=== PATIENT | female | born 1965 ===

== ENCOUNTER → 2020-10-14 11:26 | Outpatient (BNVA) | payer OTHER, SELFPAY | PROVIDERS: PCP Internal Medicine; Referring Provider Internal Medicine; Visit Provider Nurse Practitioner Gerontology | DX: Z76.89 Persons encountering health services in other specified circumstances (principal) ==

== ENCOUNTER 2020-10-30 12:34 | Outpatient (REF) | payer OTHER, SELFPAY | END 2020-10-30 12:35 | disposition home or self-care (01) | LOC: HO.MAMMO 12:34 | PROVIDERS: PCP Internal Medicine; Visit Provider Internal Medicine | DX: Z13.89 Encounter for screening for other disorder (principal) ==

== ENCOUNTER → 2020-11-18 10:25 | Outpatient (BNVA) | payer OTHER, SELFPAY | PROVIDERS: PCP Internal Medicine; Referring Provider Internal Medicine; Visit Provider Nurse Practitioner Gerontology | DX: Z76.89 Persons encountering health services in other specified circumstances (principal) ==

== ENCOUNTER 2021-01-20 11:24 | Outpatient (REF) | payer OTHER, SELFPAY ==
[2021-01-20 13:10] LABS: Estimated Average Glucose 148 mg/dL; Hemoglobin A1c % 6.8 %
[2021-01-20 13:43] LABS: Alanine Aminotransferase 24 U/L (0-31); Albumin Level 4.6 g/dL (3.5-5.0); Alkaline Phosphatase 62 U/L (39-117); Anion Gap 16 (12-20); Aspartate Amino Transferase 19 U/L (5-31); Bilirubin Total 0.4 mg/dL (0.0-1.0); Blood Urea Nitrogen 28 mg/dL (9-16); Calcium 10.2 mg/dL (8.4-10.2); Carbon Dioxide 33 mmol/L (22-29); Chloride 97 mmol/L (96-108); Cholesterol 143 mg/dL; Estimated Glomerular Filt Rate > 60; Glucose Fasting 132 mg/dL (60-99); HDL Cholesterol 44 mg/dL; LDL Cholesterol Calculated 65 mg/dl; Potassium 3.8 mmol/L (3.3-5.1); Sodium 142 mmol/L (135-145); Total Protein 7.5 g/dL (6.5-8.0); Triglycerides 171 mg/dL
[2021-01-24 13:17] LABS: Vitamin D 25-OH, D2 <4 ng/mL; Vitamin D 25-OH, D3 55 ng/mL; Vitamin D 25-OH, Total 55 ng/mL (30-100)
== END 2021-01-20 11:25 | disposition home or self-care (01) ==
LOC: HO.LAB 11:24
PROVIDERS: Nurse Practitioner Gerontology; PCP Internal Medicine; Visit Provider Internal Medicine
DX: R00.0 Tachycardia, unspecified (principal); E11.65 Type 2 diabetes mellitus with hyperglycemia; I10 Essential (primary) hypertension; E78.5 Hyperlipidemia, unspecified; E55.9 Vitamin D deficiency, unspecified; K21.9 Gastro-esophageal reflux disease without esophagitis; Z88.6 Allergy status to analgesic agent; Z90.49 Acquired absence of other specified parts of digestive tract; Z90.710 Acquired absence of both cervix and uterus; Z79.4 Long term (current) use of insulin; Z79.899 Other long term (current) drug therapy
CPT/HCPCS: 36415; 80053; 80061; 82306; 83036; 93005; 99202

== ENCOUNTER 2021-02-01 10:40 | Outpatient (REF) | payer OTHER, SELFPAY ==
--- NOTE | ~2021-02-01 | US_ITS ---
EXAMINATION: US RETROPERITONEAL LIMITED (RENAL ONLY) CLINICAL INFORMATION: Renal stones. COMPARISON: Renal ultrasound 08/10/2020 TECHNIQUE: Real-time imaging of the kidneys. FINDINGS: RIGHT KIDNEY: 10.2 x 4.6 x 5.0 cm (SAG x AP x TRV). The kidney is normal in size, contour, and echogenicity. Renal cortical thickness is normal. No hydronephrosis. There is an exophytic mid pole simple cyst measuring 2.6 x 2.5 x 2.9 cm. Midpole cortical cyst measures 1.5 cm. Appearance of a medullary sponge kidney with medullary calcification throughout. There is a lower pole calculus measuring 0.5 cm noted. There is an upper pole 0.7 cm calculus. LEFT KIDNEY: 10.6 x 4.9 x 7.2 cm (SAG x AP x TRV). The kidney is normal in size, contour, and echogenicity. Renal cortical thickness is normal. No hydronephrosis. Midpole simple cyst measures 4.9 x 4.4 x 4.5 cm. Appearance of medullary sponge kidney as well. Midpole 0.4 cm and 0.3 cm calculi noted. US/US renal BI IMPRESSION: No hydronephrosis. Appearance of medullary sponge kidney. Nonobstructing bilateral renal calculi, possibly decreased in prominence from prior. Bilateral renal cysts without significant change..
--- NOTE | ~2021-02-01 | XR_ITS ---
EXAMINATION: XR KNEE, RIGHT CLINICAL INFORMATION: Pain in the right knee COMPARISON: 07/12/2018 TECHNIQUE: Two views of the right knee. This includes AP upright view. FINDINGS: No fracture or subluxation. Compartmental joint spaces are maintained. Small tricompartmental marginal osteophytes, greatest at the lateral compartment. This is unchanged. No joint effusion. XR/XR knee RT 2V IMPRESSION: Mild tricompartmental degenerative change which is similar to prior.
== END 2021-02-01 10:41 | disposition home or self-care (01) ==
LOC: HO.US 10:40
PROVIDERS: Absent Provider Nurse Practitioner Family; PCP Internal Medicine; Visit Provider Urology
DX: M25.561 Pain in right knee (principal); N20.0 Calculus of kidney
CPT/HCPCS: 73560; 76775

== ENCOUNTER 2021-02-18 08:32 | Outpatient (REF) | payer OTHER, SELFPAY ==
[2021-02-18 09:46] LABS: MANUAL DIFF FLAG NO
[2021-02-18 09:54] LABS: Basophils Percent Auto 0.3 % (0-2); Eosinophils Absolute Auto 0.5 X10*3/uL (0.0-0.4); Hematocrit 42.7 % (37-47); Hemoglobin 13.5 g/dl (12.0-16.0); Imm Gran Abs Auto 0.02 X10*3/uL (0.00-0.03); Imm Gran Pct Auto 0.2 % (0.0-0.4); Lymphocytes Absolute Auto 3.9 X10*3/uL (1.2-4.9); Lymphocytes Percent Auto 36.1 % (20-40); Mean Corpuscular HGB Conc 31.6 g/dl (31.0-35.0); Mean Corpuscular Hemoglobin 26.5 pg (27.0-33.0); Mean Corpuscular Volume 83.9 fL (80-98); Mean Platelet Volume 10.5 fL (9.4-12.3); Monocytes Percent Auto 9.2 % (2-11); Neutrophils Absolute Auto 5.3 X10*3/uL (2.0-8.3); Neutrophils Percent Auto 49.2 % (45-73); Platelet Count 310 X10*3/uL (160-400); Red Blood Count 5.09 X10*6/uL (4.20-5.50); Red Cell Distribution Width 14.1 % (11.0-16.0); White Blood Count 10.9 X10*3/uL (4.8-10.8)
[2021-02-18 10:05] LABS: Estimated Average Glucose 140 mg/dL; Hemoglobin A1c % 6.5 %
[2021-02-18 10:21] LABS: Alanine Aminotransferase 26 U/L (0-31); Albumin Level 4.4 g/dL (3.5-5.0); Alkaline Phosphatase 66 U/L (39-117); Anion Gap 14 (12-20); Aspartate Amino Transferase 22 U/L (5-31); Bilirubin Total 0.4 mg/dL (0.0-1.0); Blood Urea Nitrogen 22 mg/dL (9-16); Calcium 9.8 mg/dL (8.4-10.2); Carbon Dioxide 35 mmol/L (22-29); Chloride 96 mmol/L (96-108); Cholesterol 120 mg/dL; Estimated Glomerular Filt Rate > 60; Glucose Fasting 110 mg/dL (60-99); HDL Cholesterol 39 mg/dL; LDL Cholesterol Calculated 58 mg/dl; Sodium 141 mmol/L (135-145); Triglycerides 118 mg/dL
[2021-02-18 10:42] LABS: Creatinine Urine 90.16 mg/dL; Microalbum/Creatinine Ratio Ur 236.2 ug/mg cr
[2021-02-24 11:32] LABS: Vitamin D 25-OH, D2 <4 ng/mL; Vitamin D 25-OH, D3 54 ng/mL; Vitamin D 25-OH, Total 54 ng/mL (30-100)
== END 2021-02-18 08:33 | disposition home or self-care (01) ==
LOC: HO.LAB 08:32
PROVIDERS: Nurse Practitioner Family; PCP Internal Medicine; Visit Provider Internal Medicine
DX: E11.22 Type 2 diabetes mellitus with diabetic chronic kidney disease (principal); I12.9 Hypertensive chronic kidney disease with stage 1 through stage 4 chronic kidney disease, or unspecified chronic kidney disease; N18.9 Chronic kidney disease, unspecified; D63.1 Anemia in chronic kidney disease; E11.40 Type 2 diabetes mellitus with diabetic neuropathy, unspecified; E11.65 Type 2 diabetes mellitus with hyperglycemia; E78.00 Pure hypercholesterolemia, unspecified; K21.9 Gastro-esophageal reflux disease without esophagitis; M10.9 Gout, unspecified; E55.9 Vitamin D deficiency, unspecified; E78.5 Hyperlipidemia, unspecified; Z79.84 Long term (current) use of oral hypoglycemic drugs; Z79.899 Other long term (current) drug therapy; Z79.4 Long term (current) use of insulin
CPT/HCPCS: 36415; 80053; 80061; 82043; 82306; 83036; 85025

== ENCOUNTER 2021-03-17 12:05 | Outpatient (REF) | payer OTHER, SELFPAY ==
--- NOTE | ~2021-03-17 | MM_ITS ---
EXAMINATION: MM SCREENING DIGITAL BREAST TOMOSYNTHESIS, BILATERAL CLINICAL INFORMATION: Screening. Asymptomatic. The lifetime risk of breast cancer based on the Tyrer-Cuzick Model is 7.3%. COMPARISON: Mammography: April 15, 2019 and studies dating back to April 10, 2012 TECHNIQUE: Digital breast tomosynthesis is performed in both the craniocaudal and mediolateral oblique views along with computer-aided detection (CAD). Synthesized 2D images are generated from the tomosynthesis. FINDINGS: There are scattered areas of fibroglandular density (ACR BI-RADS breast composition Category b). There are no significant masses, abnormal calcifications, or other abnormalities. MM/MM tomosynthesis screening BI IMPRESSION: There are no significant changes from prior study. ASSESSMENT: BI-RADS 1: Negative RECOMMENDATION: Routine annual mammography screening. This patient's information was entered into a reminder system with a target due date for their next mammogram.
== END 2021-03-17 12:06 | disposition home or self-care (01) ==
LOC: HO.MAMMO 12:05
PROVIDERS: PCP Internal Medicine; Visit Provider Internal Medicine
DX: Z12.31 Encounter for screening mammogram for malignant neoplasm of breast (principal)
CPT/HCPCS: 77063; 77067

== ENCOUNTER → 2021-04-09 09:14 | Outpatient (REF) | payer OTHER, SELFPAY ==
--- NOTE | 2021-04-09 09:22 | ECG_ITS ---
Hook-up date: 2021-04-09 10:14:00 Duration: 47:59:00 Test Indications: PALPITATIONS Medications: [id number] QRS complexes 641 Ventricular ectopics which represent <1 % of total QRS comp. 35 Supraventricular ectopics which represent <1 % of total QRS comp. * Paced QRS complexs which represent % of total QRS comp. VENTRICULAR ECTOPY 641 Isolated 0 Bigeminal Cycles 0 Couplets 0 Runs 0 Beats in Runs * Beats LONGEST at * BPM at :: -- * Beats FASTEST at * BPM at :: -- SUPRAVENTRICULAR ECTOPY 21 Isolated 0 Couplets 0 Runs 0 Beats in Runs * Beats LONGEST at * BPM at :: -- * Beats FASTEST at * BPM at :: -- HEART RATES 55 MIN at 05:54:55 2021-04-10 86 AVG 135 MAX at 15:02:38 2021-04-10 LONGEST RR 1.1520 secs at 05:54:51 2021-04-10 S-T LEVELS Channel 1 - 128 mm at 10:14:00 2021-04-09 - 128 mm at 10:14:00 2021-04-09 Channel 2 - 128 mm at 10:14:00 2021-04-09 - 128 mm at 10:14:00 2021-04-09 Channel 3 - 128 mm at 02:93:31 -- - 128 mm at 02:93:31 Basic rhythm Normal sinus rhythm No long pause or profound bradycardia Occasional Premature ventricular complexes Patient reported symptoms of palpitations correlated with NSR Referred By: Danielito Mcgarry Overread By: JONATHAN MASTERS MD
--- NOTE | 2021-04-09 09:22 | CA_ITS ---
Transthoracic Echocardiogram Patient (Last, First, Middle): Lisa Cooney, Gender: Female Date of : 1965 Age: 55 Procedure Date: 04/09/2021 Procedure Type: Transthoracic Echocardiogram Location: OP Height: 154.94 cm Weight: 68.95 kg BSA: 1.68 m2 Heart Rate: bpm BP: 130 / 80 mmHg Gift Manager: DENIA Referring MD: Danielito Mcgarry MD Symptoms: R00.2 - Palpitations Study Quality: Good Conclusions: - Normal biventricular function. - No significant valvular or pericardial pathology. - Normal PA pressures. Findings Left Ventricle Normal left ventricular size, thickness, systolic function, and wall motion. The visually estimated ejection fraction is between 55-60%. Diastolic function is normal for age. Right Ventricle Normal right ventricular cavity size and systolic function. Atria Both atria are normal in size. Aortic Valve Normal aortic valve structure and function. There is no aortic valve stenosis. There is no aortic valve regurgitation. Mitral Valve Normal mitral valve structure and function. There is no mitral valve regurgitation. There is no mitral valve stenosis. Pulmonic Valve The pulmonic valve is likely normal. Tricuspid Valve Normal tricuspid valve structure and function. There is trace tricuspid valve regurgitation. Normal right atrial pressure. There is no evidence of pulmonary hypertension. Great Vessels All visible segments of the aorta are normal in size. The visualized portions of the pulmonary artery and branches are normal. Venous The inferior vena cava is normal in size and collapses greater than 50% with inspiration. Pericardium/Pleural Prominent epicardial adipose tissue noted. There is no evidence of pericardial effusion. Prior Study Comparison No prior study available for comparison. Measurements 2D Linear Measurements IVSd: 0.89 0.6-0.9/0.6-1.0 cm LVIDd: 3.81 3.9-5.3/4.2-5.9 cm LVIDd Index: 2.27 2.4-3.2/2.2-3.1 cm/m2 LVIDs: 2.59 2.0-3.6 cm LVPWd: 0.84 0.7-1.1 cm Ao Root: 2.80 2.1-3.5 cm LA Diam: 3.30 2.7-3.8/3.0-4.0 cm LAIDs Index: 1.96 1.5-2.3 cm/m2 LV Mass: 119.31 67-162/88-224 g LV Mass Index: 71.02 43-95/49-115 g/m2 LVOT Diam: 2.00 3.0+(-)1.3 cm 2D Systolic Function EF 4C: 55.40 >55% EF 2C: 62.20 >55% EF BiP: 58.10 >55% Mitral Valve MV Pk E: 0.59 MV PK A: 0.85 MV Decel Time: 200.00 E/A: 0.70 E'Lateral: 10.30 E'Medial: 6.64 E/E' Med: 8.90 E/E' Lat: 5.80 PHT: 59.00 MVA PHT: 3.73 Decel Isabella: 2.97 Aortic Valve AoV Pk Giorgio: 1.28 AoV Mn Giorgio: 0.95 AoV VTI: 0.28 AoV Pk Grad: 7.00 Aov Mn Grad: 4.00 GERMAN Cont.VTI: 2.21 LVOT LVOT Pk Giorgio: 0.88 LVOT Mn Giorgio: 0.55 LVOT VTI: 0.20 LVOT Pk Grad: 3.00 LVOT Mn Grad: 1.00 LVOT Diam: 2.00 LVOT Area: 3.14 Diastolic Function MV Pk E: 0.59 MV Pk A: 0.85 E/A: 0.70 E'Medial: 6.64 E/E' Med: 8.90 E' Laterial: 10.30 E/E' Lat: 5.80 Tricuspid Valve TR Pk Giorgio: 1.82 TR Pk Grad: 13.00 RA Press: 3.00 RVSP: 16.00 Great Vessels Aorta Ao Root-2D: 2.80 2.0-3.7 cm Ao Asc: 3.10 2.1-3.4 cm Ao Arch: 2.60 Updated in Other Vendor System with Status of Final Alexandru Trivedi MD electronically signed on 04/10/2021 5:21:03 PM with status of Final
== END ==
LOC: HO.CARD 09:14
PROVIDERS: Visit Provider Internal Medicine
DX: R00.2 Palpitations (principal)
CPT/HCPCS: 93225; 93226; 93306

== ENCOUNTER → 2021-04-22 12:43 | Outpatient (BNVA) | payer OTHER, SELFPAY | PROVIDERS: PCP Internal Medicine; Referring Provider Internal Medicine; Visit Provider Internal Medicine | DX: I49.3 Ventricular premature depolarization (principal); R00.2 Palpitations; E11.8 Type 2 diabetes mellitus with unspecified complications; E78.5 Hyperlipidemia, unspecified; I10 Essential (primary) hypertension | CPT/HCPCS: 99212 ==

== ENCOUNTER → 2021-04-27 10:44 | Outpatient (BNVA) | payer OTHER, SELFPAY | PROVIDERS: PCP Internal Medicine; Visit Provider Urology ==

== ENCOUNTER → 2021-05-19 12:41 | Outpatient (BNVA) | payer OTHER, SELFPAY | PROVIDERS: PCP Internal Medicine; Visit Provider Nurse Practitioner Gerontology | DX: E11.65 Type 2 diabetes mellitus with hyperglycemia (principal); E78.5 Hyperlipidemia, unspecified; E55.9 Vitamin D deficiency, unspecified; I10 Essential (primary) hypertension; Z79.4 Long term (current) use of insulin | CPT/HCPCS: 82947; 99212 ==

== ENCOUNTER → 2021-06-09 11:19 | Outpatient (BNVA) | payer OTHER, SELFPAY | PROVIDERS: PCP Internal Medicine; Visit Provider Internal Medicine Endocrinology, Diabetes & Metabolism | DX: D35.01 Benign neoplasm of right adrenal gland (principal) | CPT/HCPCS: 99212 ==

== ENCOUNTER 2021-07-23 08:38 | Day surgery (SDC) | payer OTHER, SELFPAY ==
[2021-07-16 10:41] VITALS: BMI 27.3
--- NOTE | 2021-07-22 10:37 | P.CONAN_ITS ---
Documented by User: Deborah Marsh NP 07/22/21 10:40 HPI - Anesthesia Eval Consult details Narrative: 55yo F for Upper Endoscopy 03/2021 Cardiac w/u for palps. Found r/t PVC. [facility] Active Problems Active Problems: All Active Problems (Updated 06/09/21 @ 12:05 by Mya Crespo MD) Heart palpitations (Acute) Other and unspecified hyperlipidemia (Acute) PVC (premature ventricular contraction) (Acute) Nephrolithiasis (Acute) Adrenal cortical adenoma of right adrenal gland (Acute) Right knee pain (Acute) Type 2 diabetes mellitus with unspecified complications (Acute) Tachycardia (Acute) Type 2 diabetes mellitus with hyperglycemia, with long-term current use of insulin (Acute) Vitamin D deficiency (Acute) Essential hypertension (Acute) Hyperlipidemia LDL goal <100 (Acute) Past Medical History Medical History Adrenal cortical adenoma of right adrenal gland Adrenal nodule Carcinoid tumor of stomach Chronic kidney disease Essential hypertension GERD (gastroesophageal reflux disease) Gout Hx of renal calculi Hyperlipidemia LDL goal <100 Right knee pain Stomach ulcer Tachycardia Type 2 diabetes mellitus with hyperglycemia, with long-term current use of insulin Type 2 diabetes mellitus with unspecified complications Vitamin D deficiency Family History Family History Father CVD (cardiovascular disease) Stomach cancer Mother Diabetes Surgical History Surgical History H/O colonoscopy History of esophagogastroduodenoscopy (EGD) History of gastric polyp Hx of cholecystectomy Hx of cystoscopy Hx of hysterectomy Hx of lithotripsy Social History Social History Household Members: Family Housing: Apartment Alcohol intake: never Patient Tobacco Use Status: Never used Tobacco e-Cigarette/Vaping Use: Never Used Second Hand Smoke Exposure: No Advance Directives Information Provided: No service: No Current occupational status: unemployed Meds Allergies Allergy/AdvReac Type Severity Reaction Status Date / Time aspirin [ASPIRIN] Allergy Severe HX ULCER Verified 05/20/21 16:12 NSAIDS (Non-Steroidal Allergy Severe HX ULCER Verified 05/20/21 16:12 Anti-Inflamma [NSAIDS] Home Medications Medication Instructions Recorded Confirmed Last Taken Type blood sugar diagnostic #10 ea 09/02/20 06/09/21 Unknown History blood-glucose meter #1 ea 10/14/20 06/09/21 Unknown History insulin glargine 100 unit/mL (3 20 unit SUBCUT DAILY 07/16/21 07/16/21 Unknown History mL) subcutaneous pen (Lantus Solostar U-100 Insulin) Exam Exam Date and Time: July 22, 2021 1037 Height,Weight and Vital Signs: Height 5 ft 1 in Weight 65.771 kg Pertinent Lab Results Pertinent Lab Results: Laboratory Tests 02/18/21 02/18/21 08:45 08:45 WBC 10.9 H Hgb 13.5 Hct 42.7 Plt Count 310 Sodium 141 Potassium 4.0 Chloride 96 Carbon Dioxide 35 H BUN 22 H Creatinine 0.86 Narrative Narrative: EKG 12/2020 Sinus rhythm at 94/Min; leftward axis; cannot exclude old anterolateral infarct.? Could also be from body habitus.? Anterolateral changes are slightly more prominent in the current EKG but that could be from lead positioning. ECHO 03/2021 Conclusions: - Normal biventricular function. ? - No significant valvular or pericardial pathology.? - Normal PA pressures. ? Holter 03/2021 Basic rhythm Normal sinus rhythm No long pause or profound bradycardia Occasional Premature ventricular complexes Patient reported symptoms of palpitations correlated with NSR Assessment and Plan Assessment Anesthesia Assessment: Chart Reviewed Documented by User: Nuzhat Luciano MD 07/23/21 09:21 [facility] Past Medical History Medical History Adrenal cortical adenoma of right adrenal gland Adrenal nodule Carcinoid tumor of stomach Chronic kidney disease Essential hypertension GERD (gastroesophageal reflux disease) Gout Hx of renal calculi Hyperlipidemia LDL goal <100 Right knee pain Stomach ulcer Tachycardia Type 2 diabetes mellitus with hyperglycemia, with long-term current use of insulin Type 2 diabetes mellitus with unspecified complications Vitamin D deficiency Family History Family History Father CVD (cardiovascular disease) Stomach cancer Mother Diabetes Family history of problems with anesthesia: No Surgical History Surgical History H/O colonoscopy History of esophagogastroduodenoscopy (EGD) History of gastric polyp Hx of cholecystectomy Hx of cystoscopy Hx of hysterectomy Hx of lithotripsy History of Problems with Anesthesia: No Social History Social History Household Members: Family Housing: Apartment Alcohol intake: never Patient Tobacco Use Status: Never used Tobacco e-Cigarette/Vaping Use: Never Used Second Hand Smoke Exposure: No Advance Directives Information Provided: No service: No Current occupational status: unemployed Meds Allergies Allergy/AdvReac Type Severity Reaction Status Date / Time aspirin [ASPIRIN] Allergy Severe HX ULCER Verified 05/20/21 16:12 NSAIDS (Non-Steroidal Allergy Severe HX ULCER Verified 05/20/21 16:12 Anti-Inflamma [NSAIDS] Home Medications Medication Instructions Recorded Confirmed Last Taken Type blood sugar diagnostic #10 ea 09/02/20 06/09/21 Unknown History blood-glucose meter #1 ea 10/14/20 06/09/21 Unknown History insulin glargine 100 unit/mL (3 20 unit SUBCUT DAILY 07/16/21 07/16/21 Unknown History mL) subcutaneous pen (Lantus Solostar U-100 Insulin) Exam Height,Weight and Vital Signs: Height 5 ft 1 in Weight 65.771 kg Vital Signs Temp Pulse Resp BP Pulse Ox 07/23/21 09:01 98.0 F 83 16 121/70 98 Airway Mallampati Class: II TM Dist: >3cm Neck ROM: Full Heart: RRR Lungs: CTAB Assessment and Plan Assessment Anesthesia Assessment: Anesthesia Plan Discussed Final Anesthetic Review Family History of Problems with Anesthesia: No History of Problems with Anesthesia: No NPO: Yes ASA Class: III Final Preanesthetic Review: No Changes in Pt Med Stat, Meds/Allgs Chart Reviewed, Consent Obtained/Reviewed and Anes Risks/Benef Reviewed Patient Risk: Intermediate Procedure Risk: Low Assessment/Block/Sedation in SS: Assess/Block/Sedation-SS Anesthetic Plan Anesthetic Plan: MAC: Disposition: Standard PACU
[2021-07-23 09:01] VITALS: BP 121/70; PULSE 83; RESP 16; TEMP 36.7; O2SAT 98
[2021-07-23 09:21] LABS: Glucose, Whole Blood 117 mg/dL (60-115)
[2021-07-23] MEDS: Lactated Ringers 1,000 ML 100 ML IVCONT (09:27)
--- NOTE | 2021-07-23 09:59 | P.HPSUR_ITS ---
Pre-Procedural Eval Section A Date of Service: 07/23/21 Section B Chief Complaint: Epigastric Pain, Stomach Tumor Details of Present Illness: see H&P no changes Relevant Family History (Specify if Yes): No Relevant Social History: None Present Medications: None Medical History: No relevant PMH History of Previous Operations: No relevant previous surgery Allergies: Allergies Allergy/AdvReac Type Severity Reaction Status Date / Time aspirin [ASPIRIN] Allergy Severe HX ULCER Verified 05/20/21 16:12 NSAIDS (Non-Steroidal Allergy Severe HX ULCER Verified 05/20/21 16:12 Anti-Inflamma [NSAIDS] Review of Systems Sugical H&P ROS: Negative: Constitution, Cardiovascular, Respiratory, Neurological, Psychiatric, Hem-Onc, Allergic/Immunologic, Gastrointestinal, Genitourinary, Musculoskeletal, Integumentary, Endocrine and Eyes/ Ears/Nose/Throat Exam Surgical H&P Exam: Normal: HEENT, Normal: Heart, Normal: Lungs, Normal: Extremities, Normal: Abdomen, Normal: Skin and Normal: Neurological Plan Diagnosis/Plan: Unchanged I have reviewed the history and physical and performed a pertinent physical examination on my patient. No changes have occurred unless specified.
[2021-07-23 10:41] VITALS: BP 108/66; PULSE 86; RESP 16; TEMP 36.9; O2SAT 94
--- NOTE | 2021-07-23 10:47 | PM.OP ---
Brief Operative Note Date of Service: 07/23/21 Pre-op diagnosis: abnl ct scan, gastric carcinoids Post-op diagnosis: same (gastric polyps erosive gastritis) Procedure: egd, push enteroscopy Surgeon: Jj Mullins Anesthesia: MAC Was an Real Estate Leasing Agent used for this Procedure?: No Estimated blood loss (mL): 5 Pathology: other (see nurses notes) Condition: stable Disposition: PACU
[2021-07-23 10:54] VITALS: BP 124/62; PULSE 81; RESP 16; O2SAT 96
--- NOTE | 2021-07-23 14:02 | OP_ITS ---
SURGEON: Jj Mullins MD INDICATIONS: Abnormal CAT scan and history of gastric carcinoids. PREOPERATIVE DIAGNOSIS: POSTOPERATIVE DIAGNOSIS: PROCEDURE PERFORMED: Upper endoscopy with push enteroscopy and biopsy. ESTIMATED BLOOD LOSS: COMPLICATIONS: ANESTHESIA: ASSISTANTS: SPECIMENS: MEDICATIONS: Monitored anesthesia care. DESCRIPTION OF PROCEDURE: History and physical performed. The risks and benefits of the procedure were explained to the patient. Informed consent was obtained. The patient was placed in the left lateral decubitus position. The Olympus video gastroscope was introduced into the esophagus, stomach, and duodenum. Examination was performed and the scope was removed. The Olympus pediatric colonoscope was then advanced into the duodenum and push enteroscopy was performed. Examination was performed and the scope was removed. She tolerated both procedures well and was returned to recovery area in stable condition. FINDINGS: UPPER ENDOSCOPY: Esophagus: The esophagus was normal. Stomach: The stomach showed multiple benign-appearing gastric polyps. The largest measured approximately 15 mm. Some appeared mildly inflamed. Biopsies were obtained from the largest 3 polyps. There were linear erosions on the posterior wall in the antrum, measuring approximately 3 mm x 35 mm. These were biopsied. Antral biopsies were also obtained. Duodenum: The bulb and second portion were normal. Push enteroscopy was performed. The scope was advanced to 130 cm, which was approximately 70 cm beyond the pylorus based on measurements. The mucosa of the duodenum and jejunum appeared normal. No masses were identified. No obvious tumors were seen. Biopsies were obtained from the small intestine at 130 cm, 70 cm, and from the duodenum. IMPRESSION: 1. Erosive gastritis. 2. Gastric polyps. RECOMMENDATION: Follow up the biopsy results. MD CHAVA Luong/AYSHAL / [id number]
== END 2021-07-23 11:47 | disposition home or self-care (01) ==
PROVIDERS: PCP Internal Medicine; Visit Provider Internal Medicine Gastroenterology
PROC: 0DJ08ZZ Inspection of Upper Intestinal Tract, Via Natural or Artificial Opening Endoscopic (ICD-10-PCS; CPT 43235; principal; 2021-07-23 09:50)
DX: K29.60 Other gastritis without bleeding (principal); K31.7 Polyp of stomach and duodenum; Z86.012 Personal history of benign carcinoid tumor; E11.9 Type 2 diabetes mellitus without complications; I10 Essential (primary) hypertension; Z79.4 Long term (current) use of insulin; Z79.899 Other long term (current) drug therapy
CPT/HCPCS: 44361; 82947; 88305; 88342

== ENCOUNTER → 2021-09-22 13:39 | Outpatient (BNVA) | payer OTHER, SELFPAY | PROVIDERS: PCP Internal Medicine; Visit Provider Internal Medicine ==

== ENCOUNTER 2021-10-30 17:56 | Emergency (ER) | payer OTHER, SELFPAY ==
--- NOTE | ~2021-10-30 | XR_ITS ---
EXAMINATION: XR KNEE, LEFT CLINICAL INFORMATION: Pain and swelling. COMPARISON: Left knee radiographs from 07/12/2018. TECHNIQUE: 4 views of the left knee (AP, lateral, and bilateral oblique views). FINDINGS: No fracture or dislocation of the left knee. No lytic or sclerotic osseous lesions. No cortical erosions. Moderate marginal osteophytosis of the lateral tibiofemoral compartment and superolateral patella. Mild loss of the medial tibiofemoral compartment. Otherwise, the tibiofemoral joint space appears well-preserved. Previous imaging demonstrated severe loss of lateral patellofemoral joint space. Chronic small partially ossified structure within the posteromedial joint space. No new radiopaque intra-articular bodies. Moderate suprapatellar joint effusion. No radiopaque foreign bodies. XR/XR knee LT 4V IMPRESSION: 1. No evidence of acute fracture or traumatic subluxation of the left knee. 2. Moderate degenerative arthropathy of the left knee. Previous dedicated imaging of the patella better demonstrated severe arthrosis of the lateral patellofemoral compartment. 3. Moderate knee joint effusion.
[2021-10-30 19:01] VITALS: BP 137/77; PULSE 99; RESP 16; TEMP 36.8; O2SAT 100; BMI 27.4
--- NOTE | 2021-10-30 20:40 | ED.GENADULT ---
HPI - General Adult General Chief complaint: Extremity Injury, Lower Stated complaint: L Knee pain Time Seen by Provider: 10/30/21 20:39 Source: patient Mode of arrival: ambulatory Limitations: no limitations History of Present Illness HPI narrative: Patient with chronic arthritis of the left knee and hip getting worse for last few days with increased swelling no direct trauma no fever no skin changes patient has not seen orthopedics in the past never had any MRI pain gets worse when she wakes up in the morning gets stiff early in the morning left knee is more problem than the right knee Related Data Home Medications Medication Instructions Recorded Confirmed blood sugar diagnostic #10 ea 09/02/20 09/28/21 blood-glucose meter #1 ea 10/14/20 09/28/21 insulin glargine 100 unit/mL (3 20 unit SUBCUT DAILY 07/16/21 09/28/21 mL) subcutaneous pen (Lantus Solostar U-100 Insulin) Previous Rx's Medication Instructions Recorded allopurinol 100 mg tablet 100 mg PO DAILY 90 Days #90 tab 12/24/20 cholecalciferol (vitamin D3) 25 25 mcg PO DAILY #30 cap 12/24/20 mcg (1,000 unit) capsule meclizine 25 mg tablet 25 mg PO DAILY 30 Days #30 tab 12/24/20 omeprazole 40 mg capsule,delayed 40 mg PO DAILY 90 Days #90 cap 12/24/20 release pen needle, diabetic 32 gauge x #50 ea 12/24/20 [id number]-[id number]-zioajdyu 1 tab PO Q6H PRN 30 Days #30 tab 02/17/21 50 mg-325 mg-40 mg tablet simvastatin 40 mg tablet 40 mg PO BEDTIME #90 tab 05/29/21 metformin 1,000 mg tablet 1,000 mg PO BID #60 tab 06/21/21 dulaglutide 1.5 mg/0.5 mL 1.5 mg (0.5 mL) SUBCUT QWEEK 30 07/28/21 subcutaneous pen injector Days #2.5 ml (Trulicity) potassium citrate 10 mEq (1,080 20 meq PO BID #120 tab 08/01/21 mg) tablet,extended release hydrochlorothiazide 25 mg tablet 25 mg PO DAILY 90 Days #90 tab 08/28/21 losartan 25 mg tablet 25 mg PO DAILY 90 Days #90 tab 08/28/21 diclofenac epolamine 1.3 % 1 patch TOPICAL BID #30 ea 10/30/21 transdermal 12 hour patch oxycodone-acetaminophen 5 mg-325 1 tab PO Q6H PRN #20 tab 10/30/21 mg tablet (Percocet) prednisone 20 mg tablet 40 mg PO DAILY #10 tab 10/30/21 Allergies Allergy/AdvReac Type Severity Reaction Status Date / Time aspirin [ASPIRIN] Allergy Severe HX ULCER Verified 09/28/21 16:10 NSAIDS (Non-Steroidal Allergy Severe HX ULCER Verified 09/28/21 16:10 Anti-Inflamma [NSAIDS] Review of Systems Review of Systems: Yes all other systems are reviewed and are negative [facility] Past Medical History Medical History Adrenal cortical adenoma of right adrenal gland Adrenal nodule Carcinoid tumor of stomach Chronic kidney disease Essential hypertension GERD (gastroesophageal reflux disease) Gout Hx of renal calculi Hypercalcemia Hypercortisolism Hyperlipidemia LDL goal <100 Polyarthralgia Right knee pain Stomach ulcer Tachycardia Type 2 diabetes mellitus with hyperglycemia, with long-term current use of insulin Type 2 diabetes mellitus with unspecified complications Vitamin D deficiency Vitamin D deficiency Surgical History H/O colonoscopy History of esophagogastroduodenoscopy (EGD) History of gastric polyp Hx of cholecystectomy Hx of cystoscopy Hx of hysterectomy Hx of lithotripsy Family History Family History Father CVD (cardiovascular disease) Stomach cancer Mother Diabetes Social History Social History Household Members: Family Housing: Apartment Alcohol intake: never Patient Tobacco Use Status: Never used Tobacco e-Cigarette/Vaping Use: Never Used Second Hand Smoke Exposure: No Advance Directives: No Advance Directives Information Provided: Yes Patient : No service: No Current occupational status: unemployed Physical Exam Vital Signs: Vital Signs: Last Vital Signs Temp 98.2 F 10/30/21 19:01 Pulse 99 10/30/21 19:01 Resp 16 10/30/21 19:01 BP 137/77 10/30/21 19:01 Pulse Ox 100 10/30/21 19:01 BMI result Body Mass Index 27.4 Const: General: comfortable Orientation/consciousness: patient oriented x3 HENMT: Head: Yes normocephalic Resp: Effort & Inspection: normal respiratory effort Auscultation: clear to auscultation bilaterally Cardio: Palpation: normal PMI Rate: regular rate Rhythm: regular rhythm Heart sounds: S1 normal heart sound present and S2 normal heart sound present Neuro: General: patient oriented x3 Extrem: Knee images: 1. Diffuse tenderness with mild effusion limited extension because of pain Discharge Plan Discharge Clinical Impression: Osteoarthritis of left knee Qualifiers: Osteoarthritis type: primary Qualified Code(s): M17.12 - Unilateral primary osteoarthritis, left knee Patient Disposition: Home, Self-Care Instructions: Osteoarthritis (ED) Additional Instructions: Rest your left knee About going upstairs and downstairs Take pain medication and prednisone for inflammation as advised Follow-up with orthopedic Prescriptions: New prednisone 20 mg tablet 40 mg PO DAILY Qty: 10 RF: 0 oxycodone-acetaminophen [Percocet] 5-325 mg tablet 1 tab PO Q6H PRN (Reason: pain) Qty: 20 RF: 0 diclofenac epolamine 1.3 % patch 12 hour 1 patch topical BID Qty: 30 RF: 0 No Action (DME) pen needle, diabetic 32 gauge x 5/32 needle See Rx Instructions ea subcut DAILY Qty: 50 RF: 11 omeprazole 40 mg capsule,delayed release(DR/EC) 40 mg PO DAILY 90 Days Qty: 90 RF: 3 meclizine 25 mg tablet 25 mg PO DAILY 30 Days Qty: 30 RF: 3 cholecalciferol (vitamin D3) 25 mcg (1,000 unit) capsule 25 mcg PO DAILY Qty: 30 RF: 11 allopurinol 100 mg tablet 100 mg PO DAILY 90 Days Qty: 90 RF: 2 simvastatin 40 mg tablet 40 mg PO BEDTIME Qty: 90 RF: 1 metformin 1,000 mg tablet 1,000 mg PO BID Qty: 60 RF: 3 Trulicity 1.5 mg/0.5 mL pen injector 1.5 mg subcut QWEEK 30 Days Qty: 2.5 RF: 3 potassium citrate 10 mEq (1,080 mg) tablet extended release 20 meq PO BID Qty: 120 RF: 2 hydrochlorothiazide 25 mg tablet 25 mg PO DAILY 90 Days Qty: 90 RF: 1 losartan 25 mg tablet 25 mg PO DAILY 90 Days Qty: 90 RF: 1 Lantus Solostar U-100 Insulin 100 unit/mL (3 mL) insulin pen 20 unit subcut DAILY RF: 0 jdozfljpvt-ocflzojiesren-dvbb 50-325-40 mg tablet 1 tab PO Q6H PRN (Reason: pain) 30 Days Qty: 30 RF: 0 (DME) blood sugar diagnostic Strip See Rx Instructions strip .ROUTE .MEDSUPPLY Qty: 10 RF: 0 (DME) blood-glucose meter Kit See Rx Instructions ea .ROUTE .MEDSUPPLY Qty: 1 RF: 0 Referrals: Howie Kim MD [Physician] - 2 weeks Interventions: ED Discharge Assessment Last Done: 10/30/21 21:22 Discharge Date/Time: 10/30/21 21:25
--- NOTE | 2021-10-30 21:21 | PC.NURSE ---
PT LEFT BEFORE MEDICATION WAS ABLE TO BE GIVEN SCRIPT TO PHARMACY.
== END 2021-10-30 21:25 | disposition home or self-care (01) ==
PROVIDERS: Emergency Provider Internal Medicine; PCP Internal Medicine
DX: M17.12 Unilateral primary osteoarthritis, left knee (principal); M25.562 Pain in left knee; M25.462 Effusion, left knee; E11.22 Type 2 diabetes mellitus with diabetic chronic kidney disease; I12.9 Hypertensive chronic kidney disease with stage 1 through stage 4 chronic kidney disease, or unspecified chronic kidney disease; N18.9 Chronic kidney disease, unspecified; Z79.4 Long term (current) use of insulin
CPT/HCPCS: 73564; 99283; 99284

== ENCOUNTER 2021-11-08 | Outpatient (REF) | payer OTHER, SELFPAY ==
[2021-11-16 21:57] LABS: Saliva Cortisol 0.04 mcg/dL
== END 2021-11-08 00:01 | disposition home or self-care (01) ==
LOC: HO.LNP
PROVIDERS: Visit Provider Internal Medicine
DX: D35.00 Benign neoplasm of unspecified adrenal gland (principal)
CPT/HCPCS: 82530

== ENCOUNTER 2021-11-09 06:31 | Outpatient (REF) | payer OTHER, SELFPAY ==
[2021-11-09 07:17] LABS: MANUAL DIFF FLAG NO
[2021-11-09 07:34] LABS: Basophils Percent Auto 0.3 % (0-2); Eosinophils Absolute Auto 0.5 X10*3/uL (0.0-0.4); Hematocrit 41.3 % (37.0-47.0); Hemoglobin 13.4 g/dl (12.0-16.0); Imm Gran Abs Auto 0.09 X10*3/uL (0.00-0.03); Imm Gran Pct Auto 0.7 % (0.0-0.4); Lymphocytes Absolute Auto 4.2 X10*3/uL (1.2-4.9); Lymphocytes Percent Auto 31.8 % (20-40); Mean Corpuscular HGB Conc 32.4 g/dl (31.0-35.0); Mean Corpuscular Hemoglobin 27.6 pg (27.0-33.0); Mean Corpuscular Volume 85.2 fL (80.0-98.0); Monocytes Absolute Auto 1.2 X10*3/uL (0.1-1.2); Monocytes Percent Auto 8.8 % (2-11); Neutrophils Absolute Auto 7.1 x10*3/uL (2.0-8.3); Neutrophils Percent Auto 54.4 % (45-73); Platelet Count 356 X10*3/uL (160-400); Red Blood Count 4.85 X10*6/uL (4.20-5.50); Red Cell Distribution Width 13.9 % (11.0-16.0); White Blood Count 13.1 X10*3/uL (4.8-10.8)
[2021-11-09 07:53] LABS: Alanine Aminotransferase 26 U/L (0-31); Albumin Level 4.1 g/dL (3.5-5.0); Alkaline Phosphatase 60 U/L (39-117); Anion Gap 11 (12-20); Aspartate Amino Transferase 15 U/L (5-31); Bilirubin Total 0.3 mg/dL (0.0-1.0); Blood Urea Nitrogen 23 mg/dL (9-16); Calcium 10.1 mg/dL (8.4-10.2); Carbon Dioxide 32 mmol/L (22-29); Chloride 100 mmol/L (96-108); Cholesterol 128 mg/dL; Estimated Glomerular Filt Rate > 60; Glucose Fasting 130 mg/dL (60-99); HDL Cholesterol 44 mg/dL; LDL Cholesterol Calculated 62 mg/dl; Phosphorus 3.6 mg/dL (2.7-4.5); Potassium 3.9 mmol/L (3.3-5.1); Sodium 139 mmol/L (135-145); Total Protein 6.9 g/dL (6.5-8.0); Triglycerides 113 mg/dL
[2021-11-09 08:10] LABS: Creatinine Urine 62.08 mg/dL; Microalbum/Creatinine Ratio Ur 143.3 ug/mg cr
[2021-11-09 08:13] LABS: Vitamin D 25-OH Total 49.8 ng/mL (>30)
[2021-11-09 08:41] LABS: Vitamin B12 463 pg/mL (200-900)
[2021-11-09 08:52] LABS: Cortisol Random 7.8 ug/dL
[2021-11-10 05:41] LABS: DHEA Sulfate 18 mcg/dL (8-188)
[2021-11-10 20:47] LABS: Adrenocorticotropic Hormone 8 pg/mL (6-50)
[2021-11-12 10:07] LABS: Corticosteroid Bind Globulin 3.8 mg/dL (1.9-4.5)
[2021-11-13 11:51] LABS: Metanephrine, Free 48 pg/mL (<=57); Normetanephrines, Free 61 pg/mL (<=148); Total Metanephrine, Free 109 pg/mL (<=205)
[2021-11-13 12:06] LABS: Vitamin D 25-OH, D2 <4 ng/mL; Vitamin D 25-OH, D3 37 ng/mL; Vitamin D 25-OH, Total 37 ng/mL (30-100)
[2021-11-13 21:02] LABS: Intrinsic Factor Antibodies Negative (Negative)
[2021-11-13 23:11] LABS: Parietal Cell Antibody <=20.0 Unit (<=20.0)
[2021-11-16 12:21] LABS: Calcium (PTHI) 10.2 mg/dL (8.6-10.4)
[2021-11-17 04:31] LABS: Renin 3.27 ng/mL/h (0.25-5.82)
[2021-11-24 15:32] LABS: Catecholamine Frac, Total 335 pg/mL
== END 2021-11-09 06:32 | disposition home or self-care (01) ==
LOC: HO.LAB 06:31
PROVIDERS: Absent Provider Internal Medicine; PCP Internal Medicine; Visit Provider Internal Medicine
DX: D35.00 Benign neoplasm of unspecified adrenal gland (principal); E83.52 Hypercalcemia; D3A.092 Benign carcinoid tumor of the stomach; E24.9 Cushing's syndrome, unspecified; E78.5 Hyperlipidemia, unspecified; E11.8 Type 2 diabetes mellitus with unspecified complications
CPT/HCPCS: 36415; 80053; 80061; 82024; 82043; 82088; 82306; 82384; 82533; 82607; 82627; 83516; 83835; 83970; 84100; 84244; 84449; 85025; 86340

== ENCOUNTER 2021-11-22 12:14 | Outpatient (REF) | payer OTHER, SELFPAY ==
--- NOTE | ~2021-11-22 | XR_ITS ---
EXAMINATION: XR BILATERAL KNEE SERIES CLINICAL INFORMATION: Knee pain COMPARISON: X-rays of the left knee 10/30/2021, x-ray the right knee January 2021 TECHNIQUE: AP upright view of both knees. Patella and lateral view of the left knee. FINDINGS: LEFT KNEE: Lateral compartment: Marginal osteophytes without joint space narrowing unchanged indicative of at least mild osteoarthritis. Medial compartment: Small marginal osteophytes unchanged without joint space narrowing indicative of at least mild osteoarthritis. Patellofemoral compartment: Nonuniform joint space narrowing mostly of the lateral aspect of the compartment along with marginal osteophytes. Ossific density adjacent to the lateral patella may reflect a ossicle embedded within the retinaculum or loose body. This is unchanged. Findings indicative of at least moderate osteoarthritis. There is no effusion. Multiple ossific fragments noted anteriorly and posteriorly in the anterior posterior recesses likely reflecting loose bodies unchanged. RIGHT KNEE LIMITED: Marginal osteophytes about the lateral compartment indicative of at least mild osteoarthritis unchanged. Medial compartment unremarkable. Probable loose body overlying the medial medial compartment unchanged compared to prior. XR/XR knee standing BI IMPRESSION: RIGHT KNEE LIMITED: Osteoarthritis with probable loose body unchanged compared to prior. LEFT KNEE: Osteoarthritis and loose bodies unchanged compared to prior.
--- NOTE | ~2021-11-22 | XR_ITS ---
EXAMINATION: XR BILATERAL KNEE SERIES CLINICAL INFORMATION: Knee pain COMPARISON: X-rays of the left knee 10/30/2021, x-ray the right knee January 2021 TECHNIQUE: AP upright view of both knees. Patella and lateral view of the left knee. FINDINGS: LEFT KNEE: Lateral compartment: Marginal osteophytes without joint space narrowing unchanged indicative of at least mild osteoarthritis. Medial compartment: Small marginal osteophytes unchanged without joint space narrowing indicative of at least mild osteoarthritis. Patellofemoral compartment: Nonuniform joint space narrowing mostly of the lateral aspect of the compartment along with marginal osteophytes. Ossific density adjacent to the lateral patella may reflect a ossicle embedded within the retinaculum or loose body. This is unchanged. Findings indicative of at least moderate osteoarthritis. There is no effusion. Multiple ossific fragments noted anteriorly and posteriorly in the anterior posterior recesses likely reflecting loose bodies unchanged. RIGHT KNEE LIMITED: Marginal osteophytes about the lateral compartment indicative of at least mild osteoarthritis unchanged. Medial compartment unremarkable. Probable loose body overlying the medial medial compartment unchanged compared to prior. XR/XR knee LT 2V IMPRESSION: RIGHT KNEE LIMITED: Osteoarthritis with probable loose body unchanged compared to prior. LEFT KNEE: Osteoarthritis and loose bodies unchanged compared to prior.
== END 2021-11-22 12:15 | disposition home or self-care (01) ==
LOC: HO.HOSX 12:14
PROVIDERS: Visit Provider Orthopaedic Surgery
DX: M17.10 Unilateral primary osteoarthritis, unspecified knee (principal)
CPT/HCPCS: 73560; 73565; 99202

== ENCOUNTER 2021-12-14 09:28 | Outpatient (REF) | payer OTHER, SELFPAY ==
--- NOTE | ~2021-12-14 | US_ITS ---
EXAMINATION: US RETROPERITONEAL LIMITED (RENAL ONLY) CLINICAL INFORMATION: Calculus of kidney. COMPARISON: Renal ultrasound 02/01/2021 and 08/10/2020. CT abdomen and pelvis 12/25/2018. X-ray abdomen KUB 03/21/2018. TECHNIQUE: Real-time imaging of the kidneys. FINDINGS: RIGHT KIDNEY: 10.6 x 4.5 x 5.9 cm (SAG x AP x TRV). The kidney is normal in size, contour, and echogenicity. Renal cortical thickness is normal. No hydronephrosis. There are multiple echogenic stones. Largest upper pole stone measures 0.6 x 0.4 x 0.6 cm, midpole stone measuring 0.6 0.0-0.5 cm, lower pole echogenic stone is 0.6 x 0.3 x 0.4 cm. There are numerous scattered echogenic areas likely medullary sponge kidney. There is anechoic cyst in midpole measuring 2.9 x 2.6 x 3.1 cm. There is no caliectasis or hydronephrosis. LEFT KIDNEY: 11.8 x 5.4 x 5.2 cm (SAG x AP x TRV). The kidney is normal in size, contour, and echogenicity. Renal cortical thickness is normal. No hydronephrosis. There is scattered echogenic stones. The largest in the upper pole measuring 0.4 x 0.5 0.5 cm. Midpole measures 0.4 x 0.6 x 0.3 cm and lower pole measures 0.4 x 0.2 x 0.2 cm. There are 2 anechoic cyst in upper/midpole in midpole measuring 4.9 x 4.9 x 4.6 cm and lower pole measuring 0.7 x 0.5 x 0.6 cm. There is no caliectasis or hydronephrosis. 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 There are bilateral renal cysts. There is no hydronephrosis.
[2021-12-14 09:53] LABS: MANUAL DIFF FLAG NO
[2021-12-14 10:34] LABS: Basophils Absolute Auto 0.1 X10*3/uL (0.0-0.2); Basophils Percent Auto 0.4 % (0-2); Eosinophils Absolute Auto 0.3 X10*3/uL (0.0-0.4); Eosinophils Percent Auto 2.6 % (0-4); Hematocrit 43.8 % (37.0-47.0); Hemoglobin 13.9 g/dl (12.0-16.0); Imm Gran Abs Auto 0.05 X10*3/uL (0.00-0.03); Imm Gran Pct Auto 0.4 % (0.0-0.4); Lymphocytes Absolute Auto 2.9 X10*3/uL (1.2-4.9); Lymphocytes Percent Auto 24.9 % (20-40); Mean Corpuscular HGB Conc 31.7 g/dl (31.0-35.0); Mean Corpuscular Hemoglobin 27.3 pg (27.0-33.0); Mean Corpuscular Volume 86.1 fL (80.0-98.0); Mean Platelet Volume 10.6 fL (9.4-12.3); Monocytes Percent Auto 8.1 % (2-11); Neutrophils Absolute Auto 7.5 x10*3/uL (2.0-8.3); Neutrophils Percent Auto 63.6 % (45-73); Platelet Count 326 X10*3/uL (160-400); Red Blood Count 5.09 X10*6/uL (4.20-5.50); White Blood Count 11.7 X10*3/uL (4.8-10.8)
[2021-12-14 10:54] LABS: Creatinine Urine 92.22 mg/dL
[2021-12-14 11:06] LABS: Alanine Aminotransferase 28 U/L (0-31); Albumin Level 4.3 g/dL (3.5-5.0); Alkaline Phosphatase 59 U/L (39-117); Anion Gap 13 (12-20); Aspartate Amino Transferase 21 U/L (5-31); Bilirubin Total 0.5 mg/dL (0.0-1.0); Blood Urea Nitrogen 18 mg/dL (9-16); Calcium 10.1 mg/dL (8.4-10.2); Carbon Dioxide 31 mmol/L (22-29); Chloride 102 mmol/L (96-108); Cholesterol 167 mg/dL; Estimated Glomerular Filt Rate > 60; Glucose Fasting 155 mg/dL (60-99); HDL Cholesterol 50 mg/dL; LDL Cholesterol Calculated 90 mg/dl; Phosphorus 3.8 mg/dL (2.7-4.5); Potassium 4.3 mmol/L (3.3-5.1); Sodium 142 mmol/L (135-145); Total Protein 7.3 g/dL (6.5-8.0); Triglycerides 136 mg/dL
[2021-12-14 11:19] LABS: Vitamin D 25-OH Total 50.7 ng/mL (>30)
[2021-12-15 14:46] LABS: Calcium (PTHI) 10.1 mg/dL (8.6-10.4); PTHI 46 pg/mL (14-64)
[2021-12-18 14:41] LABS: Vitamin D 25-OH, D2 <4 ng/mL; Vitamin D 25-OH, D3 45 ng/mL; Vitamin D 25-OH, Total 45 ng/mL (30-100)
== END 2021-12-14 09:29 | disposition home or self-care (01) ==
LOC: HO.US 09:28
PROVIDERS: Absent Provider Internal Medicine; PCP Internal Medicine; Referring Provider Internal Medicine; Visit Provider Urology
DX: E83.52 Hypercalcemia (principal); E11.8 Type 2 diabetes mellitus with unspecified complications; D64.9 Anemia, unspecified; E78.5 Hyperlipidemia, unspecified
CPT/HCPCS: 36415; 76775; 80053; 80061; 82043; 82306; 83970; 84100; 85025

== ENCOUNTER → 2021-12-23 09:22 | Outpatient (BNVA) | payer OTHER, SELFPAY | PROVIDERS: PCP Internal Medicine; Visit Provider Internal Medicine ==

== ENCOUNTER 2021-12-24 10:29 | Outpatient (REF) | payer OTHER, SELFPAY ==
--- NOTE | ~2021-12-24 | CT_ITS ---
EXAMINATION: CT ABDOMEN WITHOUT AND WITH CONTRAST CLINICAL INFORMATION: Adrenal gland neoplasm. COMPARISON: None TECHNIQUE: Contiguous axial thin section helical images of the abdomen were performed before and after the administration of oral contrast and 85 mL of Omnipaque 350 intravenous contrast. The data set was reformatted in the coronal and sagittal planes and reviewed on an independent workstation. This CT examination was performed using dose optimization techniques as appropriate, variously including the following: *Automated exposure control *Adjustment of mA and/or kV according to patient size (this includes techniques or standardized protocols for targeted exams where dose is matched to indication/reason for exam; i.e. extremities or head) *Use of iterative reconstruction technique DLP: 406 mGy-cm FINDINGS: LUNG BASES: The lung bases are clear. The heart size is normal. LIVER, GALLBLADDER, AND BILIARY TREE: The liver is normal size, contour and shape. There is normal density. On the postcontrast exam, there is a 4 mm hypodensity right hepatic lobe, too small to correctly characterize. No additional lesions seen. There is no intrahepatic ductal dilatation. The gallbladder has been surgically removed. PANCREAS: The pancreas is unremarkable. SPLEEN: The spleen is normal size and density. No focal lesion seen. ADRENAL GLANDS AND KIDNEYS: The left adrenal gland is normal size and density. There is a right adrenal hypodense lesion measuring 3.10 x 2.6 x 3.4 cm and -9.24 Hounsfield units. Postcontrast there is no abnormal enhancement seen. On immediate postcontrast exam it measures 52 Hounsfield units and on delayed 10-minute imaging it measures 19 Hounsfield units. The the absolute washout is 53.9% and the relative washout is 63.5%. Both kidneys are normal size, shape and position. There are several small clustered calcifications in the right and left kidneys. Postcontrast there are bilateral nonenhancing renal cysts. The largest midpole left renal cyst measures 5.3 x 4.6 cm. Largest exophytic cyst midpole right kidney measures 3 cm x 2.7 cm. There is no hydronephrosis. BOWEL LOOPS: There is scattered stool and gas seen in the colon without any distention. The small-bowel loops are normal caliber. The appendix is visualized and appears unremarkable. LYMPH NODES: Normal. VASCULAR: Unremarkable. BONES: No lytic or sclerotic process seen. CT/CT abdomen wo/w con IMPRESSION: Left benign adrenal lipoma measuring -9 Hounsfield units on precontrast exam. The relative washout is also conclusive for a benign adenoma lesion. Mild enhancement is seen in postcontrast studies likely from minimal myomatous tissue. There is significant washout on the postcontrast delayed images. Probable tiny right hepatic cysts. Fleischner guidelines were followed.
[2021-12-24] MEDS: iohexoL 350 MG/ML 100 ML INFUS..BTL IV (12:16)
== END 2021-12-24 10:30 | disposition home or self-care (01) ==
LOC: HO.CT 10:29
PROVIDERS: PCP Internal Medicine; Visit Provider Internal Medicine
DX: D35.00 Benign neoplasm of unspecified adrenal gland (principal)
CPT/HCPCS: 74170; Q9967

== ENCOUNTER → 2021-12-30 13:15 | Outpatient (BNVA) | payer OTHER, SELFPAY | PROVIDERS: PCP Internal Medicine ==

== ENCOUNTER 2022-01-05 07:27 | Outpatient (REF) | payer OTHER, SELFPAY ==
[2022-01-07 08:47] LABS: Cortisol 30 Minute 39.2 mcg/dL; Cortisol 60 Minute 44.6 mcg/dL; Cortisol Baseline 12.3 mcg/dL
[2022-01-07 21:21] LABS: Adrenocorticotropic Hormone 9 pg/mL (6-50)
== END 2022-01-05 07:28 | disposition home or self-care (01) ==
LOC: HO.MDS 07:27
PROVIDERS: PCP Internal Medicine; Visit Provider Internal Medicine
DX: E27.40 Unspecified adrenocortical insufficiency (principal)
CPT/HCPCS: 36415; 82024; 82533; 96374; J0834

== ENCOUNTER 2022-01-11 10:42 | Outpatient (REF) | payer OTHER, SELFPAY ==
--- NOTE | ~2022-01-11 | MM_ITS ---
EXAMINATION: BONE DENSITOMETRY CLINICAL INDICATION: Hyperparathyroidism, unspecified. COMPARISON: None (current study represents initial baseline exam). TECHNIQUE: Using a [employer] DXA System (software version: 13.1) manufactured by [employer] (Chapter 11), dual-energy x-ray absorptiometry was performed of the lumbar spine, left hip, and left forearm radius 33%. The images are of good technical quality. Summary results are attached. FINDINGS: LEFT FOREARM RADIUS 33%: BMD 0.919 g/cm2, Z-score 1.0, T-score 0.5, normal. AP SPINE L1-L4: BMD 1.070 g/cm2, Z-score -0.1, T-score -0.9, normal. LEFT FEMUR, NECK: BMD 0.922 g/cm2, Z-score 0.2, T-score -0.8, normal. LEFT FEMUR, TOTAL: BMD 0.999 g/cm2, Z-score 0.6, T-score -0.1, normal. IDENTIFIED RISK FACTORS: Hyperparathyroidism, low calcium intake. Early menopause, secondary osteoporosis, thiazide, hysterectomy. HISTORY OF FRACTURE: None listed. MEDICATIONS: Vitamin D. MM/XR DEXA appendicular skeleton IMPRESSION: 1. DIAGNOSIS: Normal bone density based on the lowest T-score value of -0.9 in the lumbar spine applying World Health Organization criteria. 2. 10-YEAR FRACTURE RISK PREDICTION, FRAX: Major osteoporotic fracture (clinical spine, forearm, hip or shoulder) 3.1%. Hip fracture 0.1%. 3. Treatment Recommendations: NOF guidelines recommend consideration for treatment in postmenopausal women and men age 50 and older presenting with the following: -A hip or vertebral (clinical or morphometric) fracture. -T-score less than or equal to -2.5 at the femoral neck or spine after appropriate evaluation to exclude secondary causes. -Low bone mass at the hip or spine and a 10-year fracture probability by FRAX of greater than or equal to 3% for hip fracture or greater than or equal to 20% for major osteoporotic fracture based on the [place] adapted WHO algorithm. 4. Other Recommendations: All treatment decisions require clinical judgment and consideration of individual patient factors, including patient preferences, comorbidities, previous drug use, risk factors not captured in the FRAX model (e.g. frailty, falls, vitamin D deficiency, increased bone turnover, interval significant decline in bone density) and possible under or overestimation of fracture risk by FRAX. FUTURE SCAN RECOMMENDATION: People with diagnosed cases of osteoporosis or at high risk for fracture should have regular bone mineral density tests. For patients eligible for Medicare, routine testing is allowed once every 2 years. The testing frequency can be increased to one year for patients who have rapidly progressing disease, those who are receiving or discontinuing medical therapy to restore bone mass, or have additional risk factors.
== END 2022-01-11 10:43 | disposition home or self-care (01) ==
LOC: HO.MAMMO 10:42
PROVIDERS: Visit Provider Internal Medicine
DX: Z13.820 Encounter for screening for osteoporosis (principal); E21.3 Hyperparathyroidism, unspecified; Z78.0 Asymptomatic menopausal state; Z79.899 Other long term (current) drug therapy
CPT/HCPCS: 77081

== ENCOUNTER 2022-01-19 10:53 | Outpatient (REF) | payer OTHER, SELFPAY ==
--- NOTE | ~2022-01-19 | US_ITS ---
EXAMINATION: US THYROID CLINICAL INFORMATION: Hyperparathyroidism, unspecified. COMPARISON: None. TECHNIQUE: Linear transducer grayscale and color Doppler examination with attention to the region of the thyroid. FINDINGS: SIZE: Measurements of the thyroid lobes and nodules are given in sagittal, anteroposterior and transverse dimensions respectively. Right Thyroid Lobe: 3.8 x 2.1 x 1.1 cm, volume 4.6 mL. Parenchyma: The gland echotexture is homogeneous. Thyroid vascularity is normal. Left Thyroid Lobe: 4.6 x 0.9 x 1.6 cm, volume 3.5 mL. Parenchyma: The gland echotexture is homogeneous. Thyroid vascularity is normal. Isthmus: 0.5 cm in maximum AP dimension. Estimated total number of nodules greater than or equal to 1 cm: 2. Maori Physiotherapist nodules are described as follows: 1. Location: Right mid/inferior. Size: 0.7 x 0.47 x 0.53 cm, volume 0.09 mL. Nodule characteristics: Composition: Cystic(0). ACR TI-RADS total points: 0 ACR TI-RADS category: 1 2. Location: Right mid inferior. Size: 0.45 x 0.36 x 0.49 cm, volume 0.04 mL. Nodule characteristics: Composition: Cystic(0). Echogenicity: Hyperechoic (1). Shape: Not taller but wider 0 Margins: Smooth (0). Echogenic Foci: Punctate echogenic foci (3). ACR TI-RADS total points: 6 ACR TI-RADS category: 4 3. Location: Left superior. Size: 0.66 x 0.54 x 0.33 cm, volume 0.06 mL. Nodule characteristics: Composition: Solid (2). Echogenicity: Hypoechoic (2). Shape: Not taller than wide (0). Margins: Smooth (0). Echogenic Foci: None (0). ACR TI-RADS total points: 4 ACR TI-RADS category: 4 4. Location: Left mid. Size: 1.56 x 0.97 x 0.89 cm, volume 0.7 mL. Nodule characteristics: Composition: Solid (2). Echogenicity: Hypoechoic (2). Shape: Not taller than wide (0). Margins: Smooth (0). Echogenic Foci: Macrocalcifications (1). ACR TI-RADS total points: 5 ACR TI-RADS category: 4 5. Location: Left inferior. Size: 1.69 x 1.11 x 1.23 cm, volume 1.27 mL. Nodule characteristics: Composition: Spongiform (0). Echogenicity: Anechoic (0). Shape: Not taller than wide (0). Margins: Smooth (0). Echogenic Foci: None (0). ACR TI-RADS total points: 0 ACR TI-RADS category: 1 NODES: No lymphadenopathy is seen in the tissue surrounding the thyroid gland. There is no parathyroid lesion or adenoma seen. US/US thyroid IMPRESSION: Bilateral thyroid nodules. The largest left midpole nodule measures 1.56 cm and borderline suspicious. Ultrasound-guided fine-needle biopsy aspiration or close 1 year follow-up can be performed. No parathyroid adenoma seen. ACR TI-RADS RECOMMENDATION REFERENCE: Ultrasound-guided fine-needle aspiration, followup ultrasound, no further follow up. * TR1 (0 point) and TR 2 (2 points): No FNA or follow up * TR3 (3 points): FNA if more than or equal to 2.5 cm in maximum dimension, followup ultrasound in 1, 3 and 5 years if 1.5 to 2.4 cm in maximum dimension. * TR4 (4-6 points): FNA if more than or equal to 1.5 cm in maximum dimension, followup ultrasound in 1, 2, 3 and 5 years if 1 to 1.4 cm in maximum dimension. * TR5 (more than or equal to 7 points): FNA if more than or equal to 1 cm in maximum dimension, followup ultrasound every year for 5 years if 0.5 to 0.9 cm in maximum dimension. * TR3, TR4 or TR5 nodules that are below the size threshold for follow up receive no follow up.
== END 2022-01-19 10:54 | disposition home or self-care (01) ==
LOC: HO.US 10:53
PROVIDERS: PCP Internal Medicine; Visit Provider Internal Medicine
DX: E21.3 Hyperparathyroidism, unspecified (principal)
CPT/HCPCS: 76536

== ENCOUNTER 2022-01-27 09:48 | Outpatient (REF) | payer OTHER, SELFPAY ==
[2022-01-27 11:12] LABS: Alanine Aminotransferase 21 U/L (0-31); Albumin Level 4.4 g/dL (3.5-5.0); Alkaline Phosphatase 63 U/L (39-117); Anion Gap 13 (12-20); Aspartate Amino Transferase 16 U/L (5-31); Bilirubin Total 0.7 mg/dL (0.0-1.0); Blood Urea Nitrogen 25 mg/dL (9-16); Calcium 10.4 mg/dL (8.4-10.2); Carbon Dioxide 33 mmol/L (22-29); Chloride 99 mmol/L (96-108); Estimated Glomerular Filt Rate > 60; Glucose Random 139 mg/dL (60-115); Phosphorus 4.2 mg/dL (2.7-4.5); Potassium 3.8 mmol/L (3.3-5.1); Sodium 141 mmol/L (135-145); Total Protein 7.4 g/dL (6.5-8.0)
[2022-01-27 11:21] LABS: Free T4 (Free Thyroxine) 0.96 ng/dL (0.71-1.85); Thyroid Stimulating Hormone 1.08 uIU/mL (0.32-4.0); Vitamin D 25-OH Total 54.6 ng/mL (>30)
[2022-01-27 15:46] LABS: Cortisol Random 8.8 ug/dL
[2022-01-28 13:51] LABS: Calcium (PTHI) 10.2 mg/dL (8.6-10.4); PTHI 30 pg/mL (14-64)
[2022-01-28 20:36] LABS: Adrenocorticotropic Hormone 9 pg/mL (6-50)
== END 2022-01-27 09:49 | disposition home or self-care (01) ==
LOC: HO.LAB 09:48
PROVIDERS: PCP Internal Medicine; Visit Provider Internal Medicine
DX: E83.52 Hypercalcemia (principal); D35.00 Benign neoplasm of unspecified adrenal gland; E04.2 Nontoxic multinodular goiter
CPT/HCPCS: 36415; 80053; 82024; 82306; 82533; 83970; 84100; 84439; 84443

== ENCOUNTER 2022-02-18 06:07 | Outpatient (REF) | payer OTHER, SELFPAY ==
[2022-02-18 07:56] LABS: Albumin Level 4.6 g/dL (3.5-5.0)
== END 2022-02-18 06:08 | disposition home or self-care (01) ==
LOC: HO.LAB 06:07
PROVIDERS: PCP Internal Medicine; Visit Provider Internal Medicine
DX: E11.65 Type 2 diabetes mellitus with hyperglycemia (principal); E11.21 Type 2 diabetes mellitus with diabetic nephropathy; E78.5 Hyperlipidemia, unspecified; E83.52 Hypercalcemia; I10 Essential (primary) hypertension; Z79.4 Long term (current) use of insulin
CPT/HCPCS: 36415; 82040; 99212

== ENCOUNTER 2022-02-21 10:03 | Outpatient (REF) | payer OTHER, SELFPAY ==
[2022-02-22 13:44] LABS: Total Volume 24 Hour Urine 2000 mL
[2022-02-22 13:54] LABS: Creatinine, mg/dL 50.78
[2022-02-23 15:51] LABS: Calcium, 24 Hr Urine 166 mg/24 h; Calcium/Creatinine Ratio 157 mg/g creat (30-275); Creatinine 24Hr Urine 1.06 g/24 h (0.50-2.15)
[2022-02-26 18:26] LABS: Cortisol Free, 24 Hr Urine 24.8 mcg/24 h (4.0-50.0); Creatinine, 24 Hr Urine 1.08 g/24 h (0.50-2.15); Total Volume, 24 Hr Urine 2000 mL
[2022-02-27 05:26] LABS: CATF, 24 Ur Volume 2000 mL; CATF-24Ur Creatinine 1.06 g/24 h (0.50-2.15); Catecholamines,Tot. (E+NE) 24U 26 mcg/24 h (26-121); Dopamine, 24 Ur 174 mcg/24 h (52-480); Norepinephrine, 24 Ur 26 mcg/24 h (15-100)
[2022-03-01 05:16] LABS: Metanephrine, Free 24U 123 mcg/24 h (90-315); Normetanephrine, Free 24U 261 mcg/24 h (122-676); Total Metanephrine, Free 24U 384 mcg/24 h (224-832); Total Volume 24U 2000 mL
[2022-03-05 03:21] LABS: Creatinine 24Hr Urine 1.09 g/24 h (0.50-2.15); Total Volume 2000 mL
== END 2022-02-21 10:04 | disposition home or self-care (01) ==
LOC: HO.LNP 10:03
PROVIDERS: Visit Provider Internal Medicine
DX: D35.00 Benign neoplasm of unspecified adrenal gland (principal); E83.52 Hypercalcemia
CPT/HCPCS: 82088; 82340; 82384; 82530; 82570; 83835

== ENCOUNTER → 2022-02-24 12:32 | Outpatient (BNVA) | payer OTHER, SELFPAY | PROVIDERS: PCP Internal Medicine; Visit Provider Internal Medicine | DX: D35.00 Benign neoplasm of unspecified adrenal gland (principal); D3A.092 Benign carcinoid tumor of the stomach; E24.9 Cushing's syndrome, unspecified; E21.3 Hyperparathyroidism, unspecified; E55.9 Vitamin D deficiency, unspecified; R16.0 Hepatomegaly, not elsewhere classified; E04.2 Nontoxic multinodular goiter | CPT/HCPCS: 99212 ==

== ENCOUNTER 2022-04-26 10:02 | Outpatient (REF) | payer OTHER, SELFPAY ==
[2022-04-26 11:27] LABS: Anion Gap 13 (12-20); Blood Urea Nitrogen 22 mg/dL (9-16); Calcium 10.2 mg/dL (8.4-10.2); Carbon Dioxide 31 mmol/L (22-29); Chloride 99 mmol/L (96-108); Estimated Glomerular Filt Rate > 60; Potassium 3.8 mmol/L (3.3-5.1); Sodium 139 mmol/L (135-145)
[2022-04-26 11:29] LABS: Appearance Urine CLEAR; Color Urine YELLOW; Glucose Urine UA NEG (NEG); Leukocyte Esterase Urine NEG (NEG); Nitrite Urine NEG (NEG); PH 7.5 (5.0-8.0); Urine Blood NEG (NEG); Urine Ketones NEG (NEG); Urine Protein NEG (NEG-TRACE)
[2022-04-26 12:03] LABS: Creatinine Urine 64.78 mg/dL; Protein/Creatinine Ratio, Ur 0.28 (<0.2); Total Protein Urine Random 18 mg/dL (<12)
== END 2022-04-26 10:03 | disposition home or self-care (01) ==
LOC: HO.LAB 10:02
PROVIDERS: PCP Internal Medicine; Visit Provider Internal Medicine Nephrology
DX: N20.0 Calculus of kidney (principal); N29 Other disorders of kidney and ureter in diseases classified elsewhere
CPT/HCPCS: 36415; 80051; 81003; 82043; 82310; 82565; 84156; 84520

== ENCOUNTER 2022-05-05 08:00 | Outpatient (REF) | payer OTHER, SELFPAY ==
[2022-05-12 22:36] LABS: Saliva Cortisol 0.12 mcg/dL
[2022-05-12 22:36] LABS: Saliva Cortisol 0.06 mcg/dL
[2022-05-12 22:36] LABS: Saliva Cortisol 0.09 mcg/dL
[2022-05-12 22:36] LABS: Saliva Cortisol 0.08 mcg/dL
[2022-05-12 22:36] LABS: Saliva Cortisol 0.09 mcg/dL
[2022-05-12 22:36] LABS: Saliva Cortisol 0.21 mcg/dL
== END 2022-05-05 08:01 | disposition home or self-care (01) ==
LOC: HO.LNP 08:00
PROVIDERS: Visit Provider Internal Medicine
DX: E24.9 Cushing's syndrome, unspecified (principal)
CPT/HCPCS: 82530

== ENCOUNTER 2022-05-24 06:27 | Outpatient (REF) | payer OTHER, SELFPAY ==
[2022-05-24 08:48] LABS: Anion Gap 16 (12-20); Blood Urea Nitrogen 23 mg/dL (9-16); Carbon Dioxide 27 mmol/L (22-29); Chloride 101 mmol/L (96-108); Estimated Glomerular Filt Rate > 60; Glucose Random 201 mg/dL (60-115); Potassium 4.3 mmol/L (3.3-5.1); Sodium 140 mmol/L (135-145)
[2022-05-24 09:54] LABS: Cortisol Random 2.5 ug/dL
[2022-05-25 17:11] LABS: Adrenocorticotropic Hormone 6 pg/mL (6-50)
[2022-05-31 12:46] LABS: Renin 3.05 ng/mL/h (0.25-5.82)
[2022-06-01 12:16] LABS: Dexamethasone 240 ng/dL
== END 2022-05-24 06:28 | disposition home or self-care (01) ==
LOC: HO.LAB 06:27
PROVIDERS: PCP Internal Medicine; Visit Provider Internal Medicine
DX: D35.01 Benign neoplasm of right adrenal gland (principal); E11.21 Type 2 diabetes mellitus with diabetic nephropathy; E55.9 Vitamin D deficiency, unspecified; E78.5 Hyperlipidemia, unspecified; I10 Essential (primary) hypertension
CPT/HCPCS: 36415; 80048; 80299; 82024; 82088; 82533; 82947; 83036; 84244; 99212

== ENCOUNTER 2022-06-01 15:46 | Outpatient (REF) | payer OTHER, SELFPAY ==
--- NOTE | ~2022-06-01 | MR_ITS ---
EXAMINATION: MR ABDOMEN WITHOUT AND WITH CONTRAST CLINICAL INFORMATION: Benign neoplasm of right adrenal gland COMPARISON: Previous CT of the abdomen and pelvis November 2021 going back to 2007 TECHNIQUE: MR abdomen was performed without and with use of 7.5 mL intravenous Gadavist gadolinium contrast. Postcontrast images are performed in multiphase dynamic sequences. Imaging was performed in 3 planes. FINDINGS: LUNG BASES: The visualized lung bases are unremarkable. LIVER, GALLBLADDER, AND BILIARY TREE: The liver is normal in size, smooth in contour, and normal in signal. There is a small cyst in the right lobe of the liver. Liver is otherwise unremarkable. The gallbladder has been removed. Intra and extrahepatic bile ducts are normal in caliber. PANCREAS: There are small cyst in the body of the pancreas adjacent to the main pancreatic duct measuring 5 mm for example axial image 17 and 18 series 7. The main pancreatic duct is normal. The pancreas is otherwise normal. SPLEEN: Normal. ADRENAL GLANDS: This is gradually increasing in size, for example measuring 2.3 cm 2006 and 2011 a 2.4 x 3 cm right adrenal lesion. This demonstrates signal loss on out of phase sequences. This demonstrates mild heterogeneous enhancement. Ultrasound appearance is suggestive of a benign lipid rich adenoma. This does not appear appreciably changed in size when back to oldest available exam 2006. The left adrenal gland is normal. KIDNEYS AND URETERS: There are bilateral renal cysts. Known bilateral renal stones not well appreciated by CT. GASTROINTESTINAL TRACT: No bowel obstruction. No ascites or fluid collection. ABDOMINAL WALL: No significant hernia is appreciated. LYMPH NODES: No lymphadenopathy. VASCULAR: Unremarkable. OSSEOUS STRUCTURES: Marrow signal normal. MR/MR abdomen wo/w con IMPRESSION: Stable 2 x 3 cm fatty right adrenal lesion consistent with a benign lipid rich adenoma. Normal-appearing left adrenal gland. Bilateral renal cysts. Small liver and pancreatic cysts.
== END 2022-06-01 15:47 | disposition home or self-care (01) ==
LOC: HO.MRI 15:46
PROVIDERS: Visit Provider Internal Medicine
DX: D35.01 Benign neoplasm of right adrenal gland (principal)
CPT/HCPCS: 74183; A9585

== ENCOUNTER 2022-06-02 10:24 | Outpatient (REF) | payer OTHER, SELFPAY ==
--- NOTE | ~2022-06-02 | US_ITS ---
EXAMINATION: US RETROPERITONEAL LIMITED (RENAL ONLY) CLINICAL INFORMATION: Personal history of urinary calculi. COMPARISON: MRI abdomen 06/01/2022. CT abdomen 12/24/2021. Renal ultrasound 12/14/2021 and 02/01/2021. X-ray KUB 03/21/2018 and 02/28/2018. TECHNIQUE: Real-time imaging of the kidneys. FINDINGS: RIGHT KIDNEY: 10.9 x 4.6 x 5.0 cm (SAG x AP x TRV). There are echogenic pyramids suggestive of medullary nephrocalcinosis. There are multiple stones or cluster of stones, largest measuring 1.2 x 0.6 x 2.2 cm in the midpole and 1.1 x 0.4 x 1 cm in the lower pole. There is a 3 cm cyst in the lower pole and 1.5 cm cyst in the upper to midpole. No hydronephrosis. LEFT KIDNEY: 11.4 x 5.8 x 6.3 cm (SAG x AP x TRV). There are echogenic pyramids suggestive of nodularity nephrocalcinosis. There are multiple stones or cluster of stones, largest measuring 1 x 0.8 x 1.1 cm in the midpole and 6 x 4 x 6 mm in the lower pole. There are 2 cysts cysts measuring 5.3 x 4.7 x 5.2 cm in the midpole and 0.6 x 0.3 x 0.6 cm in the midpole. No hydronephrosis. ADDITIONAL FINDINGS: There is a 3 x 2.8 x 2.9 cm right adrenal lesion. US/US renal BI IMPRESSION: Medullary nephrocalcinosis and bilateral renal stones. Bilateral renal cysts. No hydronephrosis.
== END 2022-06-02 10:25 | disposition home or self-care (01) ==
LOC: HO.US 10:24
DX: Z87.442 Personal history of urinary calculi (principal)
CPT/HCPCS: 76775

== ENCOUNTER 2022-07-18 06:20 | Outpatient (REF) | payer OTHER, SELFPAY ==
[2022-07-18 08:58] LABS: Cortisol Random 7.7 ug/dL
[2022-07-19 15:22] LABS: Adrenocorticotropic Hormone 10 pg/mL (6-50)
== END 2022-07-18 06:21 | disposition home or self-care (01) ==
LOC: HO.LAB 06:20
PROVIDERS: PCP Internal Medicine; Visit Provider Internal Medicine
DX: D35.00 Benign neoplasm of unspecified adrenal gland (principal)
CPT/HCPCS: 36415; 82024; 82533

== ENCOUNTER 2022-07-21 09:28 | Outpatient (REF) | payer OTHER, SELFPAY ==
--- NOTE | 2022-07-21 10:02 | PM.OP ---
Brief Operative Note Date of Service: 07/21/22 Pre-op diagnosis: Multinodular Thyroid Procedure: This is doctor Morenita Ribera. This is an ultrasound-guided fine-needle aspiration report. Date of Examination: Indication: Multinodular Thyroid Porcedure: Procedure was explained to the patient. Alternatives, the risk and benefits were discussed. Written consent was obtained. A time-out was also obtained. After sterile preparation, fine-needle aspiration of a left mid pole 1.0 cm thyroid nodule was performed using direct ultrasound guidance to confirm accurate needle placement. On her official biopsy this nodule was measured at 1.6 cm but had shrunk. Three aspirations were made using 27 gauge needles. Samples were submitted for cytology. Our attention was then turned to the left lower pole. Fine-needle aspiration of a 1.7 cm left lower pole thyroid nodule was performed using direct ultrasound guidance to confirm accurate needle placement. Four aspirations were made using 27 gauge needles. Samples were submitted for cytology. One pass was dedicated for [employer] district recruiter testing. The patient tolerated the procedure well. Aftercare instructions were provided. Impression: Uncomplicated fine needle aspiration biopsy of a left mid pole 1.0 cm thyroid nodule and a left lower pole 1.7 cm thyroid nodule under ultrasound guidance. Surgeon: Morenita Ribera, DO Was an Rn Palliative Care used for this Procedure?: No Estimated blood loss (mL): 0
[2022-07-21] MEDS: Lidocaine HCl 1 % 20 ML VIAL 4 ML SUBCUT (11:31)
[2022-07-21 12:06] LABS: Alanine Aminotransferase 28 U/L (0-31); Albumin Level 4.4 g/dL (3.5-5.0); Alkaline Phosphatase 52 U/L (39-117); Anion Gap 18 (12-20); Aspartate Amino Transferase 22 U/L (5-31); Bilirubin Total 0.6 mg/dL (0.0-1.0); Blood Urea Nitrogen 17 mg/dL (9-16); Calcium 9.9 mg/dL (8.4-10.2); Carbon Dioxide 26 mmol/L (22-29); Chloride 100 mmol/L (96-108); Cholesterol 148 mg/dL; Estimated Glomerular Filt Rate > 60; Glucose Fasting 184 mg/dL (60-99); HDL Cholesterol 56 mg/dL; LDL Cholesterol Calculated 67 mg/dl; Potassium 4.1 mmol/L (3.3-5.1); Sodium 140 mmol/L (135-145); Total Protein 7.2 g/dL (6.5-8.0); Triglycerides 129 mg/dL
[2022-07-21 12:14] LABS: Vitamin D 25-OH Total 40.6 ng/mL (>30)
== END 2022-07-21 09:29 | disposition home or self-care (01) ==
LOC: HO.US 09:28
PROVIDERS: Absent Provider Internal Medicine; PCP Internal Medicine; Visit Provider Internal Medicine
DX: E04.2 Nontoxic multinodular goiter (principal); E78.5 Hyperlipidemia, unspecified; E11.21 Type 2 diabetes mellitus with diabetic nephropathy; E55.9 Vitamin D deficiency, unspecified
CPT/HCPCS: 10005; 10006; 36415; 80053; 80061; 82306; 88172; 88173

== ENCOUNTER → 2022-08-04 12:49 | Outpatient (BNVA) | payer OTHER, SELFPAY | PROVIDERS: PCP Internal Medicine; Visit Provider Internal Medicine | DX: D35.00 Benign neoplasm of unspecified adrenal gland (principal); D3A.092 Benign carcinoid tumor of the stomach; E21.3 Hyperparathyroidism, unspecified; E55.9 Vitamin D deficiency, unspecified; E04.2 Nontoxic multinodular goiter; K86.89 Other specified diseases of pancreas; E11.21 Type 2 diabetes mellitus with diabetic nephropathy; E24.0 Pituitary-dependent Cushing's disease | CPT/HCPCS: 99212 ==

== ENCOUNTER 2022-08-16 09:26 | Outpatient (REF) | payer OTHER, SELFPAY ==
--- NOTE | ~2022-08-16 | MR_ITS ---
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 COMPARISON: None TECHNIQUE: Multiplanar, multisequence MRI of the brain and sella was obtained before and after the intravenous administration of 3.5 mL Gadavist. FINDINGS: In the posterior aspect of the adenohypophysis, just anterior to the posterior pituitary bright spot, there is a 4 mm ovoid focus of relative hypoenhancement best visualized on image 14 of series 9 and faintly visualized on image 7 of series 10. The remainder of the pituitary gland enhances homogenously. No suprasellar or juxtasellar masses are identified. The infundibulum enhances normally and appears midline. The cavernous sinuses are symmetric and enhance normally with normal signal voids in the carotid siphons. DWI sequence demonstrates no restricted diffusion to suggest acute or subacute cerebral ischemia. A few small nonenhancing T2 hyperintensities are seen within the white matter of the right cerebral hemisphere, which are nonspecific findings. Remainder of the brain is normal in signal intensity. The remainder of the brain demonstrates no pathologic intracranial enhancement or mass lesion. The ventricular system and subarachnoid spaces are within normal limits without hydrocephalus. Normal signal voids are seen in the visualized major intracranial vessels. There is upper cervical discogenic degenerative change and spondylosis at C4-C5 and C5-C6 and there is bilateral TMJ arthropathy. MR/MR head/brain wo/w con IMPRESSION: 1. There is a 4 mm focus of relative hypoenhancement in the posterior aspect of the pituitary adenohypophysis, which is a somewhat equivocal finding. Cannot exclude a microadenoma. Consider follow-up MRI of the sella in 6-12 months to reassess if clinically warranted. 2. A few nonenhancing, nonspecific white matter T2 hyperintensities in the right cerebral hemisphere are noted. 3. Bilateral TMJ arthropathy and cervical DDD.
== END 2022-08-16 09:27 | disposition home or self-care (01) ==
LOC: HO.MRI 09:26
PROVIDERS: Visit Provider Internal Medicine
DX: E24.0 Pituitary-dependent Cushing's disease (principal)
CPT/HCPCS: 70553; A9585

== ENCOUNTER → 2022-08-24 11:58 | Outpatient (BNVA) | payer OTHER, SELFPAY | PROVIDERS: PCP Internal Medicine; Visit Provider Internal Medicine | DX: D35.00 Benign neoplasm of unspecified adrenal gland (principal); D3A.092 Benign carcinoid tumor of the stomach; E21.3 Hyperparathyroidism, unspecified; E55.9 Vitamin D deficiency, unspecified; E04.2 Nontoxic multinodular goiter; E24.0 Pituitary-dependent Cushing's disease; D35.2 Benign neoplasm of pituitary gland; K86.89 Other specified diseases of pancreas | CPT/HCPCS: 82947; 99212 ==

== ENCOUNTER 2022-08-29 09:56 | Outpatient (REF) | payer OTHER, SELFPAY ==
[2022-08-29 12:14] LABS: Alanine Aminotransferase 23 U/L (0-31); Albumin Level 4.4 g/dL (3.5-5.0); Alkaline Phosphatase 52 U/L (39-117); Anion Gap 18 (12-20); Aspartate Amino Transferase 18 U/L (5-31); Bilirubin Total 0.4 mg/dL (0.0-1.0); Blood Urea Nitrogen 24 mg/dL (9-16); Calcium 9.7 mg/dL (8.4-10.2); Carbon Dioxide 27 mmol/L (22-29); Chloride 101 mmol/L (96-108); Estimated Glomerular Filt Rate > 60; Glucose Random 148 mg/dL (60-115); Phosphorus 3.9 mg/dL (2.7-4.5); Potassium 4.3 mmol/L (3.3-5.1); Sodium 142 mmol/L (135-145)
[2022-08-29 12:39] LABS: Osmolality, Serum 307 mosm/kg (281-305)
[2022-08-29 12:40] LABS: Creatinine, mg/dL 41.83; Uric Acid, mg/dL 34.6 mg/dL
[2022-08-29 12:41] LABS: Free T4 (Free Thyroxine) 1.01 ng/dL (0.71-1.85); Thyroid Stimulating Hormone 1.84 uIU/mL (0.32-4.0); Vitamin D 25-OH Total 38.7 ng/mL (>30)
[2022-08-29 12:42] LABS: Phosphorus mg/dL 34.7 mg/dL
[2022-08-29 12:53] LABS: Creatinine, 24Hr Urine 0.9 G/Day (1.0-2.0); Phosphorus, 24 Hr Urine 0.8 G/Day (0.4-1.3); Sodium 24 Hr Urine 193.5 mmol/Day (40-220); Total Volume 24 Hour Urine 2250 mL; Uric Acid, 24 Hr Urine 778.5 mg/Day (250-750)
[2022-08-30 09:02] LABS: Sex Hormone Binding Globulin 58 nmol/L (14-73); Triiodothyronine T3 Total 121 ng/dL (76-181)
[2022-08-31 05:16] LABS: Follicle Stimulating Hormone 86.3 mIU/mL; Lutenizing Hormone 34.1 mIU/mL; Prolactin Undiluted 10.5 ng/mL
[2022-08-31 12:37] LABS: Calcium (PTHI) 9.9 mg/dL (8.6-10.4); PTHI 46 pg/mL (16-77)
[2022-09-02 11:56] LABS: IGF-1 (Somatomedin C) 126 ng/mL (50-317); IGF-1 Z Score (Female) -0.2 SD (-2.0 - +2.0)
[2022-09-03 14:42] LABS: Saliva Cortisol 0.29 mcg/dL
[2022-09-04 14:32] LABS: 24hr Urine Total Volume 2250 mL; Citric Acid, 24hr Urine 439 mg/24 h (100-1300); Citric Acid/Creat Ratio 24U 458 mg/g creat (180-1070); Creatinine, 24U 0.96 g/24 h (0.50-2.15); Oxalic Acid 24 Urine 60.8 mg/24 h (3.6-38.0)
[2022-09-05 02:57] LABS: Estradiol Ultra Sensitive <4 pg/mL
[2022-09-05 16:56] LABS: Cystine 24Hr Urine - Cystine 108 umol/24 h (24-184)
[2022-09-06 10:29] LABS: Cystine 24Hr Urine - Total Vol 2250
[2022-09-07 16:52] LABS: Saliva Cortisol 0.12 mcg/dL
[2022-09-07 16:52] LABS: Saliva Cortisol 0.06 mcg/dL
[2022-09-07 16:52] LABS: Saliva Cortisol 0.14 mcg/dL
[2022-09-07 19:06] LABS: Saliva Cortisol 0.13 mcg/dL
[2022-09-08 14:37] LABS: Saliva Cortisol 0.08 mcg/dL
== END 2022-08-29 09:57 | disposition home or self-care (01) ==
LOC: HO.LAB 09:56
PROVIDERS: Internal Medicine Nephrology; PCP Internal Medicine; Visit Provider Internal Medicine
DX: E24.0 Pituitary-dependent Cushing's disease (principal); E21.3 Hyperparathyroidism, unspecified; D35.2 Benign neoplasm of pituitary gland; E55.9 Vitamin D deficiency, unspecified
CPT/HCPCS: 80053; 82131; 82306; 82507; 82530; 82533; 82670; 83001; 83002; 83930; 83945; 83970; 84100; 84105; 84146; 84270; 84300; 84305; 84439; 84443; 84480; 84560

== ENCOUNTER 2022-08-30 08:21 | Outpatient (REF) | payer OTHER, SELFPAY ==
[2022-08-30 09:50] LABS: Anion Gap 15 (12-20); Blood Urea Nitrogen 18 mg/dL (9-16); Carbon Dioxide 30 mmol/L (22-29); Chloride 101 mmol/L (96-108); Estimated Glomerular Filt Rate > 60; Glucose Random 180 mg/dL (60-115); Potassium 4.2 mmol/L (3.3-5.1); Sodium 142 mmol/L (135-145)
[2022-08-31 15:02] LABS: Adrenocorticotropic Hormone 13 pg/mL (6-50)
== END 2022-08-30 08:22 | disposition home or self-care (01) ==
LOC: HO.LAB 08:21
PROVIDERS: PCP Internal Medicine; Visit Provider Internal Medicine
DX: D35.2 Benign neoplasm of pituitary gland (principal)
CPT/HCPCS: 36415; 80048; 82024

== ENCOUNTER 2022-12-03 20:54 | Emergency (ER) | payer OTHER, SELFPAY ==
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
[2022-12-03 21:01] VITALS: BP 142/84; PULSE 82; O2SAT 99
[2022-12-03 21:09] VITALS: BP 120/78; PULSE 108; RESP 18; TEMP 36.6; O2SAT 99; BMI 27.8
[2022-12-03] MEDS: Acetaminophen 325 MG TABLET 975 MG PO (22:25)
--- NOTE | 2022-12-03 22:38 | PC.NURSE ---
Addendum entered by Marilyn Schofield 12/03/22 23:23: Ice pack applied to the head. Original Note: Pt aox3. Tearful. Reports headache, 03/06. Hematoma noted to the right upper side of the forehead. Medicated as ordered. Pending Ct results. Pt aware of plan of care.
[2022-12-03 23:10] VITALS: BP 129/69; PULSE 89; RESP 16; TEMP 36.9; O2SAT 99
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
--- NOTE | 2022-12-04 00:02 | PC.NURSE ---
d/c instructions given and explained, ambulates safely/independently, no apparent distress
== END 2022-12-03 23:58 | disposition home or self-care (01) ==
PROVIDERS: Emergency Provider Student in an Organized Health Care Education/Training Program; PCP Internal Medicine
DX: S00.03XA Contusion of scalp, initial encounter (principal); Y00.XXXA Assault by blunt object, initial encounter; Y93.89 Activity, other specified; Y92.030 Kitchen in apartment as the place of occurrence of the external cause; Y99.9 Unspecified external cause status
CPT/HCPCS: 70450; 99284

== ENCOUNTER 2023-01-02 08:46 | Outpatient (REF) | payer OTHER, SELFPAY ==
--- NOTE | ~2023-01-02 | CT_ITS ---
EXAMINATION: CT ABDOMEN AND PELVIS WITHOUT CONTRAST CLINICAL INFORMATION: Calculus of kidney COMPARISON: 12/24/2021 TECHNIQUE: Multidetector volumetric imaging was performed from the superior aspect of the liver through the pubic symphysis. Sagittal and coronal reformatted images were obtained on the technologist's workstation. This CT examination was performed using dose optimization techniques as appropriate, variously including the following: *Automated exposure control *Adjustment of mA and/or kV according to patient size (this includes techniques or standardized protocols for targeted exams where dose is matched to indication/reason for exam; i.e. extremities or head) *Use of iterative reconstruction technique DLP: 350 mGy-cm FINDINGS: LUNG BASES: The visualized lung bases are unremarkable. LIVER, GALLBLADDER, AND BILIARY TREE: The liver is normal in size, shape, and attenuation. No focal hepatic lesion or biliary ductal dilatation is present. Cholecystectomy. PANCREAS: Unremarkable. SPLEEN: Unremarkable. ADRENAL GLANDS: Diminutive left adrenal gland which is not well evaluated. There is a right adrenal gland nodule. This measures 3.3 cm. This meets criteria for a lipid rich adenoma, unchanged from prior. KIDNEYS AND URETERS: The kidneys are normal in size, shape, and attenuation. No hydronephrosis or hydroureter. No perinephric stranding. Bilateral medullary nephrocalcinosis. No obstructing calculi. Largest area of calcification on the right is at the lower pole measuring 0.6 cm, 9 cm from the posterior axillary line. The largest area of calcification on the left is seen at the upper pole measuring 0.6 cm, 9 cm from the posterior axillary line. Simple bilateral renal cysts for which no specific follow-up is recommended. BLADDER: Unremarkable. GASTROINTESTINAL TRACT: The stomach is unremarkable. Normal caliber small bowel. No obstruction. No colonic wall thickening or acute inflammation. Normal appendix. Scattered colonic diverticulosis without diverticulitis. No free air or free fluid. ABDOMINAL WALL: No significant hernia is appreciated. LYMPH NODES: Normal. VASCULAR: Normal caliber aorta with mild atherosclerotic calcification. PELVIC VISCERA: Uterus not seen. No adnexal mass. OSSEOUS STRUCTURES: No acute or suspicious osseous abnormality. Mild degenerative changes in the spine. CT/CT abdomen pelvis wo IV con IMPRESSION: 1. Bilateral medullary nephrocalcinosis. Similar appearance to prior. No obstructing calculi. No hydronephrosis. 2. Unchanged right adrenal gland nodule, consistent with a lipid rich adenoma. Fleischner guidelines were followed.
== END 2023-01-02 08:47 | disposition home or self-care (01) ==
LOC: HO.CT 08:46
PROVIDERS: PCP Internal Medicine
DX: N20.0 Calculus of kidney (principal); N28.1 Cyst of kidney, acquired
CPT/HCPCS: 74176

== ENCOUNTER → 2023-01-03 10:20 | Outpatient (BNVA) | payer OTHER, SELFPAY | PROVIDERS: PCP Internal Medicine; Visit Provider Nurse Practitioner Family | DX: N20.0 Calculus of kidney (principal); N28.1 Cyst of kidney, acquired; Z79.899 Other long term (current) drug therapy | CPT/HCPCS: 99212 ==

== ENCOUNTER 2023-01-10 10:43 | Outpatient (REF) | payer OTHER, SELFPAY ==
--- NOTE | ~2023-01-10 | MM_ITS ---
EXAMINATION: MM SCREENING DIGITAL BREAST TOMOSYNTHESIS, BILATERAL CLINICAL INFORMATION: Screening. Asymptomatic. The lifetime risk of breast cancer based on the Tyrer-Cuzick Model is 5%. COMPARISON: Mammography: 01/17/2021, 04/15/2019 TECHNIQUE: Digital breast tomosynthesis is performed in both the craniocaudal and mediolateral oblique views along with computer-aided detection (CAD). Synthesized 2D images are generated from the tomosynthesis. FINDINGS: The breasts are almost entirely fatty (ACR BI-RADS breast composition Category a). There are no significant masses, abnormal calcifications, or other abnormalities. Background stromal markings are stable. No developing density or architectural abnormality. The axilla and skin contours are unremarkable. MM/MM tomosynthesis screening BI IMPRESSION: No mammographic evidence of malignancy. ASSESSMENT: BI-RADS 1: Negative RECOMMENDATION: Routine annual mammography screening. This patient's information was entered into a reminder system with a target due date for their next mammogram.
== END 2023-01-10 10:44 | disposition home or self-care (01) ==
LOC: HO.MAMMO 10:43
PROVIDERS: Visit Provider Internal Medicine
DX: Z12.31 Encounter for screening mammogram for malignant neoplasm of breast (principal)
CPT/HCPCS: 77063; 77067

== ENCOUNTER 2023-02-06 08:52 | Outpatient (REF) | payer OTHER, SELFPAY ==
[2023-02-06 10:53] LABS: Alanine Aminotransferase 33 U/L (0-31); Albumin Level 3.9 g/dL (3.5-5.0); Alkaline Phosphatase 58 U/L (39-117); Anion Gap 13 (12-20); Aspartate Amino Transferase 23 U/L (5-31); Bilirubin Total 0.4 mg/dL (0.0-1.0); Blood Urea Nitrogen 25 mg/dL (9-16); Carbon Dioxide 30 mmol/L (22-29); Chloride 103 mmol/L (96-108); Cholesterol 123 mg/dL; Estimated Glomerular Filt Rate > 60; Glucose Random 158 mg/dL (60-115); HDL Cholesterol 46 mg/dL; LDL Cholesterol Calculated 66 mg/dl; Phosphorus 2.8 mg/dL (2.7-4.5); Potassium 3.9 mmol/L (3.3-5.1); Sodium 142 mmol/L (135-145); Total Protein 6.2 g/dL (6.5-8.0); Triglycerides 57 mg/dL
[2023-02-06 11:11] LABS: Vitamin D 25-OH Total 36.5 ng/mL (>30)
[2023-02-06 11:51] LABS: Alanine Aminotransferase 32 U/L (0-31); Albumin Level 3.9 g/dL (3.5-5.0); Alkaline Phosphatase 60 U/L (39-117); Anion Gap 13 (12-20); Aspartate Amino Transferase 22 U/L (5-31); Bilirubin Total 0.4 mg/dL (0.0-1.0); Blood Urea Nitrogen 25 mg/dL (9-16); Carbon Dioxide 29 mmol/L (22-29); Chloride 103 mmol/L (96-108); Estimated Glomerular Filt Rate > 60; Glucose Random 158 mg/dL (60-115); Potassium 3.9 mmol/L (3.3-5.1); Sodium 141 mmol/L (135-145); Total Protein 6.1 g/dL (6.5-8.0)
[2023-02-07 17:23] LABS: Calcium (PTHI) 9.6 mg/dL (8.6-10.4); PTHI 48 pg/mL (16-77)
[2023-02-07 17:58] LABS: DHEA Sulfate 21 mcg/dL (5-167)
[2023-02-10 05:13] LABS: Adrenocorticotropic Hormone 7 pg/mL (6-50)
[2023-02-10 16:43] LABS: Metanephrine, Free 57 pg/mL (<=57); Normetanephrines, Free 46 pg/mL (<=148); Total Metanephrine, Free 103 pg/mL (<=205)
[2023-02-18 16:59] LABS: Catecholamine Frac, Total 270 pg/mL
== END 2023-02-06 08:53 | disposition home or self-care (01) ==
LOC: HO.LAB 08:52
PROVIDERS: Absent Provider Internal Medicine; PCP Internal Medicine; Visit Provider Nurse Practitioner Family
DX: E24.0 Pituitary-dependent Cushing's disease (principal); D35.00 Benign neoplasm of unspecified adrenal gland; E21.3 Hyperparathyroidism, unspecified; E55.9 Vitamin D deficiency, unspecified; E11.9 Type 2 diabetes mellitus without complications; E78.5 Hyperlipidemia, unspecified
CPT/HCPCS: 36415; 80053; 80061; 82024; 82088; 82306; 82384; 82533; 82627; 83835; 83970; 84100; 84244; 84443

== ENCOUNTER 2023-02-06 09:59 | Outpatient (REF) | payer OTHER, SELFPAY ==
[2023-02-06 11:28] LABS: Creatinine, mg/dL 44.64
[2023-02-06 14:03] LABS: Total Volume 24 Hour Urine 2225 mL
[2023-02-07 19:09] LABS: Calcium, 24 Hr Urine 234 mg/24 h; Calcium/Creatinine Ratio 250 mg/g creat (30-275); Creatinine 24Hr Urine 0.93 g/24 h (0.50-2.15)
[2023-02-11 02:34] LABS: Metanephrine, Free 24U 145 mcg/24 h (90-315); Normetanephrine, Free 24U 271 mcg/24 h (122-676); Total Metanephrine, Free 24U 416 mcg/24 h (224-832); Total Volume 24U 2225 mL
[2023-02-14 18:44] LABS: CATF, 24 Ur Volume 2225 mL; CATF-24Ur Creatinine 0.93 g/24 h (0.50-2.15); Catecholamines,Tot. (E+NE) 24U 17 mcg/24 h (26-121); Dopamine, 24 Ur 94 mcg/24 h (52-480); Norepinephrine, 24 Ur 17 mcg/24 h (15-100)
== END 2023-02-06 10:00 | disposition home or self-care (01) ==
LOC: HO.LNP 09:59
PROVIDERS: Visit Provider Internal Medicine
DX: D35.00 Benign neoplasm of unspecified adrenal gland (principal); E21.3 Hyperparathyroidism, unspecified
CPT/HCPCS: 82340; 82384; 82570; 83835

== ENCOUNTER → 2023-03-06 08:05 | Outpatient (BNVA) | payer OTHER, SELFPAY | PROVIDERS: PCP Internal Medicine; Visit Provider Internal Medicine Rheumatology | DX: M70.61 Trochanteric bursitis, right hip (principal); M70.62 Trochanteric bursitis, left hip; M17.0 Bilateral primary osteoarthritis of knee; Z79.899 Other long term (current) drug therapy | CPT/HCPCS: 99212 ==

== ENCOUNTER 2023-03-06 09:29 | Outpatient (REF) | payer OTHER, SELFPAY ==
--- NOTE | ~2023-03-06 | XR_ITS ---
EXAMINATION: XR HIP, RIGHT CLINICAL INFORMATION: Pain. COMPARISON: None available. TECHNIQUE: AP and frog-leg lateral views of the right hip. FINDINGS: Bones and soft tissues are normal. No fracture. Alignment is anatomic. Hip joint space is maintained. XR/XR hip RT min 2V IMPRESSION: Normal right hip. EXAMINATION: XR HIP, LEFT CLINICAL INFORMATION: Pain. COMPARISON: None available. TECHNIQUE: AP and frog-leg lateral views of the left hip. FINDINGS: Bones and soft tissues are normal. No fracture. Alignment is anatomic. Hip joint space is maintained. A benign sclerotic, well-marginated bone island is noted within the left ischium. IMPRESSION: Unremarkable left hip.
--- NOTE | ~2023-03-06 | XR_ITS ---
EXAMINATION: XR HIP, RIGHT CLINICAL INFORMATION: Pain. COMPARISON: None available. TECHNIQUE: AP and frog-leg lateral views of the right hip. FINDINGS: Bones and soft tissues are normal. No fracture. Alignment is anatomic. Hip joint space is maintained. XR/XR hip LT min 2V IMPRESSION: Normal right hip. EXAMINATION: XR HIP, LEFT CLINICAL INFORMATION: Pain. COMPARISON: None available. TECHNIQUE: AP and frog-leg lateral views of the left hip. FINDINGS: Bones and soft tissues are normal. No fracture. Alignment is anatomic. Hip joint space is maintained. A benign sclerotic, well-marginated bone island is noted within the left ischium. IMPRESSION: Unremarkable left hip.
--- NOTE | ~2023-03-06 | XR_ITS ---
EXAMINATION: XR KNEE, RIGHT CLINICAL INFORMATION: Primary osteoarthritis. COMPARISON: Prior radiographs, most recently 11/22/2021. TECHNIQUE: AP and lateral views of the right knee. FINDINGS: Bony alignment and mineralization are normal. The lateral and medial joint space compartments are well-maintained. There is mild to moderate narrowing of the patellofemoral compartment. There is peripheral osteophyte formation of the lateral and patellofemoral compartments. No fracture or dislocation is seen. There is no foreign body. XR/XR knee LT 2V IMPRESSION: 1. No fracture, dislocation or significant right knee joint effusion is seen. 2. There is mild to moderate osteoarthritic change of the lateral and patellofemoral joint space compartments of the right knee. EXAMINATION: XR KNEE, LEFT CLINICAL INFORMATION: Primary osteoarthritis. COMPARISON: Prior radiographs, most recently 11/22/2021. TECHNIQUE: AP and lateral views of the left knee. FINDINGS: Bony alignment and mineralization are normal. The lateral and medial joint space compartments are well-maintained. There is mild narrowing of the patellofemoral compartment. There is peripheral osteophyte formation of the lateral and patellofemoral compartments. No fracture or dislocation is seen. There is no significant joint effusion. No foreign body is seen. IMPRESSION: 1. No fracture, dislocation or significant left knee joint effusion is seen. 2. There is mild osteoarthritic change of the medial and patellofemoral joint space compartments of the left knee.
--- NOTE | ~2023-03-06 | XR_ITS ---
EXAMINATION: XR KNEE, RIGHT CLINICAL INFORMATION: Primary osteoarthritis. COMPARISON: Prior radiographs, most recently 11/22/2021. TECHNIQUE: AP and lateral views of the right knee. FINDINGS: Bony alignment and mineralization are normal. The lateral and medial joint space compartments are well-maintained. There is mild to moderate narrowing of the patellofemoral compartment. There is peripheral osteophyte formation of the lateral and patellofemoral compartments. No fracture or dislocation is seen. There is no foreign body. XR/XR knee RT 2V IMPRESSION: 1. No fracture, dislocation or significant right knee joint effusion is seen. 2. There is mild to moderate osteoarthritic change of the lateral and patellofemoral joint space compartments of the right knee. EXAMINATION: XR KNEE, LEFT CLINICAL INFORMATION: Primary osteoarthritis. COMPARISON: Prior radiographs, most recently 11/22/2021. TECHNIQUE: AP and lateral views of the left knee. FINDINGS: Bony alignment and mineralization are normal. The lateral and medial joint space compartments are well-maintained. There is mild narrowing of the patellofemoral compartment. There is peripheral osteophyte formation of the lateral and patellofemoral compartments. No fracture or dislocation is seen. There is no significant joint effusion. No foreign body is seen. IMPRESSION: 1. No fracture, dislocation or significant left knee joint effusion is seen. 2. There is mild osteoarthritic change of the medial and patellofemoral joint space compartments of the left knee.
== END 2023-03-06 09:30 | disposition home or self-care (01) ==
LOC: HO.XRAY 09:29
PROVIDERS: PCP Internal Medicine; Visit Provider Internal Medicine Rheumatology
DX: M17.0 Bilateral primary osteoarthritis of knee (principal); M70.61 Trochanteric bursitis, right hip; M70.62 Trochanteric bursitis, left hip
CPT/HCPCS: 73502; 73560

== ENCOUNTER → 2023-05-15 12:54 | Outpatient (BNVA) | payer OTHER, SELFPAY | PROVIDERS: PCP Internal Medicine; Visit Provider Internal Medicine | DX: E24.0 Pituitary-dependent Cushing's disease (principal); D35.00 Benign neoplasm of unspecified adrenal gland; E21.3 Hyperparathyroidism, unspecified; D3A.092 Benign carcinoid tumor of the stomach; E55.9 Vitamin D deficiency, unspecified; E04.2 Nontoxic multinodular goiter; K86.89 Other specified diseases of pancreas; D35.2 Benign neoplasm of pituitary gland | CPT/HCPCS: 99212 ==

== ENCOUNTER 2023-05-22 06:47 | Outpatient (REF) | payer OTHER, SELFPAY ==
[2023-05-22 07:57] LABS: Osmolality, Serum 298 mosm/kg (281-305)
[2023-05-22 08:07] LABS: Alanine Aminotransferase 23 U/L (0-31); Albumin Level 4.1 g/dL (3.5-5.0); Alkaline Phosphatase 45 U/L (39-117); Anion Gap 15 (12-20); Aspartate Amino Transferase 15 U/L (5-31); Bilirubin Total 0.5 mg/dL (0.0-1.0); Blood Urea Nitrogen 25 mg/dL (9-16); Calcium 9.7 mg/dL (8.4-10.2); Carbon Dioxide 27 mmol/L (22-29); Chloride 102 mmol/L (96-108); Estimated Glomerular Filt Rate > 60; Glucose Random 159 mg/dL (60-115); Phosphorus 3.4 mg/dL (2.7-4.5); Potassium 3.6 mmol/L (3.3-5.1); Sodium 140 mmol/L (135-145); Total Protein 6.7 g/dL (6.5-8.0)
[2023-05-22 08:26] LABS: Free T4 (Free Thyroxine) 0.96 ng/dL (0.71-1.85); Thyroid Stimulating Hormone 2.23 uIU/mL (0.32-4.0); Vitamin D 25-OH Total 40.6 ng/mL (>30)
[2023-05-22 08:27] LABS: Cortisol Random 9.4 ug/dL
[2023-05-23 16:44] LABS: Calcium (PTHI) 9.4 mg/dL (8.6-10.4); PTHI 32 pg/mL (16-77)
[2023-05-23 22:52] LABS: Triiodothyronine T3 Total 104 ng/dL (76-181)
[2023-05-24 02:53] LABS: Follicle Stimulating Hormone 82.4 mIU/mL; Lutenizing Hormone 35.5 mIU/mL; Prolactin 3.7 ng/mL
[2023-05-24 13:47] LABS: Sex Hormone Binding Globulin 49 nmol/L (14-73)
[2023-05-26 06:28] LABS: Adrenocorticotropic Hormone 11 pg/mL (6-50)
[2023-05-26 22:18] LABS: Estradiol Ultra Sensitive <2 pg/mL
[2023-05-29 14:38] LABS: IGF-1 (Somatomedin C) 115 ng/mL (50-317); IGF-1 Z Score (Female) -0.4 SD (-2.0 - +2.0)
== END 2023-05-22 06:48 | disposition home or self-care (01) ==
LOC: HO.LAB 06:47
PROVIDERS: Visit Provider Internal Medicine
DX: D35.2 Benign neoplasm of pituitary gland (principal); N20.0 Calculus of kidney; E55.9 Vitamin D deficiency, unspecified
CPT/HCPCS: 36415; 80053; 82024; 82306; 82533; 82670; 83001; 83002; 83930; 83970; 84100; 84146; 84270; 84305; 84439; 84443; 84480

== ENCOUNTER 2023-06-14 09:34 | Outpatient (REF) | payer OTHER, SELFPAY ==
--- NOTE | ~2023-06-14 | US_ITS ---
EXAMINATION: US THYROID CLINICAL INFORMATION: Nontoxic multinodular goiter. COMPARISON: Ultrasound-guided thyroid biopsy 07/21/2022. Thyroid ultrasound 01/19/2022. TECHNIQUE: Linear transducer grayscale and color Doppler examination with attention to the region of the thyroid. FINDINGS: SIZE: Measurements of the thyroid lobes and nodules are given in sagittal, anteroposterior and transverse dimensions respectively. Right Thyroid Lobe: 4.5 x 2.0 x 1.3 cm, volume 6.1 mL. Previously 3.8 x 2.1 x 1.1 cm, volume 4.6 mL. Parenchyma: The gland echotexture is homogeneous. Thyroid vascularity is normal. Left Thyroid Lobe: 4.3 x 1.4 x 1.4 cm, volume 4.4 mL. Previously 4.6 x 0.9 x 1.6 cm, volume 3.5 mL. Parenchyma: The gland echotexture is homogeneous. Thyroid vascularity is normal. Isthmus: 0.5 cm in maximum AP dimension. Previously 0.5 cm. Estimated total number of nodules greater than or equal to 1 cm: 1. Industrial Hygienist nodules are described as follows: 1. Location: Right mid/lower pole. Size: 0.7 x 0.4 x 0.7 cm, volume 0.01 mL. Previously: 0.7 x 0.5 x 0.5 cm, volume 0.09 mL. Nodule characteristics: Composition: Cystic(0). ACR TI-RADS total points: 0 Previous: 0 ACR TI-RADS category: 1 Previous: 1 Significant change in size (>/= 20% in 2 dimensions and minimal increase of 2 mm or 50% or greater increase in volume): No Change in features: No Change in ACR TI-RADS risk category: No 2. Location: Right mid pole/lower pole. Size: 0.4 x 0.4 x 0.3 cm, volume 0.03 mL. Previously: 0.5 x 0.4 x 0.5 cm, volume 0.04 mL. Nodule characteristics: Composition: Cystic(0). ACR TI-RADS total points: 0 Previous: 6 ACR TI-RADS category: 1 Previous: 4 Significant change in size (>/= 20% in 2 dimensions and minimal increase of 2 mm or 50% or greater increase in volume): No Change in features: No Change in ACR TI-RADS risk category: Yes 3. Location: Left upper/mid pole. Size: 0.6 x 0.6 x 0.4 cm, volume 0.08 mL. Previously: 0.6 x 0.5 x 0.3 cm, volume 0.06 mL. Nodule characteristics: Composition: Solid (2). Echogenicity: Hypoechoic (2). Shape: Not taller than wide (0). Margins: Smooth (0). Echogenic Foci: None (0). ACR TI-RADS total points: 4 Previous: 4 ACR TI-RADS category: 4 Previous: 4 Significant change in size (>/= 20% in 2 dimensions and minimal increase of 2 mm or 50% or greater increase in volume): No Change in features: No Change in ACR TI-RADS risk category: No 4. Location: Left lower pole. Size: 1.5 x 1.6 x 1.5 cm, volume 1.9 mL. Previously: 1.7 x 1.1 x 1.2 cm, volume 1.3 mL. Nodule characteristics: Composition: Spongiform (0). ACR TI-RADS total points: 0 Previous: 0 ACR TI-RADS category: 1 Previous: 1 Significant change in size (>/= 20% in 2 dimensions and minimal increase of 2 mm or 50% or greater increase in volume): Yes Change in features: No Change in ACR TI-RADS risk category: No NODES: No lymphadenopathy is seen in the tissue surrounding the thyroid gland. US/US thyroid IMPRESSION: Bilateral thyroid nodules. The largest nodule is a 1.6 cm spongiform nodule in the lower pole of the left lobe. BI-RADS 1. No further follow-up is recommended. No follow-up of subcentimeter nodules is recommended. ACR TI-RADS RECOMMENDATION REFERENCE: Ultrasound-guided fine-needle aspiration, followup ultrasound, no further follow up. * TR1 (0 point) and TR2 (2 points): No FNA or follow up * TR3 (3 points): FNA if more than or equal to 2.5 cm in maximum dimension, followup ultrasound in 1, 3 and 5 years if 1.5 to 2.4 cm in maximum dimension. * TR4 (4-6 points): FNA if more than or equal to 1.5 cm in maximum dimension, followup ultrasound in 1, 2, 3 and 5 years if 1 to 1.4 cm in maximum dimension. * TR5 (more than or equal to 7 points): FNA if more than or equal to 1 cm in maximum dimension, followup ultrasound every year for 5 years if 0.5 to 0.9 cm in maximum dimension. * TR3, TR4 or TR5 nodules that are below the size threshold for follow up receive no follow up.
== END 2023-06-14 09:35 | disposition home or self-care (01) ==
LOC: HO.US 09:34
PROVIDERS: PCP Internal Medicine; Visit Provider Internal Medicine
DX: E04.2 Nontoxic multinodular goiter (principal)
CPT/HCPCS: 76536

== ENCOUNTER 2023-07-14 09:33 | Outpatient (REF) | payer OTHER, SELFPAY ==
--- NOTE | ~2023-07-14 | US_ITS ---
EXAMINATION: US RETROPERITONEAL LIMITED (RENAL ONLY) CLINICAL INFORMATION: Calculus of kidney. COMPARISON: CT abdomen and pelvis 01/02/2023. Renal ultrasound 06/02/2022 and 12/14/2021. MRI abdomen 06/01/2022. X-ray abdomen KUB 03/21/2018. TECHNIQUE: Real-time imaging of the kidneys. Limited visualization due to bowel gas. FINDINGS: RIGHT KIDNEY: 10.4 x 5.0 x 5.0 cm (SAG x AP x TRV). Echogenic renal pyramid again characteristic of medullary nephrocalcinosis. Multiple renal calculi, largest 0.3 cm mid pole and 0.4 cm lower pole. No hydronephrosis. Multiple renal cysts, largest mid to lower pole 2.8 cm with benign features. There is no indication for follow up imaging. Limited visualization. LEFT KIDNEY: 10.4 x 4.9 x 6.3 cm (SAG x AP x TRV). Echogenic renal pyramids again characteristic of medullary nephrocalcinosis. Multiple renal calculi, largest 0.6 cm upper pole and 0.5 cm midpole. No hydronephrosis. Multiple renal cysts, largest 5.9 cm mid to upper pole with benign features. There is no indication for follow up imaging. Limited visualization. ADDITIONAL FINDING: There is a 3.1 x 2.5 x 3.5 cm hypoechoic lesion along the inferior aspect of the right hepatic lobe and superior aspect of the right kidney, possibly representing an adrenal mass. This previously measured 3.1 x 2.8 x 2.9 cm. US/US renal BI IMPRESSION: 1. Bilateral medullary nephrocalcinosis. 2. Bilateral renal calculi. No hydronephrosis. 3. Redemonstration of 3.5 cm lesion in the region of the right adrenal gland, better characterized on CT scan of 01/02/2023.
== END 2023-07-14 09:34 | disposition home or self-care (01) ==
LOC: HO.US 09:33
PROVIDERS: PCP Internal Medicine; Visit Provider Nurse Practitioner Family
DX: N20.0 Calculus of kidney (principal)
CPT/HCPCS: 76775

== ENCOUNTER 2023-08-08 11:23 | Outpatient (AMB) | payer OTHER, SELFPAY ==
--- NOTE | 2023-08-08 11:29 | A.OFFVIS_ITS ---
Intake Intake Visit Reasons: 6m follow up/US(set) Intake Note: Patient is present for Follow up bilateral nephrolithiasis/ultrasound (imaging 07/14/23) Urology Medications: Vitamin B6, Allopurinol, Potassium Blood Thinner: none Firm Administrator Required: Yes Accompanied by: Unknown Allergies aspirin [ASPIRIN] Allergy (Severe, Verified 08/08/23 22:57) HX ULCER NSAIDS (Non-Steroidal Anti-Inflamma [NSAIDS] Allergy (Severe, Verified 08/08/23 22:57) HX ULCER Medication List - Last Reconciled 08/08/23 by ALBER Lu- allopurinol 200 mg PO BID blood sugar diagnostic Use 1 test strip once a day blood-glucose meter As directed otwyndyxcr-cdjkaydienfnc-bptn 50-325-40 mg 1 tab PO Q6H PRN 30 days cholecalciferol (vitamin D3) 1 pill, Monday, and Monday PO 3 times a week; hydrochlorothiazide 25 mg PO DAILY 90 days losartan 25 mg PO DAILY 90 days meclizine 25 mg PO DAILY 30 days metformin 1,000 mg PO BID omeprazole 40 mg PO DAILY 90 days pen needle, diabetic Use pen needle once a day potassium citrate ER 20 mEq (2 x 10 mEq (1,080 mg)) PO BID pyridoxine (vitamin B6) 100 mg PO DAILY 90 days simvastatin 40 mg PO BEDTIME HPI HPI Comments History of Present Illness Details Lisa dobbins 58-year-old female patient of Dr. River. She has a past medical history of pituitary microadenoma, William disease, bilateral nephrolithiasis, pancreatic mass, renal cysts, liver mass, type 2 diabetes with neuropathy, multinodular thyroid, hyperparathyroidism, polyarthralgia, vitamin- D deficiency, hypercalcemia, GERD, chronic kidney disease, gout, hypertension, and hyperlipidemia. She is being seen today for follow-up of her nephrolithiasis. When asked she reports to be doing well. Recent renal imaging results reviewed with the patient today. Right kidney with characteristics of medullary nephrocalcinosis. Multiple renal calculi, largest 0.3 cm mid pole and 0.4 cm lower pole. No hydronephrosis. Multiple renal cysts, largest mid to lower pole 2.8 cm with benign features. There is no indication for follow up imaging per radiology report. The left kidney with characteristic of medullary nephrocalcinosis. Multiple renal calculi, largest 0.6 cm upper pole and 0.5 cm midpole. No hydronephrosis. Multiple renal cysts, largest 5.9 cm mid to upper pole with benign features. There is no indication for follow up imaging per radiology report. There is a 3.1 x 2.5 x 3.5 cm hypoechoic lesion along the inferior aspect of the right hepatic lobe and superior aspect of the right kidney, possibly representing an adrenal mass. This previously measured 3.1 x 2.8 x 2.9 cm. When asked patient reports to be following up with Endocrinology for an adrenal mass. When asked she reports compliance with vitamin B6, potassium citrate, and allopurinol as prescribed. She denies pain. She denies any bothersome urinary issues or concerns at this time. When asked she denies hematuria, dysuria, urinary urgency, urinary incontinence, urinary frequency, fever and or chills. Patient reports she continues to drink adequate amount of fluid daily in addition to adding 1 oz of lemon juice to water daily. In office urinalysis results reviewed with the patient today. Discussed at length potential causes for nephrolithiasis. She otherwise offers no issues or concern s at this time. [facility] Medical History Pituitary microadenoma William's disease Bilateral nephrolithiasis Pancreatic mass Renal cyst Renal cysts and diabetes syndrome Liver mass Physical exam Type 2 diabetes with nephropathy Multinodular thyroid Hyperparathyroidism Polyarthralgia Vitamin D deficiency Hypercalcemia Hypercortisolism Adrenal cortical adenoma of right adrenal gland Right knee pain Type 2 diabetes mellitus with unspecified complications Tachycardia Type 2 diabetes mellitus with hyperglycemia, with long-term current use of insulin Vitamin D deficiency Adrenal nodule Carcinoid tumor of stomach Chronic kidney disease GERD (gastroesophageal reflux disease) Gout Stomach ulcer Hx of renal calculi Essential hypertension Hyperlipidemia LDL goal <100 Surgical History Hx of cystoscopy History of esophagogastroduodenoscopy (EGD) H/O colonoscopy History of gastric polyp Hx of lithotripsy Hx of hysterectomy Hx of cholecystectomy Family History Father CVD (cardiovascular disease) Stomach cancer Mother Diabetes Social History Household Members: Family Housing: Apartment Alcohol intake: never Patient Tobacco Use Status: Never used Tobacco e-Cigarette/Vaping Use: Never Used Second Hand Smoke Exposure: No service: No Current occupational status: unemployed Current occupation: rt handed Cognitive needs: No Hearing needs: No Vision needs: Yes Review of Systems Const Reports as per [facility] Eyes Reports no additional complaints ENT Reports no additional complaints Card Reports as per [facility] Resp Reports no additional complaints GI Reports as per [facility] Reports as per [facility] Musc Reports as per HPI Neuro Reports as per HPI Psych Reports as per HPI Endo Reports as per HPI Physical Exam Const General: cooperative, healthy appearing, comfortable, no acute distress, well developed, alert and awake Orientation/consciousness: patient oriented x3 Limitations: no limitations HEENT Head: Yes normal to inspection, Yes normocephalic and Yes atraumatic Ears: hearing grossly normal bilaterally Neck Neck: Yes normal visual inspection and Yes trachea midline Chest Chest palpation & inspection: normal inspection of the chest Resp Effort & Inspection: normal respiratory effort and able to speak in complete sentences Cardio Rate: regular rate GI Inspection: Yes normal to inspection General: Yes no CVA tenderness Back/Spine/Pelvis Back: no CVA tenderness Neuro General: patient oriented x3 Extrem General: Yes normal to inspection Psych Appearance: grossly normal and well kempt Mental Status: mental status grossly normal Speech and movement: Normal speech and movement present and Clear speech present Affect: normal affect Attitude: cooperative Thought process: Normal thought process present Thought content: Normal thought content present Insight: Fair insight present (Psych) Judgement: Fair judgement present (Psych) Results AMB Urinalysis, Automated UA Leukoctes 70 Fatimah/uL Last Edit by Amanda Joseph on 08/08/23 11:42 UA Nitrite Negative Last Edit by Amanda Joseph on 08/08/23 11:42 UA Urobilinogen 0.2 mg/dL Last Edit by Amanda Joseph on 08/08/23 11:42 UA Protein 15 mg/dL Last Edit by Amanda Joseph on 08/08/23 11:42 UA pH 7.0 Last Edit by Amanda Joseph on 08/08/23 11:42 UA Blood 0 Rich/uL Last Edit by Amanda Joseph on 08/08/23 11:42 UA Specific [place] 1.015 Last Edit by Amanda Keyambar on 08/08/23 11:42 UA Ketone Negative Last Edit by Amanda Keyambar on 08/08/23 11:42 UA Bilirubin 0 mg/dL Last Edit by Amanda Keyambar on 08/08/23 11:42 UA Glucose 0 mg/dL Last Edit by Amanda Keyambar on 08/08/23 11:42 Results Reviewed Results Reviewed: Laboratory Last Values Urine pH (Auto) 7.0 08/08/23 11:30 Specific [place] (Auto) 1.015 08/08/23 11:30 Urine Protein (Auto) 15 mg/dL 08/08/23 11:30 Glucose (UA)(Auto) 0 mg/dL 08/08/23 11:30 Urine Ketones (Auto) Negative 08/08/23 11:30 Urine Blood (Auto) 0 Rich/uL 08/08/23 11:30 Urine Nitrite (Auto) Negative 08/08/23 11:30 Urine Bilirubin (Auto) 0 mg/dL 08/08/23 11:30 Urine Urobilinogen (Auto) 0.2 mg/dL 08/08/23 11:30 Leukocyte Esterase (Auto) 70 Fatimah/uL 08/08/23 11:30 Date of Service: 07/14/23 EXAMINATION: US RETROPERITONEAL LIMITED (RENAL ONLY) FINDINGS: RIGHT KIDNEY: 10.4 x 5.0 x 5.0 cm (SAG x AP x TRV). Echogenic renal pyramid again characteristic of medullary nephrocalcinosis. Multiple renal calculi, largest 0.3 cm mid pole and 0.4 cm lower pole. No hydronephrosis. Multiple renal cysts, largest mid to lower pole 2.8 cm with benign features. There is no indication for follow up imaging. Limited visualization. LEFT KIDNEY: 10.4 x 4.9 x 6.3 cm (SAG x AP x TRV). Echogenic renal pyramids again characteristic of medullary nephrocalcinosis. Multiple renal calculi, largest 0.6 cm upper pole and 0.5 cm midpole. No hydronephrosis. Multiple renal cysts, largest 5.9 cm mid to upper pole with benign features. There is no indication for follow up imaging. Limited visualization. ADDITIONAL FINDING: There is a 3.1 x 2.5 x 3.5 cm hypoechoic lesion along the inferior aspect of the right hepatic lobe and superior aspect of the right kidney, possibly representing an adrenal mass. This previously measured 3.1 x 2.8 x 2.9 cm. IMPRESSION: 1. Bilateral medullary nephrocalcinosis. 2. Bilateral renal calculi. No hydronephrosis. 3. Redemonstration of 3.5 cm lesion in the region of the right adrenal gland, better characterized on CT scan of 01/02/2023. Assessment & Plan Assessment & Plan (1) Bilateral nephrolithiasis: Code(s): N20.0 - Calculus of kidney (2) Renal cysts and diabetes syndrome: Code(s): E13.9 - Other specified diabetes mellitus without complications Plan In office urinalysis results reviewed with the patient today; as noted above. Recent renal imaging results reviewed with the patient today; as noted above. Continue to follow with endocrinology as planned. Patient denies any bothersome urinary issues or concerns at this time. Will continue with surveillance monitoring. Continue educated and encouraged to continue drinking plenty of water daily, an adding 1 oz of lemon juice to water daily. Continue with vitamin-B 6, potassium citrate, and allopurinol as prescribed CT urogram in 6 months BUN and creatinine ordered for imaging. Follow-up in 6 months with imaging to be completed prior; or sooner with any issues, concerns, and or questions. Orders: Orders AMB Urinalysis Automated Today Z13.9 - Encounter for screening, unspecified CT urogram 6 Months E13.9 - Other specified diabetes mellitus without complications, N20.0 - Calculus of kidney Blood Urea Nitrogen 6 Months N20.0 - Calculus of kidney Creatinine 6 Months N20.0 - Calculus of kidney Patient Instructions: The patient had an opportunity to ask questions regarding the treatment plan. All questions were answered. Physical exam, labs, and imaging were discussed and reviewed in detail. As well as risks, benefits, and discussion of treatment choices. No major barriers to understanding were identified. The patient expressed understanding and agreement with the above treatment plan. The patient was made aware they should contact our office by phone for worsening of their current condition, the appearance of new symptoms, or with any questions or concerns. Compliance is encouraged with any medications and follow up testing that is ordered. It is a privilege to be allowed the opportunity to participate in? your urological care.? Again, if you have any questions or concerns If you have any questions or concerns please do not hesitate to contact me. The office is [phone]. This note is constructed using voice recognition software. While every effort has been made to ensure accuracy chemical cell changer errors may have been included. Yours sincerely, KARYN Lu Coding Level of Care Code Est Pt Level 3 (61940) Diagnoses Bilateral nephrolithiasis N20.0 Renal cysts and diabetes syndrome E13.9
== END 2023-08-08 12:09 | disposition home or self-care (01) ==
PROVIDERS: PCP Internal Medicine; Visit Provider Nurse Practitioner Family
DX: N20.0 Calculus of kidney (principal); E13.9 Other specified diabetes mellitus without complications
CPT/HCPCS: 99213

== ENCOUNTER → 2023-08-08 11:23 | Outpatient (BNVA) | payer OTHER, SELFPAY | PROVIDERS: PCP Internal Medicine; Visit Provider Nurse Practitioner Family | DX: N20.0 Calculus of kidney (principal); E13.9 Other specified diabetes mellitus without complications | CPT/HCPCS: 81003; 99212 ==

== ENCOUNTER 2023-08-21 10:56 | Outpatient (REF) | payer OTHER, SELFPAY ==
[2023-08-28 09:23] LABS: Cortisol Free, 24 Hr Urine 24.6 mcg/24 h (4.0-50.0); Creatinine, 24 Hr Urine 1.14 g/24 h (0.50-2.15); Total Volume, 24 Hr Urine 2375 mL
== END 2023-08-21 10:57 | disposition home or self-care (01) ==
LOC: HO.LNP 10:56
PROVIDERS: Visit Provider Student in an Organized Health Care Education/Training Program
DX: R68.89 Other general symptoms and signs (principal); E27.8 Other specified disorders of adrenal gland
CPT/HCPCS: 82530

== ENCOUNTER 2023-08-23 10:37 | Outpatient (REF) | payer OTHER, SELFPAY ==
[2023-08-23 12:23] LABS: Creatinine, mg/dL 40.42
[2023-08-23 12:26] LABS: Creatinine, mg/dL 40.34; Uric Acid, mg/dL 17.7 mg/dL
[2023-08-23 13:55] LABS: Creatinine, 24Hr Urine 0.9 G/Day (1.0-2.0); Phosphorus, 24 Hr Urine 0.7 G/Day (0.4-1.3); Sodium 24 Hr Urine 234.3 mmol/Day (40-220); Total Volume 24 Hour Urine 2275 mL
[2023-08-23 13:57] LABS: Creatinine, 24Hr Urine 0.9 G/Day (1.0-2.0); Total Volume 24 Hour Urine 2275 mL; Uric Acid, 24 Hr Urine 402.7 mg/Day (250-750)
[2023-08-29 01:04] LABS: 24hr Urine Total Volume 2275 mL/24 h
[2023-08-30 06:14] LABS: Citric Acid, 24hr Urine 225 mg/24 h (100-1300); Citric Acid/Creat Ratio 24U 235 mg/g creat (180-1070); Creatinine, 24U 0.96 g/24 h (0.50-2.15)
[2023-08-30 08:49] LABS: Cortisol Free, 24 Hr Urine 24.9 mcg/24 h (4.0-50.0); Creatinine, 24 Hr Urine 0.95 g/24 h (0.50-2.15); Total Volume, 24 Hr Urine 2275 mL
[2023-09-02 16:28] LABS: Cystine 24Hr Urine - Cystine 63 umol/24 h (24-184)
[2023-09-05 10:58] LABS: Cystine 24Hr Urine - Total Vol 2275
== END 2023-08-23 10:38 | disposition home or self-care (01) ==
LOC: HO.LNP 10:37
PROVIDERS: Internal Medicine Nephrology; Visit Provider Student in an Organized Health Care Education/Training Program
DX: E11.9 Type 2 diabetes mellitus without complications (principal); N20.0 Calculus of kidney; Q61.5 Medullary cystic kidney; R68.89 Other general symptoms and signs; E27.8 Other specified disorders of adrenal gland
CPT/HCPCS: 82131; 82507; 82530; 82570; 83945; 84105; 84300; 84560

== ENCOUNTER 2023-08-25 07:05 | Outpatient (REF) | payer OTHER, SELFPAY ==
[2023-08-25 08:08] LABS: Cortisol Random 2.4 ug/dL
[2023-08-30 23:38] LABS: Adrenocorticotropic Hormone 6 pg/mL (6-50)
[2023-09-07 08:10] LABS: Dexamethasone 440 ng/dL
== END 2023-08-25 07:06 | disposition home or self-care (01) ==
LOC: HO.LAB 07:05
PROVIDERS: PCP Internal Medicine; Visit Provider Student in an Organized Health Care Education/Training Program
DX: R68.89 Other general symptoms and signs (principal); E27.8 Other specified disorders of adrenal gland
CPT/HCPCS: 36415; 80299; 82024; 82533

== ENCOUNTER 2023-10-17 09:42 | Outpatient (REF) | payer OTHER, SELFPAY ==
--- NOTE | ~2023-10-17 | MR_ITS ---
EXAMINATION: MR BRAIN WITHOUT AND WITH CONTRAST CLINICAL INFORMATION: Pituitary lesion COMPARISON: MRI of the brain with and without contrast 08/16/2022 TECHNIQUE: Multiplanar multisequence MR imaging of the brain was obtained without and following the administration of 3.5 mL Gadavist intravenous contrast. FINDINGS: The pituitary gland is normal in overall size, contour, and signal intensity on precontrast imaging. It enhances heterogeneously on postcontrast sequences, without evidence of a discrete focal lesion. The infundibulum remains midline and the optic chiasm is in a normal location. The cavernous sinus enhances normally. There is no acute infarct on diffusion-weighted imaging. No extra-axial collection or mass effect/herniation. There are several scattered foci of nonspecific supratentorial white matter T2/FLAIR signal abnormality. No hydrocephalus. The ventricles are normal in morphology and size. No abnormal parenchymal or extra-axial enhancement. The major flow voids at the skull base are preserved. The midline structures are normal. Stable mild caudal positioning of the cerebellar tonsils which extend up to 7 mm below the foramen magnum maintain a normal rounded morphology. The craniocervical junction is normal. Degenerative changes of the upper cervical spine. Marrow signal is within normal limits. The visualized soft tissues are without significant abnormality. No signal abnormality within the paranasal sinuses or within the mastoid air cells. MR/MR head/brain wo/w con IMPRESSION: 1. No discrete intrasellar lesion is identified. 2. Stable mild caudal positioning of the cerebellar tonsils which extend up to 7 mm below the foramen magnum which maintain a normal rounded morphology
[2023-10-17 11:22] LABS: Alanine Aminotransferase 27 U/L (0-31); Albumin Level 4.4 g/dL (3.5-5.0); Alkaline Phosphatase 54 U/L (39-117); Anion Gap 13 (12-20); Aspartate Amino Transferase 21 U/L (5-31); Bilirubin Total 0.7 mg/dL (0.0-1.0); Blood Urea Nitrogen 20 mg/dL (9-16); Calcium 10.6 mg/dL (8.4-10.2); Carbon Dioxide 32 mmol/L (22-29); Chloride 99 mmol/L (96-108); Cholesterol 143 mg/dL (<200); Estimated Glomerular Filt Rate > 60; Glucose Fasting 156 mg/dL (60-99); HDL Cholesterol 53 mg/dL (>40); LDL Cholesterol Calculated 69 mg/dL (<100); Potassium 3.7 mmol/L (3.3-5.1); Sodium 140 mmol/L (135-145); Total Protein 7.4 g/dL (6.5-8.0); Triglycerides 105 mg/dL (<150)
[2023-10-17 11:25] LABS: Vitamin D 25-OH Total 45.6 ng/mL (>30)
[2023-10-17 11:34] LABS: Folate 10.8 ng/mL (> or = 4.0); Vitamin B12 435 pg/mL (200-900)
[2023-10-17 11:45] LABS: Creatinine Urine 65.31 mg/dL
[2023-10-17] MEDS: gadobutroL 7.5 ML VIAL IVPUSH (12:37)
== END 2023-10-17 09:43 | disposition home or self-care (01) ==
LOC: HO.MRI 09:42
PROVIDERS: PCP Internal Medicine; Referring Provider Internal Medicine; Visit Provider Student in an Organized Health Care Education/Training Program
DX: R68.89 Other general symptoms and signs (principal); E23.7 Disorder of pituitary gland, unspecified; E27.8 Other specified disorders of adrenal gland; E11.9 Type 2 diabetes mellitus without complications; E55.9 Vitamin D deficiency, unspecified; E78.5 Hyperlipidemia, unspecified; E53.8 Deficiency of other specified B group vitamins
CPT/HCPCS: 36415; 70553; 80053; 80061; 82043; 82306; 82570; 82607; 82746; A9585

== ENCOUNTER 2023-10-18 08:33 | Outpatient (REF) | payer OTHER, SELFPAY ==
[2023-10-24 15:17] LABS: Adrenocorticotropic Hormone 12 pg/mL (6-50)
== END 2023-10-18 08:34 | disposition home or self-care (01) ==
LOC: HO.LAB 08:33
PROVIDERS: PCP Internal Medicine; Visit Provider Student in an Organized Health Care Education/Training Program
DX: R68.89 Other general symptoms and signs (principal); E27.8 Other specified disorders of adrenal gland; E23.7 Disorder of pituitary gland, unspecified
CPT/HCPCS: 36415; 82024

== ENCOUNTER 2023-10-18 08:59 | Outpatient (AMB) | payer OTHER, SELFPAY ==
[2023-10-18 09:11] VITALS: BP 138/80; BMI 27.2
--- NOTE | 2023-10-18 09:11 | A.OFFPC_ITS ---
Vital Signs 10/18/23 09:11 Height 5 ft 1 in Weight 144 lb BMI 27.2 BP 138/80 Blood Pressure Location Rt brachial Position Sitting Intake Visit Reasons: dm Intake Note: Patient here for a follow up DM Rouge Presser Required: No Accompanied by: Son Allergies aspirin [ASPIRIN] Allergy (Severe, Verified 10/18/23 09:32) HX ULCER NSAIDS (Non-Steroidal Anti-Inflamma [NSAIDS] Allergy (Severe, Verified 10/18/23 09:32) HX ULCER empagliflozin [From Jardiance] Adverse Reaction (Verified 10/18/23 09:36) hematuria Medication List - Last Reconciled 10/18/23 by Iza Hi MD allopurinol 200 mg PO BID blood sugar diagnostic Use 1 test strip once a day blood-glucose meter As directed bxdvnarwys-wlovimmgdplxj-uaps 50-325-40 mg 1 tab PO Q6H PRN 30 days cholecalciferol (vitamin D3) 1 pill, Monday, and Monday PO 3 times a week; hydrochlorothiazide 25 mg PO DAILY 90 days losartan 25 mg PO DAILY 90 days meclizine 25 mg PO DAILY 30 days metformin 1,000 mg PO BID omeprazole 40 mg PO DAILY 90 days pen needle, diabetic Use pen needle once a day potassium citrate ER 20 mEq (2 x 10 mEq (1,080 mg)) PO BID pyridoxine (vitamin B6) 100 mg PO DAILY 90 days simvastatin 40 mg PO BEDTIME Tobacco use date assessed: 12/08/22 Dental Screening Dental Screen Date: 10/18/23 Did you have a dental visit in the last 12 months?: Yes Did you have a dental problem in the last 6 months where you did not have access to dental care?: No Was dental information given to patient?: Patient has dentist HPI HPI Comments History of Present Illness Details This is a 58-year-old female with diabetes mellitus type 2, hypertension and hyperlipidemia that comes today for follow-up on recent labs. Blood pressure stable. A1c elevated and I will add glipizide. She tried Trulicity but then developed thyroid nodules and she is scared to restart Trulicity. Try Jardiance but developed hematuria. I will start her on glipizide. LDL within goal. Calcium is elevated and corrected with albumin is 10.3. Vitamin-D is also elevated so instead of having it 3 times a week she will take vitamin-D once a week. No chest pain or shortness of breath. Accompanied by son. [facility] Medical History Pituitary microadenoma Almond's disease Bilateral nephrolithiasis Pancreatic mass Renal cyst Renal cysts and diabetes syndrome Liver mass Physical exam Type 2 diabetes with nephropathy Multinodular thyroid Hyperparathyroidism Polyarthralgia Vitamin D deficiency Hypercalcemia Hypercortisolism Adrenal cortical adenoma of right adrenal gland Right knee pain Type 2 diabetes mellitus with unspecified complications Tachycardia Type 2 diabetes mellitus with hyperglycemia, with long-term current use of insulin Vitamin D deficiency Adrenal nodule Carcinoid tumor of stomach Chronic kidney disease GERD (gastroesophageal reflux disease) Gout Stomach ulcer Hx of renal calculi Essential hypertension Hyperlipidemia LDL goal <100 Surgical History Hx of cystoscopy History of esophagogastroduodenoscopy (EGD) H/O colonoscopy History of gastric polyp Hx of lithotripsy Hx of hysterectomy Hx of cholecystectomy Family History Father CVD (cardiovascular disease) Stomach cancer Mother Diabetes Household Members: Family Housing: Apartment Alcohol intake: never Patient Tobacco Use Status: Never used Tobacco e-Cigarette/Vaping Use: Never Used Second Hand Smoke Exposure: No service: No Current occupational status: unemployed Current occupation: rt handed Cognitive needs: No Hearing needs: No Vision needs: Yes Questionnaire Thrive Questionnaire Date Thrive assessed: 12/08/22 ANTONIO-7 AMB Questionnaire ANTONIO-7 Date ANTONIO - 7 assessed: 12/08/22 Source: Developed by Drs. Seven Mast, Stephanie Llanos, Rubén Walker and colleagues, with an educational dave from [employer]. Review of Systems Const All systems reviewed & are unremarkable except as noted in HPI and below Eyes Reports no additional complaints, Denies change in vision and Denies other visual disturbances Card Denies chest pain at rest, Denies chest pain with activity, Denies edema, Denies irregular heart rhythm, Denies claudication, Denies dyspnea, Denies dyspnea on exertion, Denies orthopnea, Denies paroxysmal nocturnal dyspnea and Denies slow heart rate Resp Denies cough, Denies dyspnea and Denies dyspnea on exertion GI Denies abdominal pain, Denies change in bowel habits, Denies excessive flatus, Denies nausea and Denies vomiting Denies urinary incontinence, Denies urinary hesitancy and Denies urinary urgency Musc Denies abnormal gait, Denies atrophy, Denies deformity and Denies limited range of motion Skin/Breast Denies bleeding lesions, Denies changing lesions and Denies rash Neuro Denies abnormal gait and Denies lack of coordination Physical exam (Primary Care) Vital Signs: Last Vital Signs BP 138/80 10/18/23 09:11 BMI result Body Mass Index 27.2 Tobacco/Smoking Status: Tobacco use Status Tobacco use date assessed 12/08/22 10/18/23 09:11 Patient Tobacco Use Status Never used Tobacco 10/18/23 09:11 e-Cigarette/Vaping Use Never Used 10/18/23 09:11 Thrive Assessment: Date of Thrive Assessment Date Thrive assessed 12/08/22 10/18/23 09:11 Eyes General: appearance normal, both eyes and all related structures Eyelids: Yes eyelids normal Conjunctivae: conjunctivae normal Neck Neck: Yes normal visual inspection and Yes supple Resp Effort & Inspection: normal respiratory effort Auscultation: clear to auscultation bilaterally Cardio Jugular venous distension: no JVD Rate: regular rate Rhythm: regular rhythm Heart sounds: S1 normal heart sound present and S2 normal heart sound present Extrem General: Yes full ROM Office Procedures Flu Questionnaire Does the patient have a severe egg allergy?: No Results AMB Hemoglobin A1c AMB Hemoglobin A1c 7.5 % Last Edit by FLAQUITA Choe on 10/18/23 09:2 2 Immunizations flu vacc [id number] 6mos up(PF) 60 mcg(15 mcgx4)/0.5 mL IM syringe Performing Provider: Iza Hi MD [place] [facility] [place] [facility] [place] [facility] Documented (not given) by: FLAQUITA Choe on 10/18/23 09:19 Reason Not Given: Patient Refused Results Reviewed Results Reviewed: Laboratory Last Values Hgb A1c (Clinic) 7.5 % (4.0-6.0) H 10/18/23 09:11 Assessment and Plan Assessment & Plan (1) Diabetes mellitus: Code(s): E11.9 - Type 2 diabetes mellitus without complications Plan: Continue metformin. Start glipizide. A1c goal is equal or less than 7%. (2) Hypercalcemia: Code(s): E83.52 - Hypercalcemia Plan: Decrease vitamin-D intake. Repeat calcium in 5 months. (3) Essential hypertension: Code(s): I10 - Essential (primary) hypertension Plan: Continue losartan. Blood pressure goal is equal or less than 130/80. (4) Hyperlipidemia LDL goal <100: Code(s): E78.5 - Hyperlipidemia, unspecified Plan: Continue statins. LDL goal less than 70. Orders: Orders Lipid Panel 5 Months E11.9 - Type 2 diabetes mellitus without complications, E78.5 - Hyperlipidemia, unspecified Vitamin D 25-OH Total 5 Months E55.9 - Vitamin D deficiency, unspecified Calcium, Ionized 5 Months E21.3 - Hyperparathyroidism, unspecified AMB Hemoglobin A1c Today E11.9 - Type 2 diabetes mellitus without complications Influenza [id number] Immunization Today Z23 - Encounter for immunization Microalbumin, Random (w Creat) 5 Months E11.9 - Type 2 diabetes mellitus without complications Comprehensive [place]. Panel Fast 5 Months E11.9 - Type 2 diabetes mellitus without complications PTHI 5 Months E21.3 - Hyperparathyroidism, unspecified Phosphorus 5 Months E21.3 - Hyperparathyroidism, unspecified Medications: New glipizide 5 mg PO DAILY 90 tabs 1RF 90 days E11.9 - Type 2 diabetes mellitus without complications Coding Level of Care Code Est Pt Level 4 (87697) Diagnoses Diabetes mellitus E11.9 Hypercalcemia E83.52 Essential hypertension I10 Hyperlipidemia LDL goal <100 E78.5 Time Spent (min) 23
== END 2023-10-18 09:40 | disposition home or self-care (01) ==
PROVIDERS: PCP Internal Medicine; Visit Provider Internal Medicine
DX: E11.9 Type 2 diabetes mellitus without complications (principal); E83.52 Hypercalcemia; I10 Essential (primary) hypertension; E78.5 Hyperlipidemia, unspecified
CPT/HCPCS: 83036; 99214

== ENCOUNTER 2024-01-29 08:58 | Outpatient (REF) | payer OTHER, SELFPAY ==
--- NOTE | ~2024-01-29 | CT_ITS ---
EXAMINATION: CT ABDOMEN AND PELVIS WITHOUT AND WITH CONTRAST CLINICAL INFORMATION: Renal calculus. COMPARISON: CT scans dating between January 02, 2023 and August 04, 2007. TECHNIQUE: Noncontrast CT of the abdomen and pelvis is performed followed by split bolus contrast-enhanced images using 85 mL Omnipaque 350 contrast.? Postcontrast imaging is performed during the combined nephrogram and excretion phase. Sagittal and coronal reformatted images were obtained on the technologist's workstation for both the precontrast and postcontrast phases. This CT examination was performed using dose optimization techniques as appropriate, variously including the following: *Automated exposure control *Adjustment of mA and/or kV according to patient size (this includes techniques or standardized protocols for targeted exams where dose is matched to indication/reason for exam; i.e. extremities or head) *Use of iterative reconstruction technique DLP: 648 mGy-cm FINDINGS: LUNG BASES: The lung bases appear clear, with no evidence of inflammation or nodules. LIVER, GALLBLADDER, AND BILIARY TREE: Subcentimeter benign segment 6 cyst or hemangioma (image 25, series 3), unchanged. The liver otherwise appears unremarkable in size, shape, and attenuation. No suspicious focal hepatic lesion or biliary ductal dilatation is appreciated. Status post cholecystectomy. PANCREAS: Unremarkable SPLEEN: Unremarkable ADRENAL GLANDS: Approximately 3 cm benign right adrenal adenoma demonstrating Hounsfield unit density of -10. No further dedicated follow up imaging of this benign finding is indicated. KIDNEYS AND URETERS: Mild right renal atrophy and right renal cortical scarring. Innumerable, bilateral, approximately 0.8 cm or less renal medullary and/or collecting system calcifications. No evidence of hydronephrosis or hydroureter. Approximately 5.5 cm or less benign bilateral simple renal cysts for which no further dedicated follow up imaging is indicated. BLADDER: Unremarkable GASTROINTESTINAL TRACT: The small and large bowel appear unremarkable. Normal-appearing distal ileum and vermiform appendix. ABDOMINAL WALL: No significant hernia is appreciated. LYMPH NODES: No evidence of adenopathy by size criteria. VASCULAR: Unremarkable PELVIC VISCERA: Uterus not visualized, suggesting prior surgical removal. OSSEOUS STRUCTURES: Unremarkable CT/CT urogram IMPRESSION: No significant radiographic change compared with January 02, 2023. Innumerable, bilateral, approximately 0.8 cm or less renal medullary and/or collecting system calcifications consistent with medullary nephrocalcinosis. No evidence of hydronephrosis or hydroureter. Mild right renal atrophy and right renal cortical scarring. Additional findings, as above.
[2024-01-29] MEDS: iohexoL 350 MG/ML 100 ML INFUS..BTL 85 ML IV (10:01)
[2024-01-29 13:28] LABS: Creatinine POC 0.9 mg/dL (0.5-1.4); GFR POC > 60
== END 2024-01-29 08:59 | disposition home or self-care (01) ==
LOC: HO.CT 08:58
PROVIDERS: PCP Internal Medicine; Visit Provider Nurse Practitioner Family
DX: N20.0 Calculus of kidney (principal); E13.9 Other specified diabetes mellitus without complications
CPT/HCPCS: 74178; 82565; Q9967

== ENCOUNTER 2024-03-11 12:33 | Outpatient (AMB) | payer OTHER, SELFPAY ==
--- NOTE | 2024-03-11 12:37 | A.OFFPC_ITS ---
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 Accompanied by: Self / Same As Patient Allergies aspirin [ASPIRIN] Allergy (Severe, Verified 03/11/24 13:14) HX ULCER NSAIDS (Non-Steroidal Anti-Inflamma [NSAIDS] Allergy (Severe, Verified 03/11/24 13:14) HX ULCER empagliflozin [From Jardiance] Adverse Reaction (Verified 03/11/24 13:14) hematuria Medication List - Last Reconciled 03/11/24 by Iza Hi MD allopurinol 200 mg PO BID blood sugar diagnostic Use 1 test strip once a day blood-glucose meter As directed [id number]-[id number] 50-325-40 mg 1 tab PO Q6H PRN 30 days cholecalciferol (vitamin D3) (Vitamin D3) 25 mcg PO 3XW glipizide 5 mg PO DAILY 90 days hydrochlorothiazide 25 mg PO DAILY 90 days losartan 25 mg PO DAILY 90 days meclizine 25 mg PO DAILY 30 days metformin 1,000 mg PO BID omeprazole 40 mg PO DAILY 90 days pen needle, diabetic Use pen needle once a day potassium citrate ER 20 mEq (2 x 10 mEq (1,080 mg)) PO BID pyridoxine (vitamin B6) 100 mg PO DAILY 90 days simvastatin 40 mg PO BEDTIME Tobacco use date assessed: 03/11/24 Dental Screening Dental Screen Date: 03/11/24 Did you have a dental visit in the last 12 months?: Yes Did you have a dental problem in the last 6 months where you did not have access to dental care?: No Was dental information given to patient?: Patient has dentist HPI HPI Comments History of Present Illness Details This is a 58-year-old female with diabetes mellitus type 2 that comes for her physical exam. A1c within goal. LDL within goal. Last mammogram was 2022 and has another mammogram scheduled for next month. Last colonoscopy was 2014 and next colonoscopy should be 2024. No need for Pap smear due to hysterectomy. [facility] Medical History (Updated 03/11/24 @ 13:53 by Iza Hi MD) Physical exam Pituitary microadenoma William's disease Bilateral nephrolithiasis Pancreatic mass Renal cyst Renal cysts and diabetes syndrome Liver mass Type 2 diabetes with nephropathy Multinodular thyroid Hyperparathyroidism Polyarthralgia Vitamin D deficiency Hypercalcemia Hypercortisolism Adrenal cortical adenoma of right adrenal gland Right knee pain Type 2 diabetes mellitus with unspecified complications Tachycardia Type 2 diabetes mellitus with hyperglycemia, with long-term current use of insulin Vitamin D deficiency Adrenal nodule Carcinoid tumor of stomach Chronic kidney disease GERD (gastroesophageal reflux disease) Gout Stomach ulcer Hx of renal calculi Essential hypertension Hyperlipidemia LDL goal <100 Surgical History Hx of cystoscopy History of esophagogastroduodenoscopy (EGD) H/O colonoscopy History of gastric polyp Hx of lithotripsy Hx of hysterectomy Hx of cholecystectomy Family History Father CVD (cardiovascular disease) Stomach cancer Mother Diabetes Social History Household Members: Family Housing: Apartment Alcohol intake: never Patient Tobacco Use Status: Never used Tobacco e-Cigarette/Vaping Use: Never Used Second Hand Smoke Exposure: No service: No Current occupational status: unemployed Current occupation: rt handed Cognitive needs: No Hearing needs: No Vision needs: Yes Questionnaire PHQ-9 Over the last 2 weeks, how often have you been bothered by any of the following problems? 1. Little interest or pleasure in doing things: not at all 2. Feeling down, depressed, or hopeless: several days 3. Trouble falling or staying asleep, or sleeping too much: several days 4. Feeling tired or having little energy: several days 5. Poor appetite or overeating: not at all 6. Feeling bad about yourself - or that you are a failure or have let yourself or your family down: not at all 7. Trouble concentrating on things, such as reading the newspaper or watching television: several days 8. Moving or speaking so slowly that other people could have noticed. Or the opposite - being so fidgety or restless that you have been moving around a lot more than usual: not at all 9. Thoughts that you would be better off or of hurting yourself in some way: not at all Total score: 4 Depression Screening Interpretation: Positive Depression Screening Follow-up: Existing condition Depression Screening Done: Yes 40569 - PHQ-9 Billing: Yes Source: Developed by Drs. Seven Mast, Rubén Llanes and colleagues, with an educational dave from [employer]. Thrive Questionnaire Date Thrive assessed: 03/11/24 I am a: Patient What is your living situation today?: I have a steady place to live Within the past 12 months, did the food you bought not last and you didn't have the money to get more?: Never true Within the past 12 months, did you worry whether your food would run out before you got money to buy more?: Never true Do you have trouble paying for medicines?: No Do you have trouble getting transportation to medical appointments?: No Do you have trouble paying your heating and electricity bill?: No Do you have trouble taking care of your child, family member or friend?: No Do you have trouble with day-to-day activities such as bathing, preparing meals, shopping, managing finances, etc.?: No Are you currently unemployed and looking for a job?: No Are you interested in more education?: No Please select the resources that you would like help with: None Currently or been in a relationship where the following occur: no concerns reported THRIVE Score: 0 AUDIT C Alcohol Use Questionnaire (AUDIT-C) 1. How often do you have a drink containing alcohol?: Never Total Score: 0 ANTONIO-7 AMB Questionnaire ANTONIO-7 Date ANTONIO - 7 assessed: 03/11/24 Feeling nervous, anxious, or on edge: 1 = Several days Not being able to stop or control worryin = Not at all Worrying too much about different things: 1 = Several days Trouble relaxin = Not at all Being so restless that it is hard to sit still: 0 = Not at all Becoming easily annoyed or irritable: 1 = Several days Feeling afraid as if something awful might happen: 0 = Not at all Total ANTONIO-7 score (0-4 normal; 5-9 mild; 10-14 moderate; 15-21 severe): 3 Source: Developed by Drs. Seven Mast, Rubén Llanes and colleagues, with an educational dave from [employer]. ANTONIO-7 Assessment Billing ANTONIO-7 Assessment Tool: ANTONIO-7 Assessment 96237 Review of Systems Const All systems reviewed & are unremarkable except as noted in HPI and below Eyes Reports no additional complaints, Denies change in vision and Denies other visual disturbances Card Denies chest pain at rest, Denies chest pain with activity, Denies edema, Denies irregular heart rhythm, Denies claudication, Denies dyspnea, Denies dyspnea on exertion, Denies orthopnea, Denies paroxysmal nocturnal dyspnea and Denies slow heart rate Resp Denies cough, Denies dyspnea and Denies dyspnea on exertion GI Denies abdominal pain, Denies change in bowel habits, Denies excessive flatus, Denies nausea and Denies vomiting Denies urinary incontinence, Denies urinary hesitancy and Denies urinary urgency Physical exam (Primary Care) Vital Signs: Last Vital Signs BP 110/72 03/11/24 12:41 BMI result Body Mass Index 28.0 Tobacco/Smoking Status: Tobacco use Status Tobacco use date assessed 03/11/24 03/11/24 12:47 Patient Tobacco Use Status Never used Tobacco 03/11/24 12:39 e-Cigarette/Vaping Use Never Used 03/11/24 12:39 PHQ-9: PHQ-9 Score PHQ-9: Total score 4 03/11/24 13:18 Depression Screening Interpretation: Positive Depression Screening Follow-up: Existing condition Thrive Assessment: Date of Thrive Assessment Date Thrive assessed 03/11/24 03/11/24 12:47 Currently or been in a relationship where the following occur: no concerns reported Const Orientation/consciousness: patient oriented x3 [facility] Head: Yes normal to inspection, Yes normocephalic and Yes atraumatic Ears: external ears normal Eyes General: appearance normal, both eyes and all related structures Eyelids: Yes eyelids normal Conjunctivae: conjunctivae normal Neck Neck: Yes normal visual inspection and Yes supple Resp Effort & Inspection: normal respiratory effort Auscultation: clear to auscultation bilaterally Cardio Jugular venous distension: no JVD Rate: regular rate Rhythm: regular rhythm Heart sounds: S1 normal heart sound present and S2 normal heart sound present GI Inspection: Yes normal to inspection Palpation (GI): Soft to palpation and nontender Auscultation: normal bowel sounds Skin General skin exam: no rashes or lesions noted Neuro General: patient oriented x3 and no focal motor deficits Extrem General: Yes full ROM Psych Appearance: grossly normal Results AMB Hemoglobin A1c AMB Hemoglobin A1c 6.8 % Last Edit by FLAQUITA Choe on 03/11/24 12:5 1 Results Reviewed Results Reviewed: Laboratory Last Values Hgb A1c (Clinic) 6.8 % (4.0-6.0) H 03/11/24 12:36 Assessment and Plan Assessment & Plan (1) Physical exam: Code(s): Z00.00 - Encounter for general adult medical examination without abnormal findings Plan: Repeat in a year. (2) Diabetes mellitus: Code(s): E11.9 - Type 2 diabetes mellitus without complications Plan: Continue glipizide and metformin. A1c goal is equal or less than 7%. Orders: Orders AMB Hemoglobin A1c Today E11.9 - Type 2 diabetes mellitus without complications Complete Blood Count Auto Diff Today M17.0 - Bilateral primary osteoarthritis of knee Lipid Panel Today E78.5 - Hyperlipidemia, unspecified Microalbumin, Random (w Creat) Today E11.9 - Type 2 diabetes mellitus without complications Vitamin D 25-OH Total Today E55.9 - Vitamin D deficiency, unspecified Uric Acid Today M10.9 - Gout, unspecified Comprehensive [place]. Panel Fast Today E11.9 - Type 2 diabetes mellitus without complications Coding Level of Care Code Est Pt Prev Care 40-64y(15734) Diagnoses Physical exam Z00.00 Diabetes mellitus E11.9 Additional Codes ANTONIO-7 Assessment Billing - ANTONIO-7 Assessment Tool: ANTONIO-7 Assessment 99194 ([id number]) Time Spent (min) 31
[2024-03-11 12:41] VITALS: BP 110/72; BMI 28.0
== END 2024-03-11 13:26 | disposition home or self-care (01) ==
PROVIDERS: Visit Provider Internal Medicine
DX: Z00.00 Encounter for general adult medical examination without abnormal findings (principal); E11.9 Type 2 diabetes mellitus without complications
CPT/HCPCS: 83036; 99396

== ENCOUNTER 2024-03-27 10:12 | Outpatient (REF) | payer OTHER, SELFPAY ==
--- NOTE | ~2024-03-27 | MM_ITS ---
EXAMINATION: MM SCREENING DIGITAL BREAST TOMOSYNTHESIS, BILATERAL CLINICAL INFORMATION: Screening. Asymptomatic. COMPARISON: Mammography: 01/10/2023, 01/17/2021, 04/15/2019, dating back to 2014. TECHNIQUE: Digital breast tomosynthesis is performed in both the craniocaudal and mediolateral oblique views along with computer-aided detection (CAD). Synthesized 2D images are generated from the tomosynthesis. FINDINGS: There are scattered areas of fibroglandular density (ACR BI-RADS breast composition Category b). There are no suspicious masses, suspicious grouped calcifications, or areas of architectural distortion in either breast. The background parenchymal pattern is stable from prior exams. No skin or axillary abnormalities. MM/MM tomosynthesis screening BI IMPRESSION: No mammographic evidence of malignancy. ASSESSMENT: BI-RADS BI-RADS 1 - Negative RECOMMENDATION: Routine annual mammography screening. 1 year F/U This examination should not preclude the clinical evaluation of a suspicious palpable abnormality. This patient's information was entered into a reminder system with a target due date for their next mammogram.
== END 2024-03-27 10:13 | disposition home or self-care (01) ==
LOC: HO.MAMMO 10:12
PROVIDERS: PCP Internal Medicine; Visit Provider Internal Medicine
DX: Z12.31 Encounter for screening mammogram for malignant neoplasm of breast (principal)
CPT/HCPCS: 77063; 77067

== ENCOUNTER → 2024-03-27 10:45 | Outpatient (BNV) | payer OTHER, SELFPAY | PROVIDERS: PCP Internal Medicine; Visit Provider Radiology Diagnostic Radiology | DX: Z12.31 Encounter for screening mammogram for malignant neoplasm of breast (principal) | CPT/HCPCS: 77063; 77067 ==

== ENCOUNTER 2024-04-25 08:59 | Outpatient (REF) | payer OTHER, SELFPAY ==
[2024-04-25 09:20] LABS: MANUAL DIFF FLAG NO
[2024-04-25 09:29] LABS: Basophils Percent Auto 0.3 % (0-2); Eosinophils Absolute Auto 0.5 X10*3/uL (0.0-0.4); Eosinophils Percent Auto 5.4 % (0-4); Hematocrit 41.7 % (37.0-47.0); Hemoglobin 13.7 g/dl (12.0-16.0); Imm Gran Abs Auto 0.02 X10*3/uL (0.00-0.03); Imm Gran Pct Auto 0.2 % (0.0-0.4); Lymphocytes Percent Auto 32.6 % (20-40); Mean Corpuscular HGB Conc 32.9 g/dl (31.0-35.0); Mean Corpuscular Hemoglobin 28.1 pg (27.0-33.0); Mean Corpuscular Volume 85.5 fL (80.0-98.0); Mean Platelet Volume 10.2 fL (9.4-12.3); Monocytes Absolute Auto 0.8 X10*3/uL (0.1-1.2); Monocytes Percent Auto 8.9 % (2-11); Neutrophils Absolute Auto 4.9 x10*3/uL (2.0-8.3); Neutrophils Percent Auto 52.6 % (45-73); Platelet Count 283 X10*3/uL (160-400); Red Blood Count 4.88 X10*6/uL (4.20-5.50); Red Cell Distribution Width 14.2 % (11.0-16.0); White Blood Count 9.3 X10*3/uL (4.8-10.8)
[2024-04-25 09:59] LABS: Parathyroid Hormone Intact 64.5 pg/mL (8.7-77.1)
[2024-04-25 10:01] LABS: Alanine Aminotransferase 27 U/L (0-31); Albumin Level 4.1 g/dL (3.5-5.0); Alkaline Phosphatase 51 U/L (39-117); Anion Gap 13 (12-20); Aspartate Amino Transferase 20 U/L (5-31); Bilirubin Total 0.3 mg/dL (0.0-1.0); Blood Urea Nitrogen 19 mg/dL (9-16); Calcium 9.4 mg/dL (8.4-10.2); Carbon Dioxide 30 mmol/L (22-29); Chloride 102 mmol/L (96-108); Cholesterol 128 mg/dL (<200); Estimated Glomerular Filt Rate > 60; Glucose Fasting 172 mg/dL (60-99); HDL Cholesterol 55 mg/dL (>40); LDL Cholesterol Calculated 62 mg/dL (<100); Phosphorus 3.5 mg/dL (2.7-4.5); Potassium 4.1 mmol/L (3.3-5.1); Sodium 141 mmol/L (135-145); Total Protein 6.9 g/dL (6.5-8.0); Triglycerides 57 mg/dL (<150)
[2024-04-25 10:14] LABS: Uric Acid 4.5 mg/dL (2.4-5.7)
[2024-04-25 10:24] LABS: Vitamin D 25-OH Total 34.1 ng/mL (>30)
[2024-04-25 11:15] LABS: Creatinine Urine 40.92 mg/dL; Microalbum/Creatinine Ratio Ur 212.6 ug/mg cr (<30)
[2024-04-28 13:43] LABS: Calcium, Ionized 5.3 mg/dL (4.7-5.5)
== END 2024-04-25 09:00 | disposition home or self-care (01) ==
LOC: HO.LAB 08:59
PROVIDERS: PCP Internal Medicine; Visit Provider Internal Medicine
DX: M10.9 Gout, unspecified (principal); M17.0 Bilateral primary osteoarthritis of knee; E11.9 Type 2 diabetes mellitus without complications; E78.5 Hyperlipidemia, unspecified; E21.3 Hyperparathyroidism, unspecified; E55.9 Vitamin D deficiency, unspecified
CPT/HCPCS: 36415; 80053; 80061; 82043; 82306; 82330; 82570; 83970; 84100; 84550; 85025

== ENCOUNTER 2024-06-03 08:51 | Outpatient (REF) | payer OTHER, SELFPAY ==
[2024-06-03 11:29] LABS: Anion Gap 13 (12-20); Blood Urea Nitrogen 22 mg/dL (9-16); Calcium 10.3 mg/dL (8.4-10.2); Carbon Dioxide 32 mmol/L (22-29); Chloride 100 mmol/L (96-108); Estimated Glomerular Filt Rate > 60; Sodium 141 mmol/L (135-145)
[2024-06-03 12:16] LABS: Appearance Urine Clear; Color Urine Yellow; Glucose Urine UA Negative (Negative); Leukocyte Esterase Urine Small (1+) (Negative); Nitrite Urine Negative (Negative); PH 7.5 (5.0-9.0); Specific Gravity - Urine 1.015 (1.005-1.025); UMIC TRIGGER UA YES; Urine Blood Negative (Negative); Urine Ketones Trace mg/dL (Negative); Urine Protein 30 (1+) mg/dL (Neg-Trace)
[2024-06-03 12:26] LABS: Bacteria Urine None Seen (None Seen); Hyaline Casts Urine 0-2 /LPF (0-2); RBC Urine 0-2 /HPF (0-2); Squamous Epithelial Cell Urine 0-2 /HPF (0-2); WBC Urine 0-5 /HPF (0-5)
[2024-06-03 12:52] LABS: Creatinine Urine 73.68 mg/dL; Microalbum/Creatinine Ratio Ur 173.7 ug/mg cr (<30); Protein/Creatinine Ratio, Ur 0.33 (<0.2); Total Protein Urine Random 24 mg/dL (<12)
== END 2024-06-03 08:52 | disposition home or self-care (01) ==
LOC: HO.LAB 08:51
PROVIDERS: PCP Internal Medicine; Visit Provider Internal Medicine Nephrology
DX: E11.9 Type 2 diabetes mellitus without complications (principal); N20.0 Calculus of kidney; R80.1 Persistent proteinuria, unspecified
CPT/HCPCS: 36415; 80051; 81001; 82043; 82310; 82565; 82570; 84156; 84520

== ENCOUNTER 2024-06-13 09:43 | Outpatient (AMB) | payer OTHER, SELFPAY ==
--- NOTE | 2024-06-13 09:48 | A.OFFVIS_ITS ---
Vital Signs 06/13/24 09:49 Height 5 ft 1 in Weight 153 lb 14.122 oz BMI 29.1 BP 118/74 Blood Pressure Location Lt brachial Position Sitting Pulse 74 Pulse Source Pulse Oximeter Intake Visit Reasons: F/U Dunbar's-confirmed Intake Note: Patient present today for William's follow up visit. Patient was last seen by Dr. Eric on 05/15/23. Brine Tank Tender Required: Yes Brine Tank Tender Language: Snow Maker Services: Brine Tank Tender Present Brine Tank Tender Name: Bony Information Interpreted: non-clinical & clinical Accompanied by: Son Allergies aspirin [ASPIRIN] Allergy (Severe, Verified 06/13/24 09:54) HX ULCER NSAIDS (Non-Steroidal Anti-Inflamma [NSAIDS] Allergy (Severe, Verified 06/13/24 09:54) HX ULCER empagliflozin [From Jardiance] Adverse Reaction (Verified 06/13/24 09:54) hematuria Medication List - Last Reconciled 06/13/24 by Seven Vo MD allopurinol 200 mg PO BID blood sugar diagnostic Use 1 test strip once a day blood-glucose meter As directed [id number] 50-325-40 mg 1 tab PO Q6H PRN 30 days cholecalciferol (vitamin D3) (Vitamin D3) 25 mcg PO 3XW glipizide 5 mg PO DAILY 90 days hydrochlorothiazide 25 mg PO DAILY 90 days losartan 25 mg PO DAILY 90 days meclizine 25 mg PO DAILY 30 days metformin 1,000 mg PO BID omeprazole 40 mg PO DAILY 90 days pen needle, diabetic Use pen needle once a day potassium citrate ER 20 mEq (2 x 10 mEq (1,080 mg)) PO BID pyridoxine (vitamin B6) 100 mg PO DAILY 90 days simvastatin 40 mg PO BEDTIME HPI Comments Details: 58 YO Female with a PMHx of gastric carcinoid, medullary sponge kidney who is seen in F/U for multiple endocrine related problems, Dunbar's Disease, pituitary microadenoma, adrenal adenoma, hyperparathyroidism and a NTMNG. 1) 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 She underwent a CT adrenal protocol 12/24/2021 with identification of a R adrenal adenoma measuring 3.1 cm. Precontrast HU - 9.24, with absolute washout of 53.9% and relative washout of 63.5%. MRI 06/01/2022 which revealed a 3.0 cm well circumscribed hypodense mass of the R adrenal gland with soft tissue attenuation. Most recent imaging is a CT of the abdomen dated 02/27/2023 now measuring 3.3 cm. This was not completed via adrenal protocol so no washout characteristics or precontrast HU are available. She underwent a dexamethasone suppression test 08/18/2020 which revealed Cortisol 1.9, ACTH <5 and Dexamethasone 268. Because this was slightly above the upper limit of normal (1.8) she additionally underwent midnight salivary cortisol testing. This was WNL x 2. She underwent a salivary cortisol profile, which was abnormal, with cortisol rising at 12 noon before returning to normal. This was repeated again and was abnormal for a second time. She repeated her 1 mg overnight DSST 05/24/2022 with Cortisol 2.5, ACTH 6 and Dex 240. She underwent an MRI of the pituitary as her morning ACTH was in the indeterminate range (10), and this did reveal question of a 4 mm pituitary microadenoma. The remainder of her pituitary panel was completely WNL, with gonadotropins appropriate for a postmenopausal female. She is currently not using any medications that impair or accelerate dexamethasone metabolism. She was referred to [facility] [place] IPSS with Dr. Tavon Lala, but was unable to schedule this due to issues with transporation. She is seen today in F/U. 2) Hyperparathyroidism: Labs did reveal hypercalcemia, and appeared consistent with primary hyperparathyroidism. Labs 12/14/2021 Calcium 10.1, PTH 46, Vitamin D 45 and Albumin 4.3. Urine calcium was high normal, and was an adequate collection. CT of the abdomen revealed multiple bialteral kidney stones as well as cysts. She is following with urology for this. She has a history of a medullary sponge kidney. She did undergo a DEXA which was WNL. She had an US of the neck which revealed multiple hypoechoic nodules, but no obvious parathyroid adenoma. She also has a documented history of gastric carcinoid. She is managed by Dr. Hortensia Alvarado of [facility]. She reports feeling well today and has no complaints. She also has a longstanding history of recurrent obstructive nephrolithiasis. 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 She underwent FNA biopsy 07/21/2022 of her thyroid with results as follows: a)LMP 1.0 cm thyroid nodule - benign cytology b)LLP 1.7 cm thyroid nodule - benign cytology CT Abdomen: 02/27/2023 FINDINGS: LUNG BASES: The visualized lung bases are unremarkable.? LIVER, GALLBLADDER, AND BILIARY TREE: The liver is normal in size, shape, and attenuation. No focal hepatic lesion or biliary ductal dilatation is present. Cholecystectomy.? PANCREAS: Unremarkable.? SPLEEN: Unremarkable.? ADRENAL GLANDS: Diminutive left adrenal gland which is not well evaluated. There is a right adrenal gland nodule. This measures 3.3 cm. This meets criteria for a lipid rich adenoma, unchanged from prior.? KIDNEYS AND URETERS: The kidneys are normal in size, shape, and attenuation. No hydronephrosis or hydroureter. No perinephric stranding. Bilateral medullary nephrocalcinosis. No obstructing calculi. Largest area of calcification on the right is at the lower pole measuring 0.6 cm, 9 cm from the posterior axillary line. The largest area of calcification on the left is seen at the upper pole measuring 0.6 cm, 9 cm from the posterior axillary line. Simple bilateral renal cysts for which no specific follow-up is recommended. BLADDER: Unremarkable.? GASTROINTESTINAL TRACT: The stomach is unremarkable. Normal caliber small bowel. No obstruction. No colonic wall thickening or acute inflammation. Normal appendix. Scattered colonic diverticulosis without diverticulitis. No free air or free fluid.? ABDOMINAL WALL: No significant hernia is appreciated.? LYMPH NODES: Normal. VASCULAR: Normal caliber aorta with mild atherosclerotic calcification. PELVIC VISCERA: Uterus not seen. No adnexal mass.? OSSEOUS STRUCTURES: No acute or suspicious osseous abnormality. Mild degenerative changes in the spine. CT/CT abdomen pelvis wo IV con IMPRESSION: 1.? Bilateral medullary nephrocalcinosis. Similar appearance to prior. No obstructing calculi. No hydronephrosis. 2.? Unchanged right adrenal gland nodule, consistent with a lipid rich adenoma. MRI Pituitary: 08/16/2022 FINDINGS: In the posterior aspect of the adenohypophysis, just anterior to the posterior pituitary bright spot, there is a 4 mm ovoid focus of relative hypoenhancement best visualized on image 14 of series 9 and faintly visualized on image 7 of series 10. The remainder of the pituitary gland enhances homogenously. No suprasellar or juxtasellar masses are identified. The infundibulum enhances normally and appears midline. The cavernous sinuses are symmetric and enhance normally with normal signal voids in the carotid siphons. DWI sequence demonstrates no restricted diffusion to suggest acute or subacute cerebral ischemia. A few small nonenhancing T2 hyperintensities are seen within the white matter of the right cerebral hemisphere, which are nonspecific findings. Remainder of the brain is normal in signal intensity. The remainder of the brain demonstrates no pathologic intracranial enhancement or mass lesion. The ventricular system and subarachnoid spaces are within normal limits without hydrocephalus. Normal signal voids are seen in the visualized major intracranial vessels. There is upper cervical discogenic degenerative change and spondylosis at C4-C5 and C5-C6 and there is bilateral TMJ arthropathy. MR/MR head/brain wo/w con IMPRESSION: 1. There is a 4 mm focus of relative hypoenhancement in the posterior aspect of the pituitary adenohypophysis, which is a somewhat equivocal finding. Cannot exclude a microadenoma. Consider follow-up MRI of the sella in 6-12 months to reassess if clinically warranted. ? 2. A few nonenhancing, nonspecific white matter T2 hyperintensities in the right cerebral hemisphere are noted. ? 3. Bilateral TMJ arthropathy and cervical DDD. DEXA: 01/11/2022 FINDINGS: LEFT FOREARM RADIUS 33%: BMD 0.919 g/cm2, Z-score 1.0, T-score 0.5, normal. AP SPINE L1-L4: BMD 1.070 g/cm2, Z-score -0.1, T-score -0.9, normal. LEFT FEMUR, NECK: BMD 0.922 g/cm2, Z-score 0.2, T-score -0.8, normal. LEFT FEMUR, TOTAL: BMD 0.999 g/cm2, Z-score 0.6, T-score -0.1, normal. IDENTIFIED RISK FACTORS: Hyperparathyroidism, low calcium intake. Early menopause, secondary osteoporosis, thiazide, hysterectomy. Thyroid US: 01/19/2022 Right Thyroid Lobe: 3.8 x 2.1 x 1.1 cm, volume 4.6 mL. Parenchyma: The gland echotexture is homogeneous. Thyroid vascularity is normal. Left Thyroid Lobe: 4.6 x 0.9 x 1.6 cm, volume 3.5 mL. Parenchyma: The gland echotexture is homogeneous. Thyroid vascularity is normal. Isthmus: 0.5 cm in maximum AP dimension. Estimated total number of nodules greater than or equal to 1 cm: 2. Felling Bucking Supervisor nodules are described as follows: 1. Location: Right mid/inferior. ?? ? Size: 0.7 x 0.47 x 0.53 cm, volume 0.09 mL. ?? ? Nodule characteristics: ?? ? Composition: Cystic(0). ?? ? ACR TI-RADS total points: 0 ?? ? ACR TI-RADS category: 1 2. Location: Right mid inferior. ?? ? Size: 0.45 x 0.36 x 0.49 cm, volume 0.04 mL. ?? ? Nodule characteristics: ?? ? Composition: Cystic(0). ?? ? Echogenicity: Hyperechoic (1). ?? ? Shape: Not taller but wider 0 ?? ? Margins: Smooth (0). ?? ? Echogenic Foci: Punctate echogenic foci (3). ?? ? ACR TI-RADS total points: 6 ?? ? ACR TI-RADS category: 4 3. Location: Left superior. ?? ? Size: 0.66 x 0.54 x 0.33 cm, volume 0.06 mL. ?? ? Nodule characteristics: ?? ? Composition: Solid (2). ?? ? Echogenicity: Hypoechoic (2). ?? ? Shape: Not taller than wide (0). ?? ? Margins: Smooth (0). ?? ? Echogenic Foci: None (0). ?? ? ACR TI-RADS total points: 4 ?? ? ACR TI-RADS category: 4 4. Location: Left mid. ?? ? Size: 1.56 x 0.97 x 0.89 cm, volume 0.7 mL. ?? ? Nodule characteristics: ?? ? Composition: Solid (2). ?? ? Echogenicity: Hypoechoic (2). ?? ? Shape: Not taller than wide (0). ?? ? Margins: Smooth (0). ?? ? Echogenic Foci: Macrocalcifications (1). ?? ? ACR TI-RADS total points: 5 ?? ? ACR TI-RADS category: 4 5.? Location: Left inferior. ?? ? Size: 1.69 x 1.11 x 1.23 cm, volume 1.27 mL. ?? ? Nodule characteristics: ?? ? Composition: Spongiform (0). ?? ? Echogenicity: Anechoic (0). ?? ? Shape: Not taller than wide (0). ?? ? Margins: Smooth (0). ?? ? Echogenic Foci: None (0). ?? ? ACR TI-RADS total points: 0 ?? ? ACR TI-RADS category: 1 NODES: No lymphadenopathy is seen in the tissue surrounding the thyroid gland. There is no parathyroid lesion or adenoma seen. Labs: Laboratory Tests 02/06/23 02/06/23 02/06/23 08:00 08:00 08:00 Sodium Potassium Creatinine Estimated GFR Renin Aldosterone 25-OH Vitamin D Total TSH DHEA Sulfate PTH Intact Calcium (PTH Intact) Random Cortisol ACTH Plas Tot Catecholamine Dopamine Epinephrine Norepinephrine Plasma Free Metaneph Plasma Free Normeta Plas Total Metaneph Ur 24 Hour Volume 2225 Ur Creatinine 24 Hour 0.93 Ur Calcium 24 Hr 234 Ur Epinephrine 24 Hr see note U Norepinephrine 24 Hr 17 U Free Metanephrine 145 U Normetanephrine 24h 271 U Tot Metanephrine 24h 416 Ur Dopamine 24 Hr 94 U Tot Catecholamine 24h 17 L 02/06/23 02/06/23 02/06/23 09:15 09:15 09:15 Sodium Potassium Creatinine Estimated GFR Renin Aldosterone 6 25-OH Vitamin D Total 36.5 TSH DHEA Sulfate 21 PTH Intact 48 Calcium (PTH Intact) 9.6 Random Cortisol ACTH 7 Plas Tot Catecholamine Dopamine Epinephrine Norepinephrine Plasma Free Metaneph Plasma Free Normeta Plas Total Metaneph Ur 24 Hour Volume Ur Creatinine 24 Hour Ur Calcium 24 Hr Ur Epinephrine 24 Hr U Norepinephrine 24 Hr U Free Metanephrine U Normetanephrine 24h U Tot Metanephrine 24h Ur Dopamine 24 Hr U Tot Catecholamine 24h 02/06/23 02/06/23 02/06/23 09:15 09:15 09:15 Sodium Potassium Creatinine Estimated GFR Renin 5.10 Aldosterone 25-OH Vitamin D Total TSH DHEA Sulfate PTH Intact Calcium (PTH Intact) Random Cortisol 9.0 ACTH Plas Tot Catecholamine Dopamine Epinephrine Norepinephrine Plasma Free Metaneph 57 Plasma Free Normeta 46 Plas Total Metaneph 103 Ur 24 Hour Volume Ur Creatinine 24 Hour Ur Calcium 24 Hr Ur Epinephrine 24 Hr U Norepinephrine 24 Hr U Free Metanephrine U Normetanephrine 24h U Tot Metanephrine 24h Ur Dopamine 24 Hr U Tot Catecholamine 24h 02/06/23 02/06/23 09:15 09:15 Sodium 141 Potassium 3.9 Creatinine 0.75 Estimated GFR > 60 Renin Aldosterone 25-OH Vitamin D Total TSH 1.20 DHEA Sulfate PTH Intact Calcium (PTH Intact) Random Cortisol ACTH Plas Tot Catecholamine 270 Dopamine <20 Epinephrine 69 Norepinephrine 201 L Plasma Free Metaneph Plasma Free Normeta Plas Total Metaneph Ur 24 Hour Volume Ur Creatinine 24 Hour Ur Calcium 24 Hr Ur Epinephrine 24 Hr U Norepinephrine 24 Hr U Free Metanephrine U Normetanephrine 24h U Tot Metanephrine 24h Ur Dopamine 24 Hr U Tot Catecholamine 24h Patient was seen at [facility] neuroendocrine unit. After reading the notes from [facility] , they were not convinced that Dunbar syndrome was present but wanted to do a further workup . Since the previous visit, MRI of the pituitary showed no pituitary lesion. Patient remains on hydrochlorothiazide which could be causing calcium elevation . Has f/u with [facility] in 09/2024 . No William's symptoms or pheo sx. [facility] Medical History (Updated 03/11/24 @ 13:53 by Iza Hi MD) Physical exam Pituitary microadenoma William's disease Bilateral nephrolithiasis Pancreatic mass Renal cyst Renal cysts and diabetes syndrome Liver mass Type 2 diabetes with nephropathy Multinodular thyroid Hyperparathyroidism Polyarthralgia Vitamin D deficiency Hypercalcemia Hypercortisolism Adrenal cortical adenoma of right adrenal gland Right knee pain Type 2 diabetes mellitus with unspecified complications Tachycardia Type 2 diabetes mellitus with hyperglycemia, with long-term current use of insulin Vitamin D deficiency Adrenal nodule Carcinoid tumor of stomach Chronic kidney disease GERD (gastroesophageal reflux disease) Gout Stomach ulcer Hx of renal calculi Essential hypertension Hyperlipidemia LDL goal <100 Surgical History Hx of cystoscopy History of esophagogastroduodenoscopy (EGD) H/O colonoscopy History of gastric polyp Hx of lithotripsy Hx of hysterectomy Hx of cholecystectomy Family History Father CVD (cardiovascular disease) Stomach cancer Mother Diabetes Social History Household Members: Family Housing: Apartment Alcohol intake: never Patient Tobacco Use Status: Never used Tobacco e-Cigarette/Vaping Use: Never Used Second Hand Smoke Exposure: No service: No Current occupational status: unemployed Current occupation: rt handed Cognitive needs: No Hearing needs: No Vision needs: Yes Physical Exam Const Other: There is no cushingoid features Assessment & Plan Assessment & Plan (1) Adrenal adenoma: Code(s): D35.00 - Benign neoplasm of unspecified adrenal gland Category: Medical Plan: This is a 58-year-old female with a history of a right adrenal adenoma with imaging characteristics suggestive of benign lesion. There is a question of mild autonomous cortisol secretion. Patient was previously seen by [facility]. Workup for pheochromocytoma and primary hyperaldosteronism were negative The plan is to repeat a 1 mg dexamethasone suppression test with dexamethasone cortisol levels as well as midnight salivary cortisol. Patient should follow up with [facility] in September 2024 (2) Hypercalcemia: Code(s): E83.52 - Hypercalcemia Category: Medical Plan: Mild calcium elevation could be due to hydrochlorothiazide. PTH is within normal normal limits. Repeat ionized calcium was within normal limits. Most likely, hypercalcemia is not a result of primary hyperparathyroidism but if calcium remains persistently elevated may have to hold hydrochlorothiazide and recheck calcium and PTH in future Orders: Orders Dexamethasone 1 Week D35.00 - Benign neoplasm of unspecified adrenal gland Saliva Cortisol 1 Week D35.00 - Benign neoplasm of unspecified adrenal gland Cortisol Random 1 Week D35.00 - Benign neoplasm of unspecified adrenal gland Medications: New dexamethasone 1 mg PO ONCE 1 tab 0RF Coding Level of Care Code Est Pt Level 3 (91773) Diagnoses Adrenal adenoma D35.00 Hypercalcemia E83.52
[2024-06-13 09:49] VITALS: BP 118/74; PULSE 74; BMI 29.1
== END 2024-06-13 10:28 | disposition home or self-care (01) ==
PROVIDERS: PCP Internal Medicine; Visit Provider Internal Medicine Endocrinology, Diabetes & Metabolism
DX: D35.00 Benign neoplasm of unspecified adrenal gland (principal); E83.52 Hypercalcemia
CPT/HCPCS: 99213

== ENCOUNTER → 2024-06-13 09:43 | Outpatient (BNVA) | payer OTHER, SELFPAY | PROVIDERS: PCP Internal Medicine; Visit Provider Internal Medicine Endocrinology, Diabetes & Metabolism | DX: D35.00 Benign neoplasm of unspecified adrenal gland (principal); E83.52 Hypercalcemia | CPT/HCPCS: 99212 ==

== ENCOUNTER 2024-07-18 13:20 | Emergency (ER) | payer OTHER, SELFPAY ==
--- NOTE | ~2024-07-18 | XR_ITS ---
EXAMINATION: Right knee 4 views Left knee 4 views CLINICAL INFORMATION: Fall onto knee COMPARISON: Bilateral knees 03/06/2023. TECHNIQUE: Right knee 4 views Left knee 4 views FINDINGS: Right knee: Alignment is anatomic. Small joint effusion. Mild to moderate tricompartmental osteoarthritis. No visible fracture. Left knee: Alignment is anatomic. Large suprapatellar joint effusion. Comminuted intra-articular fracture of the inferior patella. Zhoy-gu-mvhbtrvn tricompartmental osteoarthritis. XR/XR knee RT 4V IMPRESSION: Comminuted intra-articular fracture of the left patella. Electronically signed by: Rafat Ndiaye MD 07/18/2024 03:57 PM EDT
--- NOTE | ~2024-07-18 | XR_ITS ---
EXAMINATION: Right elbow 3 views Right forearm 2 views Right hand/wrist 4 views CLINICAL INFORMATION: FOOSH COMPARISON: None. TECHNIQUE: 3 views of the right elbow 2 views of the right forearm 4 views of the right hand wrist FINDINGS: Right elbow: Impacted radial head fracture. Degenerative spurring along the medial aspect of the ulna. Moderate joint effusion. Right forearm: Impacted radial head fracture. Otherwise no visible fracture. Right hand wrist: Moderate to severe degenerative changes at the first CMC. No visible fracture. XR/XR hand wrist RT IMPRESSION: Impacted radial head fracture. Electronically signed by: Rafat Ndiaye MD 07/18/2024 03:50 PM EDT
--- NOTE | ~2024-07-18 | XR_ITS ---
EXAMINATION: Right knee 4 views Left knee 4 views CLINICAL INFORMATION: Fall onto knee COMPARISON: Bilateral knees 03/06/2023. TECHNIQUE: Right knee 4 views Left knee 4 views FINDINGS: Right knee: Alignment is anatomic. Small joint effusion. Mild to moderate tricompartmental osteoarthritis. No visible fracture. Left knee: Alignment is anatomic. Large suprapatellar joint effusion. Comminuted intra-articular fracture of the inferior patella. Kpek-ga-ugjixbvm tricompartmental osteoarthritis. XR/XR knee LT 4V IMPRESSION: Comminuted intra-articular fracture of the left patella. Electronically signed by: Rafat Ndiaye MD 07/18/2024 03:57 PM EDT
--- NOTE | ~2024-07-18 | XR_ITS ---
EXAMINATION: Right elbow 3 views Right forearm 2 views Right hand/wrist 4 views CLINICAL INFORMATION: FOOSH COMPARISON: None. TECHNIQUE: 3 views of the right elbow 2 views of the right forearm 4 views of the right hand wrist FINDINGS: Right elbow: Impacted radial head fracture. Degenerative spurring along the medial aspect of the ulna. Moderate joint effusion. Right forearm: Impacted radial head fracture. Otherwise no visible fracture. Right hand wrist: Moderate to severe degenerative changes at the first CMC. No visible fracture. XR/XR elbow RT min 3V IMPRESSION: Impacted radial head fracture. Electronically signed by: Rafat Ndiaye MD 07/18/2024 03:50 PM EDT
--- NOTE | ~2024-07-18 | XR_ITS ---
EXAMINATION: Right elbow 3 views Right forearm 2 views Right hand/wrist 4 views CLINICAL INFORMATION: FOOSH COMPARISON: None. TECHNIQUE: 3 views of the right elbow 2 views of the right forearm 4 views of the right hand wrist FINDINGS: Right elbow: Impacted radial head fracture. Degenerative spurring along the medial aspect of the ulna. Moderate joint effusion. Right forearm: Impacted radial head fracture. Otherwise no visible fracture. Right hand wrist: Moderate to severe degenerative changes at the first CMC. No visible fracture. XR/XR forearm RT 2V IMPRESSION: Impacted radial head fracture. Electronically signed by: Rafat Ndiaye MD 07/18/2024 03:50 PM EDT
--- NOTE | ~2024-07-18 | CT_ITS ---
EXAMINATION: CT KNEE WITHOUT CONTRAST, LEFT CLINICAL INFORMATION: Left patellar fracture. COMPARISON: Radiographs from 07/18/2024. TECHNIQUE: Multidetector volumetric imaging was obtained through the left knee without contrast. Multiplanar reformatted images in coronal and sagittal orientations were submitted. This CT examination was performed using dose optimization techniques as appropriate, variously including the following: *Automated exposure control *Adjustment of mA and/or kV according to patient size (this includes techniques or standardized protocols for targeted exams where dose is matched to indication/reason for exam; i.e. extremities or head) *Use of iterative reconstruction technique DLP: 160 mGy-cm FINDINGS: There is a mildly comminuted transverse fracture through the distal pole of the patella with articular cortical involvement. No significant displacement. Specifically, no significant articular cortical step off. Chronic osseous fragmentation is noted at the lateral marginal osteophytes at the patella. The distal femur, tibial plateau, and proximal fibula are intact. There is a large lipohemarthrosis. A small amount of calcific debris is present within the Vences's cyst, Andrews corresponding to loose bodies. There is partial calcification of the medial head of the gastrocnemius muscle in this region. Tricompartmental osteoarthritis characterized by joint space narrowing with marginal osteophytes. Bones are osteopenic. Quadriceps and patellar tendons are intact. No significant muscle atrophy or fatty replacement. CT/CT knee LT wo IV con IMPRESSION: 1. Mildly comminuted transverse fracture through the distal pole of the patella with articular cortical involvement. No significant displacement. 2. Large lipohemarthrosis. 3. Tricompartmental osteoarthritis. Electronically signed by: Blas Chang MD 07/19/2024 04:01 PM EDT
[2024-07-18 13:35] VITALS: BP 121/68; PULSE 78; RESP 17; TEMP 36.8; O2SAT 98; BMI 32.9
--- NOTE | 2024-07-18 13:39 | ED.FALL ---
HPI - Fall General Chief Complaint: Fall Stated Complaint: fall Time Seen by Provider: 07/18/24 14:04 Source: patient, RN notes reviewed and old records reviewed Mode of arrival: wheelchair Limitations: no limitations History of Present Illness ED Provider: Igor Abrams PA-C HPI Narrative: 58-year-old female with a history of diabetes, HTN, HLD, kidney stones who presents to the ER for evaluation of right elbow pain and left knee pain after she tripped and fell about hour and a half ago. She tripped on the sidewalk, landed on both of her hands, more weight on the right hand and then both knees. She reports pain in the right elbow and pain in the left knee. Unable to move the left knee. Unable to bear weight. She reports pain in the right elbow, worse with range of motion and palpation. She denies any numbness or tingling distally. She is not on anticoagulation did not hit her head. She did sustain a cut to her bottom lip. No active bleeding. No dental trauma. No preceding chest pain, shortness of breath, dizziness. She denies any abdominal pain, nausea, vomiting. MD complaint: fall Onset (ago): hour(s) Fall from: standing Fall witnessed: no and yes, by family Place fall occurred: street Loss of consciousness: none Prolonged down time: no Symptoms prior to fall: none Context: tripped/slipped Location of injury: face Location of injury - extremities: right: elbow and bilateral: hand and knee Severity: moderate Severity scale (1-10): 6 Quality: aching Associated symptoms (after fall): unable to walk Related Data Home Medications ?Medication ?Instructions ?Recorded ?Confirmed allopurinol 100 mg tablet 200 mg PO BID 03/06/23 03/11/24 Previous Rx's ?Medication ?Instructions ?Recorded omeprazole 40 mg capsule,delayed 40 mg PO DAILY 90 days #90 caps 12/24/20 release pen needle, diabetic 32 gauge x #50 ea 12/24/20 tyhbjejxvj-lmlrjebtpnbeg-vwfwmkrt 1 tab PO Q6H PRN pain 30 days #30 02/17/21 50 mg-325 mg-40 mg tablet tabs potassium citrate 10 mEq (1,080 20 meq (2 x 10 mEq (1,080 mg)) PO 08/01/21 mg) tablet,extended release BID #120 tabs blood-glucose meter #1 ea 03/02/23 simvastatin 40 mg tablet 40 mg PO BEDTIME #90 tabs 03/17/24 pyridoxine (vitamin B6) 100 mg 100 mg PO DAILY 90 days #90 tabs 03/18/24 tablet blood sugar diagnostic #100 ea 04/02/24 meclizine 25 mg tablet 25 mg PO DAILY 30 days #30 tabs 04/16/24 losartan 25 mg tablet 25 mg PO DAILY 90 days #90 tabs 05/31/24 dexamethasone 1 mg tablet 1 mg PO ONCE #1 tab 06/13/24 hydrochlorothiazide 25 mg tablet 25 mg PO DAILY 90 days #90 tabs 06/13/24 cholecalciferol (vitamin D3) 25 25 mcg PO 3XW #12 caps 06/20/24 mcg (1,000 unit) capsule (Vitamin D3) metformin 1,000 mg tablet 1,000 mg PO BID #60 tabs 06/20/24 glipizide 5 mg tablet 5 mg PO DAILY 90 days #90 tabs 07/15/24 Allergies Allergy/AdvReac Type Severity Reaction Status Date / Time aspirin [ASPIRIN] Allergy Severe HX ULCER Verified 07/18/24 13:39 NSAIDS (Non-Steroidal Allergy Severe HX ULCER Verified 07/18/24 13:39 Anti-Inflamma [NSAIDS] empagliflozin AdvReac hematuria Verified 07/18/24 13:39 [From Jardiance] Review of Systems Review of Systems: Yes all other systems are reviewed and are negative FORMERLY [facility], [facility]–1983 Past Medical History Medical History (Updated 07/18/24 @ 17:07 by LAURA Chavez) Physical exam Pituitary microadenoma William's disease Bilateral nephrolithiasis Pancreatic mass Renal cyst Renal cysts and diabetes syndrome Liver mass Type 2 diabetes with nephropathy Multinodular thyroid Hyperparathyroidism Polyarthralgia Vitamin D deficiency Hypercalcemia Hypercortisolism Adrenal cortical adenoma of right adrenal gland Right knee pain Type 2 diabetes mellitus with unspecified complications Tachycardia Type 2 diabetes mellitus with hyperglycemia, with long-term current use of insulin Vitamin D deficiency Adrenal nodule Carcinoid tumor of stomach Chronic kidney disease GERD (gastroesophageal reflux disease) Gout Stomach ulcer Hx of renal calculi Essential hypertension Hyperlipidemia LDL goal <100 Surgical History Hx of cystoscopy History of esophagogastroduodenoscopy (EGD) H/O colonoscopy History of gastric polyp Hx of lithotripsy Hx of hysterectomy Hx of cholecystectomy Family History Family History Father CVD (cardiovascular disease) Stomach cancer Mother Diabetes Social History Social History Household Members: Family Housing: Apartment Alcohol intake: never Patient Tobacco Use Status: Never used Tobacco e-Cigarette/Vaping Use: Never Used Second Hand Smoke Exposure: No Advance Directives: No Advance Directives Information Provided: No Do you have a plan to hurt others: No Plan service: No Current occupational status: unemployed Current occupation: rt handed Cognitive needs: No Hearing needs: No Vision needs: Yes Physical Exam Vital Signs: Vital Signs: Last Vital Signs Temp 98.2 F 07/18/24 13:35 Pulse 78 07/18/24 13:35 Resp 17 07/18/24 13:35 BP 121/68 07/18/24 13:35 Pulse Ox 98 07/18/24 13:35 O2 Del Method Room Air 07/18/24 13:35 BMI result Body Mass Index 32.9 Appearance: Alert. Oriented X3. No acute distress. Sitting on the edge of the stretcher in no distress Head: normocephalic, atraumatic. Eyes: Pupils equal, round and reactive to light. ENT: Pharynx normal. No tonsillar swelling or exudate. superficial abrasion to the inner portion of the lower lip. No dental trauma Neck: Normal inspection. Neck supple. No midline tenderness. Full range of motion. CVS: Normal heart rate and rhythm. Pulses normal. Respiratory: No respiratory distress. Breath sounds normal. Abdomen: Soft and nontender. +BS x4 Skin: Skin warm and dry. Normal skin color. Normal skin turgor. No rashes. Extremities: Right upper extremity with swelling of the right elbow, tenderness of the lateral elbow, pain with flexion and extension of the right elbow. Neurovascularly intact distally with 2+ radial pulse and equal hand grasp bilaterally. Nontender right shoulder, normal passive range of motion of the right shoulder. Left lower extremity with superficial abrasions to the left knee with cfvn-rf-oiqvobqg anterior swelling. No divot in the expected area of the patellar tendon but there is diffuse tenderness of the patella, slightly high-riding. Unable to extend the left lower leg. Lower leg is warm and well perfused with compartments soft and compressible. Neuro/psych: Oriented X 3. Gait not tested due to pain Course Course Course Narrative: This is a Rapid Medical Examination (RME) performed by Mikayla Oneill PA-C in triage. Full HPI, ROS, assessment and treatment plan per primary provider in the Main ED. 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 reports tripping on the sidewalk and falling forward onto knees and outstretched hand. Reports immediate pain to her right wrist extending to her right elbow. Reports pain to bilateral knees and notes swelling to left knee. Able to ambulate with pain. also endorses small abrasion to lower lip from the sidewalk. denies LOC. not on AC. + in wheelchair. no noted deformity or swelling to R wrist or elbow. pain w/ flexion or elbow. 2+radial/ ulnar pulse intact. knees not examined in triage. Plan: xrs Reevaluation(s) Reevaluation #1: Patient placed in physician observation. She has a fracture of the right elbow in the left knee. Per orthopedic she is able to weight bear as tolerated on left lower extremity as long as she is in full extension and knee immobilizer. The posterior long-arm splint of the right upper extremity does not lower to safely use crutches. Not comfortable with safe discharge home. Patient is agreeable to stay in the hospital for physical therapy evaluation in the morning, potential short-term rehab placement. She will need close orthopedic follow-up and potential surgical intervention next week. Time: 17:27 Reevaluation #2: Patient in knee immobilizer and attempted to bear weight and use the bathroom. she had difficulty getting into and out of the wheelchair. pain 8/10 with any weight bearing. concern for falls at home. case advocate to re-evaluate after patient thinks about potential STR placement. will continue to monitor. Time: 18:21 Medications Administered Discontinued Medications Generic Name Dose Route Start Last Admin Trade Name Freq PRN Reason Stop Dose Admin Acetaminophen 975 mg 07/18/24 15:09 07/18/24 15:21 Acetaminophen 325 Mg Tablet PO 07/18/24 15:10 975 mg ONCE ONE Administration Procedures Orthopedic Splinting/Casting Injury #1: Side: right Upper Extremity Injury Location: elbow Upper Extremity Immobilizer: sling/shoulder immobilizer and posterior splint Medical Decision Making Medical Decision Making MDM Narrative: 58-year-old female with history of HTN, HLD, osteoarthritis, diabetes, kidney stones who presents to the ER for evaluation of left knee pain, right elbow pain after she tripped and fell on the sidewalk. She fell on outstretched hands and then onto her knees. No loss of consciousness. She sustained a small bite to her lower lip. No dental trauma. The fall was mechanical. She is not on anticoagulation. She has a swollen and tender right knee and left elbow. Her left lower extremity range of motion is significantly limited, unable to extend the left lower leg at all. Images were obtained that show a impacted distal radial head fracture of the right arm and a left comminuted patellar fracture. Case was discussed with Myles, the orthopedic PA. Given the intra-articular extension of the right radial head fracture he recommended a posterior long-arm splint. Case was discussed with Dr. Kim who did not recommend any emergent surgical intervention at this time. She will be placed in knee immobilizer for full extension. She is able to weight bear as tolerated while in full extension per Orthopedics. Given that she is in a sling and splint in the right arm and will need the knee in full immobilization and extension, there is concern for safe mobility at home. She is agreeable to stay in the emergency department overnight for physical therapy evaluation, potential short-term rehab placement. Differential Diagnosis Differential Diagnoses: The differential diagnosis associated with the presentation includes Elbow fracture, wrist fracture, knee effusion, knee sprain, patellar fracture, tibial plateau fracture Admission/Observation Consideration of admission/observation: Escalation of care including admission/observation considered Consult Healthcare Provider Management of the patient was discussed with: Yarn Carrier Myles from orthopedics consulted Independent Interpretation I performed an independent interpretation of an: Plain X-Ray Interpretation: X-rays of the right elbow and left knee were reviewed, there is a impacted right radial head fracture with intra-articular extension, agrees Radiology read. The left knee has a comminuted fracture of the left patella, agree with radiology read Radiology Impression Discussion of test interpretation with radiology: I have reviewed the radiologist's reading. Radiologist Impression: EXAMINATION: Right knee 4 views Left knee 4 views CLINICAL INFORMATION: Fall onto knee COMPARISON: Bilateral knees 03/06/2023. TECHNIQUE: Right knee 4 views Left knee 4 views FINDINGS: Right knee: Alignment is anatomic. Small joint effusion. Mild to moderate tricompartmental osteoarthritis. No visible fracture. Left knee: Alignment is anatomic. Large suprapatellar joint effusion. Comminuted intra-articular fracture of the inferior patella. Pmzs-me-dwspcnug tricompartmental osteoarthritis. XR/XR knee RT 4V IMPRESSION: Comminuted intra-articular fracture of the left patella. EXAMINATION: Right elbow 3 views Right forearm 2 views Right hand/wrist 4 views CLINICAL INFORMATION: FOOSH COMPARISON: None. TECHNIQUE: 3 views of the right elbow 2 views of the right forearm 4 views of the right hand wrist FINDINGS: Right elbow: Impacted radial head fracture. Degenerative spurring along the medial aspect of the ulna. Moderate joint effusion. Right forearm: Impacted radial head fracture. Otherwise no visible fracture. Right hand wrist: Moderate to severe degenerative changes at the first CMC. No visible fracture. XR/XR hand wrist RT IMPRESSION: Impacted radial head fracture. Independent Historian Clinical information obtained from an independent historian. History obtained from or confirmed by: Other (Adult son at the bedside) External Record Review External record reviewed: Office record, Outpatient record, Prior outpatient labs and Prior outpatient radiology Prescription Management I considered prescription management with: Pain Medication Chronic Conditions Patient?s care impacted by: Diabetes and Hypertension Critical Care Time Critical Care Time Critical Care Time: Yes Total Critical Care Time: 34 Attestation: I have personally provided critical care time exclusive of time spent on separately billable procedures. Time includes review of lab data, radiology results, discussion with consultants, and monitoring for potential decompensation. Intervention performed as documented. Discharge Plan Discharge Clinical Impression: Closed fracture of radial head Qualifiers: Encounter type: initial encounter Fracture alignment: nondisplaced Laterality: right Qualified Code(s): S52.124A - Nondisplaced fracture of head of right radius, initial encounter for closed fracture Fracture of left patella Qualifiers: Encounter type: initial encounter Fracture type: closed Fracture morphology: comminuted Fracture alignment: nondisplaced Qualified Code(s): S82.045A - Nondisplaced comminuted fracture of left patella, initial encounter for closed fracture Patient Disposition: Still a Patient Additional Instructions: Your x-rays today showed a fracture in the radius bone in your elbow. Your placed in a splint which is a temporary cast. You must wear this until evaluated by orthopedics. You can not get it wet. Take Tylenol 1000 mg every 6-8 hours as needed for pain. Call orthopedics tomorrow morning for an appointment, to likely be seen next week. If you develop new or worsening symptoms call 911 or come back to the ER for further evaluation. Prescriptions: No Action (DME) pen needle, diabetic 32 gauge x 5/32 needle See Rx Instructions subcut DAILY Qty: 50 11RF Rx Instructions: Use pen needle once a day omeprazole 40 mg capsule,delayed release(DR/EC) 40 mg PO DAILY 90 Days Qty: 90 3RF potassium citrate 10 mEq (1,080 mg) tablet extended release 20 meq PO BID Qty: 120 2RF (DME) blood-glucose meter Kit See Rx Instructions .ROUTE .MEDSUPPLY Qty: 1 0RF Rx Instructions: As directed simvastatin 40 mg tablet 40 mg PO BEDTIME Qty: 90 1RF pyridoxine (vitamin B6) 100 mg tablet 100 mg PO DAILY 90 Days Qty: 90 1RF (DME) blood sugar diagnostic Strip See Rx Instructions .ROUTE .MEDSUPPLY Qty: 100 3RF Rx Instructions: Use 1 test strip once a day meclizine 25 mg tablet 25 mg PO DAILY 30 Days Qty: 30 3RF losartan 25 mg tablet 25 mg PO DAILY 90 Days Qty: 90 1RF hydrochlorothiazide 25 mg tablet 25 mg PO DAILY 90 Days Qty: 90 1RF cholecalciferol (vitamin D3) [Vitamin D3] 25 mcg (1,000 unit) capsule 25 mcg PO 3XW Qty: 12 6RF metformin 1,000 mg tablet 1,000 mg PO BID Qty: 60 3RF glipizide 5 mg tablet 5 mg PO DAILY 90 Days Qty: 90 1RF igchummsjo-axxofsneqhrze-bxwn 50-325-40 mg tablet 1 tab PO Q6H PRN (Reason: pain) 30 Days Qty: 30 0RF allopurinol 100 mg tablet 200 mg PO BID dexamethasone 1 mg tablet 1 mg PO ONCE Qty: 1 0RF Referrals: [facility] [Provider Group] () Iza Rea MD [Primary Care Provider] - Print Language: Vietnamese
[2024-07-18] MEDS: Acetaminophen 325 MG TABLET 975 MG PO (15:21)
[2024-07-18 19:04] VITALS: BP 113/68; PULSE 84; RESP 18; TEMP 36.6; O2SAT 98
--- NOTE | 2024-07-18 20:59 | MHC.CM.ED ---
Addendum entered by Rocío Galarza 07/18/24 21:03: Pt failed trial of ambulation and could hardly bear any weight. Pt was very unsteady. CM again spoke with patient and she is agreeable to PT evaluation in the morning and STR. Pt has [employer] insurance. May need penitentiary care. Ortho would like to see patient in a week as an outpatient, with possible surgery next week. Local referrals made. Pt [facility] choice [facility]. Original Note: CM met with patient at the request of Cindy SANCHEZ. Pt is A&Ox4. 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 Pt is independent. Drives. Lives with family. Uses no DME/services. No HCP on file. Pt fell today and sustained an Fx R elbow and Fx on L knee. Per ortho, pt can weight bear with knee immoblizer on as tolerated. Pt has elbow in splints and sling. Pt would like to go home. CM spoke with patient and son at length regarding safety and patients ability to walk at home.Pt agreeable to a trial of ambulation and then CM will speak with patient again.
--- NOTE | 2024-07-18 21:06 | PC.NURSE ---
Assumed care of pt. Pt transfered from ED stretcher to hospital bed via slide without complications. Pt denying any acute distress at this time.
[2024-07-19 05:53] VITALS: BP 144/69; PULSE 86; RESP 18; TEMP 37.2; O2SAT 96
[2024-07-19 08:22] VITALS: BP 144/69; PULSE 86; O2SAT 96
--- NOTE | 2024-07-19 08:22 | PM.EVENT ---
Event Note Date of Service: 07/19/24 Event Note: Patient is a 58-year-old female who is in the emergency department for evaluation of minimally displaced right radial head fracture and comminuted, nondisplaced left patella fracture. Patient is discussed with ED provider team and Dr. Kim, and orthopedic recommendations are as follows: Please place the patient in a sugar-tong splint and sling for the right radial head fracture for outpatient follow-up. For the left patella fracture, please place in knee immobilizer locked in extension, weight-bearing as tolerated while in extension, and close follow-up outpatient for discussion of further treatment options. No further acute orthopedic intervention indicated in this patient at this time. Time Spent With Patient Time: Total time managing care of this patient today ____ minutes.
[2024-07-19] MEDS: Acetaminophen 325 MG TABLET 650 MG PO ×3 (08:36→21:52)
--- NOTE | 2024-07-19 09:48 | MHC.CM.ED ---
Patient remains in ER overflow. Physical therapy isael completerich. Short term rehab is recommended. Clinical updates sent in [facility]. [facility]. Continue to monitor for d/c needs.
--- NOTE | 2024-07-19 11:18 | MHC.EDTECH ---
pt complained about pain in knee. nurse lamar aware and medicated. pt rang again stating pain was not tolerable and would like something else for pain, nurse aware and notified doc
--- NOTE | 2024-07-19 11:28 | MHC.CM.ED ---
Patient remains in ER overflow. Physical therapy eval completed. Short term rehab is recommended. Clinical updates sent to all facilities in SNF referral. [facility] is the only facility that is able to offer a bed. Met with patient and 2 sons in regards to discharge planning. Patient accepts bed at [facility]. Facility is in the process of obtaining insurance auth. Continue to monitor for d/c needs.
[2024-07-19] MEDS: oxyCODONE HCl Immed Release 5 MG TABLET PO (12:17)
[2024-07-19] MEDS: Ondansetron ODT 4 MG TAB.RAPDIS TRANSLINGU (13:07)
[2024-07-19 14:00] VITALS: BP 138/67; PULSE 88; TEMP 37.4; O2SAT 97
--- NOTE | 2024-07-19 14:23 | PC.NURSE ---
pt off unit to CT at this time
--- NOTE | 2024-07-19 15:11 | MHC.EDTECH ---
assisted pt to commode, voided and cleaned up
--- NOTE | 2024-07-19 15:46 | PHA.MEDREC ---
Addendum entered by Marcio Serrano RPh 07/19/24 15:59: Reviewed by [facility]. Original Note: Pharmacy Consult ? Medication Reconciliation Pharmacy has completed the medication reconciliation. Confirmed medications with patient. Patient is taking Vitamin D3 25mcg tabs once a week on Wednesdays. When talking to the patient about the Vitamin D3 she originally was doing it 3xw but was changed by her Dr to 1xw and recently they wanted her back to 3xw but shes states shes only been taking it Wednesdays and did take it this past Monday07/17/24 along with all her medications. She also states she takes her Glipizide 5mg tab but only half a tablet only when absolutely needed for her Blood Sugar Levels.
--- NOTE | 2024-07-19 17:08 | MHC.EDTECH ---
Patient given dinner tray
[2024-07-19 18:57] VITALS: BP 123/62; PULSE 96; RESP 18; TEMP 36.6; O2SAT 98
[2024-07-19 22:01] LABS: Glucose, Whole Blood 236 mg/dL (60-115)
[2024-07-20 00:20] VITALS: RESP 16
[2024-07-20 04:37] VITALS: BP 133/65; PULSE 94; RESP 16; TEMP 37; O2SAT 96
[2024-07-20] MEDS: Acetaminophen 325 MG TABLET 650 MG PO (08:19)
[2024-07-20 08:48] LABS: Glucose, Whole Blood 318 mg/dL (60-115)
--- NOTE | 2024-07-20 09:33 | PC.NURSE ---
Report given to ANA Leigh at [facility]
== END 2024-07-20 09:33 ==
PROVIDERS: Emergency Provider Emergency Medicine; PCP Internal Medicine
DX: S52.124A Nondisplaced fracture of head of right radius, initial encounter for closed fracture (principal); S82.045A Nondisplaced comminuted fracture of left patella, initial encounter for closed fracture; W01.0XXA Fall on same level from slipping, tripping and stumbling without subsequent striking against object, initial encounter; E11.9 Type 2 diabetes mellitus without complications; I10 Essential (primary) hypertension; E78.5 Hyperlipidemia, unspecified; Y93.01 Activity, walking, marching and hiking; Y92.480 Sidewalk as the place of occurrence of the external cause; Y99.9 Unspecified external cause status; Z79.02 Long term (current) use of antithrombotics/antiplatelets; Z79.899 Other long term (current) drug therapy; Z79.84 Long term (current) use of oral hypoglycemic drugs
CPT/HCPCS: 73080; 73090; 73110; 73130; 73564; 73700; 82947; 97162; 99284; 99285

== ENCOUNTER 2024-07-25 13:49 | Outpatient (AMB) | payer OTHER, SELFPAY ==
--- NOTE | 2024-07-25 15:02 | A.OFFVIS_ITS ---
Intake Visit Reasons: OV f/u of radial head and patella fxs Intake Note: Lisa a 58 year old female who presents today as a new patient for an ER follow up of right radial head and right patella fx, DOI 07/18/24. Patient reports having a trip and fall landing on her right side. She presented to [facility] ER same day where xrays were obtained, she was placed in a knee immobilizer and a splint was applied to her right arm. Chucking Lathe Operator Required: Yes Chucking Lathe Operator Name: Asher ID#[id number] Allergies aspirin [ASPIRIN] Allergy (Severe, Verified 07/25/24 15:04) HX ULCER NSAIDS (Non-Steroidal Anti-Inflamma [NSAIDS] Allergy (Severe, Verified 07/25/24 15:04) HX ULCER empagliflozin [From Jardiance] Adverse Reaction (Verified 07/25/24 15:04) hematuria Medication List - Last Reconciled 07/25/24 by Valentina Saldana PA-C allopurinol 200 mg PO BID blood sugar diagnostic Use 1 test strip once a day blood-glucose meter As directed cholecalciferol (vitamin D3) (Vitamin D3) 25 mcg PO WE glipizide 2.5 mg PO DAILY PRN hydrochlorothiazide 25 mg PO DAILY 90 days losartan 25 mg PO DAILY 90 days meclizine 25 mg PO DAILY PRN metformin 1,000 mg PO BIDWM omeprazole 40 mg PO DAILY@1630 pen needle, diabetic Use pen needle once a day potassium citrate ER 20 mEq (2 x 10 mEq (1,080 mg)) PO BID pyridoxine (vitamin B6) 100 mg PO DAILY 90 days simvastatin 40 mg PO BEDTIME HPI HPI OV f/u of radial head and patella fxs: Details: 58-year-old female who returns to the office today with an parts interpreter for a follow-up of right elbow and left knee fracture, 07/18/24. She continues to have pain in her elbow as well as swelling and pain in her knee. She continues to use her elbow sling and knee immobilizer as instructed. She has no other concerns today. [facility] Medical History (Updated 07/25/24 @ 15:50 by Valentina Saldana PA-C) Physical exam Pituitary microadenoma [place]'s disease Bilateral nephrolithiasis Pancreatic mass Renal cyst Renal cysts and diabetes syndrome Liver mass Type 2 diabetes with nephropathy Multinodular thyroid Hyperparathyroidism Polyarthralgia Vitamin D deficiency Hypercalcemia Hypercortisolism Adrenal cortical adenoma of right adrenal gland Right knee pain Type 2 diabetes mellitus with unspecified complications Tachycardia Type 2 diabetes mellitus with hyperglycemia, with long-term current use of insulin Vitamin D deficiency Adrenal nodule Carcinoid tumor of stomach Chronic kidney disease GERD (gastroesophageal reflux disease) Gout Stomach ulcer Hx of renal calculi Essential hypertension Hyperlipidemia LDL goal <100 Surgical History Hx of cystoscopy History of esophagogastroduodenoscopy (EGD) H/O colonoscopy History of gastric polyp Hx of lithotripsy Hx of hysterectomy Hx of cholecystectomy Family History Father CVD (cardiovascular disease) Stomach cancer Mother Diabetes Social History Household Members: Family Housing: Apartment Alcohol intake: never Patient Tobacco Use Status: Never used Tobacco e-Cigarette/Vaping Use: Never Used Second Hand Smoke Exposure: No service: No Current occupational status: unemployed Current occupation: rt handed Cognitive needs: No Hearing needs: No Vision needs: Yes Review of Systems Const All systems reviewed & are unremarkable except as noted in HPI and below Physical Exam Extrem Other: Right elbow: Skin intact, no open wounds. Mild tenderness over the radial head. No pain over the olecranon. No difficulty with flexion or extension, mild discomfort with supination and pronation. No pain along the distal radius or proximal humerus. Sensation and peripheral pulses present. Left knee: Skin intact. She does have a moderate sized joint effusion with mild tenderness on the patella. Calf supple, nontender. NVI. Office Procedures Fracture Care Fracture Billing Code: Fracture Billing Code Results Reviewed Results Reviewed: xray of the left knee obtained today show non displaced fracture of the patella xrays of the right elbow obtained today show nondisplaced fracture of the radial head. Assessment & Plan Assessment & Plan (1) Right radial head fracture: Code(s): S52.121A - Displaced fracture of head of right radius, initial encounter for closed fracture Category: Medical (2) Fracture of left patella: Code(s): S82.002A - Unspecified fracture of left patella, initial encounter for closed fracture Category: Medical Qualifiers: Encounter type: initial encounter Fracture alignment: nondisplaced Fracture morphology: comminuted Fracture type: closed Qualified Code(s): S82.045A - Nondisplaced comminuted fracture of left patella, initial encounter for closed fracture Plan For her right elbow, she will discontinue the sling and work on gentle ROM of elbow but he will avoid any type of supination, pronation, lifting and weight bearing activities on the RUE. For the left knee, images were reviewed with Dr. Kim today. She will continue with conservative management. She can weight bear as tolerated with the knee immobilizer and keep the leg extended at all times without bending. She will work on isometric quad exercises. I let her know that she can remove the immobilizer if she is sleeping with her leg straight without bending. She can use lonnie wrap for compression. She can also take ibuprofen thrice a day as needed. I would like to see her back in 5 weeks with new x-rays of right elbow and left knee, sooner if needed. Orders: Orders XR knee LT 2V Today M25.562 - Pain in left knee XR elbow RT min 3V Today M25.521 - Pain in right elbow Patient Instructions: Scribed for Valentina Saldana PA-C, by Los Abdul emergency medical tech, on 07/25/2024 at 2:15 PM EST.? I, Valentina Saldana PA-C, have personally reviewed and agree with the information entered by the scribe. Coding Level of Care Code New Pt Level 3 (27870) Complex EM visit Add On G2211 Diagnoses Right radial head fracture S52.121A Fracture of left patella S82.045A Encounter type: initial encounter Fracture alignment: nondisplaced Fracture morphology: comminuted Fracture type: closed CPT Codes Fracture Care - Fracture Billing Code: Fracture Billing Code ([id number])
== END 2024-07-25 15:29 | disposition home or self-care (01) ==
PROVIDERS: PCP Internal Medicine; Visit Provider Physician Assistant
DX: S52.121A Displaced fracture of head of right radius, initial encounter for closed fracture (principal); S82.045A Nondisplaced comminuted fracture of left patella, initial encounter for closed fracture; W01.0XXA Fall on same level from slipping, tripping and stumbling without subsequent striking against object, initial encounter
CPT/HCPCS: 99203; G2211

== ENCOUNTER 2024-07-25 14:34 | Outpatient (REF) | payer OTHER, SELFPAY ==
--- NOTE | ~2024-07-25 | XR_ITS ---
EXAMINATION: XR ELBOW, RIGHT CLINICAL INFORMATION: Right elbow pain COMPARISON: None available. TECHNIQUE: AP, lateral, and oblique views of the right elbow. FINDINGS: Right joint effusion. Redemonstration of a minimally displaced radial head fracture. Alignment maintained. XR/XR elbow RT min 3V IMPRESSION: Right joint effusion. Redemonstration of a minimally displaced radial head fracture. Alignment maintained. Electronically signed by: Abby Pierson MD 08/14/2024 12:28 PM EDT
--- NOTE | ~2024-07-25 | XR_ITS ---
EXAMINATION: X-RAY LEFT KNEE CLINICAL INFORMATION: Pain. TECHNIQUE: Two views of the left knee. COMPARISON: 07/19/2024 CT, 07/18/2024 radiographs. TECHNIQUE: AP and lateral views of the left knee. FINDINGS: Redemonstration of mildly comminuted transverse fracture through the distal pole of the patella. Alignment is anatomic. Large suprapatellar joint effusion. [id number] tricompartmental osteoarthritis. XR/XR knee LT 2V IMPRESSION: Redemonstration mildly comminuted transverse fracture through the distal pole of the patella. Alignment is anatomic. Large suprapatellar joint effusion. Electronically signed by: Abby Pierson MD 08/14/2024 01:36 PM EDT
== END 2024-07-25 14:35 | disposition home or self-care (01) ==
LOC: HO.HOSX 14:34
PROVIDERS: PCP Internal Medicine; Visit Provider Physician Assistant
DX: S52.121A Displaced fracture of head of right radius, initial encounter for closed fracture (principal); S82.045A Nondisplaced comminuted fracture of left patella, initial encounter for closed fracture; W19.XXXA Unspecified fall, initial encounter; Y93.9 Activity, unspecified; Y92.9 Unspecified place or not applicable; Y99.9 Unspecified external cause status
CPT/HCPCS: 73080; 73560; 99202

== ENCOUNTER 2024-08-29 13:38 | Outpatient (AMB) | payer OTHER, SELFPAY ==
--- NOTE | 2024-08-29 14:07 | MHC.OFFVIS ---
Intake Visit Reasons: OV-5wk f/u Rt elbow fx/lt patella fx-w xrays Intake Note: Lisa a 58 year old female who presents today in a wheel chair for a follow up of right radial head and right patella fx, DOI 07/18/24. Patient reports improvement in her knee pain however she continues to have swelling. She has a clicking in her elbow at times with twisting motions. She has pain with making a closed fist and is located at her wrist that travels to her 4th and 5th digit. Denies numbness or tingling. Manager Business Intelligence Name: Freddie ID#[id number] Allergies aspirin [ASPIRIN] Allergy (Severe, Verified 08/29/24 14:11) HX ULCER NSAIDS (Non-Steroidal Anti-Inflamma [NSAIDS] Allergy (Severe, Verified 08/29/24 14:11) HX ULCER empagliflozin [From Jardiance] Adverse Reaction (Verified 08/29/24 14:11) hematuria Medication List - Last Reconciled 08/29/24 by Valentina Saldana PA-C allopurinol 200 mg PO BID blood sugar diagnostic Use 1 test strip once a day blood-glucose meter As directed cholecalciferol (vitamin D3) (Vitamin D3) 25 mcg PO WE glipizide 2.5 mg PO DAILY PRN hydrochlorothiazide 25 mg PO DAILY 90 days losartan 25 mg PO DAILY 90 days meclizine 25 mg PO DAILY PRN 30 days metformin 1,000 mg PO BIDWM omeprazole 40 mg PO DAILY@1630 pen needle, diabetic Use pen needle once a day potassium citrate ER 20 mEq (2 x 10 mEq (1,080 mg)) PO BID pyridoxine (vitamin B6) 100 mg PO DAILY 90 days simvastatin 40 mg PO BEDTIME HPI HPI OV-5wk f/u Rt elbow fx/lt patella fx-w xrays: Details: 59-year-old female who returns to the office today with an environmental services director for a follow-up of right elbow and left knee fracture, 07/18/24. She reports she hears occasional clicking in her elbow with twisting motions. She currently states she has pain in her wrist with making a fist that radiates to her 4th and 5th digit. She denies any numbness or tingling. She also states she has improvement in her knee pain however she does reports swelling in her knee. [facility] Medical History (Updated 07/25/24 @ 15:50 by Valentina Saldana PA-C) Physical exam Pituitary microadenoma [place]'s disease Bilateral nephrolithiasis Pancreatic mass Renal cyst Renal cysts and diabetes syndrome Liver mass Type 2 diabetes with nephropathy Multinodular thyroid Hyperparathyroidism Polyarthralgia Vitamin D deficiency Hypercalcemia Hypercortisolism Adrenal cortical adenoma of right adrenal gland Right knee pain Type 2 diabetes mellitus with unspecified complications Tachycardia Type 2 diabetes mellitus with hyperglycemia, with long-term current use of insulin Vitamin D deficiency Adrenal nodule Carcinoid tumor of stomach Chronic kidney disease GERD (gastroesophageal reflux disease) Gout Stomach ulcer Hx of renal calculi Essential hypertension Hyperlipidemia LDL goal <100 Surgical History Hx of cystoscopy History of esophagogastroduodenoscopy (EGD) H/O colonoscopy History of gastric polyp Hx of lithotripsy Hx of hysterectomy Hx of cholecystectomy Family History Father CVD (cardiovascular disease) Stomach cancer Mother Diabetes Social History Household Members: Family Housing: Apartment Alcohol intake: never Patient Tobacco Use Status: Never used Tobacco e-Cigarette/Vaping Use: Never Used Second Hand Smoke Exposure: No service: No Current occupational status: unemployed Current occupation: rt handed Cognitive needs: No Hearing needs: No Vision needs: Yes Review of Systems Const All systems reviewed & are unremarkable except as noted in HPI and below Physical Exam Extrem Other: Right elbow: Skin intact, no open wounds. No tenderness over the radial head. No pain over the olecranon. No difficulty with flexion or extension, mild discomfort with supination and pronation. No pain along the distal radius or proximal humerus. Sensation and peripheral pulses present. Left knee: Skin intact. No joint effusion with mild tenderness on the patella. Calf supple, nontender. NVI. Results Reviewed Results Reviewed: xray of the left knee obtained today show non displaced fracture of the patella with interval healing xrays of the right elbow obtained today show nondisplaced fracture of the radial head with interval healing Assessment & Plan Assessment & Plan (1) Right radial head fracture: Code(s): S52.121A - Displaced fracture of head of right radius, initial encounter for closed fracture Category: Medical Plan For her right elbow, she can continue working on ROM and increase activities as tolerated. She will perform no lifting more than 5 pounds with her right arm. For her left knee, she will discontinue the immobilizer and she was placed in a hinged knee brace. I would like her to begin physical therapy to work on ROM, increasing 15 degrees every week and work on quad strengthening. She will weight bear as tolerated and see me back in 6 weeks with x-rays of her right elbow and left knee, sooner if needed. Orders: Orders XR knee LT 2V Today M25.562 - Pain in left knee XR elbow RT min 3V Today M25.521 - Pain in right elbow PT Evaluation and Treatment Today S82.045A - Nondisplaced comminuted fracture of left patella, initial encounter for closed fracture Patient Instructions: Scribed for Valentina Saldana PA-C, by Los Abdul medical technical writer, on 08/29/2024 at 2:00 PM EST.? I, Valentina Saldana PA-C, have personally reviewed and agree with the information entered by the scribe. Coding Level of Care Code Global (96742) Diagnoses Right radial head fracture S52.121A
== END 2024-08-29 14:41 | disposition home or self-care (01) ==
PROVIDERS: PCP Internal Medicine; Visit Provider Physician Assistant
DX: S52.121A Displaced fracture of head of right radius, initial encounter for closed fracture (principal)
CPT/HCPCS: 99213

== ENCOUNTER → 2024-08-29 13:45 | Outpatient (BNV) | payer OTHER, SELFPAY | PROVIDERS: Visit Provider Radiology Diagnostic Radiology | DX: S52.121A Displaced fracture of head of right radius, initial encounter for closed fracture (principal); S82.002D Unspecified fracture of left patella, subsequent encounter for closed fracture with routine healing; M25.462 Effusion, left knee; M17.12 Unilateral primary osteoarthritis, left knee | CPT/HCPCS: 73080; 73560 ==

== ENCOUNTER 2024-08-29 16:37 | Outpatient (REF) | payer OTHER, SELFPAY ==
--- NOTE | ~2024-08-29 | XR_ITS ---
EXAMINATION: XR ELBOW, RIGHT CLINICAL INFORMATION: M25.521 - Pain in right elbow COMPARISON: July 25, 2024. TECHNIQUE: AP, lateral, and oblique views of the right elbow. FINDINGS: Submitted for interpretation on October 29, 2024. Vertical disruption/irregularity in a vertical/perpendicular fashion through the radial head extending into the articular surface. Distal humerus and proximal ulna are intact. XR/XR elbow RT min 3V IMPRESSION: Nonhealed intra-articular fracture, radial head. Electronically signed by: Jonathan Ramirez MD 10/29/2024 02:15 PM EST
--- NOTE | ~2024-08-29 | XR_ITS ---
EXAMINATION: XR KNEE, LEFT CLINICAL INFORMATION: M25.562 - Pain in left knee COMPARISON: July 25, 2024. TECHNIQUE: Four views of the left knee. FINDINGS: Submitted for interpretation on October 29, 2024. Fused/healed inferior patella on the lateral projection. Suprapatellar bursa joint effusion. Joint space narrowing, patellofemoral. Degenerative changes in the mediolateral compartment with osteophyte formation the lateral femoral condyle. Chondrocalcinosis, medial lateral compartment. Osteopenia versus a process. No acute cortical disruption or malalignment. XR/XR knee LT 2V IMPRESSION: Healed fracture, patella. Suprapatellar bursa joint effusion. Tricompartmental osteoarthrosis. Consider CPPD. Electronically signed by: Jonathan Ramirez MD 10/29/2024 02:13 PM DAMARIS SANDRA
== END 2024-08-29 16:38 | disposition home or self-care (01) ==
LOC: HO.HOSX 16:37
PROVIDERS: Visit Provider Physician Assistant
DX: M25.521 Pain in right elbow (principal); M25.562 Pain in left knee; S52.121D Displaced fracture of head of right radius, subsequent encounter for closed fracture with routine healing
CPT/HCPCS: 73080; 73560; 99212

== ENCOUNTER 2024-10-10 12:41 | Outpatient (REF) | payer OTHER, SELFPAY ==
--- NOTE | ~2024-10-10 | XR_ITS ---
EXAMINATION: XR ELBOW, RIGHT CLINICAL INFORMATION: M25.521 - Pain in right elbow COMPARISON: X-ray dated August 29, 2024 TECHNIQUE: AP, lateral, and oblique views of the right elbow. FINDINGS: Submitted for interpretation on October 29, 2024. Cortical irregularity in a perpendicular fashion through the radial head extending intra-articular. Old traumatic deformity in the medial epicondyles of the humerus. Normal alignment. Small joint effusion. XR/XR elbow RT min 3V IMPRESSION: Nonhealed intra-articular fracture, radial head. Electronically signed by: Jonathan Ramirez MD 10/29/2024 02:17 PM [facility]
--- NOTE | ~2024-10-10 | XR_ITS ---
EXAMINATION: XR KNEE, LEFT CLINICAL INFORMATION: M25.562 - Pain in left knee COMPARISON: August 29, 2024 TECHNIQUE: Four views of the left knee. FINDINGS: Submitted for interpretation on October 29, 2024. Marginal osteophyte formation lateral femoral condyle. Chondrocalcinosis in both lateral and medial compartment. No acute cortical disruption or malalignment. Joint space narrowing, patellofemoral. Small suprapatellar bursa joint effusion. Osteopenia versus lytic process. XR/XR knee LT 2V IMPRESSION: Old healed fracture, patella. Patellofemoral osteoarthrosis. Suprapatellar bursa joint effusion. Consider CPPD. Electronically signed by: Jonathan Ramirez MD 10/29/2024 02:10 PM [facility]
== END 2024-10-10 12:42 | disposition home or self-care (01) ==
LOC: HO.HOSX 12:41
PROVIDERS: Visit Provider Physician Assistant
DX: S52.121A Displaced fracture of head of right radius, initial encounter for closed fracture (principal); M25.521 Pain in right elbow; M25.562 Pain in left knee
CPT/HCPCS: 73080; 73560; 99212

== ENCOUNTER 2024-10-10 13:01 | Outpatient (AMB) | payer OTHER, SELFPAY ==
--- NOTE | 2024-10-10 13:35 | MHC.OFFVIS ---
Intake Visit Reasons: OV- f/u Rt elbow fx/lt patella fx-w xrays Intake Note: Lisa a 58 year old female who presents today for a follow up of right radial head and right patella fx, DOI 07/18/24. Patient reports she is dong well, states having intermittent pain in her elbow and patella. Finds that PT has been helping. Director Corporate Sales Services: Director Corporate Sales Present (Abrahan ([phone])) Allergies aspirin [ASPIRIN] Allergy (Severe, Verified 10/10/24 13:37) HX ULCER NSAIDS (Non-Steroidal Anti-Inflamma [NSAIDS] Allergy (Severe, Verified 10/10/24 13:37) HX ULCER empagliflozin [From Jardiance] Adverse Reaction (Verified 10/10/24 13:37) hematuria Medication List - Last Reconciled 10/10/24 by Valentina Saldana PA-C allopurinol 200 mg PO BID blood sugar diagnostic Use 1 test strip once a day blood-glucose meter As directed cholecalciferol (vitamin D3) (Vitamin D3) 25 mcg PO WE glipizide 2.5 mg PO DAILY PRN hydrochlorothiazide 25 mg PO DAILY 90 days losartan 25 mg PO DAILY 90 days meclizine 25 mg PO DAILY PRN 30 days metformin 1,000 mg PO BIDWM omeprazole 40 mg PO DAILY@1630 pen needle, diabetic Use pen needle once a day potassium citrate ER 20 mEq (2 x 10 mEq (1,080 mg)) PO BID pyridoxine (vitamin B6) 100 mg PO DAILY 90 days simvastatin 40 mg PO BEDTIME HPI HPI OV- f/u Rt elbow fx/lt patella fx-w xrays: Details: 59-year-old female who returns to the office today for a follow-up of right elbow fracture and right patella fracture, 07/18/24. She reports she is doing well however she continues to have intermittent pain in her elbow and knee. She has been working on physical therapy with benefits. FOR[facility]LY [facility] Medical History (Updated 07/25/24 @ 15:50 by Valentina Saldana PA-C) Physical exam Pituitary microadenoma William's disease Bilateral nephrolithiasis Pancreatic mass Renal cyst Renal cysts and diabetes syndrome Liver mass Type 2 diabetes with nephropathy Multinodular thyroid Hyperparathyroidism Polyarthralgia Vitamin D deficiency Hypercalcemia Hypercortisolism Adrenal cortical adenoma of right adrenal gland Right knee pain Type 2 diabetes mellitus with unspecified complications Tachycardia Type 2 diabetes mellitus with hyperglycemia, with long-term current use of insulin Vitamin D deficiency Adrenal nodule Carcinoid tumor of stomach Chronic kidney disease GERD (gastroesophageal reflux disease) Gout Stomach ulcer Hx of renal calculi Essential hypertension Hyperlipidemia LDL goal <100 Surgical History Hx of cystoscopy History of esophagogastroduodenoscopy (EGD) H/O colonoscopy History of gastric polyp Hx of lithotripsy Hx of hysterectomy Hx of cholecystectomy Family History Father CVD (cardiovascular disease) Stomach cancer Mother Diabetes Social History Household Members: Family Housing: Apartment Alcohol intake: never Patient Tobacco Use Status: Never used Tobacco e-Cigarette/Vaping Use: Never Used Second Hand Smoke Exposure: No service: No Current occupational status: unemployed Current occupation: rt handed Cognitive needs: No Hearing needs: No Vision needs: Yes Review of Systems Const All systems reviewed & are unremarkable except as noted in HPI and below Physical Exam Extrem Other: Right elbow: Skin intact, no open wounds. No tenderness over the radial head. No pain over the olecranon. No difficulty with flexion or extension, mild discomfort with supination and pronation. No pain along the distal radius or proximal humerus. Sensation and peripheral pulses present. Left knee: Skin intact. No joint effusion with mild tenderness on the patella. Calf supple, nontender. NVI. Results Reviewed Results Reviewed: xray of the left knee obtained today show non displaced fracture of the patella with interval healing xrays of the right elbow obtained today show nondisplaced fracture of the radial head with interval healing Assessment & Plan Assessment & Plan (1) Right radial head fracture: Code(s): S52.121A - Displaced fracture of head of right radius, initial encounter for closed fracture Category: Medical Plan She will continue working with physical therapy to regain her strength. She will continue to increase activities as tolerated. If symptoms persist or worsens, patient will contact the office, otherwise follow-up as needed. Orders: Orders XR elbow RT min 3V Today M25.521 - Pain in right elbow XR knee LT 2V Today M25.562 - Pain in left knee Patient Instructions: Scribed for Valentina Saldana PA-C, by [place] medical imaging director, on 10/10/2024 at 1:45 PM EST.? I, Valentina Saldana PA-C, have personally reviewed and agree with the information entered by the scribe. Coding Level of Care Code Global (79922) Diagnoses Right radial head fracture S52.121A
== END 2024-10-10 14:44 | disposition home or self-care (01) ==
PROVIDERS: PCP Internal Medicine; Visit Provider Physician Assistant
DX: S52.121A Displaced fracture of head of right radius, initial encounter for closed fracture (principal)
CPT/HCPCS: 99213

== ENCOUNTER → 2024-10-10 13:07 | Outpatient (BNV) | payer OTHER, SELFPAY | PROVIDERS: Visit Provider Radiology Diagnostic Radiology | DX: S52.121G Displaced fracture of head of right radius, subsequent encounter for closed fracture with delayed healing (principal); S82.002D Unspecified fracture of left patella, subsequent encounter for closed fracture with routine healing; M25.462 Effusion, left knee; M17.12 Unilateral primary osteoarthritis, left knee | CPT/HCPCS: 73080; 73560 ==

== ENCOUNTER 2024-10-21 08:16 | Outpatient (RCR) | payer OTHER, SELFPAY ==
--- NOTE | 2024-09-25 10:24 | MHC.OT.EP ---
[address] [phone] Occupational Therapy Plan of Care Patient Name: Lisa Milton Date of Evaluation: 09/25/24 Diagnosis: Right radial head fx Pain Location: Occasional pain with moving her wrist and gripping her hand Pain Score: 5 Pain Scale Used: Numeric (0 - 10) Aggravating Factors: Gripping, movement of arm Alleviating Factors: Using heat for relief at times Assessment: 59 yo female presents s/p right radial head fracture, 07/18/24 after tripping on sidewalk and falling to the ground, landing on both hands. She was seen in the ED 07/20/24 and placed in elbow splint for right, also w/ right patella fx and wearing extension brace. She followed up with [facility] 07/25/24 and discontinued elbow splint/sling and told to work on AROM elbow while avoiding rotation and lifting. On assessment today she is about 10 weeks s/p injury and doing well. She has weaned from sling and is suing right arm for light daily activities. She has slightly decreased elbow range at 15/140, but full wrist and forearm range. Director Home Health strength 25lb (versus left 45lb) and no loss of coordination or sensation. I anticipate she will do well w/ brief course of nOT to establish HEP and progress functional strengthening for daily actvities. Frequency and Duration: The patient will be seen 1-2x/wk for 4 weeks Short Term Goals: Right gross grasp >30lb Ind w/ HEP Progress to strengthening Pt to report ease w/ light bimanual home tasks (laundry, dishes) Scrap Iron Loader Goals: QuickDASH score <35 pts Right gross grasp >40lb Elbow ROM 5/145 Ind w/ progression of strengthening Treatment Plan: Therapeutic Exercise Therapeutic Activity Home Exercise Program Patient Education Edema Control ADL Training MHP Cold Packs Joint Mobilization Soft Tissue Mobilization Kinesiotaping Electronically Signed By: WILI Salazar/Emre CHT Please Sign and return to therapist. Thank you once again for your referral.
--- NOTE | 2024-10-21 09:48 | MHC.OT.DC ---
[address] [phone] F: [phone] Occupational Therapy Discharge Note Patient Name: Lisa Milton Provider: Valentina Saldana PA-C Diagnosis: Right radial head fx Date of Evaluation: 09/25/24 Date of Discharge: 10/21/24 Treatments to Date: 5 Discharge Status: Achieved Goals Improved Function Independent with HEP Discharge Summary: Lisa is about three months s/p injury and doing well. She has great elbow range (0/150) and strong gross grasp (45lb). We have been focusing on strength and endurance, she reports no difficulty w/ daily activities. She has met all goals met and is ind w/ home program. She continues to see PT for management of knee injury. Electronically Signed By: Silvia Huertas OTR/L CHT Please Sign and return to therapist, thank you for your referral.
== END 2024-10-21 09:56 | disposition home or self-care (01) ==
LOC: HO.OT 08:16
PROVIDERS: PCP Internal Medicine; Visit Provider Physician Assistant
DX: S52.121A Displaced fracture of head of right radius, initial encounter for closed fracture (principal)
CPT/HCPCS: 97110; 97140; 97165

== ENCOUNTER 2024-10-29 12:29 | Outpatient (AMB) | payer OTHER, SELFPAY ==
--- NOTE | 2024-10-29 12:48 | A.OFFPC_ITS ---
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 Required: No Accompanied by: Self / Same As Patient Allergies aspirin [ASPIRIN] Allergy (Severe, Verified 10/29/24 13:15) HX ULCER NSAIDS (Non-Steroidal Anti-Inflamma [NSAIDS] Allergy (Severe, Verified 10/29/24 13:15) HX ULCER empagliflozin [From Jardiance] Adverse Reaction (Verified 10/29/24 13:15) hematuria Medication List - Last Reconciled 10/29/24 by Iza Hi MD allopurinol 200 mg PO BID blood sugar diagnostic Use 1 test strip once a day blood-glucose meter As directed cholecalciferol (vitamin D3) (Vitamin D3) 25 mcg PO WE glipizide 2.5 mg PO DAILY PRN hydrochlorothiazide 25 mg PO DAILY 90 days losartan 25 mg PO DAILY 90 days meclizine 25 mg PO DAILY PRN 30 days metformin 1,000 mg PO BIDWM omeprazole 40 mg PO DAILY@1630 pen needle, diabetic Use pen needle once a day potassium citrate ER 20 mEq (2 x 10 mEq (1,080 mg)) PO BID pyridoxine (vitamin B6) 100 mg PO DAILY 90 days simvastatin 40 mg PO BEDTIME Tobacco use date assessed: 03/11/24 Dental Screening Dental Screen Date: 03/11/24 HPI HPI Comments History of Present Illness Details The patient is a 59-year-old female presenting for a follow-up appointment regarding diabetes management and associated conditions. The patient has a chronic history of Diabetes Mellitus and hypertension, which are being actively managed. She is currently taking Metformin, Glipizide, and other medications to control her blood sugar levels. Her last glycemic measurement, HbA1c, showed a value of 7.2, which is near her target level. She has been prescribed a combination of medications for her comorbid hypertension, including Losartan and Hydrochlorothiazide. The patient also has a history of hyperlipidemia and is taking Simvastatin 40 mg daily for cholesterol management. She reports not having had recent episodes of chest pain or shortness of breath. Her history includes gastric ulceration, for which she is allergic to Aspirin and NSAIDs, and she uses Omeprazole 40 mg for acid reflux. Furthermore, she has a significant history of urolithiasis, with an episode occurring about three weeks ago when she passed a few small kidney stones. She reports taking Vitamin B6 as a preventive measure against kidney stone formation. An adrenal mass is a noted concern, and a future appointment with endocrinology is pending to evaluate this condition. She is compliant with most medication therapies but has refused the current influenza vaccination and is due for a tetanus booster, as her last administration was in 2012. FORMERLY [facility] Medical History Physical exam Pituitary microadenoma William's disease Bilateral nephrolithiasis Pancreatic mass Renal cyst Renal cysts and diabetes syndrome Liver mass Type 2 diabetes with nephropathy Multinodular thyroid Hyperparathyroidism Polyarthralgia Vitamin D deficiency Hypercalcemia Hypercortisolism Adrenal cortical adenoma of right adrenal gland Right knee pain Type 2 diabetes mellitus with unspecified complications Tachycardia Type 2 diabetes mellitus with hyperglycemia, with long-term current use of insulin Vitamin D deficiency Adrenal nodule Carcinoid tumor of stomach Chronic kidney disease GERD (gastroesophageal reflux disease) Gout Stomach ulcer Hx of renal calculi Essential hypertension Hyperlipidemia LDL goal <100 Surgical History Hx of cystoscopy History of esophagogastroduodenoscopy (EGD) H/O colonoscopy History of gastric polyp Hx of lithotripsy Hx of hysterectomy Hx of cholecystectomy Family History Father CVD (cardiovascular disease) Stomach cancer Mother Diabetes Social History Household Members: Family Housing: Apartment Alcohol intake: never Patient Tobacco Use Status: Never used Tobacco e-Cigarette/Vaping Use: Never Used Second Hand Smoke Exposure: No service: No Current occupational status: unemployed Current occupation: rt handed Cognitive needs: No Hearing needs: No Vision needs: Yes Questionnaire Thrive Questionnaire Date Thrive assessed: 03/11/24 ANTONIO-7 AMB Questionnaire ANTONIO-7 Date ANTONIO - 7 assessed: 03/11/24 Source: Developed by Drs. Seven Mast, Stephanie Llanos, Rubén Walker and colleagues, with an educational dave from [employer]. Review of Systems Const All systems reviewed & are unremarkable except as noted in HPI and below Card Denies chest pain at rest, Denies chest pain with activity, Denies edema, Denies irregular heart rhythm, Denies claudication, Denies dyspnea, Denies dyspnea on exertion, Denies orthopnea, Denies paroxysmal nocturnal dyspnea and Denies slow heart rate Resp Denies cough, Denies dyspnea and Denies dyspnea on exertion GI Denies abdominal pain, Denies change in bowel habits, Denies excessive flatus, Denies nausea and Denies vomiting Denies urinary incontinence, Denies urinary hesitancy and Denies urinary urgency Musc Denies atrophy, Denies deformity and Denies limited range of motion Skin/Breast Denies bleeding lesions, Denies changing lesions and Denies rash Physical exam (Primary Care) Vital Signs: Last Vital Signs BP 120/80 10/29/24 12:53 BMI result Body Mass Index 28.0 Tobacco/Smoking Status: Tobacco use Status Tobacco use date assessed 03/11/24 10/29/24 12:48 Patient Tobacco Use Status Never used Tobacco 10/29/24 12:48 e-Cigarette/Vaping Use Never Used 10/29/24 12:48 Thrive Assessment: Date of Thrive Assessment Date Thrive assessed 03/11/24 10/29/24 12:48 Resp Effort & Inspection: normal respiratory effort Auscultation: clear to auscultation bilaterally Cardio Jugular venous distension: no JVD Rate: regular rate Rhythm: regular rhythm Heart sounds: S1 normal heart sound present and S2 normal heart sound present Extrem General: Yes full ROM Office Procedures Flu Questionnaire Does the patient have a severe egg allergy?: No Results AMB Hemoglobin A1c AMB Hemoglobin A1c 7.2 % Last Edit by FLAQUITA Choe on 10/29/24 12:5 9 Immunizations Fluarix Triv [id number] (PF) 45 mcg (15 mcg x 3)/0.5 mL IM syringe Performing Provider: Iza Hi MD Performing Location: [facility] [place] [facility] Documented (not given) by: FLAQUITA Choe on 10/29/24 12:56 Reason Not Given: Patient Refused Boostrix Tdap 2.5 Lf unit-8 mcg-5 Lf/0.5 mL intramuscular syringe Performing Provider: Iza Hi MD Performing Location: [facility] [place] [facility] Administered by: Rick Gayle FLAQUITA on 10/29/24 13:26 Dose Route Admin Location Dispensed Lot Number Expiration Date NDC [employer] 0.5 mL IM Left Deltoid 0.5 mL [id number] 08/24/25 91231-061-42 [employer] VIS Given Date VIS Provided VIS Publication Date 10/29/24 Single Vaccine 21 Eligibility Eligibility Date Funding Source Not [facility] Eligible 10/29/24 Private Results Reviewed Results Reviewed: Laboratory Last Values Hgb A1c (Clinic) 7.2 % (4.0-6.0) H 10/29/24 12:49 Coding Level of Care Code Est Pt Level 4 (15666) Complex EM visit Add On G2211 Diagnoses Diabetes mellitus E11.9 Bilateral nephrolithiasis N20.0 Essential hypertension I10 Hyperlipidemia LDL goal <70 E78.5 Adrenal adenoma D35.00 Time Spent (min) 22 Assessment & Plan Assessment & Plan (1) Diabetes mellitus: Code(s): E11.9 - Type 2 diabetes mellitus without complications Category: Medical (2) Bilateral nephrolithiasis: Code(s): N20.0 - Calculus of kidney Category: Medical (3) Essential hypertension: Code(s): I10 - Essential (primary) hypertension Category: Medical (4) Hyperlipidemia LDL goal <70: Code(s): E78.5 - Hyperlipidemia, unspecified Category: Medical (5) Adrenal adenoma: Code(s): D35.00 - Benign neoplasm of unspecified adrenal gland Category: Medical Plan - Diabetes Mellitus: Continue current regimen, including Metformin and Glipizide. HbA1c is close to the target; continue monitoring. - Hypertension: Reassess blood pressure control, maintain current medications as blood pressure is well-controlled. - Hyperlipidemia: Continue Simvastatin. Further lipid profile assessment through laboratory tests is planned. - History of Urolithiasis: Continue Vitamin B6 prophylaxis for kidney stones. - Gastric Ulcer: Continue Omeprazole therapy; avoid NSAIDs and Aspirin. - Adrenal Mass: Follow-up with endocrinology is planned for further evaluation. Patient was informed and verbally consented to the use of an ambient scribe for clinic note documentation during this visit. In today's visit, we discussed the current management of the patient's diabetes, noting that her HbA1c is close to the target. We reviewed her hypertensive regimen, indicating that blood pressure is well-controlled. Emphasis was placed on maintaining lipid control with Simvastatin and ensuring an updated lipid profile. Preventative aspects regarding her history of urolithiasis were revie wed, and the prophylactic use of Vitamin B6 was reiterated. We discussed the necessary laboratory workups due to be repeated since the last evaluations were conducted in May. The patient was advised about the importance of the influenza vaccine, which she declined, and informed regarding the need for a tetanus booster. Orders: Orders AMB Hemoglobin A1c Today E11.9 - Type 2 diabetes mellitus without complications Lipid Panel Today E78.5 - Hyperlipidemia, unspecified Microalbumin, Random (w Creat) Today R80.9 - Proteinuria, unspecified Comprehensive [place]. Panel Fast Today E11.9 - Type 2 diabetes mellitus without complications Influenza [id number] Immunization Today Z23 - Encounter for immunization TDaP Immunization Today Z23 - Encounter for immunization Vitamin D 25-OH Total Today E55.9 - Vitamin D deficiency, unspecified Patient Instructions: - Continue prescribed medications including Metformin, Glipizide, Losartan, and Simvastatin. - Arrange for laboratory work with 8 hours of fasting this week. - Maintain consistent follow-up with endocrinology for the adrenal mass. - Update the tetanus vaccine as it is overdue. - Seek care if experiencing any new symptoms such as chest pain or shortness of breath.
[2024-10-29 12:53] VITALS: BP 120/80; BMI 28.0
== END 2024-10-29 13:25 | disposition home or self-care (01) ==
PROVIDERS: PCP Internal Medicine; Visit Provider Internal Medicine
DX: E11.9 Type 2 diabetes mellitus without complications (principal); N20.0 Calculus of kidney; I10 Essential (primary) hypertension; E78.5 Hyperlipidemia, unspecified; D35.00 Benign neoplasm of unspecified adrenal gland; Z23 Encounter for immunization

== ENCOUNTER → 2024-10-29 12:29 | Outpatient (BNVA) | payer OTHER, SELFPAY | PROVIDERS: PCP Internal Medicine; Visit Provider Internal Medicine | DX: Z23 Encounter for immunization (principal); E11.9 Type 2 diabetes mellitus without complications; N20.0 Calculus of kidney; I10 Essential (primary) hypertension; E78.5 Hyperlipidemia, unspecified; D35.00 Benign neoplasm of unspecified adrenal gland | CPT/HCPCS: 83036; 90471; 90715; 99212 ==

== ENCOUNTER 2024-11-07 07:25 | Outpatient (RCR) | payer OTHER, SELFPAY ==
--- NOTE | 2024-09-06 08:57 | MHC.PT.EP ---
[facility] [place] [facility] [place] [facility] [place] [facility] [address] Richard Carter [address] [phone] F: [phone] F: [phone] F: [phone] F: [phone] Physical Therapy Plan of Care Date of Evaluation: 09/06/24 Date of Surgery: N/A Diagnosis: fracture of left patella (RL) Assessment: pt is a 59 y/o female presenting to physical therapy w/ referring diagnosis of fracture of left patella. Impairments include pain, decreased range of motion, decreased strength, impaired functional mobility, impaired postural awareness, and altered ambulation mechanics. pt is a good candidate for skilled PT due to age, potential remediation of impairments, typical disease/condition progression and prognosis, comorbidities, and motivation. pt would benefit from skilled PT intervention to provide a tailored strengthening and stretching exercise program, functional training, gait training, postural re-training, neuromuscular re-education, modalities as needed for pain, equipment safety demonstration. Frequency and Duration: The patient will be seen 2x/wk for 8 wks Short Term Goals: pt will be I w/ HEP to promote self-management of condition. pt will improve L knee flexion by at least 15 degrees to promote ease in squatting. Dental Cream Maker Goals: pt will report a statistically significant improvement in self-reported outcome measure, LEFI, to promote return to PLOF. pt will ascend/descend 12 stairs reciprocal pattern to promote ease in accessing bedroom/bathroom. pt will improve L knee extension strength by 2 MMT grades to promote ease in long distance ambulation. Treatment Plan: Modalities to reduce pain, spasms and effusion. Manual therapy to restore motion and function. Therapeutic exercise to improve strength and flexibility. Neuromuscular re-education for posture and balance. Therapeutic activities to return to functional activities of daily living. Electronically signed by: Blanca Shin PT, DPT Please sign and return to therapist. Thank you for your referral.
--- NOTE | 2024-11-07 08:51 | MHC.PT.DC ---
[facility] [place] [facility] [place] [facility] [place] [facility] [address] Richard Carter [address] [phone] F: [phone] F: [phone] F: [phone] F: [phone] Physical Therapy Discharge Report Diagnosis: fracture of left patella (RL) Date of Surgery: N/A Date of Evaluation: 09/06/24 Date of Discharge: 11/07/24 Treatments to Date: 17 Cancellations to Date: 0 No Shows to Date: 0 Discharge Status: Improved Function Independent with HEP Discharge Summary: The patient overall has made significant improvement in her knee range of motion and overall functional mobility. She is only wearing the knee brace for long distance ambulation. She does still present with quad weakness; however, I feel this is due to her being self-limiting and not pushing herself at home. She often requires encouragement to work through her available range of motion. She is independent with her home exercise program. An updated handout was provided to her and she has the appropriate therabands to continue. She is discharged from this physical therapy plan of care to her home program at this time. Electronically signed by: Blanca Shin PT, DPT Please sign and return to therapist. Thank you for your referral.
== END 2024-11-07 08:51 | disposition home or self-care (01) ==
LOC: HO.PT 07:25
PROVIDERS: PCP Internal Medicine; Visit Provider Physician Assistant
DX: S82.045A Nondisplaced comminuted fracture of left patella, initial encounter for closed fracture (principal)
CPT/HCPCS: 97110; 97162; 97530

== ENCOUNTER 2024-11-28 06:44 | Outpatient (REF) | payer OTHER, SELFPAY ==
[2024-11-28 09:11] LABS: Creatinine Urine 54.69 mg/dL; Microalbum/Creatinine Ratio Ur 237.7 ug/mg cr (<30)
[2024-11-28 09:18] LABS: Albumin Level 4.3 g/dL (3.5-5.0); Alkaline Phosphatase 54 U/L (39-117); Anion Gap 14 (12-20); Aspartate Amino Transferase 20 U/L (5-31); Bilirubin Total 0.3 mg/dL (0.0-1.0); Blood Urea Nitrogen 21 mg/dL (9-16); Calcium 9.6 mg/dL (8.4-10.2); Carbon Dioxide 29 mmol/L (22-29); Chloride 102 mmol/L (96-108); Cholesterol 151 mg/dL (<200); Estimated Glomerular Filt Rate > 60; Glucose Fasting 218 mg/dL (60-99); HDL Cholesterol 58 mg/dL (>40); LDL Cholesterol Calculated 73 mg/dL (<100); Potassium 4.6 mmol/L (3.3-5.1); Sodium 140 mmol/L (135-145); Total Protein 7.3 g/dL (6.5-8.0); Triglycerides 103 mg/dL (<150)
[2024-11-28 09:21] LABS: Cortisol Random 2.9 ug/dL
[2024-11-28 09:22] LABS: Alanine Aminotransferase 29 U/L (0-31)
[2024-12-11 09:18] LABS: Dexamethasone 442 ng/dL
== END 2024-11-28 06:45 | disposition home or self-care (01) ==
LOC: HO.LAB 06:44
PROVIDERS: Absent Provider Internal Medicine; PCP Internal Medicine; Visit Provider Internal Medicine Endocrinology, Diabetes & Metabolism
DX: E11.9 Type 2 diabetes mellitus without complications (principal); E78.5 Hyperlipidemia, unspecified; R80.9 Proteinuria, unspecified; E55.9 Vitamin D deficiency, unspecified; D35.00 Benign neoplasm of unspecified adrenal gland
CPT/HCPCS: 36415; 80053; 80061; 80299; 82043; 82306; 82533; 82570

== ENCOUNTER 2024-12-02 13:58 | Outpatient (AMB) | payer OTHER, SELFPAY ==
[2024-12-02 14:17] VITALS: BP 132/72; PULSE 76; BMI 28.7
--- NOTE | 2024-12-02 14:17 | MHC.OFFVIS ---
Vital Signs 12/02/24 14:17 Height 5 ft 1 in Weight 152 lb BMI 28.7 BP 132/72 Blood Pressure Location Rt brachial Position Sitting Pulse 76 Pulse Source Pulse Oximeter Intake Visit Reasons: f/u adrenal mass Intake Note: Patient present today for Adrenal Mass. Dust Mop Maker Required: No Accompanied by: Son Allergies aspirin [ASPIRIN] Allergy (Severe, Verified 12/02/24 14:20) HX ULCER NSAIDS (Non-Steroidal Anti-Inflamma [NSAIDS] Allergy (Severe, Verified 12/02/24 14:20) HX ULCER empagliflozin [From Jardiance] Adverse Reaction (Verified 12/02/24 14:20) hematuria Medication List - Last Reconciled 12/02/24 by Seven Vo MD allopurinol 200 mg PO BID blood sugar diagnostic Use 1 test strip once a day blood-glucose meter As directed cholecalciferol (vitamin D3) (Vitamin D3) 25 mcg PO 3XW dexamethasone 1 mg PO ONCE glipizide 2.5 mg PO DAILY PRN hydrochlorothiazide 25 mg PO DAILY 90 days losartan 25 mg PO DAILY 90 days meclizine 25 mg PO DAILY PRN 30 days metformin 1,000 mg PO BIDWM omeprazole 40 mg PO DAILY@1630 pen needle, diabetic Use pen needle once a day potassium citrate ER 20 mEq (2 x 10 mEq (1,080 mg)) PO BID pyridoxine (vitamin B6) 100 mg PO DAILY 90 days simvastatin 40 mg PO BEDTIME HPI Comments Details: 59 YO Female with a PMHx of gastric carcinoid, medullary sponge kidney who is seen in F/U for multiple endocrine related problems, Sharon's Disease, pituitary microadenoma, adrenal adenoma, hyperparathyroidism and a NTMNG. 1) Sharon's Disease with a Pituitary microadenoma and adrenal adenoma: She has a 3.3 cm R adrenal mass. She underwent a CT adrenal protocol 12/24/2021 with identification of a R adrenal adenoma measuring 3.1 cm. Precontrast HU -9.24, with absolute washout of 53.9% and relative washout of 63.5%. MRI 06/01/2022 which revealed a 3.0 cm well circumscribed hypodense mass of the R adrenal gland with soft tissue attenuation. Most recent imaging is a CT of the abdomen dated 02/27/2023 now measuring 3.3 cm. This was not completed via adrenal protocol so no washout characteristics or precontrast HU are available. She underwent a dexamethasone suppression test 08/18/2020 which revealed Cortisol 1.9, ACTH <5 and Dexamethasone 268. Because this was slightly above the upper limit of normal (1.8) she additionally underwent midnight salivary cortisol testing. This was WNL x 2. She underwent a salivary cortisol profile, which was abnormal, with cortisol rising at 12 noon before returning to normal. This was repeated again and was abnormal for a second time. She repeated her 1 mg overnight DSST 05/24/2022 with Cortisol 2.5, ACTH 6 and Dex 240. She underwent an MRI of the pituitary as her morning ACTH was in the indeterminate range (10), and this did reveal question of a 4 mm pituitary microadenoma. The remainder of her pituitary panel was completely WNL, with gonadotropins appropriate for a postmenopausal female. She is currently not using any medications that impair or accelerate dexamethasone metabolism. She was referred [place] [facility] with Dr. Tavon Lala, but was unable to schedule this due to issues with transporation. She is seen today in F/U. 2) Hyperparathyroidism: Labs did reveal hypercalcemia, and appeared consistent with primary hyperparathyroidism. Labs 12/14/2021 Calcium 10.1, PTH 46, Vitamin D 45 and Albumin 4.3. Urine calcium was high normal, and was an adequate collection. CT of the abdomen revealed multiple bialteral kidney stones as well as cysts. She is following with urology for this. She has a history of a medullary sponge kidney. She did undergo a DEXA which was WNL. She had an US of the neck which revealed multiple hypoechoic nodules, but no obvious parathyroid adenoma. She also has a documented history of gastric carcinoid. She is managed by Dr. Hortensia Alvarado of [facility]. She reports feeling well today and has no complaints. She also has a longstanding history of recurrent obstructive nephrolithiasis. 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 She underwent FNA biopsy 07/21/2022 of her thyroid with results as follows: a)LMP 1.0 cm thyroid nodule - benign cytology b)LLP 1.7 cm thyroid nodule - benign cytology CT Abdomen: 02/27/2023 FINDINGS: LUNG BASES: The visualized lung bases are unremarkable.? LIVER, GALLBLADDER, AND BILIARY TREE: The liver is normal in size, shape, and attenuation. No focal hepatic lesion or biliary ductal dilatation is present. Cholecystectomy.? PANCREAS: Unremarkable.? SPLEEN: Unremarkable.? ADRENAL GLANDS: Diminutive left adrenal gland which is not well evaluated. There is a right adrenal gland nodule. This measures 3.3 cm. This meets criteria for a lipid rich adenoma, unchanged from prior.? KIDNEYS AND URETERS: The kidneys are normal in size, shape, and attenuation. No hydronephrosis or hydroureter. No perinephric stranding. Bilateral medullary nephrocalcinosis. No obstructing calculi. Largest area of calcification on the right is at the lower pole measuring 0.6 cm, 9 cm from the posterior axillary line. The largest area of calcification on the left is seen at the upper pole measuring 0.6 cm, 9 cm from the posterior axillary line. Simple bilateral renal cysts for which no specific follow-up is recommended. BLADDER: Unremarkable.? GASTROINTESTINAL TRACT: The stomach is unremarkable. Normal caliber small bowel. No obstruction. No colonic wall thickening or acute inflammation. Normal appendix. Scattered colonic diverticulosis without diverticulitis. No free air or free fluid.? ABDOMINAL WALL: No significant hernia is appreciated.? LYMPH NODES: Normal. VASCULAR: Normal caliber aorta with mild atherosclerotic calcification. PELVIC VISCERA: Uterus not seen. No adnexal mass.? OSSEOUS STRUCTURES: No acute or suspicious osseous abnormality. Mild degenerative changes in the spine. CT/CT abdomen pelvis wo IV con IMPRESSION: 1.? Bilateral medullary nephrocalcinosis. Similar appearance to prior. No obstructing calculi. No hydronephrosis. 2.? Unchanged right adrenal gland nodule, consistent with a lipid rich adenoma. MRI Pituitary: 08/16/2022 FINDINGS: In the posterior aspect of the adenohypophysis, just anterior to the posterior pituitary bright spot, there is a 4 mm ovoid focus of relative hypoenhancement best visualized on image 14 of series 9 and faintly visualized on image 7 of series 10. The remainder of the pituitary gland enhances homogenously. No suprasellar or juxtasellar masses are identified. The infundibulum enhances normally and appears midline. The cavernous sinuses are symmetric and enhance normally with normal signal voids in the carotid siphons. DWI sequence demonstrates no restricted diffusion to suggest acute or subacute cerebral ischemia. A few small nonenhancing T2 hyperintensities are seen within the white matter of the right cerebral hemisphere, which are nonspecific findings. Remainder of the brain is normal in signal intensity. The remainder of the brain demonstrates no pathologic intracranial enhancement or mass lesion. The ventricular system and subarachnoid spaces are within normal limits without hydrocephalus. Normal signal voids are seen in the visualized major intracranial vessels. There is upper cervical discogenic degenerative change and spondylosis at C4-C5 and C5-C6 and there is bilateral TMJ arthropathy. MR/MR head/brain wo/w con IMPRESSION: 1. There is a 4 mm focus of relative hypoenhancement in the posterior aspect of the pituitary adenohypophysis, which is a somewhat equivocal finding. Cannot exclude a microadenoma. Consider follow-up MRI of the sella in 6-12 months to reassess if clinically warranted. ? 2. A few nonenhancing, nonspecific white matter T2 hyperintensities in the right cerebral hemisphere are noted. ? 3. Bilateral TMJ arthropathy and cervical DDD. DEXA: 01/11/2022 FINDINGS: LEFT FOREARM RADIUS 33%: BMD 0.919 g/cm2, Z-score 1.0, T-score 0.5, normal. AP SPINE L1-L4: BMD 1.070 g/cm2, Z-score -0.1, T-score -0.9, normal. LEFT FEMUR, NECK: BMD 0.922 g/cm2, Z-score 0.2, T-score -0.8, normal. LEFT FEMUR, TOTAL: BMD 0.999 g/cm2, Z-score 0.6, T-score -0.1, normal. IDENTIFIED RISK FACTORS: Hyperparathyroidism, low calcium intake. Early menopause, secondary osteoporosis, thiazide, hysterectomy. Thyroid US: 01/19/2022 Right Thyroid Lobe: 3.8 x 2.1 x 1.1 cm, volume 4.6 mL. Parenchyma: The gland echotexture is homogeneous. Thyroid vascularity is normal. Left Thyroid Lobe: 4.6 x 0.9 x 1.6 cm, volume 3.5 mL. Parenchyma: The gland echotexture is homogeneous. Thyroid vascularity is normal. Isthmus: 0.5 cm in maximum AP dimension. Estimated total number of nodules greater than or equal to 1 cm: 2. [employer] nodules are described as follows: 1. Location: Right mid/inferior. ?? ? Size: 0.7 x 0.47 x 0.53 cm, volume 0.09 mL. ?? ? Nodule characteristics: ?? ? Composition: Cystic(0). ?? ? ACR TI-RADS total points: 0 ?? ? ACR TI-RADS category: 1 2. Location: Right mid inferior. ?? ? Size: 0.45 x 0.36 x 0.49 cm, volume 0.04 mL. ?? ? Nodule characteristics: ?? ? Composition: Cystic(0). ?? ? Echogenicity: Hyperechoic (1). ?? ? Shape: Not taller but wider 0 ?? ? Margins: Smooth (0). ?? ? Echogenic Foci: Punctate echogenic foci (3). ?? ? ACR TI-RADS total points: 6 ?? ? ACR TI-RADS category: 4 3. Location: Left superior. ?? ? Size: 0.66 x 0.54 x 0.33 cm, volume 0.06 mL. ?? ? Nodule characteristics: ?? ? Composition: Solid (2). ?? ? Echogenicity: Hypoechoic (2). ?? ? Shape: Not taller than wide (0). ?? ? Margins: Smooth (0). ?? ? Echogenic Foci: None (0). ?? ? ACR TI-RADS total points: 4 ?? ? ACR TI-RADS category: 4 4. Location: Left mid. ?? ? Size: 1.56 x 0.97 x 0.89 cm, volume 0.7 mL. ?? ? Nodule characteristics: ?? ? Composition: Solid (2). ?? ? Echogenicity: Hypoechoic (2). ?? ? Shape: Not taller than wide (0). ?? ? Margins: Smooth (0). ?? ? Echogenic Foci: Macrocalcifications (1). ?? ? ACR TI-RADS total points: 5 ?? ? ACR TI-RADS category: 4 5.? Location: Left inferior. ?? ? Size: 1.69 x 1.11 x 1.23 cm, volume 1.27 mL. ?? ? Nodule characteristics: ?? ? Composition: Spongiform (0). ?? ? Echogenicity: Anechoic (0). ?? ? Shape: Not taller than wide (0). ?? ? Margins: Smooth (0). ?? ? Echogenic Foci: None (0). ?? ? ACR TI-RADS total points: 0 ?? ? ACR TI-RADS category: 1 NODES: No lymphadenopathy is seen in the tissue surrounding the thyroid gland. There is no parathyroid lesion or adenoma seen. Labs: Laboratory Tests 02/06/23 02/06/23 02/06/23 08:00 08:00 08:00 Sodium Potassium Creatinine Estimated GFR Renin Aldosterone 25-OH Vitamin D Total TSH DHEA Sulfate PTH Intact Calcium (PTH Intact) Random Cortisol ACTH Plas Tot Catecholamine Dopamine Epinephrine Norepinephrine Plasma Free Metaneph Plasma Free Normeta Plas Total Metaneph Ur 24 Hour Volume 2225 Ur Creatinine 24 Hour 0.93 Ur Calcium 24 Hr 234 Ur Epinephrine 24 Hr see note U Norepinephrine 24 Hr 17 U Free Metanephrine 145 U Normetanephrine 24h 271 U Tot Metanephrine 24h 416 Ur Dopamine 24 Hr 94 U Tot Catecholamine 24h 17 L 02/06/23 02/06/23 02/06/23 09:15 09:15 09:15 Sodium Potassium Creatinine Estimated GFR Renin Aldosterone 6 25-OH Vitamin D Total 36.5 TSH DHEA Sulfate 21 PTH Intact 48 Calcium (PTH Intact) 9.6 Random Cortisol ACTH 7 Plas Tot Catecholamine Dopamine Epinephrine Norepinephrine Plasma Free Metaneph Plasma Free Normeta Plas Total Metaneph Ur 24 Hour Volume Ur Creatinine 24 Hour Ur Calcium 24 Hr Ur Epinephrine 24 Hr U Norepinephrine 24 Hr U Free Metanephrine U Normetanephrine 24h U Tot Metanephrine 24h Ur Dopamine 24 Hr U Tot Catecholamine 24h 02/06/23 02/06/23 02/06/23 09:15 09:15 09:15 Sodium Potassium Creatinine Estimated GFR Renin 5.10 Aldosterone 25-OH Vitamin D Total TSH DHEA Sulfate PTH Intact Calcium (PTH Intact) Random Cortisol 9.0 ACTH Plas Tot Catecholamine Dopamine Epinephrine Norepinephrine Plasma Free Metaneph 57 Plasma Free Normeta 46 Plas Total Metaneph 103 Ur 24 Hour Volume Ur Creatinine 24 Hour Ur Calcium 24 Hr Ur Epinephrine 24 Hr U Norepinephrine 24 Hr U Free Metanephrine U Normetanephrine 24h U Tot Metanephrine 24h Ur Dopamine 24 Hr U Tot Catecholamine 24h 02/06/23 02/06/23 09:15 09:15 Sodium 141 Potassium 3.9 Creatinine 0.75 Estimated GFR > 60 Renin Aldosterone 25-OH Vitamin D Total TSH 1.20 DHEA Sulfate PTH Intact Calcium (PTH Intact) Random Cortisol ACTH Plas Tot Catecholamine 270 Dopamine <20 Epinephrine 69 Norepinephrine 201 L Plasma Free Metaneph Plasma Free Normeta Plas Total Metaneph Ur 24 Hour Volume Ur Creatinine 24 Hour Ur Calcium 24 Hr Ur Epinephrine 24 Hr U Norepinephrine 24 Hr U Free Metanephrine U Normetanephrine 24h U Tot Metanephrine 24h Ur Dopamine 24 Hr U Tot Catecholamine 24h Patient was seen at [facility] neuroendocrine unit. After reading the notes from [facility] , they were not convinced that Sharon syndrome was present but wanted to do a further workup . Since the previous visit, MRI of the pituitary showed no pituitary lesion. .The follow up at [facility] suggested obtaining a DHEA-S . DHEA and ACTH level . Repeat dex suppression was abnormal and salivary cortisol is pending . [facility] Medical History Physical exam Pituitary microadenoma Sharon's disease Bilateral nephrolithiasis Pancreatic mass Renal cyst Renal cysts and diabetes syndrome Liver mass Type 2 diabetes with nephropathy Multinodular thyroid Hyperparathyroidism Polyarthralgia Vitamin D deficiency Hypercalcemia Hypercortisolism Adrenal cortical adenoma of right adrenal gland Right knee pain Type 2 diabetes mellitus with unspecified complications Tachycardia Type 2 diabetes mellitus with hyperglycemia, with long-term current use of insulin Vitamin D deficiency Adrenal nodule Carcinoid tumor of stomach Chronic kidney disease GERD (gastroesophageal reflux disease) Gout Stomach ulcer Hx of renal calculi Essential hypertension Hyperlipidemia LDL goal <100 Surgical History Hx of cystoscopy History of esophagogastroduodenoscopy (EGD) H/O colonoscopy History of gastric polyp Hx of lithotripsy Hx of hysterectomy Hx of cholecystectomy Family History Father CVD (cardiovascular disease) Stomach cancer Mother Diabetes Social History Household Members: Family Housing: Apartment Alcohol intake: never Patient Tobacco Use Status: Never used Tobacco e-Cigarette/Vaping Use: Never Used Second Hand Smoke Exposure: No service: No Current occupational status: unemployed Current occupation: rt handed Cognitive needs: No Hearing needs: No Vision needs: Yes Physical Exam Vital Signs: Last Vital Signs Pulse 76 12/02/24 14:17 BP 132/72 01/06/25 14:17 BMI result Body Mass Index 28.7 Assessment & Plan Assessment & Plan (1) Adrenal adenoma: Code(s): D35.00 - Benign neoplasm of unspecified adrenal gland Category: Medical Plan: This is a 58-year-old female with a history of a right adrenal adenoma with imaging characteristics suggestive of benign lesion. There is a question of mild autonomous cortisol secretion. Patient was previously seen by [facility]. Workup for pheochromocytoma and primary hyperaldosteronism were negative. She also has a macroadenoma of the pituitary. The plan is to check repeat midnight salivary cortisol as well as other labs requested by [facility] including DHEA-S, DHEA and ACTH Patient should follow up with [facility] in 02/2025 . We will also obtain a DEXA bone density to see possible effects of hyperortisolemia as requested by [facility]. Coding Level of Care Code Est Pt Level 3 (81303) Diagnoses Adrenal adenoma D35.00
== END 2024-12-02 14:37 | disposition home or self-care (01) ==
PROVIDERS: PCP Internal Medicine; Visit Provider Internal Medicine Endocrinology, Diabetes & Metabolism
DX: D35.00 Benign neoplasm of unspecified adrenal gland (principal)
CPT/HCPCS: 99213

== ENCOUNTER 2025-01-29 09:12 | Emergency (ER) | payer OTHER, SELFPAY ==
[2025-01-29 09:16] VITALS: BP 120/71; PULSE 84; RESP 16; TEMP 36.2; O2SAT 99; BMI 28.0
--- NOTE | 2025-01-29 10:37 | ED.EAR ---
HPI - Ear Problem General Chief complaint: Ear Problems Stated complaint: R Side Pain Near Ear Time Seen by Provider: 01/29/25 10:44 Source: patient and old records reviewed Mode of arrival: ambulatory Limitations: no limitations History of Present Illness ED Provider: TERESA BYERS Narrative: 59 yo female wtih PMH of HLD, hyperparathyroidism, DM, renal colic, HTN who had a root canal 2 weeks ago everything went fine but a few days later she developed pain in her R ear. It hurts to touch in front of her ear. She has no fevers, redness to the face, she is able to open her jaw without issue. She went to the dentist to ask about the pain but they stated it could have been the anesthetic injection. She denies sharp shooting pain it is always just there. She has no hearing loss or ear drainage. She has no other symptoms. MD Complaint: ear pain Location: right ear Duration: constant Severity: mild Relieving factors: nothing Exacerbating factors: palpation Context: other Discharge from ear: no Treatment prior to arrival: none Related Data Home Medications ?Medication ?Instructions ?Recorded ?Confirmed allopurinol 100 mg tablet 200 mg PO BID 03/06/23 10/29/24 glipizide 5 mg tablet 2.5 mg PO DAILY PRN Sugar Levels 07/19/24 10/29/24 omeprazole 40 mg capsule,delayed 40 mg PO DAILY@1630 07/19/24 10/29/24 release Previous Rx's ?Medication ?Instructions ?Recorded pen needle, diabetic 32 gauge x #50 ea 12/24/20 potassium citrate 10 mEq (1,080 20 meq (2 x 10 mEq (1,080 mg)) PO 08/01/21 mg) tablet,extended release BID #120 tabs blood-glucose meter #1 ea 03/02/23 blood sugar diagnostic #100 ea 04/02/24 losartan 25 mg tablet 25 mg PO DAILY 90 days #90 tabs 05/31/24 meclizine 25 mg tablet 25 mg PO DAILY PRN Dizziness Or 08/14/24 Vertigo 30 days #30 tabs simvastatin 40 mg tablet 40 mg PO BEDTIME #90 tabs 09/07/24 pyridoxine (vitamin B6) 100 mg 100 mg PO DAILY 90 days #90 tabs 09/10/24 tablet metformin 1,000 mg tablet 1,000 mg PO BIDWM #60 tabs 11/11/24 dexamethasone 1 mg tablet 1 mg PO ONCE #1 tab 11/04/24 cholecalciferol (vitamin D3) 25 25 mcg PO 3XW #12 caps 12/01/24 mcg (1,000 unit) capsule (Vitamin D3) hydrochlorothiazide 25 mg tablet 25 mg PO DAILY 90 days #90 tabs 12/03/24 amoxicillin 875 mg-potassium 1 tab PO BID #14 tabs 01/29/25 clavulanate 125 mg tablet amoxicillin 875 mg-potassium 1 tab PO BID #14 tabs 01/29/25 clavulanate 125 mg tablet Allergies Allergy/AdvReac Type Severity Reaction Status Date / Time aspirin [ASPIRIN] Allergy Severe HX ULCER Verified 01/29/25 09:17 NSAIDS (Non-Steroidal Allergy Severe HX ULCER Verified 01/29/25 09:17 Anti-Inflamma [NSAIDS] empagliflozin AdvReac hematuria Verified 01/29/25 09:17 [From Jardiance] Review of Systems Review of Systems: Constitutional : No Fever, No Chills, No Fatigue ENT/Mouth : No sore throat, No Rhinorrhea, pos ear pain Eyes: No Eye Pain, No Swelling, No Redness Cardiovascular : No Chest Pain, No SOB, No Dyspnea on Exertion Respiratory : No Cough, No Sputum Gastrointestinal : No Nausea, No Vomiting, No Diarrhea, No abdominal Pain Musculoskeletal : No joint pain, No Myalgias, No Joint Swelling Skin : No Skin Lesions, No rash Neuro : No Weakness, No Numbness, No Dizziness, positive Headache All other systems reviewed and are negative PMFSH Past Medical History Attestation statement: The following information was validated with the patient. 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 Right knee pain Type 2 diabetes mellitus with unspecified complications Tachycardia Type 2 diabetes mellitus with hyperglycemia, with long-term current use of insulin Vitamin D deficiency Adrenal nodule Carcinoid tumor of stomach Chronic kidney disease GERD (gastroesophageal reflux disease) Gout Stomach ulcer Hx of renal calculi Essential hypertension Hyperlipidemia LDL goal <100 Surgical History Hx of cystoscopy History of esophagogastroduodenoscopy (EGD) H/O colonoscopy History of gastric polyp Hx of lithotripsy Hx of hysterectomy Hx of cholecystectomy Family History Family History Father CVD (cardiovascular disease) Stomach cancer Mother Diabetes Social History Social History Household Members: Family Housing: Apartment Alcohol intake: never Patient Tobacco Use Status: Never used Tobacco e-Cigarette/Vaping Use: Never Used Second Hand Smoke Exposure: No Advance Directives: No Advance Directives Information Provided: Yes Do you have a plan to hurt others: No Plan service: No Current occupational status: unemployed Current occupation: rt handed Cognitive needs: No Hearing needs: No Vision needs: Yes Physical Exam Vital Signs: Vital Signs: Last Vital Signs Temp 98.1 F 01/29/25 10:48 Pulse 65 01/29/25 10:48 Resp 18 01/29/25 10:48 BP 112/73 01/29/25 10:48 Pulse Ox 98 01/29/25 10:48 O2 Del Method Room Air 01/29/25 10:48 BMI result Body Mass Index 28.0 Appearance: Alert. Oriented X3. No acute distress. Eyes: Pupils equal, round and reactive to light. ENT: Pharynx normal. no submandibular or sublingual swelling, no mass felt, no redness, no gingiva swelling or signs of infection, R mastoid not ttp, R external ear no redness or swelling noted, TM normal, canal normal. She has a soft boggy lymph node in R preauricular area with mild ttp no overlying warmth or redness. No trismus on exam. No L sided lymphadenopathy Neck: Normal inspection. Neck supple. CVS: Normal heart rate and rhythm. Pulses normal. Respiratory: No respiratory distress. Breath sounds normal. Abdomen: Soft and nontender. Skin: Skin warm and dry. Normal skin color. Normal skin turgor. Extremities: No lower extremity edema. No calf ttp Neuro: Oriented X 3. No motor deficit. No sensory deficit. CN2-12 intact Medical Decision Making Medical Decision Making MDM Narrative: 59 yo female wtih PMH of HLD, hyperparathyroidism, DM, renal colic, HTN here with c/o R preauricular pain and lymph node swelling on exam no intraoral disease or swelling, R TM and canal normal, external ear normal no signs of malignant external otitis, symptoms atyipical for trigeminal neuralgia. She has no mastoid ttp at this time time refer for recheck in 2 weeks with PCP and start on augmentin for unilateral lymphadenitis. Differential Diagnosis Differential Diagnoses: The differential diagnosis associated with the presentation includes AOM, lymphadenitis given chronic dull ache - trigeminal neuralgia unlikely Admission/Observation Consideration of admission/observation: Escalation of care including admission/observation considered can trial oral outpatient abx External Record Review External record reviewed: Outpatient record Prescription Management I considered prescription management with: Antibiotic Discharge Plan Discharge Clinical Impression: Acute lymphadenitis Patient Disposition: Home, Self-Care Instructions: Lymphadenopathy (ED), Adenitis (ED) Additional Instructions: your lymph node is swollen and painful on the right side during todays exam. we are going to treat you for infection please make sure you follow up with your doctor in 2 weeks to make sure the swelling has gone down. return for fevers, worsening swelling, unable to open mouth, redness to the face. On amoxicillin-clavulanate, softer bowel movements are to be expected. Call your provider if you move your bowels more than 4 times a day, your bowel movements are almost all liquid, or you get a rash.? Prescriptions: New amoxicillin-pot clavulanate 875-125 mg tablet 1 tab PO BID Qty: 14 0RF amoxicillin-pot clavulanate 875-125 mg tablet 1 tab PO BID Qty: 14 0RF No Action (DME) pen needle, diabetic 32 gauge x 5/32 needle See Rx Instructions subcut DAILY Qty: 50 11RF Rx Instructions: Use pen needle once a day potassium citrate 10 mEq (1,080 mg) tablet extended release 20 meq PO BID Qty: 120 2RF (DME) blood-glucose meter Kit See Rx Instructions .ROUTE .MEDSUPPLY Qty: 1 0RF Rx Instructions: As directed (DME) blood sugar diagnostic Strip See Rx Instructions .ROUTE .MEDSUPPLY Qty: 100 3RF Rx Instructions: Use 1 test strip once a day losartan 25 mg tablet 25 mg PO DAILY 90 Days Qty: 90 1RF meclizine 25 mg tablet 25 mg PO DAILY PRN (Reason: Dizziness Or Vertigo) 30 Days Qty: 30 3RF simvastatin 40 mg tablet 40 mg PO BEDTIME Qty: 90 1RF pyridoxine (vitamin B6) 100 mg tablet 100 mg PO DAILY 90 Days Qty: 90 1RF metformin 1,000 mg tablet 1,000 mg PO BIDWM Qty: 60 3RF dexamethasone 1 mg tablet 1 mg PO ONCE Qty: 1 0RF cholecalciferol (vitamin D3) [Vitamin D3] 25 mcg (1,000 unit) capsule 25 mcg PO 3XW Qty: 12 6RF hydrochlorothiazide 25 mg tablet 25 mg PO DAILY 90 Days Qty: 90 1RF omeprazole 40 mg capsule,delayed release(DR/EC) 40 mg PO DAILY@1630 glipizide 5 mg tablet 2.5 mg PO DAILY PRN (Reason: Sugar Levels) allopurinol 100 mg tablet 200 mg PO BID Interventions: ED Discharge Assessment Last Done: 01/29/25 10:48 Discharge Date/Time: 01/29/25 10:49 Print Language: Portuguese
[2025-01-29 10:40] VITALS: BP 112/73; PULSE 65; RESP 18; TEMP 36.7; O2SAT 98
[2025-01-29 10:48] VITALS: BP 112/73; PULSE 65; RESP 18; TEMP 36.7; O2SAT 98
--- OUTSIDE RECORDS SUMMARY | 2025-01-29 12:51 | XMS_ITS ---
Author Organization [facility] Address [address] [place] [id number] Care Team Providers Care Ball Point Splitter Name Role Phone Iza Rea Primary Care Provider UnavailJj Kelley Jr [phone] REASON FOR VISIT FELL AND BROKE HER KNEE AND ANKLE Encounters Encounter Location Date Provider Diagnosis [facility] [address] [place] [id number] 09/11/2024 Jj Mullins Jr Plan Of Treatment Next Appt Details Provider Name:Jj borrego Jr, 02/07/2025 11:30:00 AM, [address] [place] [address] , [place], [place], [phone], Progress Notes * CARMINE DAWSON IDOB: (59 yo F)Acc No.[id number]:09/11/2024 Patient:?LESLY DAWSON I :1965???Age:59 Y???Sex:Female Address:[address], [place], [address] * true * Date:? Generated for Raul escamilla/Karolina/eTransmitting on:?01/29/2025 12:50 PM EST
--- OUTSIDE RECORDS SUMMARY | 2025-01-29 12:51 | XMS_ITS | Clinical Summary ---
Author Organization [facility] Address [address] [place] [id number] Care Team Providers Care Reject Opener Name Role Phone Iza Rea MD Primary Care Provider [phone] Allergies Active Allergy Reactions Criticality Noted Date Comments Aspirin 10/04/2021 Acetaminophen 10/04/2021 Medications oxyCODONE-aceta minophen (PERCOCET) 10-325 MG per tablet Take 1 tablet by mouth 2 (two) times a day Active omeprazole (PriLOSEC) [address] capsule Take 1 capsule by mouth 1 (one) time each day Active metFORMIN (GLUCOPHAGE) 850 MG tablet Take 1 tablet by mouth 2 (two) times a day Active losartan (COZAAR) 25 MG tablet Take 1 tablet by mouth 1 (one) time each day Active hydroCHLOROthia zide 25 MG tablet Take 1 tablet by mouth 1 (one) time each day 12/02/2020 Active Dulaglutide (Trulicity) 1.5 MG/0.5ML solution pen-injector Active allopurinol (ZYLOPRIM) 100 MG tablet Take 2 tablets (200 mg total) by mouth 1 (one) time each day 180 tablet 3 02/21/2024 Active potassium citrate 10 MEQ (1080 MG) CR tabletIndicatio ns:Chronic kidney disease stage 2 Take 2 tablets (20 mEq total) by mouth in the morning and 2 tablets (20 mEq total) in the evening. Take with meals. 120 tablet 5 11/06/2024 Active Active Problems Problem Noted Date Diagnosed Date Medullary sponge kidney with nephrocalcinosis Chronic kidney disease stage 2 10/01/2021 Hypertensive chronic kidney disease, unspecified, with chronic kidney disease stage I through stage IV, or unspecified 10/01/2021 Renal stone 10/01/2021 Medullary cystic disease of the kidney Proteinuria 10/01/2021 Gastric polyp 08/23/2021 Computed tomography result abnormal 08/23/2021 Nausea 12/07/2018 Benign paroxysmal positional vertigo 05/09/2017 Neoplasm of gastrointestinal tract 05/09/2017 Overview (08/27/2024): Replacing diagnoses that were inactivated after the 08/27/24 Regulatory Import Essential hypertension 05/09/2017 Mixed hyperlipidemia 05/09/2017 Type 2 diabetes mellitus without complication Encounters Date Type Department Care Team Description 11/28/2024 Orders Only [facility] [address] [place] [id number] Raúl Babb MD Persistent proteinuria; Renal stone; Type 2 diabetes mellitus without complication (HCC) 11/06/2024 Refill [facility] [address] [place] [address] [address] [place] [address] Yamilet Rod MA Chronic kidney disease stage 2 from Last 3 Months Immunizations Name Administration Dates Next Due Pneumococcal Polysaccharide 03/11/2010 Family History Medical History Relation Comments Cancer Father stomache & bones Diabetes Mother Hypertension Mother Kidney disease Mother Relation Status Comments Father Mother Alive Social History Tobacco Use Types Packs/Day Years Used Date Smoking Tobacco: Never Alcohol Use Standard Drinks/Week Comments No 0 (1 standard drink = 0.6 oz pur e alcohol) Comments Unknown Sex and Gender Information Value Date Recorded Sex Assigned at Not on file Legal Sex Female 5:02 PM EST Gender Identity Not on file Sexual Orientation Not on file Last Filed Vital Signs Vital Sign Reading Time Taken Comments Blood Pressure 118/70 10/28/2024 1:50 PM EST Pulse 82 10/28/2024 1:50 PM EST Temperature - - Respiratory Rate - - Oxygen Saturation 95% 10/28/2024 1:50 PM EST Inhaled Oxygen Concentration - - Weight 68.2 kg (150 lb 6.4 oz) 10/28/2024 1:50 P M EST Height 152.4 cm (5') 10/05/2020 12:00 PM EST Body Mass Index 29.37 10/05/2020 12:00 PM EST Plan of Treatment Upcoming Encounters Date Type Department Care Team (Late Contact Info) Description 07/31/2025 1:00 PM EDT Office Visit [facility] [address] [place], [place] [phone] Raúl Babb MD [address] [facility] [address] [place] [address] Health Maintenance Due Date Last Done Comments Breast Cancer Screening 1965 Hepatitis B Vaccine (1 of 3 - 19+ 3-dose series) 07/29 Pneumococcal Vaccine: Pediat rics (0 to 5 Years) and At-Risk Patients (6 to 64 Years) (2 of 2 - PCV) 03/11/2011 03/11/2010 Colorectal Cancer Screening: Annual FOBT 2015 Colorectal Cancer Screening: Colonoscopy 2015 Colorectal Cancer Screening: Sigmoidoscopy 2015 Diabetes: Hemoglobin A1C 12/25/2020 07/08/2020 Diabetes: Ophthalmology Exam 12/25/2020 Diabetes: Pedal Pulse Checked 12/25/2020 Diabetes: Sensory Foot Exam 12/25/2020 Diabetes: Visual Foot Exam 12/25/2020 Influenza Vaccine (#1) 2024 Procedures Procedure Name Priority Date/Time Associated Diagnosis Comments HEMOGLOBIN A1C Routine 07/08/2020 12:05 PM EDT from Last 3 Months or Most Recently Relevant to Health Maintenance Results * Hemoglobin A1c (07/08/2020 12:05 PM EDT) Hemoglobin A1C 8.5 % [place] Comment: ?Hemoglobin A1C Reference Range ? Adults: ??4.8 - 6.0 % ? Non diabetic: ??< 6.0 % ? Goal: ??< 7.0 % Additional Action Suggested: ??> 8.0 % Note: ??Hemoglobin A1c results are invalid for patients ? with abnormal amounts of HbF. ??Blood transfusions ? may impact the HbA1c concentration in the patient ? sample. Estimated Average Glucose 197 MG/DL [place] Comment: eAG = Estimated average glucose which is %A1C expressed as average glucose, using the formula of the A4H-Svyerjy Average Glucose study (ADAG), Diabetes Care, Vol.31,#8, 2007 07/08/2020 12:0 5 PM EDT Iza Hi MD LAB BLOOD ORDERABLES Final Re sult [facility] from Last 3 Months or Most Recently Relevant to Health Maintenance Insurance Care Teams Reject Opener Relationship Specialty Start Date End Date Iza Rea MD [address] [place], [place] PCP - General 12/07/20
--- OUTSIDE RECORDS SUMMARY | 2025-01-29 12:51 | XMS_ITS | Clinical Summary ---
Author Organization [facility] Address [address] [place] [address] Care Team Providers Care Transition Mgr Rn Name Role Phone Iza Rea MD Primary Care Provid er Allergies No known active allergies Medications Medication Sig Dispensed Refills Start Date End Date Status losartan (COZAAR) tablet 25 mg Take 1 tablet (25 mg total) by mouth daily. 0 Active simvastatin (ZOCOR) tablet 20 mg Take 1 tablet (20 mg total) by mouth every night at bedtime. 0 Active omeprazole (PRILOSEC) 20 MG capsule Take 2 capsules (40 mg total) by mouth daily. 0 Active meclizine (ANTIVERT) 25 MG tablet Take 1 tablet (25 mg total) by mouth daily as needed. 0 Active allopurinol (ZYLOPRIM) 100 MG tablet Take 1 tablet (100 mg total) by mouth 2 (two) times a day. 0 Active citric acid-potassium citrate (POLYCITRA) 1100-334 MG/5ML solution Take by mouth 3 (three) times a day with meals. 0 Active metFORMIN (GLUCOPHAGE) tablet 500 mg Take 2 tablets (1,000 mg total) by mouth 2 (two) times a day with meals. 0 Active cholecalciferol (VITAMIN D3) 1000 UNITS tablet Take 1 tablet (1,000 Units total) by mouth daily. 0 Active hydrochlorothiazide (HYDRODIURIL) tablet 25 mg Take 1 tablet (25 mg total) by mouth daily. 0 Active glipiZIDE (GLUCOTROL) tablet 5 mg Take 1 tablet (5 mg total) by mouth 2 (two) times a day before breakfast and dinner. 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 05/09/2017 Family History Medical History Relation Name Comments Stomach cancer Father Relation Name Status Comments Father Social History Tobacco Use Types Packs/Day Years Used Date Smoking Tobacco: Never Smokeless Tobacco: Never Alcohol Use Standard Drinks/Week Comments No 0 (1 standard drink = 0.6 oz pur e alcohol) Sex and Gender Information Value Date Recorded Sex Assigned at Not on file Gender Identity Not on file Sexual Orientation Not on file Job Start Date Occupation Industry Not on file Not on file Not on file Last Filed Vital Signs Vital Sign Reading Time Taken Comments Blood Pressure 125/84 01/24/2024 10:45 AM EST Pulse 70 01/24/2024 10:45 AM EST Temperature 36.5 ??C (97.7 ??F) 01/24/2024 10:[address] Respiratory Rate - - Oxygen Saturation 99% 01/24/2024 10:45 AM EST Inhaled Oxygen Concentration - - Weight 68.1 kg (150 lb 3.2 oz) 01/24/2024 10:45 AM EST Height 165.1 cm (5' 5 ) 01/24/2024 10:45 AM EST Body Mass Index 24.99 01/24/2024 10:45 AM EST Plan of Treatment Health Maintenance Due Date Last Done Comments Hepatitis B Vaccines (1 of 3 - 3-dose series) 1965 Hepatitis C Screening 1965 COVID-19 Vaccine (#1) 1971 Depression Screening 1978 BMI Counseling 1984 Preventative Health Evaluation 1984 DTap / Tdap / Td (1 - Tdap) 1985 Shingrix-Zoster Vaccine (1 of 2) 1985 Cervical Cancer Screening (P ap Smear) 1987 Pneumococcal Vaccine (2 of 2 - PCV) 03/11/2011 03/11/2010 Colon Cancer Screening (Colonoscopy) 2011 Breast Cancer Screening (Mammogram) 2016 Influenza Vaccine (#1) 2024 RSV Ped < 20 months Aged Out No longe r eligible based on patient's age to complete this topic Care Teams Transition Mgr Rn Relationship Specialty Start Date End Date Iza Rea MD [address] [place] [address] , [address] [facility] [place], [place] [id number] PCP - General Internal Medicine 05/04/17
--- OUTSIDE RECORDS SUMMARY | 2025-01-29 12:51 | XMS_ITS ---
Author Organization [facility] Address [address] [place] [address] Care Team Providers Care Fur Dyer Name Role Phone Iza Rea Primary Care Provider Unavailab Jj Bullard Jr Unavailable Allergies Allergen (clinical drug ingredient) Drug/Non Drug Allergy documented on EMR Reaction Allergy Type Onset Date Status mold and dust (uncoded) Unknown Allergy Active REASON FOR VISIT Patient presents today for gerd Medications Medication SIG (Take, Route, Frequency, Duration) Notes Start Date End Date Status Omeprazole 40 MG TAKE ONE CAPSULE BY MOUTH EVERY DAY 30 MINUTES BEFORE THE MORNING MEAL for 30 Active metFORMIN HCl 500 MG 1 tablet with meals Orally Twice a day Active hydroCHLOROthiazide 12.5 MG 1 tablet in the morning Orally Once a day Active glipiZIDE XL 10 MG 1 tablet Orally Once a day Active Potassium Citrate - Active Meclizine HCl 25 MG 1 tablet as needed Orally Once a day Active Cdlgtxlnfu-PJJJ-Dqomfhju 50-325-40 MG 1 tablet as needed Orally prn Active Allopurinol 100 MG 1 tablet Orally Once a day Active Simvastatin 20 MG 1 tablet in the evening Orally Once a day Active Losartan Potassium 25 MG 1 tablet Orally Once a day Active Immunizations Vaccine Route Administration Date Status Comme nts Influenza Unknown 12/25/2024 Refused Social History Tobacco Use: Social History Observation Description Date Details (start date - stop date) Never Smoker NA - NA Tobacco Use/Smoking Question Answer Notes Patient is a nonsmoker Alcohol Screen Question Answer Notes Did you have a drink containing alcohol in the p ast year? No Points 0 Interpretation Negative Problems Problem Type SNOMED Code ICD Code Onset Dates Problem Status W/U Status Risk Notes Problem [id number] Colon cancer screening (Z12.11) Active confirmed Vital Signs Temperature 97.7 degrees Fahrenheit 12/25/19 25 Blood pressure systolic 001 mm Hg 12/25/19 25 Blood pressure diastolic 001 mm Hg 025 Height 62 in 12/25/2024 Weight 151.8 lbs 12/25/2024 BMI 27.76 kg/m2 12/25/2024 Encounters Encounter Location Date Provider Diagnosis [facility] [address] [place] [address] 12/25/2024 Jj Harpreet Munson Epigastric pain R10.13 ; 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 We discussed diet, lifestyle modifications, and weight management regarding the treatment of reflux. She will continue omeprazole. She will undergo upper endoscopy for further evaluation of her epigastric pain and history of gastric carcinoids. She is due for colorectal cancer screening. This will be arranged. She understands risks and benefits of the procedures and agrees to proceed. She is advised to stop metformin, glipizide, and hydrochlorothiazide the day before the procedure. 12/25/2024 Benign carcinoid tumor of stomach (ICD-10 - D3A.092) We discussed gastroesophageal reflux disease today. We discussed diet, lifestyle modifications, and weight management regarding the treatment of reflux. She will continue omeprazole. She will undergo upper endoscopy for further evaluation of her epigastric pain and history of gastric carcinoids. She is due for colorectal cancer screening. This will be arranged. She understands risks and benefits of the procedures and agrees to proceed. She is advised to stop metformin, glipizide, and hydrochlorothiazide the day before the procedure. 12/25/2024 Colon cancer screening (ICD-10 - Z12.11) We discussed gastroesophageal reflux disease today. We discussed diet, lifestyle modifications, and weight management regarding the treatment of reflux. She will continue omeprazole. She will undergo upper endoscopy for further evaluation of her epigastric pain and history of gastric carcinoids. She is due for colorectal cancer screening. This will be arranged. She understands risks and benefits of the procedures and agrees to proceed. She is advised to stop metformin, glipizide, and hydrochlorothiazide the day before the procedure. 12/25/2024 Gastroesophageal reflux disease, unspecified whether esophagitis present (ICD-10 - K21.9) We discussed gastroesophageal reflux disease today. We discussed diet, lifestyle modifications, and weight management regarding the treatment of reflux. She will continue omeprazole. She will undergo upper endoscopy for further evaluation of her epigastric pain and history of gastric carcinoids. She is due for colorectal cancer screening. This will be arranged. She understands risks and benefits of the procedures and agrees to proceed. She is advised to stop metformin, glipizide, and hydrochlorothiazide the day before the procedure. Plan Of Treatment Treatment Notes Assessment Notes Epigastric pain Endoscopy material w as printed Future Test Test Name Order Date UPPER GI ENDOSCOPY 12/25/2024 COLONOSCOPY 12/25/2024 Next Appt Details Follow Up: 1 Year, prn, Reas on: Provider Name:Jj brorego , 02/07/2025 11:30:00 AM, [address] [place] [address], [phone], Progress Notes * CARMINE DAWSON IDOB: (59 yo F)Acc No.[id number]:12/25/2024 Progress Notes Patient:?LESLY DAWSON I Provider:?Jj Mullins MD :1965???Age:59 Y???Sex:Female D ate:12/25/2024 Address:[facility] [address], [facility] Pcp:Iza Hi Subjective: * Chief Complaints: * ???1. Patient presents today for gerd. * HPI: ???New symptom(s):? The patient is a pleasant 59-year-old woman seen today in followup of gastroesophageal reflux disease, gastric carcinoid, and colon cancer screening. Since we saw her last, she's been doing well. She has no complaints of dysphagia, hematemesis, or melena. She does get occasional epigastric discomfort despite omeprazole 40 mg daily. ?She last underwent colonoscopy 10 years ago and is due for followup. She has no complaints of rectal bleeding or change in her bowel habits. Weight and appetite have been stable. * Medical History:?Diabetes me llitus, Hypertension, Nephrolithiasis, Kidney disease, Gastroesophageal reflux disease, Migraine headaches, Elevated cholesterol, Adrenal mass, Gastric carcinoids (2), incidentally diagnosed at the time of endoscopy in 2015,, EGD 07/23/21 with push enteroscopy, normal small bowel, erosive gastritis, hyperplastic polyps.. * Surgical History:?cholecyste ctomy , hysterectomy , kidneys , colonoscopy 10/08/15, ten-year recall 2024 . * Family History:?Father: dece ased, stomach cancer, diagnosed with HTN (hypertension).?Mother: , diagnosed with HTN (hypertension).? father with stomach cancer no hx of colon cancer polyps or liver ds. * Social History:?Tobacco Use:?Tobacco Use/Smoking?Patient is a?nonsmoker.?Drugs/Alcohol:?Alcohol Screen?Did you have a drink containing alcohol in the past year??No,?Points?0,?Interpretation?Negative.?Miscellaneous:?Marital status: . Occupation: [employer]. * Medications:?Taking Losartan Potassium 25 MG Tablet 1 tablet Orally Once a day, Taking Simvastatin 20 MG Tablet 1 tablet in the evening Orally Once a day, Taking glipiZIDE XL 10 MG Tablet Extended Release 24 Hour 1 tablet Orally Once a day, Taking Meclizine HCl 25 MG Tablet Chewable 1 tablet as needed Orally Once a day, Taking Wmcrtgjyrr-PNCZ-Cnjcymor 50-325-40 MG Tablet 1 tablet as needed Orally prn, Taking Potassium Citrate - Powder , Taking Allopurinol 100 MG Tablet 1 tablet Orally Once a day, Taking hydroCHLOROthiazide 12.5 MG Tablet 1 tablet in the morning Orally Once a day, Taking metFORMIN HCl 500 MG Tablet 1 tablet with meals Orally Twice a day, Taking Omeprazole 40 MG Capsule Delayed Release TAKE ONE CAPSULE BY MOUTH EVERY DAY 30 MINUTES BEFORE THE MORNING MEAL , Discontinued Lantus SoloStar , Discontinued Trulicity , Medication List reviewed and reconciled with the patient * Allergies:?Mold And Dust. Objective: * Vitals:?Wt: 151.8 lbs, Ht: 6 2 in, BMI:27.76 Index, BP: 001/001 mm Hg, Temp: 97.7, Wt-k.86. * Examination: ???General Examination: ???On examination today, she appears well. Skin is anicteric. Lungs are clear. Heart shows a regular rate and rhythm. Abdomen is soft without focal masses or tenderness. Extremities are without edema. 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 We discussed gastroesophagea l reflux disease today. We discussed diet, lifestyle modifications, and weight management regarding the treatment of reflux. She will continue omeprazole. She will undergo upper endoscopy for further evaluation of her epigastric pain and history of gastric carcinoids. She is due for colorectal cancer screening. This will be arranged. She understands risks and benefits of the procedures and agrees to proceed. She is advised to stop metformin, glipizide, and hydrochlorothiazide the day before the procedure. Plan: * Treatment: Notes: Endoscopy material was printed??2.?Benign carcinoid tumor of stomach?Procedure: UPPER GI ENDOSCOPY (Ordered for 12/25/2024)* sched for 02/07/25 at 11:30 a [facility] 3.?Colon cancer screening?Procedure: COLONOSCOPY (Ordered for 12/25/2024)* [facility] * Immunizations:? Influenza (Not administered - Refused: Patient decision) * Procedure Codes:?3017F COLOR ECTAL CA SCREEN DOC REV, G9903 Pt scrn tbco id as non user, G9744 PATIENT NOT ELIG D/T ACTIVE DX HTN * Preventive Medicine:? ??Counseling:?Care goal follow-up plan:?Above Normal BMI Follow-up?Dietary management education, guidance, and counseling,?BMI management provided?Yes.? * Follow Up:?1 Year, prn * * Sign off status: Completed true * Provider:?Jj Mullins MD Date:?0 12/25/2024 Generated for Sauli francine/Karolina/Kanitting on:?01/29/2025 12:51 PM EST History and Physical Notes * HPI (History of Present Illness) Category Sub-Category Detail Notes Category Not es New symptom(s) The patient is a pleasant 59-year-old woman seen today in followup of gastroesophageal reflux disease, gastric carcinoid, and colon cancer screening. Since we saw her last, she's been doing well. She has no complaints of dysphagia, hematemesis, or melena. She does get occasional epigastric discomfort despite omeprazole 40 mg daily. She last underwent colonoscopy 10 years ago and is due for followup. She has no complaints of rectal bleeding or change in her bowel habits. Weight and appetite have been stable. Examination Category Sub-Category Detail Notes Category Not es General Examination On exami nation today, she appears well. Skin is anicteric. Lungs are clear. Heart shows a regular rate and rhythm. Abdomen is soft without focal masses or tenderness. Extremities are without edema.
--- OUTSIDE RECORDS SUMMARY | 2025-01-29 12:51 | XMS_ITS | Patient Health Record ---
Author Organization [facility] Address [address] [place] [address] Care Team Providers Care Concrete Pourer Name Role Phone Iza Rea Primary Care Provider Jj Terry Jr Unavailable Allergies Allergen (clinical drug ingredient) Drug/Non Drug Allergy documented on EMR Reaction Allergy Type Onset Date Status mold and dust (uncoded) Unknown Allergy Active Reason For Referral No Information Medications Medication SIG (Take, Route, Frequency, Duration) Notes Start Date End Date Status Simvastatin 20 MG 1 tablet in the evening Orally Once a day Active glipiZIDE XL 10 MG 1 tablet Orally Once a day Active Losartan Potassium 25 MG 1 tablet Orally Once a day Active Omeprazole 40 MG TAKE ONE CAPSULE BY MOUTH EVERY DAY 30 MINUTES BEFORE THE MORNING MEAL for 30 Active Potassium Citrate - Active Meclizine HCl 25 MG 1 tablet as needed Orally Once a day Active Raezvcvnop-HYGG-Rfjxqhek 50-325-40 MG 1 tablet as needed Orally prn Active metFORMIN HCl 500 MG 1 tablet with meals Orally Twice a day Active Allopurinol 100 MG 1 tablet Orally Once a day Active hydroCHLOROthiazide 12.5 MG 1 tablet in the morning Orally Once a day Active Immunizations Vaccine Route Administration Date Status Comme nts Influenza Unknown 02/21/2019 Administered Influenza Unknown 11/08/2021 Refused Influenza Unknown 05/10/2023 Refused Influenza Unknown 12/25/2024 Refused Social History Tobacco [...] Problem Status W/U Status Risk Notes Problem 571410376 Colon cancer screening (Z12.11) Active confirmed Problem 76901541 Epigastric pain (R10.13) Active confirmed Problem 703930128 Gastro-esophagea l reflux disease without esophagitis (K21.9) Active confirmed Problem 854464667386067 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 Problem 360445133 Abnormal CT scan, stomach (R93.3) Active confirmed Problem 08408486697447101 Abnormal computerized tomography of biliary tract (R93.2) Active confirmed Vital Signs Temperature 97.7 degrees Fahrenheit 12/25/2024 Blood pressure diastolic 001 mm Hg 12/25/2024 Height 62 in 12/25/2024 Blood pressure systolic 001 mm Hg 12/25/2024 Weight 151.8 lbs 12/25/2024 BMI 27.76 kg/m2 12/25/2024 Encounters Encounter Location Date Provider Diagnosis [facility] [address] [place] [phone] 12/25/2024 Jj Mullins Jr Epigastric pain R10.13 ; 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 Plan Of Treatment Future Test Test Name Order Date UPPER GI ENDOSCOPY 02/21/2019 UPPER GI ENDOSCOPY 07/01/2021 UPPER GI ENDOSCOPY 12/25/2024 COLONOSCOPY 12/25/2024 Next Appt Details Provider Name:Jj borrego Jr, 02/07/2025 11:30:00 AM, [address] [facility] , [place], [place], [phone], Insurance Providers Payer Name Payer Address Payer Phone Subscriber Number Group Number Insured Name Patient Relationship to Insured Coverage Start Date Coverage End Date [facility] [address] [address] [place], [place] [id number] CARMINE DAWSON Self - patient is the insured Medical (General) History Medical History History ICD Code diabetes mellitus hypertension nephrolithiasis kidney disease gastroesophageal reflux disease migraine headaches elevated cholesterol adrenal mass Gastric carcinoids (2), inci dentally diagnosed at the time of endoscopy in 2015, EGD 07/23/21 with push entero scopy, normal small bowel, erosive gastritis, hyperplastic polyps. Surgical History Surgery Date(Month/Year) cholecystectomy hysterectomy kidneys colonoscopy 10/08/15, ten-year recall Hospitalization History Reason Date(Month/Year)
--- OUTSIDE RECORDS SUMMARY | 2025-01-29 12:51 | XMS_ITS ---
Author Organization [facility] Address [address] [place] [phone] Care Team Providers Care Major Assembly Inspector Name Role Phone Iza Rea Primary Care Provider Unavailab Jj Bullard Jr REASON FOR VISIT Patient presents today for gerd Encounters Encounter Location Date Provider Diagnosis [facility] [address] [facility] [address] [place] [phone] 09/11/2024 Jj Mullins Jr Plan Of Treatment Next Appt Details Provider Name:Jj borrego Jr, 02/07/2025 11:30:00 AM, [address] [place] [address] , [place], [place], [phone], Progress Notes * CARMINE DAWSON IDOB: (59 yo F)Acc No.[id number]:09/11/2024 Progress Notes Patient:?LESLY DAWSON I Provider:?Jj Mullins MD :1965???Age:59 Y???Sex:Female D ate:09/11/2024 Address:[address] [facility] [id number] Pcp:Iza Hi Subjective: * Chief Complaints: * ???1. Patient presents today for gerd. * Medical History:? Objective: * Vitals:? Assessment: Plan: * Treatment: * * The named appointment provid er may or may not be the originator of this progress note, and it is not deemed complete until electronically signed by the appointment provider. Sign off status: Pending * Provider:?Jj Mullins MD Date:?1 Generated for Raul escamilla/Karolina/Fiorella on:?01/29/2025 12:50 PM EST
--- OUTSIDE RECORDS SUMMARY | 2025-01-29 12:51 | XMS_ITS | Clinical Summary ---
Author Organization [facility] Address [address] [place] [address] Phone Care Team Providers Care Tangled Yarn Worker Name Role Phone Iza Hi MD Primary Care Provider [phone] Allergies No known active allergies Medications allopurinoL (ZYLOPRIM) 100 mg tablet Take 1 tablet (100 mg total) by mouth 2 (two) times a day. Active cholecalciferol (VITAMIN D-3) 25 mcg (1,000 unit) tablet Take 1 tablet (1,000 Units total) by mouth daily. Active potassium citrate-citric acid (POLYCITRA K) 1,100-334 mg/5 mL solution Take by mouth 3 (three) times a day with meals. Active glipiZIDE (GLUCOTROL) 5 mg tablet Take 1 tablet (5 mg total) by mouth 2 (two) times a day before breakfast and dinner. Active hydroCHLOROthia zide (HYDRODIURIL) 25 mg tablet Take 1 tablet (25 mg total) by mouth daily. Active losartan (COZAAR) 25 mg tablet Take 1 tablet (25 mg total) by mouth daily. Active meclizine (ANTIVERT) 25 mg tablet Take 1 tablet (25 mg total) by mouth daily as needed. Active metFORMIN (GLUCOPHAGE) 500 mg tablet Take 2 tablets (1,000 mg total) by mouth 2 (two) times a day with meals. Active omeprazole (PriLOSEC) [address] capsule Take 2 capsules (40 mg total) by mouth daily. Active simvastatin (ZOCOR) 20 mg tablet Take 1 tablet (20 mg total) by mouth every night at bedtime. Active Active Problems Problem Noted Date Diagnosed Date Nephrolithiasis 01/13/2023 Pituitary tumor 01/13/[address] scan, small bowel 08/23/2021 Gastric polyps 08/23/2021 Nausea 12/07/2018 Benign paroxysmal positional vertigo due to bilateral vestibular disorder 05/09/2017 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 05/09/2017 Essential hypertension 05/09/2017 Mixed hyperlipidemia 05/09/2017 Type 2 diabetes mellitus without complication Surgical History Surgery Date Site/Laterality Comments ESOPHAGOGASTRODUODENOSCOPY 2015 N/A PROCEDURE: ME ESOPHAGOGASTRODUODENOSCOPY TRANSORAL DIAGNOSTIC; COMMENT: fall, gastric polyps. 2nd scope 10/2016 polyps removed showing micro-carcinoids. CHOLECYSTECTOMY N/A PROCEDURE: HISTORICAL CHOLECYSTECTOMY TUBAL LIGATION PROCEDURE: HISTORICAL TUBAL LIGATION HYSTERECTOMY N/A PROCEDURE: HISTORICAL HYSTERECTOMY Medical History Medical History Date Comments Essential hypertension DX:Essent ial hypertension Mixed hyperlipidemia DX:Mixed hy perlipidemia Type 2 diabetes mellitus wit hout complication (CMS/HCC) DX:Type 2 diabetes mellitus without complication (HCC) Benign paroxysmal positional vertigo due to bilateral vestibular disorder DX: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 DX:Carcinoid tumor determine d by biopsy of stomach GERD (gastroesophageal reflux disease) 04/07/2021 DX:GERD (gastroesophageal reflux disease) Family History Medical History Relation Name Comments Stomach cancer Father Relation Name Status Comments Father Social History Tobacco Use Types Packs/Day Years Used Date Smoking Tobacco: Never Smokeless Tobacco: Never Alcohol Use Standard Drinks/Week Comments Never 0 (1 standard drink = 0.6 oz pur e alcohol) Comments Unknown Sex and Gender Information Value Date Recorded Sex Assigned at Not on file Legal Sex Female 9:52 AM EST Gender Identity Not on file Sexual Orientation Not on file Obstetrics History Last Filed Vital Signs Vital Sign Reading Time Taken Comments Blood Pressure 125/82 07/02/2024 9:53 AM EDT Pulse 82 07/02/2024 9:53 AM EDT Temperature - - Respiratory Rate - - Oxygen Saturation - - Inhaled Oxygen Concentration - - Weight 67.3 kg (148 lb 6.4 oz) 07/02/2024 9:53 A M EDT Height 154.9 cm (5' 1 ) 07/02/2024 9:53 AM EDT Body Mass Index 28.04 07/02/2024 9:53 AM EDT Plan of Treatment Upcoming Encounters Date Type Department Care Team (Late st Contact Info) Description 02/21/2025 10:30 AM EDT Office Visit [facility] Hematology Oncology [address] [place] [address] Karissa Jefferson MD [address] [place] [phone] Health Maintenance Due Date Last Done Comments Breast Cancer Screening 1965 Diabetes: Annual GFR (Glomer ular Filtration Rate) 1966 COVID-19 Vaccine (#1) 1971 Diabetes: Annual Foot Exam 1976 Diabetes: Annual Retina Eye Exam 1976 DTaP,Tdap,and Td Vaccines (1 - Tdap) 1985 Hepatitis B Vaccines (1 of 3 - 19+ 3-dose series) 1985 Pneumococcal Vaccine: 50+ Ye ars (1 of 2 - PCV) 1985 Pneumococcal Vaccine: Pediat rics (0 to 5 Years) and At-Risk Patients (6 to 64 Years) (1 of 2 - PCV) 1985 Zoster Vaccines (1 of 2) 1985 Cervical Cancer Screening: P ap Smear 1987 Cholesterol Screening (Lipid Panel) 11/03/2022 Colorectal Cancer Screening: Colonoscopy 11/03/2022 Depression Screening 11/03/2022 HIV Screening 11/03/2022 Hepatitis C Screening 11/03/2022 Social Influencers of Health Screening 11/03/2022 Diabetes: Annual Urine Albumin-Creatinine Ratio (uACR) 11/12/2022 Diabetes: Blood Sugar Contro l Test (HGBA1C) 11/12/2022 Hypertension/CHF/CAD Annual BMP Blood Test 11/12/2022 Influenza Vaccine (#1) 2024 HIB Vaccines Aged Out No longer eligi ble based on patient's age to complete this topic HPV Vaccines Aged Out No longer eligi ble based on patient's age to complete this topic Hepatitis A Vaccines Aged Out No long er eligible based on patient's age to complete this topic IPV Vaccines Aged Out No longer eligi ble based on patient's age to complete this topic MMR Vaccines Aged Out No longer eligi ble based on patient's age to complete this topic Meningococcal ACWY Vaccine Aged Out N o longer eligible based on patient's age to complete this topic Meningococcal B Vacine Aged Out No lo nger eligible based on patient's age to complete this topic RSV Immunization Patients Un faith 20 months Aged Out No longer eligible b ased on patient's age to complete this topic Varicella Vaccines Aged Out No longer eligible based on patient's age to complete this topic Procedures Procedure Name Priority Date/Time Associated Diagnosis Comments ..MISCELLANEOUS REFERENCE LAB TEST 01/24/2025 ..MISCELLANEOUS REFERENCE LAB TEST 01/24/2025 from Last 3 Months Results * Miscellaneous reference lab test (01/24/2025) Only the most recent of2 resultswithin the time period is included. us Provider Onbase LAB BLOOD ORDERABLES Final Re sult from Last 3 [place] [id number] [facility] [employer] [place] [address] Care Teams Tangled Yarn Worker Relationship Specialty Start Date End Date Iza Hi MD [address] [place] [address] , [address] [facility] D[facility]A: [place] [facility] [place], [place] PCP - General Internal Medicine 04/02/21
== END 2025-01-29 10:49 | disposition home or self-care (01) ==
PROVIDERS: Emergency Provider Emergency Medicine; PCP Internal Medicine
DX: L04.0 Acute lymphadenitis of face, head and neck (principal); E11.9 Type 2 diabetes mellitus without complications; I10 Essential (primary) hypertension
CPT/HCPCS: 99282; 99283

== ENCOUNTER 2025-02-04 08:46 | Outpatient (REF) | payer OTHER, SELFPAY ==
--- NOTE | ~2025-02-04 | MM_ITS ---
EXAMINATION: DXA BONE DENSITY EXTREMITY HISTORY: Estrogen deficiency TECHNIQUE: [employer] [place] Dual energy absorptiometry (DEXA) of the lumbar spine, total left hip, femoral neck, and distal radius was performed. COMPARISON: Comparison is made with the prior examination dated 01/11/2022. FINDINGS: The bone mineral density of the lumbar spine is 0.999 with a T-score of -1.5, and a Z-score of -0.5. This represents a BMD change of -6.6% compared to the prior exam. This is statistically significant. The bone mineral density of the left total hip is 0.869 with a T-score of -1.1, and a Z-score of -0.3. This represents a BMD change of -13.0% compared to the prior exam. This is statistically significant. The bone mineral density of the left femoral neck is 0.783 with a T-score of -1.8, and a Z-score of -0.7. This represents a BMD change of -15.1% compared to the prior exam. The bone mineral density of the distal radius is 0.923 with a T-score of 0.5, and a Z-score of 1.3. This represents a BMD change of 0.4% compared to the prior exam. This is not statistically significant. FRACTURE RISK: The FRAX index suggests a ten year probability of major osteoporotic fracture of 8.3%, and of hip fracture 0.9%. MM/XR DEXA appendicular skeleton IMPRESSION: Based on bone mineral density, and according to World Health Organization (WHO) criteria, the diagnosis is consistent with osteopenia. All bone density values are in grams per centimeter squared (g/cm2). Statistically, 68% of repeat scans fall within 1 SD (+/- 0.010 g/cm2 for AP spine L1-L4) and 1 SD (+/- 0.012 g/cm2 for femur total) FRAX is a trademark of the [employer]'s [employer] Metabolic Bone Disease, a World Health Organization (WHO) Collaborating Center. Electronically signed by: Seven Salmeron MD 02/04/2025 10:05 AM EDT RP
--- OUTSIDE RECORDS SUMMARY | 2025-02-04 09:35 | XMS_ITS ---
Author Organization [facility] Address [address] [place] [address] Care Team Providers Care Inspector Repairer Name Role Phone Iza Rea Primary Care Provider UnavailJj Kelley Jr [phone] REASON FOR VISIT FELL AND BROKE HER KNEE AND ANKLE Encounters Encounter Location Date Provider Diagnosis [facility] [address] [place] [phone] 09/11/2024 Jj Mullins Jr Plan Of Treatment Next Appt Details Provider Name:Jj borrego Jr, 02/07/2025 11:30:00 AM, [address] [place] [address] , [place], [place], [phone], Progress Notes * CARMINE DAWSON IDOB: (59 yo F)Acc No.[id number]:09/11/2024 Patient:?LESLY DAWSON I :1965???Age:59 Y???Sex:Female Address:[address], [place], [address] * true * Date:? Generated for Raul escamilla/Karolina/eTransmitting on:?02/04/2025 09:35 AM EDT
--- OUTSIDE RECORDS SUMMARY | 2025-02-04 09:35 | XMS_ITS ---
Author Organization [facility] Address [address] [place] [address] Care Team Providers Care Hand Tool Lapper Name Role Phone Iza Rae Primary Care Provider Unavailab Jj Bullard Jr [phone] REASON FOR VISIT Patient presents today for gerd Encounters Encounter Location Date Provider Diagnosis [facility] [address] [place] [phone] 09/11/2024 Jj Mullins Jr Plan Of Treatment Next Appt Details Provider Name:Jj borrego Jr, 02/07/2025 11:30:00 AM, [address] [place] [address] , [place], [place], [phone], Progress Notes * CARMINE DAWSON IDOB: (59 yo F)Acc No.[id number]:09/11/2024 Progress Notes Patient:?LESLY DAWSON I Provider:?Jj Mullins MD :1965???Age:59 Y???Sex:Female D ate:09/11/2024 Address:[address] [facility] [id number] Pcp:Iza Hi Subjective: * Chief Complaints: * [...] Mullins MD Date:?1 Generated for Raul escamilla/Karolina/Fiorella on:?02/04/2025 09:35 AM EDT
--- OUTSIDE RECORDS SUMMARY | 2025-02-04 09:36 | XMS_ITS | Patient Health Record ---
Author Organization [facility] Address [address] [place] [address] Care Team Providers Care Table Keeper Name Role Phone Iza Rea Primary Care Provider Jj Terry Jr Unavailable [phone] Allergies Allergen (clinical drug ingredient) Drug/Non Drug [...] as needed Orally Once a day Active Sygkedposp-TWIY-Ipvdxomh 50-325-40 MG 1 tablet as needed Orally [...] Problem Status W/U Status Risk Notes Problem 678962527 Colon cancer screening (Z12.11) Active confirmed Problem 87231277 Epigastric pain (R10.13) Active confirmed Problem 835506285 Gastro-esophagea l reflux disease without esophagitis (K21.9) Active confirmed Problem 656613929811600 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 Problem 835261791 Abnormal CT scan, stomach (R93.3) Active confirmed Problem 28352587554888145 Abnormal computerized tomography of biliary tract (R93.2) Active confirmed Vital Signs Temperature 97.7 degrees Fahrenheit 12/25/2024 Blood pressure diastolic 001 mm Hg 12/25/2024 Height 62 in 12/25/2024 Blood pressure systolic 001 mm Hg 12/25/2024 Weight 151.8 lbs 12/25/2024 BMI 27.76 kg/m2 12/25/2024 Encounters Encounter Location Date Provider Diagnosis [facility] [address] [place] [phone] 12/25/2024 Jj Mullins Jr Epigastric pain R10.13 ; Benign carcinoid tumor of stomach D3A.092 ; Colon cancer screening Z12.11 and Gastroesophageal reflux disease, unspecified whether esophagitis present K21.9 [facility] [address] [place] [phone] 05/10/2024 Jj Mullins Jr [facility] [address] [place] [phone] 09/11/2024 Jj Mullins Jr Assessments Encounter Date [...] Name:Jj borrego Jr, 02/07/2025 11:30:00 AM, [address] [facility] , [place], [place], [phone], Insurance Providers Payer Name Payer Address Payer Phone Subscriber Number Group Number Insured Name Patient Relationship to Insured Coverage Start Date Coverage End Date [facility] [address] [address] [place], [place] [id number] CARMINE DAWSON Self - patient is the [...]
--- OUTSIDE RECORDS SUMMARY | 2025-02-04 09:36 | XMS_ITS ---
Author Organization [facility] Address [address] [place] [address] Care Team Providers Care Sheet Metal Operator Name Role Phone Iza Rea Primary Care [...] as needed Orally Once a day Active Jvfmpfaxab-PCTT-Bnxtfanj 50-325-40 MG 1 tablet as needed Orally [...] Problem Status W/U Status Risk Notes Problem 471600557 Colon cancer screening (Z12.11) Active confirmed Vital Signs Temperature 97.7 degrees Fahrenheit 12/25/19 25 Blood pressure systolic 001 mm Hg 12/25/19 25 Blood pressure diastolic 001 mm Hg 025 Height 62 in 12/25/2024 Weight 151.8 lbs 12/25/2024 BMI 27.76 kg/m2 12/25/2024 Encounters Encounter Location Date Provider Diagnosis [facility] [address] [place] [address] 12/25/2024 Jj Harpreet Munson Epigastric pain R10.13 [...] 1 Year, prn, Reas on: Provider Name:Jj borrego , 02/07/2025 11:30:00 AM, [address] [place] [address], [phone], Progress Notes * CARMINE DAWSON IDOB: (59 yo F)Acc No.[id number]:12/25/2024 Progress Notes Patient:?LESLY DAWSON I Provider:?Jj Mullins MD :1965???Age:59 Y???Sex:Female D ate:12/25/2024 Address:[facility] [address], [place] Pcp:Iza Hi Subjective: * Chief Complaints: * [...] in the past year??No,?Points?0,?Interpretation?Negative.?Miscellaneous:?Marital status: . 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 * Medications:?Taking Losartan Potassium 25 MG Tablet 1 tablet Orally Once a day, Taking Simvastatin 20 MG Tablet 1 tablet in the evening Orally Once a day, Taking glipiZIDE XL 10 MG Tablet Extended Release 24 Hour 1 tablet Orally Once a day, Taking Meclizine HCl 25 MG Tablet Chewable 1 tablet as needed Orally Once a day, Taking Teljcozcdd-XMHX-Utezcchl 50-325-40 MG Tablet 1 tablet as needed [...] 12/25/2024)* sched for 02/07/25 at 11:30 a [facility] 3.?Colon cancer screening?Procedure: COLONOSCOPY (Ordered for 12/25/2024)* [facility] * Immunizations:? Influenza (Not administered - Refused: [...] Provider:?Jj Mullins MD Date:?0 12/25/2024 Generated for Printi francine/Karolina/Kanitting on:?02/04/2025 09:35 AM EDT History and Physical Notes * HPI (History [...]
--- OUTSIDE RECORDS SUMMARY | 2025-02-04 09:36 | XMS_ITS | Clinical Summary ---
Author Organization [facility] Address [address] [place] [address] Care Team Providers Care Linen Room Custodian Name Role Phone Iza Rea MD Primary [...] age to complete this topic Care Teams Linen Room Custodian Relationship Specialty Start Date End Date Iza Rea MD [address] [place] [address] , [address] [facility] [place] [facility] [place], [place] [phone] PCP - General Internal Medicine 05/04/17
--- OUTSIDE RECORDS SUMMARY | 2025-02-04 09:36 | XMS_ITS | Clinical Summary ---
Author Organization [facility] Address [address] [place] [address] Phone Care Team Providers Care Electronic Engraver Name Role Phone Iza Hi MD Primary Care Provider [phone] Allergies No known active allergies Medications allopurinoL [...] Date Site/Laterality Comments ESOPHAGOGASTRODUODENOSCOPY 2015 N/A PROCEDURE: [place] ESOPHAGOGASTRODUODENOSCOPY TRANSORAL DIAGNOSTIC; COMMENT: fall, gastric polyps. [...] Description 02/21/2025 10:30 AM EDT Office Visit [facility] Hematology Oncology [address] [place] [address] Karissa Jefferson MD [address] [place] [phone] Health Maintenance Due Date Last Done Comments [...] Re sult from Last 3 [place] [id number] [facility] [address] [employer] Care Teams Electronic Engraver Relationship Specialty Start Date End Date Iza Hi MD [address] [place] [address] , [address] [facility]: [place] [facility] [place], [place] PCP - General Internal Medicine 04/02/21
--- OUTSIDE RECORDS SUMMARY | 2025-02-04 09:36 | XMS_ITS | Encounter Summary ---
Author Organization [facility] Address [address] [facility] [address] [place] [address] Phone Care Team Providers Care Courier Delivery Driver Name Role Phone Iza Rea MD Primary Care Provider [phone] Reason for Visit * Reason Onset Date Comments Med Refill 02/03/2025 Encounter Details Date Type Department Care Team ([facility] Contact Info) Description 02/03/2025 Refill [facility] [address] [facility] [address] [place] [address] [address]Tiana [address] [facility] [address] [place] [address] Social History Tobacco Use Types Packs/Day Years Used Date Smoking Tobacco: Never Alcohol Use Standard Drinks/Week Comments No 0 (1 standard drink = 0.6 oz pur e alcohol) Comments Unknown Sex and Gender Information Value Date Recorded Sex Assigned at Not on file Legal Sex Female 5:02 PM EST Gender Identity Not on file Sexual Orientation Not on file documented as of this encounter Plan of Treatment Upcoming Encounters Date Type Department Care Team (Late Contact Info) Description 07/31/2025 1:00 PM EDT Office Visit [facility] [address] [place] [address] Raúl Babb MD [address] [facility] [address] [place] [address] documented as of this encounter Visit Diagnoses Not on filedocumented in this encounter Care Teams Courier Delivery Driver Relationship Specialty Start Date End Date Iza Rea MD [address] [place], [place] PCP - General 12/07/20 documented as of this encounter
--- OUTSIDE RECORDS SUMMARY | 2025-02-04 09:36 | XMS_ITS | Clinical Summary ---
Author Organization [facility] Address [address] [place] [address] Care Team Providers Care Rail Setter Name Role Phone Iza Rea MD Primary Care Provider [phone] Allergies Active Allergy Reactions Criticality Noted Date [...] Encounters Date Type Department Care Team Description 02/03/2025 Refill [facility] [address] [phone] Tiana Sy 11/28/2024 Orders Only [facility] [address] [place] [address] Raúl Babb MD Persistent proteinuria; Renal stone; Type 2 diabetes mellitus without complication ([facility]) 11/06/2024 Refill [facility] [address] [address] Yamilet Rod [place] Chronic kidney disease stage [...] Care Team (Late st Contact Info) Description 07/31/2025 1:00 PM EDT Office Visit [facility] [address] [place] [address] Raúl Babb MD [address] [facility] [address] [place] [phone] Health Maintenance Due Date Last Done Comments [...] ? sample. Estimated Average Glucose 197 MG/DL [place] Comment: eAG = Estimated average glucose which is %A1C expressed as average glucose, using the formula of the H0V-Zcaopqc Average Glucose study (ADAG), Diabetes Care, Vol.31,#8, Jun. 2008 07/08/2020 12:0 5 PM EDT Iza Hi MD LAB BLOOD ORDERABLES Final Re sult [place] from Last 3 Months or Most Recently Relevant to Health [place] [address] [place] [address] Care Teams Rail Setter Relationship Specialty Start Date End Date Iza Rea MD [address] [place], [place] PCP - General 12/07/20
[2025-02-04 11:09] LABS: Estimated Average Glucose 160 mg/dL; Hemoglobin A1c % 7.2 % (<6.0)
[2025-02-05 06:19] LABS: DHEA Sulfate 22 mcg/dL (5-167)
[2025-02-07 19:08] LABS: Adrenocorticotropic Hormone 8 pg/mL (6-50)
== END 2025-02-04 08:47 | disposition home or self-care (01) ==
LOC: HO.MAMMO 08:46
PROVIDERS: Absent Provider Student in an Organized Health Care Education/Training Program; PCP Internal Medicine; Visit Provider Internal Medicine Endocrinology, Diabetes & Metabolism
DX: E24.9 Cushing's syndrome, unspecified (principal); E11.9 Type 2 diabetes mellitus without complications; E27.8 Other specified disorders of adrenal gland
CPT/HCPCS: 36415; 77081; 82024; 82627; 83036

== ENCOUNTER → 2025-02-04 09:15 | Outpatient (BNV) | payer OTHER, SELFPAY | PROVIDERS: Absent Provider Student in an Organized Health Care Education/Training Program; PCP Internal Medicine; Visit Provider Radiology Diagnostic Radiology | DX: E28.39 Other primary ovarian failure (principal) | CPT/HCPCS: 77081 ==

== ENCOUNTER 2025-02-07 09:05 | Day surgery (SDC) | payer OTHER, SELFPAY ==
--- NOTE | 2025-02-05 14:01 | HO.ANESPROP2 ---
Documented by User: Deborah Marsh NP 02/05/25 14:02 HPI - Anesthesia Eval Consult details Narrative: 59yo F for Upper Endoscopy and Colonoscopy PMFSH Active Problems Active Problems: All Active Problems Hyperlipidemia LDL goal <70 (Acute) Right radial head fracture (Acute) Physical exam (Acute) Trochanteric bursitis of both hips (Acute) Osteoarthritis of knees, bilateral (Acute) Hip pain, bilateral (Acute) Skin mole (Acute) Diabetes mellitus (Acute) Bilateral nephrolithiasis (Acute) Pancreatic mass (Acute) Renal cyst (Acute) Liver mass (Acute) Type 2 diabetes with nephropathy (Acute) Multinodular thyroid (Acute) Hx of renal calculi (Acute) Hyperparathyroidism (Acute) Vitamin D deficiency (Acute) Hypercalcemia (Acute) Hypercortisolism (Acute) Adrenal adenoma (Acute) Carcinoid tumor of stomach (Acute) Heart palpitations (Acute) PVC (premature ventricular contraction) (Acute) Nephrolithiasis (Acute) Adrenal cortical adenoma of right adrenal gland (Acute) Type 2 diabetes mellitus with unspecified complications (Acute) Tachycardia (Acute) Type 2 diabetes mellitus with hyperglycemia, with long-term current use of insulin (Acute) Vitamin D deficiency (Acute) Essential hypertension (Acute) Hyperlipidemia LDL goal <100 (Acute) Past Medical History Medical History Adrenal mass Elevated cholesterol Migraine Pituitary microadenoma William's disease Bilateral nephrolithiasis Pancreatic mass Renal cyst Renal cysts and diabetes syndrome Liver mass Physical exam Type 2 diabetes with nephropathy Multinodular thyroid Hyperparathyroidism Polyarthralgia Vitamin D deficiency Hypercalcemia Hypercortisolism Adrenal cortical adenoma of right adrenal gland Right knee pain Type 2 diabetes mellitus with unspecified complications Tachycardia Type 2 diabetes mellitus with hyperglycemia, with long-term current use of insulin Vitamin D deficiency Adrenal nodule Carcinoid tumor of stomach Chronic kidney disease GERD (gastroesophageal reflux disease) Gout Stomach ulcer Hx of renal calculi Essential hypertension Hyperlipidemia LDL goal <100 Family History Family History Father CVD (cardiovascular disease) Stomach cancer Mother Diabetes Family history of problems with anesthesia: No Surgical History Surgical History Hx of cystoscopy History of esophagogastroduodenoscopy (EGD) H/O colonoscopy History of gastric polyp Hx of lithotripsy Hx of hysterectomy Hx of cholecystectomy History of Problems with Anesthesia: No Social History Social History Household Members: Family Housing: Apartment Are you a primary career services manager to a significant other at home: No Do you presently have visiting nurse or other home services: No Alcohol intake: never Patient Tobacco Use Status: Never used Tobacco e-Cigarette/Vaping Use: Never Used Second Hand Smoke Exposure: No Use of substances other than those prescribed or required for medical reasons: No Have you been hit, kicked, punched, or otherwise hurt by someone within the past year? If so, by whom?: No Are you DNR?: No Advance Directives: No Advance Directives Information Provided: Yes Recently lost weight without trying: No Nutrition Risks: No Nutritional Risk Patient : No service: No Current occupational status: unemployed Current occupation: rt handed Cognitive needs: No Hearing needs: No Vision needs: Yes Meds Allergies Allergy/AdvReac Type Severity Reaction Status Date / Time aspirin [ASPIRIN] Allergy Severe HX ULCER Verified 02/07/25 10:36 NSAIDS (Non-Steroidal Allergy Severe HX ULCER Verified 02/07/25 10:36 Anti-Inflamma [NSAIDS] codeine AdvReac Stomach Verified 02/07/25 10:36 Upset empagliflozin AdvReac hematuria Verified 02/07/25 10:36 [From Jardiance] oxycodone AdvReac Stomach Verified 02/07/25 10:36 Upset Home Medications ?Medication ?Instructions ?Recorded ?Confirmed ?Last Taken ?Type allopurinol 100 mg tablet 100 mg PO DAILY 03/06/23 02/07/25 07/17/24 History glipizide 5 mg tablet 10 mg PO DAILY PRN Sugar Levels 07/19/24 02/07/25 07/17/24 History omeprazole 40 mg capsule,delayed 40 mg PO DAILY 07/19/24 02/07/25 07/17/24 History release hydrochlorothiazide 25 mg tablet 12.5 mg PO DAILY 02/05/25 02/07/25 Unknown History metformin 1,000 mg tablet 500 mg PO BIDWM 02/05/25 02/07/25 Unknown History Assessment and Plan Assessment Anesthesia Assessment: Chart Reviewed Final Anesthetic Review Family History of Problems with Anesthesia: No History of Problems with Anesthesia: No Documented by User: Geoff Banerjee MD 02/07/25 11:10 PMF Past Medical History Medical History Adrenal mass Elevated cholesterol Migraine Pituitary microadenoma William's disease Bilateral nephrolithiasis Pancreatic mass Renal cyst Renal cysts and diabetes syndrome Liver mass Physical exam Type 2 diabetes with nephropathy Multinodular thyroid Hyperparathyroidism Polyarthralgia Vitamin D deficiency Hypercalcemia Hypercortisolism Adrenal cortical adenoma of right adrenal gland Right knee pain Type 2 diabetes mellitus with unspecified complications Tachycardia Type 2 diabetes mellitus with hyperglycemia, with long-term current use of insulin Vitamin D deficiency Adrenal nodule Carcinoid tumor of stomach Chronic kidney disease GERD (gastroesophageal reflux disease) Gout Stomach ulcer Hx of renal calculi Essential hypertension Hyperlipidemia LDL goal <100 Family History Family History Father CVD (cardiovascular disease) Stomach cancer Mother Diabetes Surgical History Surgical History Hx of cystoscopy History of esophagogastroduodenoscopy (EGD) H/O colonoscopy History of gastric polyp Hx of lithotripsy Hx of hysterectomy Hx of cholecystectomy Social History Social History Household Members: Family Housing: Apartment Are you a primary career services manager to a significant other at home: No Do you presently have visiting nurse or other home services: No Alcohol intake: never Patient Tobacco Use Status: Never used Tobacco e-Cigarette/Vaping Use: Never Used Second Hand Smoke Exposure: No Use of substances other than those prescribed or required for medical reasons: No Have you been hit, kicked, punched, or otherwise hurt by someone within the past year? If so, by whom?: No Are you DNR?: No Advance Directives: No Advance Directives Information Provided: Yes Recently lost weight without trying: No Nutrition Risks: No Nutritional Risk Patient : No service: No Current occupational status: unemployed Current occupation: rt handed Cognitive needs: No Hearing needs: No Vision needs: Yes Meds Allergies Allergy/AdvReac Type Severity Reaction Status Date / Time aspirin [ASPIRIN] Allergy Severe HX ULCER Verified 02/07/25 10:36 NSAIDS (Non-Steroidal Allergy Severe HX ULCER Verified 02/07/25 10:36 Anti-Inflamma [NSAIDS] codeine AdvReac Stomach Verified 02/07/25 10:36 Upset empagliflozin AdvReac hematuria Verified 02/07/25 10:36 [From Jardiance] oxycodone AdvReac Stomach Verified 02/07/25 10:36 Upset Home Medications ?Medication ?Instructions ?Recorded ?Confirmed ?Last Taken ?Type allopurinol 100 mg tablet 100 mg PO DAILY 03/06/23 02/07/25 07/17/24 History glipizide 5 mg tablet 10 mg PO DAILY PRN Sugar Levels 07/19/24 02/07/25 07/17/24 History omeprazole 40 mg capsule,delayed 40 mg PO DAILY 07/19/24 02/07/25 07/17/24 History release hydrochlorothiazide 25 mg tablet 12.5 mg PO DAILY 02/05/25 02/07/25 Unknown History metformin 1,000 mg tablet 500 mg PO BIDWM 02/05/25 02/07/25 Unknown History Exam Airway Mallampati Class: II TM Dist: <=3cm Neck ROM: Full Loose/Missing/Broken Teeth: No Heart: ok Lungs: ok Assessment and Plan Assessment Anesthesia Assessment: Anesthesia Plan Discussed Final Anesthetic Review NPO: Yes ASA Class: III Final Preanesthetic Review: No Changes in Pt Med Stat, Meds/Allgs Chart Reviewed, Consent Obtained/Reviewed and Anes Risks/Benef Reviewed Patient Risk: Intermediate Procedure Risk: Intermediate Anesthetic Plan Anesthetic Plan: Agree w/ Assess. and Plan and TIVA Disposition: Standard PACU
[2025-02-05 14:40] VITALS: BMI 27.6
[2025-02-07 10:37] VITALS: BP 118/71; PULSE 74; RESP 14; TEMP 36.6; O2SAT 96; BMI 27.0
[2025-02-07] MEDS: Lactated Ringers 1,000 ML 100 ML IVCONT (10:48)
[2025-02-07 10:56] LABS: Glucose, Whole Blood 158 mg/dL (60-115)
--- NOTE | 2025-02-07 11:12 | MHC.SHP ---
Pre-Procedural Eval Section A - 24 Hr Update-Section A only Date of Service: 02/07/25 Section B - Complete if H&P > 30 days Chief Complaint: Benign carcinoid tumor of the stomach,pain Details of Present Illness: se3e HP no changers Relevant Family History (Specify if Yes): No Relevant Social History: None Present Medications: see Short Stay Collaborative assessment Medical History: No relevant PMH History of Previous Operations: No relevant previous surgery Allergies: Allergies Allergy/AdvReac Type Severity Reaction Status Date / Time aspirin [ASPIRIN] Allergy Severe HX ULCER Verified 02/07/25 10:36 NSAIDS (Non-Steroidal Allergy Severe HX ULCER Verified 02/07/25 10:36 Anti-Inflamma [NSAIDS] codeine AdvReac Stomach Verified 02/07/25 10:36 Upset empagliflozin AdvReac hematuria Verified 02/07/25 10:36 [From Jardiance] oxycodone AdvReac Stomach Verified 02/07/25 10:36 Upset Review of Systems Sugical H&P ROS: Negative: Constitution, Cardiovascular, Respiratory, Neurological, Psychiatric, Hem-Onc, Allergic/Immunologic, Gastrointestinal, Genitourinary, Musculoskeletal, Integumentary, Endocrine and Eyes/Ears/Nose/Throat Exam Surgical H&P Exam: Normal: HEENT, Normal: Heart, Normal: Lungs, Normal: Extremities, Normal: Abdomen, Normal: Skin and Normal: Neurological Plan Diagnosis/Plan: Unchanged I have reviewed the history and physical and performed a pertinent physical examination on my patient. No changes have occurred unless specified. Time Spent With Patient Time: Total time managing care of this patient today ____ minutes.
[2025-02-07 11:55] VITALS: BP 111/64; PULSE 74; RESP 18; TEMP 36.4; O2SAT 100
[2025-02-07 12:10] VITALS: BP 129/75; PULSE 72; RESP 16; TEMP 36.4; O2SAT 99
--- NOTE | 2025-02-07 13:31 | OP_ITS ---
DATE OF SERVICE: 02/07/2025 SURGEON: Jj Mullins MD INDICATIONS: Epigastric pain, benign carcinoid tumor of the stomach, colon cancer screening. PREOPERATIVE DIAGNOSIS: POSTOPERATIVE DIAGNOSIS: PROCEDURE PERFORMED: Upper endoscopy with biopsy, colonoscopy to the cecum with snare polypectomy. ESTIMATED BLOOD LOSS: COMPLICATIONS: ANESTHESIA: Monitored anesthesia care. ASSISTANTS: SPECIMENS: DESCRIPTION OF PROCEDURE: History and physical performed. The risks and benefits of the procedure explained to the patient. Informed consent was obtained. The patient was placed in the left lateral decubitus position. The Olympus videogastroscope was introduced into the esophagus, stomach, and duodenum. Examination was performed. The scope was removed. She was repositioned for colonoscopy. Digital rectal examination was performed and was found to be normal. The Olympus pediatric videocolonoscope was introduced into the rectum and advanced to the cecum. The cecum was identified by transillumination, palpation, and identification of the ileocecal valve. Examination was performed. The scope was removed. She tolerated both procedures well, returned to recovery in stable condition. FINDINGS: Upper endoscopy, esophagus; the esophagus was normal. There were whitish plaques in the body suspicious for possible candidiasis. Biopsies were obtained from the esophagus and from the EG junction. Stomach: The stomach showed multiple benign-appearing gastric polyps, some of which were slightly inflamed. The largest measured approximately 10 mm. Biopsies were obtained from approximately 4 of the polyps. Antral biopsies were also obtained. No evidence of a carcinoid tumor was identified. Duodenum: The bulb and 2nd portion were normal. Colonoscopy: The terminal ileum was not examined. Abdominal wall pressure was used to assist in advancement of the scope. A single polyp measuring approximately 7 mm was identified at 60 cm from the anal verge. This was removed with a snare and recovered via suction. No other polyps were identified. The quality of prep was good. Retroflexed examination showed small internal hemorrhoids. IMPRESSION: 1. Gastric polyps. 2. Colon polyp. RECOMMENDATIONS: Follow up with the biopsy results. MD CHAVA Luong/FERNANDO / [phone]
== END 2025-02-07 12:37 | disposition home or self-care (01) ==
PROVIDERS: PCP Internal Medicine; Visit Provider Internal Medicine Gastroenterology
PROC: (CPT 45385; principal; 2025-02-07 11:30)
DX: Z12.11 Encounter for screening for malignant neoplasm of colon (principal); D12.4 Benign neoplasm of descending colon; K31.7 Polyp of stomach and duodenum; K21.9 Gastro-esophageal reflux disease without esophagitis; R10.13 Epigastric pain; Z86.012 Personal history of benign carcinoid tumor; Z80.0 Family history of malignant neoplasm of digestive organs; K20.80 Other esophagitis without bleeding; B37.81 Candidal esophagitis; I10 Essential (primary) hypertension; E78.00 Pure hypercholesterolemia, unspecified; E27.9 Disorder of adrenal gland, unspecified; E11.9 Type 2 diabetes mellitus without complications; N20.0 Calculus of kidney; Z87.442 Personal history of urinary calculi; G43.909 Migraine, unspecified, not intractable, without status migrainosus; Z79.84 Long term (current) use of oral hypoglycemic drugs; Z79.899 Other long term (current) drug therapy; Z88.5 Allergy status to narcotic agent; Z88.6 Allergy status to analgesic agent; Z88.8 Allergy status to other drugs, medicaments and biological substances; Z90.710 Acquired absence of both cervix and uterus; Z90.49 Acquired absence of other specified parts of digestive tract; Z98.890 Other specified postprocedural states; Z56.0 Unemployment, unspecified
CPT/HCPCS: 45385; 43239; 82947; 88305; 88313; 88342; J2003; J2704; J3010

== ENCOUNTER 2025-02-11 14:45 | Outpatient (AMB) | payer OTHER, SELFPAY ==
--- NOTE | 2025-02-11 14:52 | MHC.OFFVIS ---
Intake Visit Reasons: 1y/CT(set) Intake Note: Patient is present for Follow up bilateral nephrolithiasis/ultrasound (imaging 07/14/23) Urology Medications: Vitamin B6, Allopurinol, Potassium Blood Thinner: none Pot Fisher Required: Yes Accompanied by: Unknown Allergies aspirin [ASPIRIN] Allergy (Severe, Verified 02/11/25 15:43) HX ULCER NSAIDS (Non-Steroidal Anti-Inflamma [NSAIDS] Allergy (Severe, Verified 02/11/25 15:43) HX ULCER codeine Adverse Reaction (Verified 02/11/25 15:43) Stomach Upset empagliflozin [From Jardiance] Adverse Reaction (Verified 02/11/25 15:43) hematuria oxycodone Adverse Reaction (Verified 02/11/25 15:43) Stomach Upset Medication List - Last Reconciled 02/11/25 by ALBER Lu- allopurinol 100 mg PO DAILY blood sugar diagnostic Use 1 test strip once a day blood-glucose meter As directed glipizide 10 mg PO DAILY PRN hydrochlorothiazide 12.5 mg PO DAILY losartan 25 mg PO DAILY 90 days meclizine 25 mg PO DAILY PRN 30 days metformin 500 mg PO BIDWM omeprazole 40 mg PO DAILY pen needle, diabetic Use pen needle once a day potassium citrate ER 20 mEq (2 x 10 mEq (1,080 mg)) PO BID simvastatin 40 mg PO BEDTIME HPI Comments Details: Lisa dobbins 59-year-old female patient of Dr. River who was accompanied by her son at today's office visit. She has a past medical history of pituitary microadenoma, William disease, bilateral nephrolithiasis, pancreatic mass, renal cysts, liver mass, type 2 diabetes with neuropathy, multinodular thyroid, hyperparathyroidism, polyarthralgia, vitamin-D deficiency, hypercalcemia, GERD, chronic kidney disease, gout, hypertension, and hyperlipidemia. She presents to the office today for follow-up of her nephrolithiasis as well as medullary nephrocalcinosis. Of note, patient was last seen 08/19 at which time recommendations were made for CT and follow-up however patient was unable to maintain follow-up appointment. We discussed previous CT results 02/17 notes no significant radiographic change when compared with imaging from 01/19. Innumerable, bilateral, approximately 0.8 cm or less renal medullary and/or collecting system calcifications consistent with medullary nephrocalcinosis. No evidence of hydronephrosis or hydroureter. Mild right renal atrophy and right renal cortical scarring. In discussion with the patient today she reports to be doing and feeling well. When asked she does report intermittent infrequent episodes of bilateral flank pain however feels in describes these symptoms as being manageable. She continues to follow-up with endocrinology regarding her adrenal mass. She currently denies any bothersome urinary issues. She denies hematuria, dysuria, urinary urgency, urinary incontinence, urinary frequency, fever and or chills. Patient reports she continues to attempt to drink plenty of water daily in addition to adding 1 oz of lemon juice to water daily. In office urinalysis results reviewed with the patient today. Discussed at length potential causes for nephrolithiasis. She otherwise offers no issues or concerns at this time. [facility] Medical History Adrenal mass Elevated cholesterol Migraine Pituitary microadenoma William's disease Bilateral nephrolithiasis Pancreatic mass Renal cyst Renal cysts and diabetes syndrome Liver mass Physical exam Type 2 diabetes with nephropathy Multinodular thyroid Hyperparathyroidism Polyarthralgia Vitamin D deficiency Hypercalcemia Hypercortisolism Adrenal cortical adenoma of right adrenal gland Right knee pain Type 2 diabetes mellitus with unspecified complications Tachycardia Type 2 diabetes mellitus with hyperglycemia, with long-term current use of insulin Vitamin D deficiency Adrenal nodule Carcinoid tumor of stomach Chronic kidney disease GERD (gastroesophageal reflux disease) Gout Stomach ulcer Hx of renal calculi Essential hypertension Hyperlipidemia LDL goal <100 Surgical History Hx of cystoscopy History of esophagogastroduodenoscopy (EGD) H/O colonoscopy History of gastric polyp Hx of lithotripsy Hx of hysterectomy Hx of cholecystectomy Family History Father CVD (cardiovascular disease) Stomach cancer Mother Diabetes Social History Household Members: Family Housing: Apartment Are you a primary care director rn to a significant other at home: No Do you presently have visiting nurse or other home services: No Alcohol intake: never Patient Tobacco Use Status: Never used Tobacco e-Cigarette/Vaping Use: Never Used Second Hand Smoke Exposure: No service: No Current occupational status: unemployed Current occupation: rt handed Cognitive needs: No Hearing needs: No Vision needs: Yes Review of Systems Const Reports as per [facility] Eyes Reports no additional complaints ENT Reports no additional complaints Card Reports as per [facility] Resp Reports no additional complaints GI Reports as per [facility] Reports as per [facility] Musc Reports as per [facility] Neuro Reports as per [facility] Psych Reports as per [facility] Endo Reports as per [facility] Physical Exam Const General: cooperative, healthy appearing, comfortable, no acute distress, well developed, alert and awake Orientation/consciousness: patient oriented x3 Limitations: no limitations HEENT Head: Yes normal to inspection, Yes normocephalic and Yes atraumatic Ears: hearing grossly normal bilaterally Neck Neck: Yes normal visual inspection and Yes trachea midline Chest Chest palpation & inspection: normal inspection of the chest Resp Effort & Inspection: normal respiratory effort and able to speak in complete sentences Cardio Rate: regular rate GI Inspection: Yes normal to inspection General: Yes no CVA tenderness Back/Spine/Pelvis Back: no CVA tenderness Neuro General: patient oriented x3 Extrem General: Yes normal to inspection Psych Appearance: grossly normal and well kempt Mental Status: mental status grossly normal Speech and movement: Normal speech and movement present and Clear speech present Affect: normal affect Attitude: cooperative Thought process: Normal thought process present Thought content: Normal thought content present Insight: Fair insight present (Psych) Judgement: Fair judgement present (Psych) Results AMB Urinalysis, Automated UA Leukoctes 0 Fatimah/uL Last Edit by Stephanie Milton on 02/11/25 15:26 UA Nitrite Negative Last Edit by Stephanie Milton on 02/11/25 15:26 UA Urobilinogen 0.2 mg/dL Last Edit by Stephanie Milton on 02/11/25 15:26 UA Protein 15 mg/dL Last Edit by Stephanie Milton on 02/11/25 15:26 UA pH 7.0 Last Edit by Stephanie Milton on 02/11/25 15:26 UA Blood 0 Rich/uL Last Edit by Stephanie Milton on 02/11/25 15:26 UA Specific Zullinger 1.010 Last Edit by Stephanie Milton on 02/11/25 15:26 UA Ketone Negative Last Edit by Stephanie Milton on 02/11/25 15:26 UA Bilirubin 0 mg/dL Last Edit by Stephanie Milton on 02/11/25 15:26 UA Glucose 0 mg/dL Last Edit by Stephanie Milton on 02/11/25 15:26 Results Reviewed Results Reviewed: Laboratory Last Values Urine pH (Auto) 7.0 02/11/25 15:16 Specific Zullinger (Auto) 1.010 02/11/25 15:16 Urine Protein (Auto) 15 mg/dL 02/11/25 15:16 Glucose (UA)(Auto) 0 mg/dL 02/11/25 15:16 Urine Ketones (Auto) Negative 02/11/25 15:16 Urine Blood (Auto) 0 Rich/uL 02/11/25 15:16 Urine Nitrite (Auto) Negative 02/11/25 15:16 Urine Bilirubin (Auto) 0 mg/dL 02/11/25 15:16 Urine Urobilinogen (Auto) 0.2 mg/dL 02/11/25 15:16 Leukocyte Esterase (Auto) 0 Fatimah/uL 02/11/25 15:16 Date of Service: 01/29/24 Procedure(s): CT urogram FINDINGS: LUNG BASES: The lung bases appear clear, with no evidence of inflammation or nodules. LIVER, GALLBLADDER, AND BILIARY TREE: Subcentimeter benign segment 6 cyst or hemangioma (image 25, series 3), unchanged. The liver otherwise appears unremarkable in size, shape, and attenuation. No suspicious focal hepatic lesion or biliary ductal dilatation is appreciated. Status post cholecystectomy. PANCREAS: Unremarkable SPLEEN: Unremarkable ADRENAL GLANDS: Approximately 3 cm benign right adrenal adenoma demonstrating Hounsfield unit density of -10. No further dedicated follow up imaging of this benign finding is indicated. KIDNEYS AND URETERS: Mild right renal atrophy and right renal cortical scarring. Innumerable, bilateral, approximately 0.8 cm or less renal medullary and/or collecting system calcifications. No evidence of hydronephrosis or hydroureter. Approximately 5.5 cm or less benign bilateral simple renal cysts for which no further dedicated follow up imaging is indicated. BLADDER: Unremarkable GASTROINTESTINAL TRACT: The small and large bowel appear unremarkable. Normal-appearing distal ileum and vermiform appendix. ABDOMINAL WALL: No significant hernia is appreciated. LYMPH NODES: No evidence of adenopathy by size criteria. VASCULAR: Unremarkable PELVIC VISCERA: Uterus not visualized, suggesting prior surgical removal. OSSEOUS STRUCTURES: Unremarkable IMPRESSION: No significant radiographic change compared with January 02, 2023. Innumerable, bilateral, approximately 0.8 cm or less renal medullary and/or collecting system calcifications consistent with medullary nephrocalcinosis. No evidence of hydronephrosis or hydroureter. Mild right renal atrophy and right renal cortical scarring. Assessment & Plan Assessment & Plan (1) Bilateral nephrolithiasis: Code(s): N20.0 - Calculus of kidney Category: Medical Plan In office urinalysis results reviewed with the patient today; as noted above. Previous CT results reviewed with the patient today as noted above. She currently denies any bothersome urinary issues. She reports be happy with current voiding parameters. We discussed, educated, and stressed the importance of adequate hydration relation to nephrolithiasis as well as overall health and well-being. Continue allopurinol as discussed and prescribed. Will obtain renal ultrasound. Follow-up in 3 months with imaging to be completed prior; or sooner with any issues, concerns, and or questions. Orders: Orders AMB Urinalysis Automated Today Z13.9 - Encounter for screening, unspecified US renal BI Today N20.0 - Calculus of kidney Patient Instructions: The patient had an opportunity to ask questions regarding the treatment plan. All questions were answered. Physical exam, labs, and imaging were discussed and reviewed in detail. As well as risks, benefits, and discussion of treatment choices. No major barriers to understanding were identified. The patient expressed understanding and agreement with the above treatment plan. The patient was made aware they should contact our office by phone for worsening of their current condition, the appearance of new symptoms, or with any questions or concerns. Compliance is encouraged with any medications and follow up testing that is ordered. It is a privilege to be allowed the opportunity to participate in? your urological care.? Again, if you have any questions or concerns If you have any questions or concerns please do not hesitate to contact me. The office is [phone]. This note is constructed using voice recognition software. While every effort has been made to ensure accuracy pharmacy technician assistant errors may have been included. Yours sincerely, KARYN Lu Coding Level of Care Code Est Pt Level 3 (00170) Diagnoses Bilateral nephrolithiasis N20.0
--- OUTSIDE RECORDS SUMMARY | 2025-02-11 17:33 | XMS_ITS ---
Author Organization [facility] Address [address] [place] [address] Care Team Providers Care Registered Radiographer Name Role Phone Iza Rea Primary Care [...] as needed Orally Once a day Active Izerfgllbg-SALO-Uynyqnyu 50-325-40 MG 1 tablet as needed Orally [...] Problem Status W/U Status Risk Notes Problem [id number] Colon cancer screening (Z12.11) Active confirmed Vital Signs Temperature 97.7 degrees Fahrenheit 12/25/19 25 Blood pressure systolic 001 mm Hg 12/25/19 25 Blood pressure diastolic 001 mm Hg 025 Height 62 in 12/25/2024 Weight 151.8 lbs 12/25/2024 BMI 27.76 kg/m2 12/25/2024 Encounters Encounter Location Date Provider Diagnosis [facility] [address] [place] [address] 12/25/2024 Jj Harpreet Munson Epigastric pain R10.13 [...] prn, Reas on: Provider Name:Jj borrego , 02/18/2026 11:10:00 AM, [address] [place] [address], [address], [place], [address], Progress Notes * CARMINE DAWSON IDOB: (59 yo F)Acc No.[id number]:12/25/2024 Progress Notes Patient:?LESLY DAWSON I Provider:?Jj Mullins MD :1965???Age:59 Y???Sex:Female D ate:12/25/2024 Address:[facility] [address], [place], [place] Pcp:Iza Hi Subjective: * Chief Complaints: * [...] diagnosed at the time of endoscopy in 2016,, EGD 07/23/21 with push enteroscopy, normal small [...] in the past year??No,?Points?0,?Interpretation?Negative.?Miscellaneous:?Marital status: . 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 * Medications:?Taking Losartan Potassium 25 MG Tablet 1 tablet Orally Once a day, Taking Simvastatin 20 MG Tablet 1 tablet in the evening Orally Once a day, Taking glipiZIDE XL 10 MG Tablet Extended Release 24 Hour 1 tablet Orally Once a day, Taking Meclizine HCl 25 MG Tablet Chewable 1 tablet as needed Orally Once a day, Taking Avkfhngyjm-BQZJ-Ayshtylr 50-325-40 MG Tablet 1 tablet as needed [...] 12/25/2024)* sched for 02/07/25 at 11:30 a [facility].?Colon cancer screening?Procedure: COLONOSCOPY (Ordered for 12/25/2024)* [facility] 02/07[facility]25 [facility] 11[facility] * Immunizations:? Influenza (Not administered [...] Provider:?Jj Mullins MD Date:?0 12/25/2024 Generated for Raul escamilla/Karolina/Kanitting on:?02/11/2025 05:33 PM EDT History and Physical Notes * HPI [...]
--- OUTSIDE RECORDS SUMMARY | 2025-02-11 17:33 | XMS_ITS | Clinical Summary ---
Author Organization [facility] Address [address] [place] [address] Phone Care Team Providers Care Traffic Counter Name Role Phone Iza Hi MD Primary Care Provider [phone] Allergies No known active allergies Medications allopurinoL [...] Date Site/Laterality Comments ESOPHAGOGASTRODUODENOSCOPY 2015 N/A PROCEDURE: [place] ESOPHAGOGASTRODUODENOSCOPY TRANSORAL DIAGNOSTIC; COMMENT: fall, gastric polyps. [...] Description 02/21/2025 10:30 AM EDT Office Visit [facility] [address] [place] [address] Karissa Jefferson MD [address] [place] [id number] Health Maintenance Due Date Last Done Comments [...] sult from [place] [address] [place] [id number] [facility] [place] [employer] Care Teams Traffic Counter Relationship Specialty Start Date End Date Iza Hi MD [address] [place] [address] , [address] [facility]: [place] [facility] [place], [place] PCP - General Internal Medicine 04/02/21
--- OUTSIDE RECORDS SUMMARY | 2025-02-11 17:33 | XMS_ITS ---
Author Organization [facility] Address [address] [place] [address] Care Team Providers Care Designer Writer Name Role Phone Iza Rea Primary Care Provider Unavailab Jj Bullard Jr [phone] REASON FOR VISIT epigastric pain,benign carcinoid tumor of stomach,screening Encounters Encounter Location Date Provider Diagnosis [facility] [place] [address] [place] [phone] 02/07/2025 Jj Mullins Jr Plan Of Treatment Next Appt Details Provider Name:Jj borrego Jr, 02/18/2026 11:10:00 AM, [address], [address], [place], [address], Progress Notes * CARMINE DAWSON IDOB: (59 yo F)Acc No.[id number]:02/07/2025 EGD and COL/MAC Patient:?LESLY DAWSON I Provider:?Jj Mullins MD :1965???Age:59 Y???Sex:Female D ate:02/07/2025 Address[address] [place] Pcp:Iza Hi Subjective: * Chief Complaints: * ???1. Epigastric pain,benign carcinoid tumor of stomach,screening. * Medical History:? Objective: * Vitals:? Assessment: Plan: * Treatment: * * The named appointment provid er may or may not be the originator of this progress note, and it is not deemed complete until electronically signed by the appointment provider. Sign off status: Pending * Provider:?Jj Mullins MD Date:?0 02/07/2025 Generated for Raul escamilla/Karolina/Fiorella on:?02/11/2025 05:33 PM EDT
--- OUTSIDE RECORDS SUMMARY | 2025-02-11 17:33 | XMS_ITS | Encounter Summary ---
Author Organization [facility] Address [address] [place] [address] Phone Care Team Providers Care Mender Hand Name Role Phone Iza Rea MD Primary Care Provider [phone] Reason for Visit * Reason Onset Date Comments Med Refill 02/03/2025 Encounter Details Date Type Department Care Team ([facility] Contact Info) Description 02/03/2025 Refill [facility] [address] [facility] [facility] [place] [address] Ker[address]ShankarTiana [address] [facility] [address] [place] [address] Social History Tobacco Use Types [...] Office Visit [facility] [address] [place] [address] Raúl Babb MD [address] [facility] [facility] [place] [address] documented as of this encounter Visit Diagnoses Not on filedocumented in this encounter Care Teams Mender Hand Relationship Specialty Start Date End Date Iza Rea MD [address] [place], [place] PCP - General 12/07/20 documented as of this encounter
--- OUTSIDE RECORDS SUMMARY | 2025-02-11 17:33 | XMS_ITS | Clinical Summary ---
Author Organization [facility] Address [address] [place] [address] Care Team Providers Care Academic Assistant Name Role Phone Iza Rea MD Primary [...] Hepatitis C Screening 1965 COVID-19 Vaccine (#1) 01/26/1967 Depression Screening 1978 BMI Counseling 1984 Preventative Health Evaluation 1984 DTap / Tdap / Td (1 - Tdap) 1985 Cervical Cancer Screening (P ap Smear) 1987 Pneumococcal Vaccine (2 of 2 - PCV) 03/11/2011 03/11/2010 Colon Cancer Screening (Colonoscopy) 2011 Breast Cancer Screening (Mammogram) 2016 Shingrix-Zoster Vaccine (1 of 2) 2016 Influenza Vaccine (#1) 2024 RSV Ped < 20 months Aged Out No longe r eligible based on patient's age to complete this topic Care Teams Academic Assistant Relationship Specialty Start Date End Date Iza Rea MD [address] [place] [address] , [address] [facility] [place] [address] PCP - General Internal Medicine 05/04/17
--- OUTSIDE RECORDS SUMMARY | 2025-02-11 17:33 | XMS_ITS ---
Author Organization [facility] Address [address] [place] [address] Care Team Providers Care Cardiac Rehabilitation Specialist Name Role Phone Iza Rea Primary Care Provider Unavailab Jj Bullard Jr Medications Medication SIG (Take, Route, Fr equency, Duration) Notes Start Date End Date Status Diflucan 200 MG 1 tablet Orally DAILY for 14 days 02/11/2025 Active Encounters Encounter Location Date Provider Diagnosis [facility] [address] [place] [address] 02/11/2025 Jj Mullins Jr Michelle esophagitis B37.81 Assessments Encounter Date Diagnosis (ICD Code) Assessment Notes Treatment Notes Treatment Clinical Notes Section Notes 02/11/2025 Michelle esophagitis (ICD-10 - B37.81) Plan Of Treatment Medication Medication Name Sig Start Date Stop Date Notes Diflucan 200 MG 1 tablet Orally DAILY for 14 days 02/12/20 Next Appt Details Provider Name:Jj borrego Jr, 02/18/2026 11:10:00 AM, [address], [address], [place], [address], Progress Notes * CARMINE DAWSON IDOB: (59 yo F)Acc No.[id number]:02/11/2025 Patient:?LESLY DAWSON I :1965???Age:59 Y???Sex:Female Address:[place], [address] * Refills? Start Diflucan Tablet, 200 MG, Orally, 14 Tablet, 1 tablet, DAILY, 14 days, Refills=0 Subjective: * Chief Complaints: * ??? * Medical History:? * Surgical History:? * Hospitalization/Major Diagno stic Procedure:? * Medications:? Objective: * Vitals:? * Physical Examination:? Assessment: * Assessment: 1.?Michelle esophagitis - B37 .81 (Primary)??? Plan: * Treatment: * Procedure Codes:? * true * Date:? Generated for Raul escamilla/Karolina/eTransmitting on:?02/11/2025 05:33 PM EDT
--- OUTSIDE RECORDS SUMMARY | 2025-02-11 17:33 | XMS_ITS | Patient Health Record ---
Author Organization [facility] Address [address] [place] [address] Care Team Providers Care Agricultural Purchasing Agent Name Role Phone Iza Rea Primary Care Provider UnavailJj Kelley Jr Unavailable Allergies Allergen (clinical drug ingredient) Drug/Non Drug Allergy documented on EMR Reaction Allergy Type Onset Date Status mold and dust (uncoded) Unknown Allergy Active Results Component Value Reference Range Notes Glucose, Whole Blood Reviewed date:02/11/2025 01:22:57 PM Interpretation: Performing Lab:[facility], [address] [place] [address] Notes/Report: Glucose, Whole Blood 158 60-115 mg/dL METER # : [id number] Pathology Reviewed date:02/11/2025 02:34:55 PM Interpretation: Performing Lab:[facility], [address] [place] [address] Notes/Report: ------ Name: FryLisa Huber I Age/Sex: 59/F : 1965 Unit#: [id number] Attend Dr: Jj Mullins MD Re02/07/25 Status : [facility] Location: HO.SSS Disch: ------ SPEC : [id number] RECD : 02/07/25 STATUS: PAOLO ANDRADE NUM: [id number] TIA: 02/07/25-[address]: Jj Mullins MD ENTERED: 02/07/25 SP TYPE: Surgical OTHR DR: Iza Rea MD ORDERED: HE Stain/15 , Gross Micro L4/5, IHC/2, Special st. 2, H. pylori/2, AB/PAS Diagnosis A. Gastric antrum, b iopsy: Gastric antral mucosa with reactive changes and focal minimal chronic inac tive inflammation; negative for H. pylori, intestinal metaplasia and dysplasia. B. Gastric polyps, b iopsy: Hyperplastic polyps with granulation tissue and focal mild active inflammation; negative for H. pylori, intestinal metaplasia and dysplasia. C. Esophagogastric junction, biopsy: Squamous mucosa with rare intraepithelial eosinophils (up to 1 per high-power field) and columnar mucosa with mild inflammation, consistent with esophagitis; negative for intestinal metaplasia and dysplasia. D. Esophagus, mid, b iopsy: Squamous mucosa with focal intraepithelial neutrophils, eosinophils (up to 2 per high-power field) and intraepithelial fungal hyphae and buds, consistent with Cand jose esophagitis; no columnar mucosa present. E. Colon, at 60 cm, polyp: Tubular adenoma; negative for high-grade dysplasia and carcinoma. Clinical History Pre-Op Dx: Benign carcinoid tumor Post-Op Dx: Gastric polyps, colon polyp Microscopic Description Microscopic sections reviewed. Immunostains for H. pylori on A and B are negative. AB/PAS on C is negative for intestinal metaplasia. Controls stain appropriately. Material Received A. Antral bx's B. Bx's gastric polyps C. Bx's EG junction D. Bx's mid esophagus E. Polyp at 60 cm Gross Description Received in 5 parts. A. Received in forma elizabeth labeled antral biopsies? are 2 fragments of pink white soft tissue measuring 0.3 and 0. 5 cm in greatest dimension which are wrapped in lens paper and entirely CONTINUED ON NEXT PAGE ------ Name: Lisa Dawson I Age/Sex: 59/F : 1965 Unit#: [id number] Attend Dr: Jj Mullins MD Re02/07/25 Status : [facility] Location: [facility] Disch: ------ SPEC : [id number] RECD : 02/07/25 STATUS: HERNESTOBrien BOYLEGarrett NUM: [id number] TIA: 02/07/25-11[address] [facility] [address]: Jj Mullins MD ENTERED: 02/07/25 SP TYPE: Surgical OTHR DR: Iza Rea MD ORDERED: HE Stain/15 , Gross Micro L4/5, IHC/2, Special st. 2, H. pylori/2, AB/PAS Gross Description (Continued) submitted for micros copic examination, 2 pieces in cassette A. B. Received in forma elizabeth labeled ?biopsies gastric polyps? are 5 fragments of red-pink soft tissue measuring 0.2 -0.4 cm in greatest dimension which are wrapped in lens paper and entirely submitted f or microscopic examination, 5 pieces in cassette B. C. Received in forma elizabeth labeled ?biopsies EG junction? are 3 fragments of byrne-white soft tissue measuring 0.2 -0.4 cm in greatest dimension which are wrapped in lens paper and entirely submitted f or microscopic examination, 3 pieces in cassette C. D. Received in forma elizabeth labeled ?biopsies mid esophagus? are 3 fragments of translucent, white soft tissue measuring 0.2-0.3 cm in greatest dimension which are wrapped in lens paper and entirely submitt ed for microscopic examination, 3 pieces in cassette D. E. Received in forma elizabeth labeled ?polyp at 60 cm? are 2 fragments of byrne-white soft tissue measuring 0.2 and 0. 3 cm in greatest dimension which are wrapped in lens paper and entirely submitted microscopi c examination, 2 pieces in cassette E. ([facility]) Special studies orde red and performed: Immunostain for H. pylori on A1 and B1; AB/PAS stains on C1. Copies To: Jj Mullins MD [facility] [address] [place] [address] Iza Rea MD [facility] Primary Care,[place] [address] [place] [address] ------ Signed (signature on file) Erin Romo 02/11/25 0909 ------ END OF REPORT Reason For Referral No Information Medications Medication SIG (Take, Route, Frequency, Duration) Notes Start Date End Date Status Simvastatin 20 MG 1 tablet in the evening Orally Once a day Active glipiZIDE XL 10 MG 1 tablet Orally Once a day Active Diflucan 200 MG 1 tablet Orally GLENN Y for 14 days 02/11/2025 Active Losartan Potassium 25 MG 1 tablet Orally Once a day Active Omeprazole 40 MG TAKE ONE CAPSULE BY MOUTH EVERY DAY 30 MINUTES BEFORE THE MORNING MEAL for 30 Active Potassium Citrate - Active Meclizine HCl 25 MG 1 tablet as needed Orally Once a day Active Vsxerkunuq-YOPF-Ftbiujgg 50-325-40 MG 1 tablet as needed Orally [...] Problem Status W/U Status Risk Notes Problem 005076244 Colon cancer screening (Z12.11) Active confirmed Problem 01323171 Epigastric pain (R10.13) Active confirmed Problem 265691565 Gastro-esophagea l reflux disease without esophagitis (K21.9) Active confirmed Problem 842318390693540 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 Problem 266582084 Abnormal CT scan, stomach (R93.3) Active confirmed Problem 93149752739336678 Abnormal computerized tomography of biliary tract (R93.2) Active confirmed Vital Signs Temperature 97.7 degrees Fahrenheit 12/25/2024 Blood pressure diastolic 001 mm Hg 12/25/2024 Height 62 in 12/25/2024 Blood pressure systolic 001 mm Hg 12/25/2024 Weight 151.8 lbs 12/25/2024 BMI 27.76 kg/m2 12/25/2024 Encounters Encounter Location Date Provider Diagnosis [facility] Outpatient [address] [place] [id number] 02/07/2025 Jj Mullins [facility] [address] [place] [address] 12/25/2024 Jj Richardsonifford Epigastric pain R10.13 ; Benign carcinoid tumor of stomach D3A.092 ; Colon cancer screening Z12.11 and Gastroesophageal reflux disease, unspecified whether esophagitis present K21.9 [facility] [address] [place], [place] [address], [place] [address] 05/10/2024 Jj Mullins Jr [facility] [address] [place] [address], [place] [address] 09/11/2024 Jj Mullins Jr [facility] [address] [place], [place] [address], [place] [address] 02/11/2025 Jj Richardsonifford Michelle esophagitis B37.81 Assessments Encounter Date Diagnosis [...] and hydrochlorothiazide the day before the procedure. 02/11/2025 Michelle esophagitis (ICD-10 - B37.81) 12/25/2024 Colon cancer screening (ICD-10 - Z12.11) [...] 12/25/2024 Next Appt Details Provider Name:Jj borrego , 02/18/2026 11:10:00 AM, [address] [place] [address], [address], [place], [address], Insurance Providers Payer Name Payer Address Payer Phone Subscriber Number Group Number Insured Name Patient Relationship to Insured Coverage Start Date Coverage End Date [facility] [address] [address] [place], [place] [id number] LISA DAWSON Self - patient is the insured Medical (General) History Medical History History ICD Code diabetes mellitus hypertension nephrolithiasis kidney disease gastroesophageal reflux disease migraine headaches elevated cholesterol adrenal mass Gastric carcinoids (2), inci dentally diagnosed at the time of endoscopy in 2016, EGD 07/23/21 with push entero scopy, normal small bowel, erosive gastritis, hyperplastic polyps. Surgical History Surgery Date(Month/Year) cholecystectomy hysterectomy kidneys colonoscopy 10/08/15, ten-year recall 20 25 Hospitalization History Reason Date(Month/Year)
--- OUTSIDE RECORDS SUMMARY | 2025-02-11 17:33 | XMS_ITS | Clinical Summary ---
Author Organization [facility] Address [address] [place] [address] Care Team Providers Care Administrative Library Assistant Name Role Phone Iza Rea MD Primary Care Provider [phone] Allergies Active Allergy Reactions Criticality Noted Date [...] by mouth 1 (one) time each day 1 Active Dulaglutide (Trulicity) 1.5 MG/0.5ML solution pen-injector Active potassium citrate 10 MEQ (1080 MG) CR tabletIndicatio ns:Chronic kidney disease stage 2 Take 2 tablets (20 mEq total) by mouth in the morning and 2 tablets (20 mEq total) in the evening. Take with meals. 120 tablet 5 4 Active allopurinol (ZYLOPRIM) 100 MG tablet Take 2 tablets (200 mg total) by mouth 1 (one) time each day 180 tablet 3 5 02/05/20 26 Active allopurinol (ZYLOPRIM) 100 MG tablet Take 2 tablets (200 mg total) by mouth 1 (one) time each day 180 tablet 3 4 02/04/20 25 Discontinu ed(Reorder (does not appear on AVS)) Active Problems Problem Noted Date Diagnosed Date [...] 02/03/2025 Refill [facility] [address] [place] [address] Kerrie, Tiana 11/28/2024 Orders Only [facility] [address] [place] [address] Raúl Babb MD Persistent proteinuria; Renal stone; Type 2 diabetes mellitus without complication (HCC) from Last 3 Months Immunizations Name Administration [...] Visit [facility] the [address] [place] [address] Raúl Babb MD [address] [facility] [address] [place] [address] Health Maintenance Due Date Last Done Comments [...] ? sample. Estimated Average Glucose 197 MG/DL AKIAK Comment: eAG = Estimated average glucose which is %A1C expressed as average glucose, using the formula of the N4A-Aqzexis Average Glucose study (ADAG), Diabetes Care, Vol.31,#8, Jun. 2007 07/08/2020 12:0 5 PM EDT Iza Hi MD LAB BLOOD ORDERABLES Final Re sult AKIAK from Last 3 Months or Most Recently Relevant to Health Maintenance Insurance Care Teams Administrative Library Assistant Relationship Specialty Start Date End Date Iza Rea MD [address] [place], [place] PCP - General 12/07/20
== END 2025-02-11 15:38 | disposition home or self-care (01) ==
LOC: HO.HUSH 14:46
PROVIDERS: PCP Internal Medicine; Visit Provider Nurse Practitioner Family
DX: N20.0 Calculus of kidney (principal); Z13.9 Encounter for screening, unspecified
CPT/HCPCS: 99213

== ENCOUNTER → 2025-02-11 14:45 | Outpatient (BNVA) | payer OTHER, SELFPAY | PROVIDERS: PCP Internal Medicine; Visit Provider Nurse Practitioner Family | DX: N20.0 Calculus of kidney (principal) | CPT/HCPCS: 81003; 99212 ==

== ENCOUNTER 2025-02-14 07:03 | Outpatient (REF) | payer OTHER, SELFPAY ==
[2025-02-15 05:54] LABS: DHEA Sulfate 23 mcg/dL (5-167)
[2025-02-17 15:19] LABS: Adrenocorticotropic Hormone 12 pg/mL (6-50)
[2025-02-19 16:58] LABS: DHEA, Unconjugated 34 ng/dL
== END 2025-02-14 07:04 | disposition home or self-care (01) ==
LOC: HO.LAB 07:03
PROVIDERS: PCP Internal Medicine; Visit Provider Internal Medicine Endocrinology, Diabetes & Metabolism
DX: D35.00 Benign neoplasm of unspecified adrenal gland (principal)
CPT/HCPCS: 36415; 82024; 82626; 82627

== ENCOUNTER 2025-02-17 12:01 | Outpatient (AMB) | payer OTHER, SELFPAY ==
--- NOTE | 2025-02-17 13:43 | AM.OFFWIN_ITS ---
Intake Vital Signs 02/17/25 13:45 Weight 148 lb BP 118/82 Blood Pressure Location Rt brachial Position Sitting Pulse 52 Pulse Source Pulse Oximeter Pulse Oximetry (%) 98 Oxygen Delivery Method Room Air Intake Visit Reasons: EP pain on LT side of arm, shoulder, back side Intake Note: Patient here for right shoulder pain that radiates down the arm which has been going on for at least 6 months. Patient Tobacco Use Status: Never used Tobacco Allergies aspirin [ASPIRIN] Allergy (Severe, Verified 02/17/25 13:45) HX ULCER NSAIDS (Non-Steroidal Anti-Inflamma [NSAIDS] Allergy (Severe, Verified 02/17/25 13:45) HX ULCER codeine Adverse Reaction (Verified 02/17/25 13:45) Stomach Upset empagliflozin [From Jardiance] Adverse Reaction (Verified 02/17/25 13:45) hematuria oxycodone Adverse Reaction (Verified 02/17/25 13:45) Stomach Upset Do you need a note to return to daycare/school/sports/work: No HPI HPI Comments History of Present Illness Details 59 y/o female patient who presents to [facility] walk in clinic with c/o left shoulder pain on/off for 6 months now. [facility] Medical History (Updated 02/17/25 @ 14:36 by Harmony Mccall NP) Left shoulder pain Adrenal mass Elevated cholesterol Migraine Pituitary microadenoma [place]'s disease Bilateral nephrolithiasis Pancreatic mass Renal cyst Renal cysts and diabetes syndrome Liver mass Physical exam Type 2 diabetes with nephropathy Multinodular thyroid Hyperparathyroidism Polyarthralgia Vitamin D deficiency Hypercalcemia Hypercortisolism Adrenal cortical adenoma of right adrenal gland Right knee pain Type 2 diabetes mellitus with unspecified complications Tachycardia Type 2 diabetes mellitus with hyperglycemia, with long-term current use of insulin Vitamin D deficiency Adrenal nodule Carcinoid tumor of stomach Chronic kidney disease GERD (gastroesophageal reflux disease) Gout Stomach ulcer Hx of renal calculi Essential hypertension Hyperlipidemia LDL goal <100 Surgical History Hx of cystoscopy History of esophagogastroduodenoscopy (EGD) H/O colonoscopy History of gastric polyp Hx of lithotripsy Hx of hysterectomy Hx of cholecystectomy Family History Father CVD (cardiovascular disease) Stomach cancer Mother Diabetes Social History Household Members: Family Housing: Apartment Are you a primary director of health care marketing to a significant other at home: No Do you presently have visiting nurse or other home services: No Alcohol intake: never Patient Tobacco Use Status: Never used Tobacco e-Cigarette/Vaping Use: Never Used Second Hand Smoke Exposure: No service: No Current occupational status: unemployed Current occupation: rt handed Cognitive needs: No Hearing needs: No Vision needs: Yes Review of Systems Const All systems reviewed & are unremarkable except as noted in HPI and below Physical Exam Vital Signs: Last Vital Signs Pulse 52 02/17/25 13:45 BP 118/82 02/17/25 13:45 Pulse Ox 98 02/17/25 13:45 Oxygen Delivery Method Room Air 02/17/25 13:45 Const General: cooperative and no acute distress Orientation/consciousness: patient oriented x3 Neuro General: patient oriented x3, gait normal and moves all extremities Extrem Left upper extremity: shoulder/upper arm Details: tenderness Location: of the clavicle, of the proximal humerus, of the scapula and over the deltoid bursa, axillary nerve sensory function normal and normal ROM; no swelling and elbow/forearm Details: tenderness and normal ROM; no swelling, no unusual warmth, no ecchymosis and no crepitus Psych Speech and movement: Normal speech and movement present Assessment & Plan Assessment & Plan (1) Left shoulder pain: Code(s): M25.512 - Pain in left shoulder Qualifiers: Chronicity: chronic Qualified Code(s): M25.512 - Pain in left shoulder; G89.29 - Other chronic pain Plan: Ordered Muscle relaxants. NSAIDs or Acetaminophen for pain relief Ordered PT Orders: Orders PT Evaluation and Treatment Today G89.29 - Other chronic pain, M25.512 - Pain in left shoulder Medications: New cyclobenzaprine 5 mg PO BEDTIME 10 tabs 0RF G89.29 - Other chronic pain, M25.512 - Pain in left shoulder Coding Level of Care Code Est Pt Level 4 (88956) Diagnoses Chronic left shoulder pain M25.512; G89.29 Chronicity: chronic Time Spent (min) 20
[2025-02-17 13:45] VITALS: BP 118/82; PULSE 52; O2SAT 98
== END 2025-02-17 14:38 | disposition home or self-care (01) ==
PROVIDERS: PCP Internal Medicine; Visit Provider Nurse Practitioner Family
DX: M25.512 Pain in left shoulder (principal); G89.29 Other chronic pain

== ENCOUNTER → 2025-02-17 12:01 | Outpatient (BNVA) | payer OTHER, SELFPAY | PROVIDERS: PCP Internal Medicine; Visit Provider Nurse Practitioner Family | DX: M25.512 Pain in left shoulder (principal); G89.29 Other chronic pain | CPT/HCPCS: 99212 ==

== ENCOUNTER 2025-03-23 12:38 | Outpatient (REF) | payer OTHER, SELFPAY | END 2025-03-23 12:39 | disposition home or self-care (01) | LOC: HO.LNP 12:38 | PROVIDERS: Visit Provider Student in an Organized Health Care Education/Training Program | DX: Z13.89 Encounter for screening for other disorder (principal) | CPT/HCPCS: 82530 ==

== ENCOUNTER 2025-03-24 12:39 | Outpatient (REF) | payer OTHER, SELFPAY | END 2025-03-24 12:40 | disposition home or self-care (01) | LOC: HO.LNP 12:39 | PROVIDERS: Visit Provider Student in an Organized Health Care Education/Training Program | DX: Z13.89 Encounter for screening for other disorder (principal) | CPT/HCPCS: 82530 ==

== ENCOUNTER 2025-03-25 12:15 | Outpatient (REF) | payer OTHER, SELFPAY ==
--- NOTE | ~2025-03-25 | XR_ITS ---
EXAMINATION: XR CLAVICLE RIGHT HISTORY: M89.8X1 - Other specified disorders of bone, shoulder COMPARISON: There are no prior studies available for comparison. FINDINGS: Two views of the right clavicle are submitted. Osseous mineralization is normal. There is no fracture or dislocation. There is moderate osteoarthritis of the AC joint with joint space narrowing and osteophyte formation. The soft tissues are unremarkable. XR/XR clavicle RT IMPRESSION: Moderate osteoarthritis of the AC joint. No evidence of fracture of the right clavicle. Electronically signed by: Seven Salmeron MD 03/26/2025 05:40 PM EDT
== END 2025-03-25 12:16 | disposition home or self-care (01) ==
LOC: HO.XRAY 12:15
PROVIDERS: PCP Internal Medicine; Visit Provider Internal Medicine
DX: Z00.01 Encounter for general adult medical examination with abnormal findings (principal); E11.9 Type 2 diabetes mellitus without complications; M89.8X1 Other specified disorders of bone, shoulder; M25.50 Pain in unspecified joint; L98.9 Disorder of the skin and subcutaneous tissue, unspecified; I10 Essential (primary) hypertension
CPT/HCPCS: 73000; 96127; 99212; 99396

== ENCOUNTER 2025-03-25 12:15 | Outpatient (AMB) | payer OTHER, SELFPAY ==
--- NOTE | 2025-03-25 12:28 | MHC.PC.OV ---
Vital Signs 03/25/25 12:29 Height 5 ft 2 in Weight 149 lb BMI 27.2 BP 110/74 Blood Pressure Location Lt brachial Position Sitting Intake Visit Reasons: annual exam Intake Note: Patient here for an annual physical exam Registry Np Required: No Accompanied by: Self / Same As Patient Allergies aspirin [ASPIRIN] Allergy (Severe, Verified 03/25/25 12:46) HX ULCER NSAIDS (Non-Steroidal Anti-Inflamma [NSAIDS] Allergy (Severe, Verified 03/25/25 12:46) HX ULCER codeine Adverse Reaction (Verified 03/25/25 12:46) Stomach Upset empagliflozin [From Jardiance] Adverse Reaction (Verified 03/25/25 12:46) hematuria oxycodone Adverse Reaction (Verified 03/25/25 12:46) Stomach Upset Medication List - Last Reconciled 03/25/25 by Iza Hi MD allopurinol 100 mg PO DAILY blood sugar diagnostic Use 1 test strip once a day blood-glucose meter As directed cyclobenzaprine 5 mg PO BEDTIME glipizide 10 mg PO DAILY PRN hydrochlorothiazide 25 mg PO DAILY 90 days losartan 25 mg PO DAILY 90 days meclizine 25 mg PO DAILY PRN 30 days metformin 500 mg PO BIDWM omeprazole 40 mg PO DAILY pen needle, diabetic Use pen needle once a day potassium citrate ER 20 mEq (2 x 10 mEq (1,080 mg)) PO BID simvastatin 40 mg PO BEDTIME Tobacco use date assessed: 03/25/25 Dental Screening Dental Screen Date: 03/25/25 Did you have a dental visit in the last 12 months?: Yes Did you have a dental problem in the last 6 months where you did not have access to dental care?: No Was dental information given to patient?: Patient has dentist HPI HPI Comments History of Present Illness Details The patient is a 59-year-old female presenting for her annual physical examination. A prior colonoscopy conducted one month ago revealed the presence of a tubular adenoma. The patient is unclear about the schedule for her follow-up colonoscopy. She received treatment for a previous yeast infection in the esophagus but expressed uncertainty about the resolution of this condition. Persistent joint pains were reported. The patient's surgical history includes hysterectomy and cholecystectomy, among others. With regards to chronic conditions, the patient manages Type 2 Diabetes Mellitus with a recent A1c of 7.2%, which is not meeting the desired target of 7%, and is associated with proteinuria. Osteopenia treatment involves calcium and vitamin D supplementation. She experiences transient clavicle swelling that she notes recurs intermittently. Family history records indicate heart and gastric disease. Social determinants include the absence of tobacco and alcohol use, alongside untreated depression. An A1c test administered last month returned a value of 7.2%. - Tetanus vaccination updated last year. - Mammography scheduled for this year; last performed in March of last year. - Colonoscopy completed last month with findings of tubular adenoma. - A1c from last month was 7.2%, with proteinuria noted. [facility] Medical History (Updated 03/25/25 @ 13:03 by Iza Hi MD) Polyarthralgia Left shoulder pain Adrenal mass Elevated cholesterol Migraine Pituitary microadenoma William's disease Bilateral nephrolithiasis Pancreatic mass Renal cyst Renal cysts and diabetes syndrome Liver mass Physical exam Type 2 diabetes with nephropathy Multinodular thyroid Hyperparathyroidism Vitamin D deficiency Hypercalcemia Hypercortisolism Adrenal cortical adenoma of right adrenal gland Right knee pain Type 2 diabetes mellitus with unspecified complications Tachycardia Type 2 diabetes mellitus with hyperglycemia, with long-term current use of insulin Vitamin D deficiency Adrenal nodule Carcinoid tumor of stomach Chronic kidney disease GERD (gastroesophageal reflux disease) Gout Stomach ulcer Hx of renal calculi Essential hypertension Hyperlipidemia LDL goal <100 Surgical History Hx of cystoscopy History of esophagogastroduodenoscopy (EGD) H/O colonoscopy History of gastric polyp Hx of lithotripsy Hx of hysterectomy Hx of cholecystectomy Family History Father CVD (cardiovascular disease) Stomach cancer Mother Diabetes Social History Household Members: Family Housing: Apartment Are you a primary healthcare management consultant to a significant other at home: No Do you presently have visiting nurse or other home services: No Alcohol intake: never Patient Tobacco Use Status: Never used Tobacco e-Cigarette/Vaping Use: Never Used Second Hand Smoke Exposure: No service: No Current occupational status: unemployed Current occupation: rt handed Cognitive needs: No Hearing needs: No Vision needs: Yes Questionnaire PHQ-9 Over the last 2 weeks, how often have you been bothered by any of the following problems? 1. Little interest or pleasure in doing things: several days 2. Feeling down, depressed, or hopeless: several days 3. Trouble falling or staying asleep, or sleeping too much: more than half the days 4. Feeling tired or having little energy: more than half the days 5. Poor appetite or overeating: not at all 6. Feeling bad about yourself - or that you are a failure or have let yourself or your family down: not at all 7. Trouble concentrating on things, such as reading the newspaper or watching television: several days 8. Moving or speaking so slowly that other people could have noticed. Or the opposite - being so fidgety or restless that you have been moving around a lot more than usual: not at all 9. Thoughts that you would be better off or of hurting yourself in some way: not at all Total score: 7 Depression Screening Interpretation: Positive Depression Screening Follow-up: Existing condition, Follow-up Visit Requested and Declines treatment Depression Screening Done: Yes 72559 - PHQ-9 Billing: Yes Source: Developed by Drs. Seven Mast, Stephanie Llanos, Rubén Walker and colleagues, with an educational dave from [employer]. Thrive Questionnaire Date Thrive assessed: 03/25/25 I am a: Patient What is your living situation today?: I have a steady place to live Within the past 12 months, did the food you bought not last and you didn't have the money to get more?: Never true Within the past 12 months, did you worry whether your food would run out before you got money to buy more?: Never true Do you have trouble paying for medicines?: No Do you have trouble getting transportation to medical appointments?: No Do you have trouble paying your heating and electricity bill?: No Do you have trouble taking care of your child, family member or friend?: No Do you have trouble with day-to-day activities such as bathing, preparing meals, shopping, managing finances, etc.?: No Are you currently unemployed and looking for a job?: No Are you interested in more education?: No Please select the resources that you would like help with: None Currently or been in a relationship where the following occur: No concerns reported THRIVE Score: 0 AUDIT C Alcohol Use Questionnaire (AUDIT-C) 1. How often do you have a drink containing alcohol?: Never Total Score: 0 Score Reviewed/Action Taken: No ANTONIO-7 AMB Questionnaire ANTONIO-7 Date ANTONIO - 7 assessed: 03/25/25 Feeling nervous, anxious, or on edge: 1 = Several days Not being able to stop or control worryin = Not at all Worrying too much about different things: 1 = Several days Trouble relaxin = Not at all Being so restless that it is hard to sit still: 0 = Not at all Becoming easily annoyed or irritable: 0 = Not at all Feeling afraid as if something awful might happen: 0 = Not at all Total ANTONIO-7 score (0-4 normal; 5-9 mild; 10-14 moderate; 15-21 severe): 2 Source: Developed by Drs. Seven Mast, Stephanie Llanos, Rubén Walker and colleagues, with an educational dave from [employer]. ANTONIO-7 Assessment Billing ANTONIO-7 Assessment Tool: ANTONIO-7 Assessment 98848 Review of Systems Const All systems reviewed & are unremarkable except as noted in HPI and below Card Denies chest pain at rest, Denies chest pain with activity, Denies edema, Denies irregular heart rhythm, Denies claudication, Denies dyspnea, Denies dyspnea on exertion, Denies orthopnea, Denies paroxysmal nocturnal dyspnea and Denies slow heart rate Resp Denies cough, Denies dyspnea and Denies dyspnea on exertion GI Denies abdominal pain, Denies change in bowel habits, Denies excessive flatus, Denies nausea and Denies vomiting Denies urinary incontinence, Denies urinary hesitancy and Denies urinary urgency Musc Reports arthralgias Physical exam (Primary Care) Vital Signs: Last Vital Signs BP 110/74 03/25/25 12:29 BMI result Body Mass Index 27.2 Tobacco/Smoking Status: Tobacco use Status Tobacco use date assessed 03/25/25 03/25/25 12:33 Patient Tobacco Use Status Never used Tobacco 03/25/25 12:33 e-Cigarette/Vaping Use Never Used 03/25/25 12:33 PHQ-9: PHQ-9 Score PHQ-9: Total score 7 03/25/25 12:50 Depression Screening Interpretation: Positive Depression Screening Follow-up: Existing condition, Follow-up Visit Requested and Declines treatment Thrive Assessment: Date of Thrive Assessment Date Thrive assessed 03/25/25 03/25/25 12:33 Currently or been in a relationship where the following occur: No concerns reported [facility] Head: Yes normal to inspection, Yes normocephalic and Yes atraumatic Ears: external ears normal Eyes General: appearance normal, both eyes and all related structures Eyelids: Yes eyelids normal Conjunctivae: conjunctivae normal Neck Neck: Yes normal visual inspection and Yes supple Resp Effort & Inspection: normal respiratory effort Auscultation: clear to auscultation bilaterally Cardio Jugular venous distension: no JVD Rate: regular rate Rhythm: regular rhythm Heart sounds: S1 normal heart sound present and S2 normal heart sound present GI Inspection: Yes normal to inspection Palpation (GI): Soft to palpation and nontender Auscultation: normal bowel sounds Skin General skin exam: no rashes or lesions noted Neuro General: no focal motor deficits Extrem General: Yes full ROM Psych Appearance: grossly normal Coding Level of Care Code Est Pt Level 4 (07362) Est Pt Prev Care 40-64y(93708) Diagnoses Physical exam Z00.00 Diabetes mellitus E11.9 Pain of right clavicle M89.8X1 Polyarthralgia M25.50 Skin lesions L98.9 Additional Codes ANTONIO-7 Assessment Billing - ANTONIO-7 Assessment Tool: ANTONIO-7 Assessment 18663 ([id number]) PHQ-9 - 59767 - PHQ-9 Billing: Yes ([id number]) Time Spent (min) 38 Assessment & Plan Assessment & Plan (1) Physical exam: Code(s): Z00.00 - Encounter for general adult medical examination without abnormal findings Category: Medical (2) Diabetes mellitus: Code(s): E11.9 - Type 2 diabetes mellitus without complications Category: Medical (3) Pain of right clavicle: Code(s): M89.8X1 - Other specified disorders of bone, shoulder Category: Medical (4) Polyarthralgia: Code(s): M25.50 - Pain in unspecified joint Category: Medical (5) Skin lesions: Code(s): L98.9 - Disorder of the skin and subcutaneous tissue, unspecified Category: Medical Plan For hypertension, continuation of Losartan is recommended, while diabetes management includes maintaining current oral agents with a focus on improving HbA1c levels. Monitoring proteinuria remains critical in diabetes care. Osteopenia treatment includes supplementation. Referral to rheumatology is advised due to persistent joint pain while endocrinology will evaluate adrenal mass findings. Possible follow-up for esophageal infection contingent upon symptom persistence has been discussed. Regular follow-up entails lipid profiles and ensuring mammogram completion. Her colon adenoma history requires timely follow-up procedures. Patient was informed and verbally consented to the use of an ambient scribe for clinic note documentation during this visit. I discussed the importance of controlling blood pressure and blood sugar levels, especially in light of her HbA1c and proteinuria. We reviewed her medication regimen considering her allergies and agreed on calcium and vitamin D supplementation due to osteopenia. The chronic joint pain warrants further evaluation by a rotary driller helper, and I referred the patient to endocrinology for an adrenal mass. Regarding her previous esophageal yeast infection treatment, I advised that recurrence of symptoms might necessitate further evaluation. We underscored the importance of adhering to planned future tests including lipid reassessment and the scheduled mammography. Orders: Orders Comprehensive [place]. Panel Fast Today E78.5 - Hyperlipidemia, unspecified XR clavicle RT Today M89.8X1 - Other specified disorders of bone, shoulder Lipid Panel Today E78.5 - Hyperlipidemia, unspecified Referrals Rheumatology Referral M25.50 - Pain in unspecified joint Dermatology Referral L98.9 - Disorder of the skin and subcutaneous tissue, unspecified Patient Instructions: - Continue current medications and supplements. - Follow up with rheumatology for joint pain assessment. - Ensure endocrinology referral for adrenal mass. - Monitor for symptoms of esophageal yeast infection; contact if they reoccur. - Complete mammography as scheduled this year. - Schedule your future colonoscopy as recommended by the specialist.
[2025-03-25 12:29] VITALS: BP 110/74; BMI 27.2
--- OUTSIDE RECORDS SUMMARY | 2025-03-25 14:15 | XMS_ITS | Clinical Summary ---
Author Organization [facility] Address [address] [place] [address] Care Team Providers Care Feeder Driver Name Role Phone Iza Rea MD [...] age to complete this topic Care Teams Feeder Driver Relationship Specialty Start Date End Date Iza Rea MD [address] [place] [address] , [address] [facility] D/B/A: [facility] [place] [address] PCP - General Internal Medicine 05/04/17
--- OUTSIDE RECORDS SUMMARY | 2025-03-25 14:15 | XMS_ITS | Clinical Summary ---
Author Organization [facility] Facility Address [address] [place] [id number] Care Team Providers Care Director Toxicology Name Role Phone Iza Rea MD Primary Care Provider [phone] Allergies Active Allergy Reactions Criticality Noted Date [...] with meals. 120 tablet 5 11/06/2024 Active allopurinol (ZYLOPRIM) 100 MG tablet Take 2 tablets (200 mg total) by mouth 1 (one) time each day 180 tablet 3 02/04/2025 6 Active Active Problems Problem Noted Date Diagnosed [...] 02/03/2025 Refill [facility] [address] [address] Tiana Sy from Last 3 Months Immunizations Immunization Administration Dates Next Due Pneumococcal Polysaccharide 03/11/2010 [...] Office Visit [facility] [address] [place] [address] Raúl Babb MD [address] [facility] [address] [place] [address] Health Maintenance Due Date Last Done Comments Breast Cancer Screening 1965 Hepatitis B Vaccine (1 of 3 - 19+ 3-dose series) 07/29 Pneumococcal Vaccine: 50+ Years (2 of 2 - PCV) 011 03/11/2010 Colorectal Cancer Screening: Annual FOBT 2015 Colorectal Cancer Screening: Colonoscopy 2015 Colorectal Cancer Screening: Sigmoidoscopy 2015 Diabetes: Hemoglobin A1C 12/25/2020 07/08/2020 Diabetes: Ophthalmology Exam 12/25/2020 Diabetes: Pedal Pulse Checked 12/25/2020 Diabetes: Sensory Foot Exam 12/25/2020 Diabetes: Visual Foot Exam 12/25/2020 Influenza Vaccine (Season Ended) 2025 Pneumococcal Vaccine: Peds ( 0 to 5 Years) and At-Risk Patients (6 to 49 Years) Discontinued 03/11/2010 Procedures Procedure Name Priority Date/Time Associated Diagnosis [...] ? sample. Estimated Average Glucose 197 MG/DL DIANA Comment: eAG = Estimated average glucose which is %A1C expressed as average glucose, using the formula of the K5I-Umprlds Average Glucose study (ADAG), Diabetes Care, Vol.31,#8, Jun. 2007 07/08/2020 12:0 5 PM EDT Iza Hi MD LAB BLOOD ORDERABLES Final Re sult [place] from Last 3 Months or Most Recently Relevant to Health Maintenance Insurance Care Teams Director Toxicology Relationship Specialty Start Date End Date Iza Rea MD [address] [place] [address] [facility] - General 12/07/20
--- OUTSIDE RECORDS SUMMARY | 2025-03-25 14:15 | XMS_ITS | Clinical Summary ---
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 2nd scope 10/2016 polyps removed showing micro-carcinoids. CHOLECYSTECTOMY N/A PROCEDURE: HISTORICAL CHOLECYSTECTOMY TUBAL LIGATION PROCEDURE: HISTORICAL TUBAL LIGATION HYSTERECTOMY N/A PROCEDURE: HISTORICAL HYSTERECTOMY Medical History Medical History Date Comments Essential hypertension DX:Essent ial hypertension Mixed hyperlipidemia DX:Mixed hy perlipidemia Type 2 diabetes mellitus wit hout complication ([facility] V24, [facility] V28) DX:Type 2 diabetes mellitus without complication ([facility]) Benign paroxysmal positional vertigo due to bilateral vestibular disorder DX: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 ([facility] V28) DX:Carcinoid tumor determine d by biopsy of [...] Sign Reading Time Taken Comments Blood Pressure 129/84 02/21/2025 10:32 AM EDT Pulse 78 02/21/2025 10:32 AM EDT Temperature 36.6 ??C (97.9 ??F) 02/21/2025 10:32 AM E DT Respiratory Rate - - Oxygen Saturation 98% 02/21/2025 10:32 AM EDT Inhaled Oxygen Concentration - - Weight 66.8 kg (147 lb 3.2 oz) 02/21/2025 10:32 AM EDT Height 154.9 cm (5' 1 ) 07/02/2024 9:53 AM EDT Body Mass Index 27.81 07/02/2024 9:53 AM EDT Plan of Treatment Upcoming Encounters Date Type Department Care Team (Late st Contact Info) Description 02/23/2026 10:30 AM EDT Office Visit [facility] Hematology Oncology [address] [place] [address] Karissa Jefferson MD [address] [place] [address] Health Maintenance Due Date Last Done Comments Breast Cancer Screening 1965 Diabetes: Annual Foot Exam 1976 Diabetes: Annual Retina Eye Exam 1976 Hepatitis B Vaccines (1 of 3 - 19+ 3-dose series) 1985 Cervical Cancer Screening: Pap Smear 1987 Pneumococcal Vaccine: 50+ Years (2 of 2 - PCV) 03/11/2011 03/11/2010 Pneumococcal Vaccine: Pediatrics (0 to 5 Years) and At-Risk Patients (6 to 64 Years) (2 of 2 - PCV) 03/11/2011 03/11/2010 Zoster Vaccines (1 of 2) 2016 Cholesterol Screening (Lipid Panel) 11/03/2022 Colorectal Cancer Screening: Colonoscopy 11/03/2022 Depression Screening 11/03/2022 HIV Screening 11/03/2022 Hepatitis C Screening 11/03/2022 Social Influencers of Health Screening 11/03/2022 Diabetes: Annual Urine Albumin-Creatinine Ratio (uACR) 11/12/2022 Diabetes: Blood Sugar Control Test (HGBA1C) 11/12/2022 07/08/2020 COVID-19 Vaccine ( season) 2024 09/11/2023, 10/17/2022, 06/06/2022, Additional history exists Influenza Vaccine (Season Ended) 2025 Diabetes: Annual GFR (Glomerular Filtration Rate) 02/21/2026 02/21/2025 Hypertension/CHF/CAD Annual BMP Blood Test 02/21/2026 02/21/2025 DTaP,Tdap,and Td Vaccines (4 - Td or Tdap) 10/29/2034 10/29/2024, 03/15/2013, 03/15/2013 HIB Vaccines Aged Out No longer eligi [...] age to complete this topic Meningococcal B Vaccine Aged Out No l onger eligible based on patient's age to complete this topic RSV Immunization Patients Under 20 months Aged Out No longer eligible based on patient's age to complete this topic Varicella Vaccines Aged Out No longer eligible based on patient's age to complete this topic Procedures Procedure Name Priority Date/Time Associated Diagnosis Comments MISCELLANEOUS LAB TEST Routine 10:49 AM EDT 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 ([facility] V28) CBC WITH AUTO DIFFERENTIAL Routine 02/21/2025 10:49 AM EDT 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 (CMS/HCC V28) GASTRIN Routine 02/21/2025 10:49 AM EDT 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 (CMS/HCC V28) COMPREHENSIVE METABOLIC PANEL Routine 02/21/2025 10:49 AM EDT 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 ([facility] V28) CBC AND DIFFERENTIAL Routine 02/21/2025 10:49 AM EDT 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 (CMS/HCC V28) ..MISCELLANEOUS REFERENCE LAB TEST 01/24/2025 ..MISCELLANEOUS REFERENCE LAB TEST 01/24/2025 from Last 3 Months Results * (ABNORMAL) CBC auto differential (02/21/2025 10:49 AM EDT) Pathologist [facility] WBC 9.2 4.8 - 10.8 K/mcL LAB HEMETOLOGY METHOD 02/21/2025 12:21 PM EDT [facility] RBC 5.10(H) 3.80 - 4.80 M/mcL LAB HEMETOLOGY METHOD 02/21/2025 12:21 PM [facility] Hemoglobin 14.2 11.5 - 16.0 g/dL LAB HEMETOLOGY METHOD 02/21/2025 12:21 PM [facility] Hematocrit 44.8 35.0 - 47.0 % LAB HEMETOLOGY METHOD 02/21/2025 12:21 PM [facility] MCV 87.3 79.0 - 98.0 FL LAB HEMETOLOGY METHOD 02/21/2025 12:21 PM [facility] MCH 27.7 27.0 - 32.0 pcg LAB HEMETOLOGY METHOD 02/21/2025 12:21 PM [facility] MCHC 31.7(L) 32.0 - 37.0 g/dL LAB HEMETOLOGY METHOD 02/21/2025 12:21 PM [facility] RDW 14.3 11.0 - 15.0 % LAB HEMETOLOGY METHOD 02/21/2025 12:21 PM [facility] Platelets 336 130 - 400 K/mcL LAB HEMETOLOGY METHOD 02/21/2025 12:21 PM [facility] MPV 10.8 7.0 - 11.0 FL LAB [facility]ETOLOGY [facility] NRBC 0.0 <1.0 % LAB HEMETOLOGY METHOD 02/21/2025 12:21 PM [facility] NRBC Absolute 0.00 <0.10 K/mcL LAB HEMETOLOGY METHOD 02/21/2025 12:21 PM [facility] Neutrophils Relative 56.5 % LAB HEMETOLOGY METHOD 02/21/2025 12:21 PM [facility] Lymphocytes Relative 31.9 % LAB HEMETOLOGY METHOD 02/21/2025 12:21 PM [facility] Monocytes Relative 7.7 % LAB HEMETOLOGY METHOD 02/21/2025 12:21 PM [facility] Eosinophils Relative 2.9 % LAB HEMETOLOGY METHOD 02/21/2025 12:21 PM [facility] Basophils Relative 0.5 % LAB HEMETOLOGY METHOD 02/21/2025 12:21 PM [facility] Immature Granulocytes Relative 0.5 % LAB HEMETOLOGY METHOD 02/21/2025 12:21 PM [facility] Neutrophils Absolute 5.20 1.50 - 7.00 K/mcL LAB HEMETOLOGY METHOD 02/21/2025 12:21 PM [facility] Lymphocytes Absolute 2.94 1.00 - 5.00 K/mcL LAB HEMETOLOGY METHOD 02/21/2025 12:21 PM [facility] Monocytes Absolute 0.71 0.20 - 1.00 K/mcL LAB HEMETOLOGY METHOD 02/21/2025 12:21 PM [facility] Eosinophils Absolute 0.27 0.00 - 0.50 K/mcL LAB HEMETOLOGY METHOD 02/21/2025 12:21 PM [facility] Basophils Absolute 0.05 0.00 - 0.20 K/mcL LAB HEMETOLOGY METHOD 02/21/2025 12:21 PM EDT [facility] Immature Granulocytes Absolute 0.05(H) 0.00 - 0.03 K/[facility] LAB HEMETOLOGY METHOD 02/21/2025 12:21 PM EDT [facility] Blood Venous blood specimen / Unknown Venipuncture / Unknown 02/21/2025 10:49 AM EDT 02/21/2025 11:37 AM EDT us Karissa Jefferson MD LAB BLOOD ORDERABLE S Final Result [facility] [address] [place] [address], [place] [phone] * CHROMOGRANIN A - Miscellaneous Test (02/21/2025 10:49 AM EDT) Scan Result See Scanned Result 02/28/2025 7:54 AM EDT [facility] Serum 02/21/2025 10:4 9 AM EDT 02/25/2025 11:21 AM EDT us Karissa Jefferson MD LAB BLOOD ORDERABLE S Final Result [facility] [address] [place] [address] [facility] [address] [place] [address], [place] [phone] * (ABNORMAL) Gastrin (02/21/2025 10:49 AM EDT) Gastrin 557(H) 13 - 115 pg/mL 02/25/2025 2:39 PM EDT [facility] Comment: The Siemens Plunify Immulite 2000 chemiluminescent immunoassay is used. Results obtained with different assay methods or kits cannot be used interchangeably. Results cannot be interpreted as absolute evidence of the presence or absence of malignant disease. Test performed at [facility], [address], [place], [place] [address] ? [phone] Brooke Hirsch MD, PhD - Refined Syrup Operator Blood Venous blood specimen / Unknown Venipuncture / Unknown 02/21/2025 10:49 AM EDT 02/21/2025 11:37 AM EDT Karissa Jefferson MD LAB BLOOD ORDERABLE S Final Result [facility] [address] [place] [address] * (ABNORMAL) Comprehensive metabolic panel (02/21/2025 10:49 AM EDT) Sodium 135 133 - 145 mmol/L LAB CHEMISTRY METHOD 02/21/2025 12:19 PM [facility] Potassium 3.9 3.5 - 5.5 mmol/L LAB CHEMISTRY METHOD 02/21/2025 12:19 PM [facility] Chloride 99 96 - 110 mmol/L LAB CHEMISTRY METHOD 02/21/2025 12:19 PM [facility] CO2 31 21 - 32 mmol/L LAB CHEMISTRY METHOD 02/21/2025 12:19 PM [facility] Anion Gap 5 3 - 11 LAB CHEMISTRY METHOD 02/21/2025 12:19 PM [facility] Glucose 147(H) 70 - 100 mg/dL LAB CHEMISTRY METHOD 02/21/2025 12:19 PM [facility] BUN 15 5 - 25 mg/dL LAB CHEMISTRY METHOD 02/21/2025 12:19 PM [facility] Creatinine 0.93 0.50 - 1.10 mg/dL LAB CHEMISTRY METHOD 02/21/2025 12:19 PM [facility] eGFR 71 >=60 mL/min/1. 73m2 LAB CHEMISTRY METHOD 02/21/2025 12:19 PM T [facility] Comment:Calculation based on the??Chronic Kidney Disease Epidemiology Collaboration (CKD-EPI) equation refit??without adjustment for race. BUN/Creatinine Ratio 16.1 LAB CHEMISTRY METHOD 02/21/2025 12:19 PM T [facility] Calcium 9.9 8.5 - 10.5 mg/dL LAB CHEMISTRY METHOD 02/21/2025 12:19 PM [facility] AST (SGOT) 20 10 - 42 unit/L LAB CHEMISTRY METHOD 02/21/2025 12:19 PM [facility] ALT (SGPT) 41 10 - 60 unit/L LAB CHEMISTRY METHOD 02/21/2025 12:19 PM [facility] Alkaline Phosphatase 64 42 - 121 unit/L LAB CHEMISTRY METHOD 02/21/2025 12:19 PM [facility] Total Protein 7.5 6.0 - 8.0 g/dL LAB CHEMISTRY METHOD 02/21/2025 12:19 PM [facility] Albumin 4.0 3.2 - 5.0 g/dL LAB CHEMISTRY METHOD 02/21/2025 12:19 PM [facility] Total Bilirubin 0.6 0.0 - 1.4 mg/dL LAB CHEMISTRY METHOD 02/21/2025 12:19 PM [facility] Blood Venous blood specimen / Unknown Venipuncture / Unknown 02/21/2025 10:49 AM EDT 02/21/2025 11:37 AM EDT us Karissa Jefferson MD LAB BLOOD ORDERABLE S Final Result [facility] [address] [place] [address], * Miscellaneous reference lab test (01/24/2025) Only the most recent of2 resultswithin the time period is included. us Provider Onbase LAB BLOOD ORDERABLES Final Re sult from Last 3 Months Insurance [facility] [employer] Care Teams Outside Sales Manager Relationship Specialty Start Date End Date Iza Hi MD [address] , [address] [facility] D/B/A: [facility] [place], [place] PCP - General Internal Medicine 04/02/21
== END 2025-03-25 13:00 | disposition home or self-care (01) ==
LOC: HO.HMCH 12:16
PROVIDERS: PCP Internal Medicine; Visit Provider Internal Medicine
DX: Z00.00 Encounter for general adult medical examination without abnormal findings (principal); E11.9 Type 2 diabetes mellitus without complications; M89.8X1 Other specified disorders of bone, shoulder; M25.50 Pain in unspecified joint; L98.9 Disorder of the skin and subcutaneous tissue, unspecified

== ENCOUNTER → 2025-03-25 13:11 | Outpatient (BNV) | payer OTHER, SELFPAY | PROVIDERS: PCP Internal Medicine; Visit Provider Radiology Diagnostic Radiology | DX: M19.011 Primary osteoarthritis, right shoulder (principal) | CPT/HCPCS: 73000 ==

== ENCOUNTER 2025-04-02 10:31 | Outpatient (REF) | payer OTHER, SELFPAY ==
--- OUTSIDE RECORDS SUMMARY | 2025-04-02 11:51 | XMS_ITS | Patient Health Record ---
Author Organization [facility] Address [address] [place] [address] Care Team Providers Care Statistics Teacher Name Role Phone Iza Rea Primary Care Provider UnavailJj Kelley Jr Unavailable [phone] Allergies Allergen (clinical drug ingredient) Drug/Non Drug Allergy documented on EMR Reaction Allergy Type Onset Date Status mold and dust (uncoded) Unknown Allergy Active Results Component Value Reference Range Notes Glucose, Whole Blood Reviewed date:02/11/2025 01:22:57 PM Interpretation: Performing Lab:[facility], [address] [place] [address] Notes/Report: Glucose, Whole Blood 158 60-115 mg/dL METER # : [id number] Pathology Reviewed date:02/11/2025 02:34:55 PM Interpretation: Performing Lab:[facility], [address] [place] [address] Notes/Report: ------ Name: FryLisa Huber I Age/Sex: 59/F : 1965 Unit#: [id number] Attend Dr: Jj Mullins MD Re02/07/25 [place] : [facility] [place]: [facility] Disch: ------ SPEC : [id number] RECD : 02/07/25 STATUS: PAOLO ANDRADE NUM: [id number] TIA: 02/07/25-[address]: Jj Mullins MD [...] Dawson I Age/Sex: 59/F : 1965 Unit#: [id number] Attend Dr: Jj Mullins MD Re02/07/25 Status : [facility] Location: [facility] Disch: ------ SPEC : [id number] RECD : 02/07/25 STATUS: HERNESTOBrien BOYLEGarrett NUM: [id number] TIA: 02/07/25-1133 [facility] DR: Jj Mullins MD ENTERED: 02/07/25 SP [...] c examination, 2 pieces in cassette E. ([facility]) Special studies orde red and performed: Immunostain for H. pylori on A1 and B1; AB/PAS stains on C1. Copies To: Jj Mullins MD [facility] [address] [place] [address] Iza Rea MD [facility] Primary [place] [address] [place] [address] ------ Signed (signature on file) Erin Romo [...] as needed Orally Once a day Active Zyyvytnewb-VUKG-Aekbojcy 50-325-40 MG 1 tablet as needed Orally prn Active Omeprazole 40 MG TAKE ONE CAPSULE [...] Problem Status W/U Status Risk Notes Problem [id number] Colon cancer screening (Z12.11) Active confirmed Problem 69398574 Epigastric pain (R10.13) Active confirmed Problem 915850246 Gastro-esophagea l reflux disease without esophagitis (K21.9) Active confirmed Problem 683762172517811 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 Problem 209326529 Abnormal CT scan, stomach (R93.3) Active confirmed Problem 13290691497535712 Abnormal computerized tomography of biliary tract (R93.2) Active confirmed Vital Signs Temperature 97.7 degrees Fahrenheit 12/25/2024 Blood pressure diastolic 001 mm Hg 12/25/2024 Height 62 in 12/25/2024 Blood pressure systolic 001 mm Hg 12/25/2024 Weight 151.8 lbs 12/25/2024 BMI 27.76 kg/m2 12/25/2024 Encounters Encounter Location Date Provider Diagnosis [facility] Outpatient [address] [place] [phone] 02/07/2025 Jj Mullins Jr Colon cancer screening Z12.11 ; Colon polyps K63.5 ; Epigastric pain R10.13 and Benign carcinoid tumor of unspecified site D3A.00 [facility] [address] [place] [address] 12/25/2024 Jj Aburtocaesar Munson Epigastric pain R10.13 ; Benign carcinoid tumor of stomach D3A.092 ; Colon cancer screening Z12.11 and Gastroesophageal reflux disease, unspecified whether esophagitis present K21.9 [facility] [address] [place] [address] 05/10/2024 Jj Aburtoord [facility] [address] [place] [address] 09/11/2024 Jjsayra Mullins Jr [facility] [address] [place] [address] 02/11/2025 jJ Mullins Jr Michelle esophagitis B37.81 Assessments Encounter Date Diagnosis (ICD Code) Assessment Notes Treatment Notes Treatment Clinical Notes Section Notes 02/07/2025 Colon cancer screening (ICD-10 - Z12.11) 02/07/2025 Colon polyps (ICD-10 - K63.5) 12/25/2024 Epigastric pain (ICD-10 - R10.13) Endoscopy [...] procedure. 02/11/2025 Michelle esophagitis (ICD-10 - B37.81) 02/07/2025 Epigastric pain (ICD-10 - R10.13) 12/25/2024 Colon cancer screening (ICD-10 - Z12.11) [...] and hydrochlorothiazide the day before the procedure. 02/07/2025 Benign carcinoid tumor of unspecified site (ICD-10 - D3A.00) 12/25/2024 Gastroesophageal reflux disease, unspecified whether esophagitis [...] Provider Name:Jj borrego , 02/18/2026 11:10:00 AM, [address] [place] [address], [address], [place], [address], Insurance Providers Payer Name Payer Address Payer Phone Subscriber Number Group Number Insured Name Patient Relationship to Insured Coverage Start Date Coverage End Date [facility] [address] [address] [place], [place] [id number] LISA DAWSON Self - patient is the [...]
--- OUTSIDE RECORDS SUMMARY | 2025-04-02 11:51 | XMS_ITS | Clinical Summary ---
Author Organization [facility] Facility Address [address] [place] [address] Care Team Providers Care Mixer Helper Name Role Phone Iza Rea MD Primary Care Provider [phone] Allergies Active Allergy Reactions Criticality Noted Date [...] 02/03/2025 Refill [facility] [address] [address] Tiana Sy from Last 3 [...] Office Visit [facility] [address] [place] [address] Raúl Babb MD [address] [facility] [address] [place] [address] Health Maintenance Due Date Last Done Comments [...] average glucose, using the formula of the Y6L-Gbspmop Average Glucose study (ADAG), Diabetes Care, Vol.31,#8, Jun. 2007 07/08/2020 12:0 5 PM EDT Iza Hi MD LAB BLOOD ORDERABLES Final Re sult ORIENT from Last 3 Months or Most Recently Relevant to Health Maintenance Insurance Care Teams Mixer Helper Relationship Specialty Start Date End Date Iza Rea MD [address] [place] [address] [facility] - General 12/07/20
--- OUTSIDE RECORDS SUMMARY | 2025-04-02 11:51 | XMS_ITS ---
Author Organization [facility] Address [address] [place] [address] Care Team Providers Care Ornamental Ironworker Helper Name Role Phone Iza Rea Primary Care Provider Jj Terry Jr [phone] REASON FOR VISIT epigastric pain,benign carcinoid tumor of stomach,screening Encounters Encounter Location Date Provider Diagnosis [facility] Outpatient [address] [place] [phone] 02/07/2025 Jj Mullins Jr Colon cancer screening [...] 11:10:00 AM, [address], [address], [place], [address], Progress Notes * CARMINE DAWSON IDOB: (59 yo F)Acc No.[id number]:02/07/2025 EGD and COL/MAC Patient:?LESLY DAWSON I Provider:?Jj Mullins MD :1965???Age:59 Y???Sex:Female D ate:02/07/2025 Address:[address] [place] [facility] Pcp:Iza Hi Subjective: * Chief Complaints: * ???1. Epigastric pain,benign carcinoid tumor of stomach,screening. * Medical History:? Objective: * Vitals:? Assessment: * Assessment: 1.?Colon cancer screening - Z12.11 (Primary)???2.?Colon polyps - K63.5???3.?Epigastric pain - R10.13???4.?Benign carcinoid tumor of unspecified site - D3A.00??? Plan: * Treatment: * Procedure Codes:?58838 COLON OSCOPY W/ABLATION, 72417 UPPER GI ENDOSCOPY, BIOPSY * * The named appointment provid er may or may not be the originator of this progress note, and it is not deemed complete until electronically signed by the appointment provider. Sign off status: Pending * Provider:?Jj Mullins MD Date:?0 02/07/2025 Generated for Raul escamilla/Karolina/Scottiesmitting on:?04/02/2025 11:51 AM EDT
--- OUTSIDE RECORDS SUMMARY | 2025-04-02 11:51 | XMS_ITS | Clinical Summary ---
Author Organization [facility] Address [address] [place] [address] Phone Care Team Providers Care Company Truck Driver Name Role Phone Iza Hi MD Primary Care Provider [phone] Allergies No known active allergies Medications allopurinoL [...] tumor determined b y biopsy of stomach ([facility] V28) 05/09/2017 Essential hypertension 05/09/2017 Mixed hyperlipidemia 05/09/2017 Type 2 diabetes mellitus wit hout complication ([facility] V24, [facility] V28) 05/09/2017 Encounters Date Type Department Care Team Description 02/21/2025 10:30 AM EDT Office Visit [facility] Hematology Oncology [address] [place] [phone] Karissa Jefferson MD 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 2nd scope 10/2016 polyps removed showing micro-carcinoids. CHOLECYSTECTOMY N/A PROCEDURE: HISTORICAL CHOLECYSTECTOMY TUBAL LIGATION PROCEDURE: HISTORICAL TUBAL LIGATION HYSTERECTOMY N/A PROCEDURE: HISTORICAL HYSTERECTOMY Medical History Medical History Date Comments Essential hypertension DX:Essent ial hypertension Mixed hyperlipidemia DX:Mixed hy perlipidemia Type 2 diabetes mellitus wit hout complication ([facility] V24, [facility] V28) DX:Type 2 diabetes mellitus without complication ([facility]) Benign paroxysmal positional vertigo due to bilateral vestibular disorder DX: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 ([facility] V28) DX:Carcinoid tumor determine d by [...] Description 02/23/2026 10:30 AM EDT Office Visit [facility] Hematology Oncology [address] [place] [address] aKrissa Jefferson MD [address] [place] [address] Health Maintenance Due Date Last [...] 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 ([facility] V28) CBC WITH AUTO DIFFERENTIAL Routine 02/21/2025 10:49 AM EDT 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 (CMS/HCC V28) GASTRIN Routine 02/21/2025 10:49 AM EDT 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 (CMS/HCC V28) COMPREHENSIVE METABOLIC PANEL Routine 02/21/2025 10:49 AM EDT 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 ([facility]/HCC V28) CBC AND DIFFERENTIAL Routine 02/21/2025 10:49 AM EDT 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 (CMS/HCC V28) ..MISCELLANEOUS REFERENCE LAB TEST 01/24/2025 ..MISCELLANEOUS REFERENCE LAB TEST 01/24/2025 from Last 3 Months Results * (ABNORMAL) CBC auto differential (02/21/2025 10:49 AM EDT) Pathologist [facility] WBC 9.2 4.8 - 10.8 K/mcL LAB HEMETOLOGY METHOD 02/21/2025 12:21 PM EDT [facility] RBC 5.10(H) 3.80 - 4.80 [...] [place] LAB [facility] 0.0 <1.0 % LAB HEMETOLOGY [...] LAB HEMETOLOGY METHOD 02/21/2025 12:21 PM EDT [facility] Immature Granulocytes Absolute 0.05(H) 0.00 - 0.03 K/[facility] LAB HEMETOLOGY METHOD 02/21/2025 12:21 PM EDT [facility] Blood Venous blood specimen / Unknown Venipuncture / Unknown 02/21/2025 10:49 AM EDT 02/21/2025 11:37 AM EDT us Karissa Jefferson MD LAB BLOOD ORDERABLE S Final Result [facility] [address] [place] [address], [place] [phone] * CHROMOGRANIN A - Miscellaneous Test (02/21/2025 10:49 AM EDT) Scan Result See Scanned Result 02/28/2025 7:54 AM EDT [facility] Serum 02/21/2025 10:4 9 AM EDT 02/25/2025 11:21 AM EDT us Karissa Jefferson MD LAB BLOOD ORDERABLE S Final Result [facility] [address] [place] [address] [facility] [address] [place] [address], [place] [phone] * (ABNORMAL) Gastrin (02/21/2025 10:49 AM EDT) Gastrin 557(H) 13 - 115 pg/mL 02/25/2025 2:39 PM EDT [facility] Comment: The Siemens [employer] Immulite 2000 chemiluminescent immunoassay is used. Results obtained with different assay methods or kits cannot be used interchangeably. Results cannot be interpreted as absolute evidence of the presence or absence of malignant disease. Test performed at [facility], [address], [place], [place] ??[address] ? [phone] Brooke Hirsch MD, PhD - Senior Policy Analyst Blood Venous blood specimen / Unknown Venipuncture / Unknown 02/21/2025 10:49 AM EDT 02/21/2025 11:37 AM EDT Karissa Jefferson MD LAB BLOOD ORDERABLE S Final Result [facility] [address] [place] [address] * (ABNORMAL) Comprehensive metabolic panel (02/21/2025 10:49 [...] LAB CHEMISTRY METHOD 02/21/2025 12:19 PM T [facility] Comment:Calculation based on the??Chronic Kidney Disease Epidemiology Collaboration (CKD-EPI) equation refit??without adjustment for race. BUN/Creatinine Ratio 16.1 LAB CHEMISTRY METHOD 02/21/2025 12:19 PM T [facility] Calcium 9.9 8.5 - 10.5 [...] MD LAB BLOOD ORDERABLE S Final Result [facility] [address] [place] [address], * Miscellaneous reference lab test (01/24/2025) Only the most recent of2 resultswithin the time period is included. us Provider Onbase LAB BLOOD ORDERABLES Final Re sult from Last 3 Months Insurance [facility] Symplified PLAN Care Teams Company Truck Driver Relationship Specialty Start Date End Date Iza Hi MD [address] [facility] D/B/A: [place] [facility] [place], [place] PCP - General Internal Medicine 04/02/21
--- OUTSIDE RECORDS SUMMARY | 2025-04-02 11:51 | XMS_ITS ---
Author Organization [facility] Address [address] [place] [address] Care Team Providers Care Plant Taxonomy Teacher Name Role Phone Iza Rea Primary [...] as needed Orally Once a day Active Zdjizevzyt-QGLU-Adohauih 50-325-40 MG 1 tablet as needed Orally [...] Problem Status W/U Status Risk Notes Problem [id number] Colon cancer screening (Z12.11) Active confirmed Vital Signs Temperature 97.7 degrees Fahrenheit 12/25/19 25 Blood pressure systolic 001 mm Hg 12/25/19 25 Blood pressure diastolic 001 mm Hg 025 Height 62 in 12/25/2024 Weight 151.8 lbs 12/25/2024 BMI 27.76 kg/m2 12/25/2024 Encounters Encounter Location Date Provider Diagnosis [facility] [address] [place] [address] 12/25/2024 Jj Harpreet Munson Epigastric pain R10.13 [...] Provider Name:Jj borrego , 02/18/2026 11:10:00 AM, [address] [place] [address], [address], [place], [address], Progress Notes * CARMINE DAWSON IDOB: (59 yo F)Acc No.[id number]:12/25/2024 Progress Notes Patient:?LESLY DAWSON I Provider:?Jj Mullins MD :1965???Age:59 Y???Sex:Female D ate:12/25/2024 Address:[facility] [address], [place], [place] Pcp:Iza Hi Subjective: * Chief Complaints: * [...] in the past year??No,?Points?0,?Interpretation?Negative.?Miscellaneous:?Marital status: . 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 * Medications:?Taking Losartan Potassium 25 MG Tablet 1 tablet Orally Once a day, Taking Simvastatin 20 MG Tablet 1 tablet in the evening Orally Once a day, Taking glipiZIDE XL 10 MG Tablet Extended Release 24 Hour 1 tablet Orally Once a day, Taking Meclizine HCl 25 MG Tablet Chewable 1 tablet as needed Orally Once a day, Taking Wdxrxwpbxb-IADD-Nnjujyih 50-325-40 MG Tablet 1 tablet as needed [...] 12/25/2024)* sched for 02/07/25 at 11:[address] [facility] 3.?Colon cancer screening?Procedure: COLONOSCOPY (Ordered for 12/25/2024)* [facility] * Immunizations:? Influenza (Not administered - Refused: [...] MD Date:?0 12/25/2024 Generated for Sauli francine/Karolina/Kanitting on:?04/02/2025 11:51 AM EDT History and Physical Notes * [...]
--- OUTSIDE RECORDS SUMMARY | 2025-04-02 11:51 | XMS_ITS ---
Author Organization [facility] Address [address] [place] [address] Care Team Providers Care Medical Reception Specialist Name Role Phone Iza Rea Primary Care Provider Unavailab Jj Bullard Jr Medications Medication SIG (Take, Route, Fr equency, Duration) Notes Start Date End Date Status Diflucan 200 MG 1 tablet Orally DAILY for 14 days 02/11/2025 Active Encounters Encounter Location Date Provider Diagnosis [facility] [address] [place] [address] 02/11/2025 Jj Mullins Jr Michelle esophagitis B37.81 Assessments Encounter Date Diagnosis (ICD Code) Assessment Notes Treatment Notes Treatment Clinical Notes Section Notes 02/11/2025 Michelle esophagitis (ICD-10 - B37.81) Plan Of Treatment Medication Medication Name Sig Start Date Stop Date Notes Diflucan 200 MG 1 tablet Orally DAILY for 14 days 02/12/20 Next Appt Details Provider Name:Jj borrego Jr, 02/18/2026 11:10:00 AM, [address], [address], [place], [address], Progress Notes * CARMINE DAWSON IDOB: (59 yo F)Acc No.[id number]:02/11/2025 Patient:?LESLY DAWSON I :1965???Age:59 Y???Sex:Female Address:[place], [address] * Refills? Start Diflucan Tablet, 200 MG, [...] true * Date:? Generated for Raul escamilla/Karolina/eTransmitting on:?04/02/2025 11:51 AM EDT
--- OUTSIDE RECORDS SUMMARY | 2025-04-02 11:51 | XMS_ITS | Clinical Summary ---
Author Organization [facility] Address [address] [place] [address] Care Team Providers Care Installer Apprentice Name Role Phone Iza Rea MD Primary [...] age to complete this topic Care Teams Installer Apprentice Relationship Specialty Start Date End Date Iza Rea MD [address] [place] [address] , [address] [facility] D[facility] [place] [facility] [place] [address] PCP - General Internal Medicine 05/04/17
== END 2025-04-02 10:32 | disposition home or self-care (01) ==
LOC: HO.MAMMO 10:31
PROVIDERS: PCP Internal Medicine; Visit Provider Internal Medicine
DX: Z12.31 Encounter for screening mammogram for malignant neoplasm of breast (principal)
CPT/HCPCS: 77063; 77067

== ENCOUNTER → 2025-04-02 11:00 | Outpatient (BNV) | payer OTHER, SELFPAY | PROVIDERS: PCP Internal Medicine; Visit Provider Internal Medicine | DX: Z12.31 Encounter for screening mammogram for malignant neoplasm of breast (principal) | CPT/HCPCS: 77063; 77067 ==

== ENCOUNTER 2025-04-18 07:09 | Outpatient (REF) | payer OTHER, SELFPAY ==
[2025-04-18 09:02] LABS: Alanine Aminotransferase 29 U/L (0-31); Albumin Level 4.7 g/dL (3.5-5.0); Alkaline Phosphatase 52 U/L (39-117); Anion Gap 16 (12-20); Aspartate Amino Transferase 24 U/L (5-31); Bilirubin Total 0.5 mg/dL (0.0-1.0); Blood Urea Nitrogen 24 mg/dL (9-16); Calcium 10.3 mg/dL (8.4-10.2); Carbon Dioxide 29 mmol/L (22-29); Chloride 101 mmol/L (96-108); Cholesterol 150 mg/dL (<200); Estimated Glomerular Filt Rate > 60; Glucose Fasting 221 mg/dL (60-99); HDL Cholesterol 54 mg/dL (>40); LDL Cholesterol Calculated 84 mg/dL (<100); Potassium 4.3 mmol/L (3.3-5.1); Sodium 142 mmol/L (135-145); Total Protein 7.5 g/dL (6.5-8.0); Triglycerides 60 mg/dL (<150)
[2025-04-18 09:16] LABS: Cortisol Random 2.4 ug/dL
[2025-04-27 20:08] LABS: Dexamethasone 738 ng/dL
== END 2025-04-18 07:10 | disposition home or self-care (01) ==
LOC: HO.LAB 07:09
PROVIDERS: PCP Internal Medicine; Visit Provider Internal Medicine Endocrinology, Diabetes & Metabolism
DX: E24.9 Cushing's syndrome, unspecified (principal); E78.5 Hyperlipidemia, unspecified
CPT/HCPCS: 36415; 80053; 80061; 80299; 82533

== ENCOUNTER 2025-04-22 08:44 | Outpatient (REF) | payer OTHER, SELFPAY ==
[2025-05-14 14:14] LABS: Saliva Cortisol 0.07 mcg/dL
== END 2025-04-22 08:45 | disposition home or self-care (01) ==
LOC: HO.LNP 08:44
PROVIDERS: Visit Provider Student in an Organized Health Care Education/Training Program
DX: D35.01 Benign neoplasm of right adrenal gland (principal)
CPT/HCPCS: 82530

== ENCOUNTER 2025-04-23 08:36 | Outpatient (REF) | payer OTHER, SELFPAY ==
[2025-05-12 12:23] LABS: Saliva Cortisol 0.07 mcg/dL
== END 2025-04-23 08:37 | disposition home or self-care (01) ==
LOC: HO.LNP 08:36
PROVIDERS: Visit Provider Student in an Organized Health Care Education/Training Program
DX: D35.00 Benign neoplasm of unspecified adrenal gland (principal)
CPT/HCPCS: 82530

== ENCOUNTER 2025-05-01 12:18 | Outpatient (REF) | payer OTHER, SELFPAY ==
--- NOTE | ~2025-05-01 | US_ITS ---
CLINICAL HISTORY: N20.0 - Calculus of kidney Ultrasound kidneys. COMPARISON: US renal bi dated 07/14/23 at 09:50 EDT Technique: Real time sonographic imaging, including color-flow imaging, was performed by the pollution control chemist. Multiple footwear sales representative static images were saved for review. FINDINGS: Right kidney: There is decreased corticomedullary differentiation. Diffusely echogenic renal pyramids. Right renal anechoic simple cyst in the midportion measuring 2.2 x 2.2 x 2.1 cm. Anechoic simple cyst in the midportion of the right kidney measuring 0.6 x 0.8 x 0.6 cm. Nonobstructing right renal calculus measuring 0.5 x 0.3 x 0.4 cm in the midportion. Nonobstructing renal calculus measuring 0.6 x 0.4 x 0.5 cm in the midportion. No hydronephrosis. Right kidney size: 10.1 x 4.3 x 4.3 cm Left kidney: Decreased corticomedullary differentiation. Diffusely echogenic renal pyramids. Nonobstructing left renal calculus in the lower pole measuring 0.5 x 0.3 x 0.6 cm. Anechoic simple cyst in the upper pole of the left kidney measuring 5.6 x 5.2 x 5.4 cm. Anechoic simple cyst in the midportion of the left kidney measuring 0.6 x 0.5 x 0.5 cm. Anechoic simple cyst in the lower pole of the left kidney measuring 0.6 x 0.5 x 0.6 cm. Nonobstructing left renal calculus in the midportion measuring 1.0 x 0.8 x 0.7 cm. Nonobstructive renal calculus of the lower pole measuring 0.4 x 0.2 x 0.3 cm. No hydronephrosis. Left kidney size: 10.8 x 4.9 x 4.8 cm. IMPRESSION: 1. No evidence of renal obstruction. 2. Echogenic renal pyramids consistent with medullary nephrocalcinosis. 3. Multiple nonobstructing renal calculi measuring up to 0.6 cm on the right and 1.0 cm on the left. 4. Multiple simple renal cysts present measuring up to 5.6 cm on the left and 2.2 cm on the right. This document has been electronically signed by: Kun Card MD on 05/01/2025 15:22:01
--- OUTSIDE RECORDS SUMMARY | 2025-05-01 14:23 | XMS_ITS | Encounter Summary ---
Author Organization [facility] Address [address] [place] [phone] Phone Care Team Providers Care Job Press Feeder Name Role Phone Iza Rea MD Primary Care Provider [phone] Reason for Referral * Genetic Testing (Routine) - Closed Specialty Diagnoses / Procedures Referred By Shannan blair Referred To Contact Diagnoses Personal history of kidney stones Medullary sponge kidney Procedures Litholink Requisition Raúl Babb MD [address] [address] Phone: tel: fax: Referral ID Status Reason Start Date Expiration Date Visits Re quested Visits Authorized [id number] Closed 04/24/2025 04/24/2026 1 1 Encounter Details Date Type Department Care Team (Latest Contact Info) Description 04/24/2025 Office Communication [facility] [address] [address] Raúl Babb MD [facility] [address] [address] Personal history of kidney stones (Primary Dx); Medullary sponge kidney Social History Tobacco Use Types Packs/Day Years [...] Visit [facility] [address] [place] [address] Raúl Babb MD [address] [facility] [address] [place] [id number] Scheduled Orders Name Type Priority Associated Diagnoses Orde r Schedule PTH, Intact Lab Routine Personal history of kidney stones Medullary sponge kidney Expected: 04/24/2025, Expires: 05/25/2026 Renal Function Panel Lab Routine Personal history of kidney stones Medullary sponge kidney Expected: 04/24/2025, Expires: 05/25/2026 Urinalysis with microscopic Lab Routine Personal history of kidney stones Medullary sponge kidney Expected: 04/24/2025, Expires: 05/25/2026 Urine Albumin / Creatinine Ratio Lab Routine Personal history of kidney stones Medullary sponge kidney Expected: 04/24/2025, Expires: 05/25/2026 Urine Culture Lab Routine Personal history of kidney stones Medullary sponge kidney Expected: 04/24/2025, Expires: 05/25/2026 Protein, Total, Random Urine w/Creatinine (Protein/Creat Ratio) Lab Routine Personal history of kidney stones Medullary sponge kidney Expected: 04/24/2025, Expires: 05/25/2026 Vitamin D 25 Hydroxy Lab Routine Personal history of kidney stones Medullary sponge kidney Expected: 04/24/2025, Expires: 05/25/2026 CBC Lab Routine Personal history of kidney stones Medullary sponge kidney Expected: 04/24/2025, Expires: 05/25/2026 Phosphorus Lab Routine Personal history of kidney stones Medullary sponge kidney Expected: 04/24/2025, Expires: 05/25/2026 Magnesium Lab Routine Personal history of kidney stones Medullary sponge kidney Expected: 04/24/2025, Expires: 05/25/2026 Albumin Lab Routine Personal history of kidney stones Medullary sponge kidney Expected: 04/24/2025, Expires: 05/25/2026 Calcium Lab Routine Personal history of kidney stones Medullary sponge kidney Expected: 04/24/2025, Expires: 05/25/2026 Litholink Requisition Lab Routine Personal history of kidney stones Medullary sponge kidney Expected: 04/24/2025, Expires: 05/25/2026 documented as of this encounter Visit Diagnoses Diagnosis Personal history of kidney stones- Primary Medullary sponge kidney documented in this encounter Care Teams Job Press Feeder Relationship Specialty Start Date End Date Iza Rea MD [address] [place], [place] PCP - General 12/07/20 documented as of this encounter
== END 2025-05-01 12:19 | disposition home or self-care (01) ==
LOC: HO.US 12:18
PROVIDERS: PCP Internal Medicine; Visit Provider Nurse Practitioner Family
DX: N20.0 Calculus of kidney (principal)
CPT/HCPCS: 76775

== ENCOUNTER → 2025-05-01 12:23 | Outpatient (BNV) | payer OTHER, SELFPAY | PROVIDERS: PCP Internal Medicine; Visit Provider Radiology Diagnostic Radiology | DX: N20.0 Calculus of kidney (principal); N28.1 Cyst of kidney, acquired | CPT/HCPCS: 76775 ==

== ENCOUNTER 2025-05-14 11:28 | Outpatient (AMB) | payer OTHER, SELFPAY ==
--- NOTE | 2025-05-14 11:29 | MHC.OFFVIS ---
Intake Visit Reasons: 3m/US(set) Intake Note: Patient is present for Follow up bilateral nephrolithiasis/ultrasound (imaging 05/01/25) Urology Medications:ALLOPURINOL Blood Thinner: none Assistant Program Manager Required: No Assistant Program Manager Services: Assistant Program Manager Offered & Declined Accompanied by: Child Allergies aspirin (ASPIRIN) Allergy (Severe, Verified 05/14/25 21:31) HX ULCER NSAIDS (Non-Steroidal Anti-Inflamma (NSAIDS) Allergy (Severe, Verified 05/14/25 21:31) HX ULCER codeine Adverse Reaction (Verified 05/14/25 21:31) Stomach Upset empagliflozin (From Jardiance) Adverse Reaction (Verified 05/14/25 21:31) hematuria oxycodone Adverse Reaction (Verified 05/14/25 21:31) Stomach Upset Medication List - Last Reconciled 05/14/25 by ROBYN Lu allopurinol 100 mg PO DAILY blood sugar diagnostic Use 1 test strip once a day blood-glucose meter As directed glipizide 10 mg (2 x 5 mg) PO DAILY PRN hydrochlorothiazide 25 mg PO DAILY 90 days losartan 25 mg PO DAILY 90 days meclizine 25 mg PO DAILY PRN 30 days metformin 1,000 mg PO BID 90 days omeprazole 40 mg PO DAILY pen needle, diabetic Use pen needle once a day potassium citrate ER 20 mEq (2 x 10 mEq (1,080 mg)) PO BID simvastatin 40 mg PO BEDTIME HPI Comments Details: Lisa dobbins 59-year-old female patient of Dr. River who was accompanied by her son at today's office visit. She has a past medical history of pituitary microadenoma, William disease, bilateral nephrolithiasis, pancreatic mass, renal cysts, liver mass, type 2 diabetes with neuropathy, multinodular thyroid, hyperparathyroidism, polyarthralgia, vitamin-D deficiency, hypercalcemia, GERD, chronic kidney disease, gout, hypertension, and hyperlipidemia. She presents to the office today for follow-up of her nephrolithiasis as well as medullary nephrocalcinosis. In discussion with the patient today she reports to be doing and feeling well. She denies having had any bothersome urinary issues or concerns since her last office visit. Recent renal imaging results were reviewed with the patient 05/21 no evidence of renal obstruction. Echogenic renal pyramids consistent with medullary nephrocalcinosis. Multiple nonobstructing renal calculi measuring up to 6 mm on the right and 10 mm on the left. Multiple simple renal cysts present measuring up to 5.6 cm on the left in 2.2 cm on the right. She does report drinking plenty of water daily. She discusses at length her longstanding history of nephrolithiasis as well as medullary nephrocalcinosis and follows up with Nephrology as well. As well as further intervention to include ureteroscopy versus surveillance monitoring. Risks and benefits of these interventions were discussed at length. She continues to follow-up with endocrinology regarding her adrenal mass. She currently denies any bothersome urinary issues. She denies hematuria, dysuria, urinary urgency, urinary incontinence, urinary frequency, fever and or chills. Patient reports she continues to attempt to drink plenty of water daily in addition to adding 1 oz of lemon juice to water daily. In office urinalysis results reviewed with the patient today. Discussed at length potential causes for nephrolithiasis. She otherwise offers no issues or concerns at this time. [facility] Medical History Polyarthralgia Left shoulder pain Adrenal mass Elevated cholesterol Migraine Pituitary microadenoma Keiser's disease Bilateral nephrolithiasis Pancreatic mass Renal cyst Renal cysts and diabetes syndrome Liver mass Physical exam Type 2 diabetes with nephropathy Multinodular thyroid Hyperparathyroidism Vitamin D deficiency Hypercalcemia Hypercortisolism Adrenal cortical adenoma of right adrenal gland Right knee pain Type 2 diabetes mellitus with unspecified complications Tachycardia Type 2 diabetes mellitus with hyperglycemia, with long-term current use of insulin Vitamin D deficiency Adrenal nodule Carcinoid tumor of stomach Chronic kidney disease GERD (gastroesophageal reflux disease) Gout Stomach ulcer Hx of renal calculi Essential hypertension Hyperlipidemia LDL goal <100 Surgical History Hx of cystoscopy History of esophagogastroduodenoscopy (EGD) H/O colonoscopy History of gastric polyp Hx of lithotripsy Hx of hysterectomy Hx of cholecystectomy Family History Father CVD (cardiovascular disease) Stomach cancer Mother Diabetes Social History Household Members: Family Housing: Apartment Are you a primary aged or disabled care worker to a significant other at home: No Do you presently have visiting nurse or other home services: No Alcohol intake: never Patient Tobacco Use Status: Never used Tobacco e-Cigarette/Vaping Use: Never Used Second Hand Smoke Exposure: No service: No Current occupational status: unemployed Current occupation: rt handed Cognitive needs: No Hearing needs: No Vision needs: Yes Review of Systems Const Reports as per [facility] Eyes Reports no additional complaints ENT Reports no additional complaints Card Reports as per [facility] Resp Reports no additional complaints GI Reports as per [facility] Reports as per [facility] Musc Reports as per [facility] Neuro Reports as per [facility] Psych Reports as per [facility] Endo Reports as per [facility] Physical Exam Const General: cooperative, healthy appearing, comfortable, no acute distress, well developed, alert and awake Orientation/consciousness: patient oriented x3 Limitations: no limitations HEENT Head: Yes normal to inspection, Yes normocephalic and Yes atraumatic Ears: hearing grossly normal bilaterally Neck Neck: Yes normal visual inspection and Yes trachea midline Chest Chest palpation & inspection: normal inspection of the chest Resp Effort & Inspection: normal respiratory effort and able to speak in complete sentences Cardio Rate: regular rate GI Inspection: Yes normal to inspection General: Yes no CVA tenderness Back/Spine/Pelvis Back: no CVA tenderness Neuro General: patient oriented x3 Extrem General: Yes normal to inspection Psych Appearance: grossly normal and well kempt Mental Status: mental status grossly normal Speech and movement: Normal speech and movement present and Clear speech present Affect: normal affect Attitude: cooperative Thought process: Normal thought process present Thought content: Normal thought content present Insight: Fair insight present (Psych) Judgement: Fair judgement present (Psych) Results AMB Urinalysis, Automated UA Leukoctes 0 Fatimah/uL Last Edit by Ana Baker MA on 05/14/25 11:43 UA Nitrite Negative Last Edit by Ana Baker MA on 05/14/25 11:43 UA Urobilinogen 3.5 mg/dL Last Edit by Ana Baker MA on 05/14/25 11:43 UA Protein 0.3 mg/dL Last Edit by Ana Baker MA on 05/14/25 11:43 UA pH 6.0 Last Edit by Ana Baker MA on 05/14/25 11:43 UA Blood 0 Rich/uL Last Edit by Ana Baker MA on 05/14/25 11:43 UA Specific [place] 1.015 Last Edit by Ana Baker, ERIK on 05/14/25 11:43 UA Ketone Negative Last Edit by Anaeva BakerERIK on 05/14/25 11:43 UA Bilirubin 0 mg/dL Last Edit by Ana BakerERIK on 05/14/25 11:43 UA Glucose 0 mg/dL Last Edit by Ana BakerERIK on 05/14/25 11:43 Results Reviewed Results Reviewed: Laboratory Last Values Urine pH (Auto) 6.0 05/14/25 11:38 Specific [place] (Auto) 1.015 05/14/25 11:38 Urine Protein (Auto) 0.3 mg/dL 05/14/25 11:38 Glucose (UA)(Auto) 0 mg/dL 05/14/25 11:38 Urine Ketones (Auto) Negative 05/14/25 11:38 Urine Blood (Auto) 0 Rich/uL 05/14/25 11:38 Urine Nitrite (Auto) Negative 05/14/25 11:38 Urine Bilirubin (Auto) 0 mg/dL 05/14/25 11:38 Urine Urobilinogen (Auto) 3.5 mg/dL 05/14/25 11:38 Leukocyte Esterase (Auto) 0 Fatimah/uL 05/14/25 11:38 Date of Service: 05/01/25 Procedure(s): US renal BI FINDINGS: Right kidney: There is decreased corticomedullary differentiation. Diffusely echogenic renal pyramids. Right renal anechoic simple cyst in the midportion measuring 2.2 x 2.2 x 2.1 cm. Anechoic simple cyst in the midportion of the right kidney measuring 0.6 x 0.8 x 0.6 cm. Nonobstructing right renal calculus measuring 0.5 x 0.3 x 0.4 cm in the midportion. Nonobstructing renal calculus measuring 0.6 x 0.4 x 0.5 cm in the midportion. No hydronephrosis. Right kidney size: 10.1 x 4.3 x 4.3 cm Left kidney: Decreased corticomedullary differentiation. Diffusely echogenic renal pyramids. Nonobstructing left renal calculus in the lower pole measuring 0.5 x 0.3 x 0.6 cm. Anechoic simple cyst in the upper pole of the left kidney measuring 5.6 x 5.2 x 5.4 cm. Anechoic simple cyst in the midportion of the left kidney measuring 0.6 x 0.5 x 0.5 cm. Anechoic simple cyst in the lower pole of the left kidney measuring 0.6 x 0.5 x 0.6 cm. Nonobstructing left renal calculus in the midportion measuring 1.0 x 0.8 x 0.7 cm. Nonobstructive renal calculus of the lower pole measuring 0.4 x 0.2 x 0.3 cm. No hydronephrosis. Left kidney size: 10.8 x 4.9 x 4.8 cm. IMPRESSION: 1. No evidence of renal obstruction. 2. Echogenic renal pyramids consistent with medullary nephrocalcinosis. 3. Multiple nonobstructing renal calculi measuring up to 0.6 cm on the right and 1.0 cm on the left. 4. Multiple simple renal cysts present measuring up to 5.6 cm on the left and 2.2 cm on the right. Assessment & Plan Assessment & Plan (1) Nephrolithiasis: Code(s): N20.0 - Calculus of kidney Category: Medical (2) Renal cyst: Code(s): N28.1 - Cyst of kidney, acquired Category: Medical (3) Bilateral nephrolithiasis: Code(s): N20.0 - Calculus of kidney Category: Medical Plan In office urinalysis results reviewed with the patient today; as noted above. Recent renal imaging results with the patient today; as noted above. We discussed at length stone burden and further interventions to include ureteroscopy verses surveillance monitoring; risks and benefits of these interventions were discussed. Patient currently denies any bothersome urinary issues or concerns. She reports be happy with current voiding parameters. Will obtain [facility] for further assessment evaluation. Continue to follow-up with endocrinology nephrology as planned. Continue drinking plenty of water daily and adding 1 oz of lemon juice to water daily Will obtain renal ultrasound in 6 months. Follow-up in 6 months with imaging and [facility]; or sooner with any issues, concerns, and or questions. Orders: Orders AMB Urinalysis Automated Today Z13.9 - Encounter for screening, unspecified URORISK Today N20.0 - Calculus of kidney, N28.1 - Cyst of kidney, acquired US renal BI 6 Months N20.0 - Calculus of kidney Medications: Refilled pyridoxine (vitamin B6) 100 mg PO DAILY 90 tabs 1RF 90 days Patient Instructions: The patient had an opportunity to ask questions regarding the treatment plan. All questions were answered. Physical exam, labs, and imaging were discussed and reviewed in detail. As well as risks, benefits, and discussion of treatment choices. No major barriers to understanding were identified. The patient expressed understanding and agreement with the above treatment plan. The patient was made aware they should contact our office by phone for worsening of their current condition, the appearance of new symptoms, or with any questions or concerns. Compliance is encouraged with any medications and follow up testing that is ordered. It is a privilege to be allowed the opportunity to participate in? your urological care.? Again, if you have any questions or concerns If you have any questions or concerns please do not hesitate to contact me. The office is [phone]. This note is constructed using voice recognition software. While every effort has been made to ensure accuracy manager of distribution errors may have been included. Yours sincerely, KARYN Lu Coding Level of Care Code Est Pt Level 3 (90916) Complex EM visit Add On G2211 Diagnoses Nephrolithiasis N20.0 Renal cyst N28.1 Bilateral nephrolithiasis N20.0
--- OUTSIDE RECORDS SUMMARY | 2025-05-14 13:24 | XMS_ITS | Encounter Summary ---
Author Organization [facility] Address [address] [place] [phone] Phone Care Team Providers Care Tour Driver Name Role Phone Iza Rea MD Primary Care Provider [phone] Reason for Referral * Genetic Testing (Routine) - Closed Specialty Diagnoses / Procedures Referred By Shannan blair Referred To Contact Diagnoses Personal history of kidney stones Medullary sponge kidney Procedures [facility] Requisition Raúl Babb MD [address] [address] Phone: tel: fax: Referral ID Status Reason Start Date Expiration Date Visits Re quested Visits Authorized [id number] Closed 04/24/2025 04/24/2026 1 1 Encounter Details Date Type Department Care Team (Latest Contact Info) Description 04/24/2025 Office Communication [facility] [address] [id number] Raúl Babb MD [facility] [address] [phone] Personal history of kidney stones [...] Visit [facility] [address] [place] [address] Raúl Babb MD [address] [address] [place] [id number] Scheduled Orders Name Type Priority Associated Diagnoses [...] kidney documented in this encounter Care Teams Tour Driver Relationship Specialty Start Date End Date Iza Rea MD [address] [place], [place] PCP - General 12/07/20 documented as of this encounter
== END 2025-05-14 11:57 | disposition home or self-care (01) ==
LOC: HO.HUSH 11:29
PROVIDERS: PCP Internal Medicine; Visit Provider Nurse Practitioner Family
DX: N20.0 Calculus of kidney (principal); N28.1 Cyst of kidney, acquired; Z13.9 Encounter for screening, unspecified
CPT/HCPCS: 99213; G2211

== ENCOUNTER → 2025-05-14 11:28 | Outpatient (BNVA) | payer OTHER, SELFPAY | PROVIDERS: PCP Internal Medicine; Visit Provider Nurse Practitioner Family | DX: N20.0 Calculus of kidney (principal); N28.1 Cyst of kidney, acquired | CPT/HCPCS: 81003; 99212 ==

== ENCOUNTER 2025-05-28 10:16 | Outpatient (AMB) | payer OTHER, SELFPAY ==
[2025-05-28 10:27] VITALS: BP 108/68; PULSE 77; O2SAT 97; BMI 27.3
--- NOTE | 2025-05-28 10:27 | MHC.OFFVIS ---
Vital Signs 05/28/25 10:27 Height 5 ft 2 in Weight 149 lb 4.047 oz BMI 27.3 BP 108/68 Blood Pressure Location Rt brachial Position Sitting Pulse 77 Pulse Source Pulse Oximeter Pulse Oximetry (%) 97 Oxygen Delivery Method Room Air Intake Visit Reasons: Adrenal adenoma Intake Note: Patient present today for Adrenal Adenoma follow up. Mobile Device Engineer Required: No Accompanied by: Self / Same As Patient Allergies aspirin (ASPIRIN) Allergy (Severe, Verified 05/28/25 10:27) HX ULCER NSAIDS (Non-Steroidal Anti-Inflamma (NSAIDS) Allergy (Severe, Verified 05/28/25 10:27) HX ULCER codeine Adverse Reaction (Verified 05/28/25 10:27) Stomach Upset empagliflozin (From Jardiance) Adverse Reaction (Verified 05/28/25 10:27) hematuria oxycodone Adverse Reaction (Verified 05/28/25 10:27) Stomach Upset Medication List - Last Reconciled 05/28/25 by Seven Vo MD allopurinol 100 mg PO DAILY blood sugar diagnostic Use 1 test strip once a day blood-glucose meter As directed cholecalciferol (vitamin D3) 25 mcg orally 3 times per week; 90 days glipizide 10 mg (2 x 5 mg) PO DAILY PRN hydrochlorothiazide 25 mg PO DAILY 90 days losartan 25 mg PO DAILY 90 days meclizine 25 mg PO DAILY PRN 30 days metformin 1,000 mg PO BID 90 days omeprazole 40 mg PO DAILY pen needle, diabetic Use pen needle once a day potassium citrate ER 20 mEq (2 x 10 mEq (1,080 mg)) PO BID pyridoxine (vitamin B6) 100 mg PO DAILY 90 days simvastatin 40 mg PO BEDTIME HPI Comments Details: 59 YO Female with a PMHx of gastric carcinoid, medullary sponge kidney who is seen in F/U for multiple endocrine related problems, William's Disease, pituitary microadenoma, adrenal adenoma, 1) 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 She underwent a CT adrenal protocol 12/24/2021 with identification of a R adrenal adenoma measuring 3.1 cm. Precontrast HU -9.24, with absolute washout of 53.9% and relative washout of 63.5%. MRI 06/01/2022 which revealed a 3.0 cm well circumscribed hypodense mass of the R adrenal gland with soft tissue attenuation. Most recent imaging is a CT of the abdomen dated 02/27/2023 now measuring 3.3 cm. This was not completed via adrenal protocol so no washout characteristics or precontrast HU are available. She underwent a dexamethasone suppression test 08/18/2020 which revealed Cortisol 1.9, ACTH <5 and Dexamethasone 268. Because this was slightly above the upper limit of normal (1.8) she additionally underwent midnight salivary cortisol testing. This was WNL x 2. She underwent a salivary cortisol profile, which was abnormal, with cortisol rising at 12 noon before returning to normal. This was repeated again and was abnormal for a second time. She repeated her 1 mg overnight DSST 05/24/2022 with Cortisol 2.5, ACTH 6 and Dex 240. She underwent an MRI of the pituitary as her morning ACTH was in the indeterminate range (10), and this did reveal question of a 4 mm pituitary microadenoma. The remainder of her pituitary panel was completely WNL, with gonadotropins appropriate for a postmenopausal female. She is currently not using any medications that impair or accelerate dexamethasone metabolism. She was referred to [facility] for IPSS with Dr. Tavon Lala, but was unable to schedule this due to issues with transporation. She is seen today in F/U. 2) Hyperparathyroidism: Labs did reveal hypercalcemia, and appeared consistent with primary hyperparathyroidism. Labs 12/14/2021 Calcium 10.1, PTH 46, Vitamin D 45 and Albumin 4.3. Urine calcium was high normal, and was an adequate collection. CT of the abdomen revealed multiple bialteral kidney stones as well as cysts. She is following with urology for this. She has a history of a medullary sponge kidney. She did undergo a DEXA which was WNL. She had an US of the neck which revealed multiple hypoechoic nodules, but no obvious parathyroid adenoma. She also has a documented history of gastric carcinoid. She is managed by Dr. Hortensia Alvarado of [facility]. She reports feeling well today and has no complaints. She also has a longstanding history of recurrent obstructive nephrolithiasis. 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 She underwent FNA biopsy 07/21/2022 of her thyroid with results as follows: a)LMP 1.0 cm thyroid nodule - benign cytology b)LLP 1.7 cm thyroid nodule - benign cytology CT Abdomen: 02/27/2023 FINDINGS: LUNG BASES: The visualized lung bases are unremarkable.? LIVER, GALLBLADDER, AND BILIARY TREE: The liver is normal in size, shape, and attenuation. No focal hepatic lesion or biliary ductal dilatation is present. Cholecystectomy.? PANCREAS: Unremarkable.? SPLEEN: Unremarkable.? ADRENAL GLANDS: Diminutive left adrenal gland which is not well evaluated. There is a right adrenal gland nodule. This measures 3.3 cm. This meets criteria for a lipid rich adenoma, unchanged from prior.? KIDNEYS AND URETERS: The kidneys are normal in size, shape, and attenuation. No hydronephrosis or hydroureter. No perinephric stranding. Bilateral medullary nephrocalcinosis. No obstructing calculi. Largest area of calcification on the right is at the lower pole measuring 0.6 cm, 9 cm from the posterior axillary line. The largest area of calcification on the left is seen at the upper pole measuring 0.6 cm, 9 cm from the posterior axillary line. Simple bilateral renal cysts for which no specific follow-up is recommended. BLADDER: Unremarkable.? GASTROINTESTINAL TRACT: The stomach is unremarkable. Normal caliber small bowel. No obstruction. No colonic wall thickening or acute inflammation. Normal appendix. Scattered colonic diverticulosis without diverticulitis. No free air or free fluid.? ABDOMINAL WALL: No significant hernia is appreciated.? LYMPH NODES: Normal. VASCULAR: Normal caliber aorta with mild atherosclerotic calcification. PELVIC VISCERA: Uterus not seen. No adnexal mass.? OSSEOUS STRUCTURES: No acute or suspicious osseous abnormality. Mild degenerative changes in the spine. CT/CT abdomen pelvis wo IV con IMPRESSION: 1.? Bilateral medullary nephrocalcinosis. Similar appearance to prior. No obstructing calculi. No hydronephrosis. 2.? Unchanged right adrenal gland nodule, consistent with a lipid rich adenoma. MRI Pituitary: 08/16/2022 FINDINGS: In the posterior aspect of the adenohypophysis, just anterior to the posterior pituitary bright spot, there is a 4 mm ovoid focus of relative hypoenhancement best visualized on image 14 of series 9 and faintly visualized on image 7 of series 10. The remainder of the pituitary gland enhances homogenously. No suprasellar or juxtasellar masses are identified. The infundibulum enhances normally and appears midline. The cavernous sinuses are symmetric and enhance normally with normal signal voids in the carotid siphons. DWI sequence demonstrates no restricted diffusion to suggest acute or subacute cerebral ischemia. A few small nonenhancing T2 hyperintensities are seen within the white matter of the right cerebral hemisphere, which are nonspecific findings. Remainder of the brain is normal in signal intensity. The remainder of the brain demonstrates no pathologic intracranial enhancement or mass lesion. The ventricular system and subarachnoid spaces are within normal limits without hydrocephalus. Normal signal voids are seen in the visualized major intracranial vessels. There is upper cervical discogenic degenerative change and spondylosis at C4-C5 and C5-C6 and there is bilateral TMJ arthropathy. MR/MR head/brain wo/w con IMPRESSION: 1. There is a 4 mm focus of relative hypoenhancement in the posterior aspect of the pituitary adenohypophysis, which is a somewhat equivocal finding. Cannot exclude a microadenoma. Consider follow-up MRI of the sella in 6-12 months to reassess if clinically warranted. ? 2. A few nonenhancing, nonspecific white matter T2 hyperintensities in the right cerebral hemisphere are noted. ? 3. Bilateral TMJ arthropathy and cervical DDD. DEXA: 01/11/2022 FINDINGS: LEFT FOREARM RADIUS 33%: BMD 0.919 g/cm2, Z-score 1.0, T-score 0.5, normal. AP SPINE L1-L4: BMD 1.070 g/cm2, Z-score -0.1, T-score -0.9, normal. LEFT FEMUR, NECK: BMD 0.922 g/cm2, Z-score 0.2, T-score -0.8, normal. LEFT FEMUR, TOTAL: BMD 0.999 g/cm2, Z-score 0.6, T-score -0.1, normal. IDENTIFIED RISK FACTORS: Hyperparathyroidism, low calcium intake. Early menopause, secondary osteoporosis, thiazide, hysterectomy. Thyroid US: 01/19/2022 Right Thyroid Lobe: 3.8 x 2.1 x 1.1 cm, volume 4.6 mL. Parenchyma: The gland echotexture is homogeneous. Thyroid vascularity is normal. Left Thyroid Lobe: 4.6 x 0.9 x 1.6 cm, volume 3.5 mL. Parenchyma: The gland echotexture is homogeneous. Thyroid vascularity is normal. Isthmus: 0.5 cm in maximum AP dimension. Estimated total number of nodules greater than or equal to 1 cm: 2. Lease Administration Supervisor nodules are described as follows: 1. Location: Right mid/inferior. ?? ? Size: 0.7 x 0.47 x 0.53 cm, volume 0.09 mL. ?? ? Nodule characteristics: ?? ? Composition: Cystic(0). ?? ? ACR TI-RADS total points: 0 ?? ? ACR TI-RADS category: 1 2. Location: Right mid inferior. ?? ? Size: 0.45 x 0.36 x 0.49 cm, volume 0.04 mL. ?? ? Nodule characteristics: ?? ? Composition: Cystic(0). ?? ? Echogenicity: Hyperechoic (1). ?? ? Shape: Not taller but wider 0 ?? ? Margins: Smooth (0). ?? ? Echogenic Foci: Punctate echogenic foci (3). ?? ? ACR TI-RADS total points: 6 ?? ? ACR TI-RADS category: 4 3. Location: Left superior. ?? ? Size: 0.66 x 0.54 x 0.33 cm, volume 0.06 mL. ?? ? Nodule characteristics: ?? ? Composition: Solid (2). ?? ? Echogenicity: Hypoechoic (2). ?? ? Shape: Not taller than wide (0). ?? ? Margins: Smooth (0). ?? ? Echogenic Foci: None (0). ?? ? ACR TI-RADS total points: 4 ?? ? ACR TI-RADS category: 4 4. Location: Left mid. ?? ? Size: 1.56 x 0.97 x 0.89 cm, volume 0.7 mL. ?? ? Nodule characteristics: ?? ? Composition: Solid (2). ?? ? Echogenicity: Hypoechoic (2). ?? ? Shape: Not taller than wide (0). ?? ? Margins: Smooth (0). ?? ? Echogenic Foci: Macrocalcifications (1). ?? ? ACR TI-RADS total points: 5 ?? ? ACR TI-RADS category: 4 5.? Location: Left inferior. ?? ? Size: 1.69 x 1.11 x 1.23 cm, volume 1.27 mL. ?? ? Nodule characteristics: ?? ? Composition: Spongiform (0). ?? ? Echogenicity: Anechoic (0). ?? ? Shape: Not taller than wide (0). ?? ? Margins: Smooth (0). ?? ? Echogenic Foci: None (0). ?? ? ACR TI-RADS total points: 0 ?? ? ACR TI-RADS category: 1 NODES: No lymphadenopathy is seen in the tissue surrounding the thyroid gland. There is no parathyroid lesion or adenoma seen. Labs: Laboratory Tests 02/06/23 02/06/23 02/06/23 08:00 08:00 08:00 Sodium Potassium Creatinine Estimated GFR Renin Aldosterone 25-OH Vitamin D Total TSH DHEA Sulfate PTH Intact Calcium (PTH Intact) Random Cortisol ACTH Plas Tot Catecholamine Dopamine Epinephrine Norepinephrine Plasma Free Metaneph Plasma Free Normeta Plas Total Metaneph Ur 24 Hour Volume 2225 Ur Creatinine 24 Hour 0.93 Ur Calcium 24 Hr 234 Ur Epinephrine 24 Hr see note U Norepinephrine 24 Hr 17 U Free Metanephrine 145 U Normetanephrine 24h 271 U Tot Metanephrine 24h 416 Ur Dopamine 24 Hr 94 U Tot Catecholamine 24h 17 L 02/06/23 02/06/23 02/06/23 09:15 09:15 09:15 Sodium Potassium Creatinine Estimated GFR Renin Aldosterone 6 25-OH Vitamin D Total 36.5 TSH DHEA Sulfate 21 PTH Intact 48 Calcium (PTH Intact) 9.6 Random Cortisol ACTH 7 Plas Tot Catecholamine Dopamine Epinephrine Norepinephrine Plasma Free Metaneph Plasma Free Normeta Plas Total Metaneph Ur 24 Hour Volume Ur Creatinine 24 Hour Ur Calcium 24 Hr Ur Epinephrine 24 Hr U Norepinephrine 24 Hr U Free Metanephrine U Normetanephrine 24h U Tot Metanephrine 24h Ur Dopamine 24 Hr U Tot Catecholamine 24h 02/06/23 02/06/23 02/06/23 09:15 09:15 09:15 Sodium Potassium Creatinine Estimated GFR Renin 5.10 Aldosterone 25-OH Vitamin D Total TSH DHEA Sulfate PTH Intact Calcium (PTH Intact) Random Cortisol 9.0 ACTH Plas Tot Catecholamine Dopamine Epinephrine Norepinephrine Plasma Free Metaneph 57 Plasma Free Normeta 46 Plas Total Metaneph 103 Ur 24 Hour Volume Ur Creatinine 24 Hour Ur Calcium 24 Hr Ur Epinephrine 24 Hr U Norepinephrine 24 Hr U Free Metanephrine U Normetanephrine 24h U Tot Metanephrine 24h Ur Dopamine 24 Hr U Tot Catecholamine 24h 02/06/23 02/06/23 09:15 09:15 Sodium 141 Potassium 3.9 Creatinine 0.75 Estimated GFR > 60 Renin Aldosterone 25-OH Vitamin D Total TSH 1.20 DHEA Sulfate PTH Intact Calcium (PTH Intact) Random Cortisol ACTH Plas Tot Catecholamine 270 Dopamine <20 Epinephrine 69 Norepinephrine 201 L Plasma Free Metaneph Plasma Free Normeta Plas Total Metaneph Ur 24 Hour Volume Ur Creatinine 24 Hour Ur Calcium 24 Hr Ur Epinephrine 24 Hr U Norepinephrine 24 Hr U Free Metanephrine U Normetanephrine 24h U Tot Metanephrine 24h Ur Dopamine 24 Hr U Tot Catecholamine 24h Patient was seen at [facility] neuroendocrine unit. After reading the notes from [facility] , they were not convinced that [place] syndrome was present but wanted to do a further workup . Since the previous visit, MRI of the pituitary showed no pituitary lesion. . Salivary cortisol is have been normal as well as ACTH and DHEA-S level suggesting that mild autonomous cortisol secretion is not present The patient is a 59-year-old female presenting for follow-up on adrenal and thyroid evaluations. The adrenal mass was previously evaluated, and all diagnostic tests, including salivary cortisol, ACTH, and DHAS levels, returned normal results, indicating no significant endocrine dysfunction. The mass was characterized as benign, with no evidence of malignancy, and a follow-up with [facility] was recommended to ensure continued monitoring. Regarding the thyroid, the patient had a biopsy performed, which confirmed the nodule was benign. There is a plan for further follow-up with Dr. Mchugh a specialist who can perform an ultrasound and potentially another biopsy if necessary. . [facility] Medical History Polyarthralgia Left shoulder pain Adrenal mass Elevated cholesterol Migraine Pituitary microadenoma William's disease Bilateral nephrolithiasis Pancreatic mass Renal cyst Renal cysts and diabetes syndrome Liver mass Physical exam Type 2 diabetes with nephropathy Multinodular thyroid Hyperparathyroidism Vitamin D deficiency Hypercalcemia Hypercortisolism Adrenal cortical adenoma of right adrenal gland Right knee pain Type 2 diabetes mellitus with unspecified complications Tachycardia Type 2 diabetes mellitus with hyperglycemia, with long-term current use of insulin Vitamin D deficiency Adrenal nodule Carcinoid tumor of stomach Chronic kidney disease GERD (gastroesophageal reflux disease) Gout Stomach ulcer Hx of renal calculi Essential hypertension Hyperlipidemia LDL goal <100 Surgical History Hx of cystoscopy History of esophagogastroduodenoscopy (EGD) H/O colonoscopy History of gastric polyp Hx of lithotripsy Hx of hysterectomy Hx of cholecystectomy Family History Father CVD (cardiovascular disease) Stomach cancer Mother Diabetes Social History Household Members: Family Housing: Apartment Are you a primary rn care manager to a significant other at home: No Do you presently have visiting nurse or other home services: No Alcohol intake: never Patient Tobacco Use Status: Never used Tobacco e-Cigarette/Vaping Use: Never Used Second Hand Smoke Exposure: No service: No Current occupational status: unemployed Current occupation: rt handed Cognitive needs: No Hearing needs: No Vision needs: Yes Physical Exam Vital Signs: Last Vital Signs Pulse 77 05/28/25 10:27 BP 108/68 05/28/25 10:27 Pulse Ox 97 05/28/25 10:27 Oxygen Delivery Method Room Air 05/28/25 10:27 BMI result Body Mass Index 27.3 Assessment & Plan Assessment & Plan (1) Adrenal adenoma: Code(s): D35.00 - Benign neoplasm of unspecified adrenal gland Category: Medical Plan: This is a 58-year-old female with a history of a right adrenal adenoma with imaging characteristics suggestive of benign lesion. There is a question of mild autonomous cortisol secretion. Patient was previously seen by [facility]. Workup for pheochromocytoma and primary hyperaldosteronism were negative. Repeat midnight salivary cortisol is with normal as was ACTH and DHEA-S levels suggesting mild autonomous cortisol secretion was not present. A DEXA bone density did not show any osteoporosis As The plan is to continue to observe. Suggest possible follow up at [facility]. We will have patient follow up for multinodular goiter with Dr. Mchugh an rehabilitation medicine physician in our practice with expertise in thyroid ultrasound and biopsy Coding Level of Care Code Est Pt Level 3 (96482) Diagnoses Adrenal adenoma D35.00
--- OUTSIDE RECORDS SUMMARY | 2025-05-28 10:50 | XMS_ITS | Encounter Summary ---
Author Organization [facility] [address] Address [address] [place] [phone] Phone Care Team Providers Care Body And Frame Technician Name Role Phone Iza Rea MD Primary Care Provider [phone] Reason for Referral * Genetic Testing (Routine) - Closed Specialty Diagnoses / Procedures Referred By Shannan blair Referred To Contact Diagnoses Personal history of kidney stones Medullary sponge kidney Procedures [employer]ol[employer] Requisition Raúl Babb MD [address] [address] Phone: tel: fax: Referral ID Status Reason Start Date Expiration Date Visits Re quested Visits Authorized [id number] Closed 04/24/2025 04/24/2026 1 1 Encounter Details Date Type Department Care Team (Latest Contact Info) Description 04/24/2025 Office Communication [facility] [address] [address] Raúl Babb MD [facility] [address] [address] Personal history of kidney stones [...] Visit [facility] the [address] [place] [address] Raúl Babb MD [address] [facility] [address] [place] [phone] Scheduled Orders Name Type Priority Associated Diagnoses [...] kidney documented in this encounter Care Teams Body And Frame Technician Relationship Specialty Start Date End Date Iza Rea MD [address] [place], [place] PCP - General 12/07/20 documented as of this encounter
--- OUTSIDE RECORDS SUMMARY | 2025-05-28 10:51 | XMS_ITS | Clinical Summary ---
Author Organization [facility] Address [address] [place] [address] Phone Care Team Providers Care Outdoor Pursuits Instructor Name Role Phone Iza Hi MD Primary Care Provider [phone] Allergies No known active allergies Medications allopurinoL [...] tumor determined b y biopsy of stomach ([facility] V28) 05/09/2017 Essential hypertension 05/09/2017 Mixed hyperlipidemia 05/09/2017 Type 2 diabetes mellitus wit hout complication ([facility] V24, [facility] V28) 05/09/2017 Surgical History Surgery Date Site/Laterality Comments ESOPHAGOGASTRODUODENOSCOPY 2015 N/A PROCEDURE: CA ESOPHAGOGASTRODUODENOSCOPY TRANSORAL DIAGNOSTIC; COMMENT: fall, gastric polyps. 2nd scope 10/2016 polyps removed showing micro-carcinoids. CHOLECYSTECTOMY N/A PROCEDURE: HISTORICAL CHOLECYSTECTOMY TUBAL LIGATION PROCEDURE: HISTORICAL TUBAL LIGATION HYSTERECTOMY N/A PROCEDURE: HISTORICAL HYSTERECTOMY Medical History Medical History Date Comments Essential hypertension DX:Essent ial hypertension Mixed hyperlipidemia DX:Mixed hy perlipidemia Type 2 diabetes mellitus wit hout complication ([facility] V24, [facility] V28) DX:Type 2 diabetes mellitus without complication ([facility]) Benign paroxysmal positional vertigo due to bilateral vestibular disorder DX: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 ([facility] V28) DX:Carcinoid tumor determine d by biopsy [...] 78 02/21/2025 10:32 AM EDT Temperature 36.6 C (97.9 F) 02/21/2025 10:32 AM EDT Respiratory Rate - - Oxygen Saturation 98% [...] 02/23/2026 10:30 AM EDT Office Visit [facility] Hematology Oncology [address] [place] [address] Karissa Jefferson MD [address] [place] [id number] Health Maintenance Due Date Last Done Comments [...] Procedure Name Priority Date/Time Associated Diagnosis Comments COMPREHENSIVE METABOLIC PANEL Routine 02/21/2025 10:49 AM EDT 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 ([facility] V28) from Last 3 Months or Most Recently Relevant to Health Maintenance Results * (ABNORMAL) Comprehensive metabolic panel (02/21/2025 10:49 AM EDT) Sodium 135 133 - 145 mmol/L LAB CHEMISTRY METHOD 02/21/2025 12:19 PM [facility] Potassium 3.9 3.5 - 5.5 mmol/L LAB CHEMISTRY METHOD 02/21/2025 12:19 PM [facility] Chloride 99 96 - 110 mmol/L LAB CHEMISTRY METHOD 02/21/2025 12:19 PM [facility] CO2 31 21 - 32 mmol/L LAB CHEMISTRY METHOD 02/21/2025 12:19 PM [facility] Anion Gap 5 3 - 11 LAB CHEMISTRY METHOD 02/21/2025 12:19 PM [facility] Glucose 147(H) 70 - 100 mg/dL LAB CHEMISTRY METHOD 02/21/2025 12:19 PM [facility] BUN 15 5 - 25 mg/dL LAB CHEMISTRY METHOD 02/21/2025 12:19 PM [facility] Creatinine 0.93 0.50 - 1.10 mg/dL LAB CHEMISTRY METHOD 02/21/2025 12:19 PM [facility] eGFR 71 >=60 mL/min/1. 73m2 LAB CHEMISTRY METHOD 02/21/2025 12:19 PM [facility] Comment:Calculation based on the Chronic Kidney Disease Epidemiology Collaboration (CKD-EPI) equation refit without adjustment for race. BUN/Creatinine Ratio 16.1 LAB CHEMISTRY METHOD 02/21/2025 12:19 PM [facility] Calcium 9.9 8.5 - 10.5 mg/dL LAB CHEMISTRY METHOD 02/21/2025 12:19 PM [facility] AST (SGOT) 20 10 - 42 unit/L LAB CHEMISTRY METHOD 02/21/2025 12:19 PM [facility] ALT (SGPT) 41 10 - 60 unit/L LAB CHEMISTRY METHOD 02/21/2025 12:19 PM [facility] Alkaline Phosphatase 64 42 - 121 unit/L LAB CHEMISTRY METHOD 02/21/2025 12:19 PM [facility] Total Protein 7.5 6.0 - 8.0 g/dL LAB CHEMISTRY METHOD 02/21/2025 12:19 PM [facility] Albumin 4.0 3.2 - 5.0 g/dL LAB CHEMISTRY METHOD 02/21/2025 12:19 PM [facility] Total Bilirubin 0.6 0.0 - 1.4 mg/dL LAB CHEMISTRY METHOD 02/21/2025 12:19 PM [facility] Blood Venous blood specimen / Unknown Venipuncture / Unknown 02/21/2025 10:49 AM EDT 02/21/2025 11:37 AM EDT us Subramony Li [facility] BLOOD ORDERABLE S Final Result [facility] [address] [place] [address], [place] [phone] from Last 3 Months or Most Recently Relevant to Health Maintenance Insurance [employer] Care Teams Outdoor Pursuits Instructor Relationship Specialty Start Date End Date Iza Hi MD [address] [facility] , [address] [facility] D/B/A: [facility] [place], [place] PCP - General Internal Medicine 04/02/21
--- OUTSIDE RECORDS SUMMARY | 2025-05-28 10:51 | XMS_ITS | Patient Health Record ---
Author Organization [facility] Address [address] [place] [address] Care Team Providers Care Rivet Maker Name Role Phone Iza Rea Primary Care Provider Jj Terry Jr Unavailable Allergies Allergen (clinical drug ingredient) Drug/Non Drug Allergy documented on EMR Reaction Allergy Type Onset Date Status mold and dust (uncoded) Unknown Allergy Active Results Component Value Reference Range Notes Glucose, Whole Blood Reviewed date:02/11/2025 01:22:57 PM Interpretation: Performing Lab:[facility], [address] [place] [address] Notes/Report: Glucose, Whole Blood 158 60-115 mg/dL METER # : [id number] Pathology Reviewed date:02/11/2025 02:34:55 PM Interpretation: Performing Lab:[facility], [address] [place] [id number] Notes/Report: Reason For Referral No Information Medications Medication [...] as needed Orally Once a day Active Mgstkfskci-RUDE-Zbtjwihd 50-325-40 MG 1 tablet as needed Orally [...] Problem Status W/U Status Risk Notes Problem 534557179 Colon cancer screening (Z12.11) Active confirmed Problem 43904937 Epigastric pain (R10.13) Active confirmed Problem 394897032 Gastro-esophagea l reflux disease without esophagitis (K21.9) Active confirmed Problem 293434303115476 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 Problem 448595269 Abnormal CT scan, stomach (R93.3) Active confirmed Problem [id number] Abnormal computerized tomography of biliary tract (R93.2) Active confirmed Vital Signs Temperature 97.7 degrees Fahrenheit 12/25/2024 Blood pressure diastolic 001 mm Hg 12/25/2024 Height 62 in 12/25/2024 Blood pressure systolic 001 mm Hg 12/25/2024 Weight 151.8 lbs 12/25/2024 BMI 27.76 kg/m2 12/25/2024 Encounters Encounter Location Date Provider Diagnosis [facility] Outpatient [address] [place] [id number] 02/07/2025 Jj Mullins Jr Colon cancer screening Z12.11 ; Colon polyps K63.5 ; Epigastric pain R10.13 and Benign carcinoid tumor of unspecified site D3A.[address] [place] [id number] 12/25/2024 Jj Mullins Jr Epigastric pain R10.13 ; Benign carcinoid tumor of stomach D3A.092 ; Colon cancer screening Z12.11 and Gastroesophageal reflux disease, unspecified whether esophagitis present K21.9 [facility] [address] [place] [address] 09/11/2024 Jj Richardsonifford [facility] [address] [place] [address] 02/11/2025 Jj Mullins Jr Michelle esophagitis B37.81 [...] Provider Name:Jj borrego Jr, 02/18/2026 11:10:00 AM, [address] [place] [address], [address], [place], [address], Insurance Providers Payer Name Payer Address Payer Phone Subscriber Number Group Number Insured Name Patient Relationship to Insured Coverage Start Date Coverage End Date [facility] [address] [address] [place], [place] [phone] [id number] CARMINE DAWSON Self - patient is the [...]
--- OUTSIDE RECORDS SUMMARY | 2025-05-28 10:51 | XMS_ITS | Clinical Summary ---
Author Organization [facility] Address [address] [place] [address] Care Team Providers Care Dependency Case Manager Name Role Phone Iza Rea MD Primary [...] 70 01/24/2024 10:45 AM EST Temperature 36.5 C (97.7 F) 01/24/2024 10:45 AM EST Respiratory Rate - - Oxygen Saturation 99% [...] Vaccine (1 of 2) 2016 Influenza Vaccine (Season Ended) 2025 RSV Ped < 20 months Aged Out No longe r eligible based on patient's age to complete this topic Care Teams Dependency Case Manager Relationship Specialty Start Date End Date Iza Rea MD [address] [place] [address] , [address] [facility] D/B/A[facility] [place] [address] PCP - General Internal Medicine 05/04/17
== END 2025-05-28 11:24 | disposition home or self-care (01) ==
LOC: HO.ENCR 10:17
PROVIDERS: PCP Internal Medicine; Visit Provider Internal Medicine Endocrinology, Diabetes & Metabolism
DX: D35.00 Benign neoplasm of unspecified adrenal gland (principal)
CPT/HCPCS: 99213

== ENCOUNTER → 2025-05-28 10:16 | Outpatient (BNVA) | payer OTHER, SELFPAY | PROVIDERS: PCP Internal Medicine; Visit Provider Internal Medicine Endocrinology, Diabetes & Metabolism | DX: D35.2 Benign neoplasm of pituitary gland (principal); E24.0 Pituitary-dependent Cushing's disease; D35.00 Benign neoplasm of unspecified adrenal gland; E21.3 Hyperparathyroidism, unspecified; E78.00 Pure hypercholesterolemia, unspecified; E11.21 Type 2 diabetes mellitus with diabetic nephropathy; E04.2 Nontoxic multinodular goiter; I13.0 Hypertensive heart and chronic kidney disease with heart failure and stage 1 through stage 4 chronic kidney disease, or unspecified chronic kidney disease; E11.22 Type 2 diabetes mellitus with diabetic chronic kidney disease; N18.9 Chronic kidney disease, unspecified; K21.9 Gastro-esophageal reflux disease without esophagitis; Z79.4 Long term (current) use of insulin | CPT/HCPCS: 99212 ==

== ENCOUNTER 2025-07-03 09:00 | Outpatient (AMB) | payer OTHER, SELFPAY ==
--- NOTE | 2025-07-03 09:01 | A.OFFPC_ITS ---
Vital Signs 07/03/25 09:02 Height 5 ft 2 in Weight 149 lb BMI 27.2 BP 118/72 Blood Pressure Location Lt brachial Position Sitting Pulse 78 Pulse Source Pulse Oximeter Pulse Oximetry (%) 97 Oxygen Delivery Method Room Air Intake Visit Reasons: [facility] 08/01 & 08/28 Web Graphic Designer Required: No Accompanied by: Self / Same As Patient Allergies aspirin (ASPIRIN) Allergy (Severe, Verified 07/03/25 09:10) HX ULCER NSAIDS (Non-Steroidal Anti-Inflamma (NSAIDS) Allergy (Severe, Verified 07/03/25 09:10) HX ULCER codeine Adverse Reaction (Verified 07/03/25 09:10) Stomach Upset empagliflozin (From Jardiance) Adverse Reaction (Verified 07/03/25 09:10) hematuria oxycodone Adverse Reaction (Verified 07/03/25 09:10) Stomach Upset Medication List - Last Reconciled 07/03/25 by Iza Hi MD allopurinol 100 mg PO DAILY blood sugar diagnostic Use 1 test strip once a day blood-glucose meter As directed cholecalciferol (vitamin D3) 25 mcg orally 3 times per week; 90 days glipizide 10 mg (2 x 5 mg) PO DAILY PRN hydrochlorothiazide 25 mg PO DAILY 90 days losartan 25 mg PO DAILY 90 days meclizine 25 mg PO DAILY PRN 30 days metformin 1,000 mg PO BID 90 days omeprazole 40 mg PO DAILY pen needle, diabetic Use pen needle once a day potassium citrate ER 20 mEq (2 x 10 mEq (1,080 mg)) PO BID pyridoxine (vitamin B6) 100 mg PO DAILY 90 days simvastatin 40 mg PO BEDTIME Tobacco use date assessed: 03/25/25 Dental Screening Dental Screen Date: 03/25/25 HPI HPI Comments History of Present Illness Details The patient is a 59-year-old female presenting with a preoperative evaluation for cataract surgery. Has 5-7 Mets of ADLs. Denies any chest pain or shortness on breath. EKG and labs pending for medical clearance. Going for a low risk surgery. Complains of leg cramps occasionally which might be secondary to statins. She has a history of diabetes mellitus, with her current management including glipizide and metformin. Her hemoglobin A1c is currently 7.4%, slightly higher than the previous 7.2% recorded in October. The patient also has hypertension, controlled with hydrochlorothiazide and losartan, and her blood pressure is well-managed. She is on simvastatin for hyperlipidemia and takes meclizine for dizziness. Her gastroesophageal reflux disease is managed with omeprazole, and she uses vitamin B6 to prevent nephrolithiasis, under urological supervision. The patient has an adrenal adenoma, with a follow-up scheduled with endocrinology on August 05. Her surgical history includes cystoscopy, endoscopy, colonoscopy, gastric polypectomy, lithotripsy, hysterectomy, and cholecystectomy, all without complications. Family history indicates her father had stomach cancer and a myocardial infarction, while her mother has diabetes. She does not smoke, has never smoked, and does not consume alcohol. [facility] Medical History (Updated 07/03/25 @ 09:20 by Iza Hi MD) Polyarthralgia Left shoulder pain Adrenal mass Elevated cholesterol Migraine Pituitary microadenoma William's disease Bilateral nephrolithiasis Pancreatic mass Renal cyst Renal cysts and diabetes syndrome Liver mass Physical exam Type 2 diabetes with nephropathy Multinodular thyroid Hyperparathyroidism Vitamin D deficiency Hypercalcemia Hypercortisolism Adrenal cortical adenoma of right adrenal gland Right knee pain Type 2 diabetes mellitus with unspecified complications Tachycardia Type 2 diabetes mellitus with hyperglycemia, with long-term current use of insulin Vitamin D deficiency Adrenal nodule Carcinoid tumor of stomach Chronic kidney disease GERD (gastroesophageal reflux disease) Gout Stomach ulcer Hx of renal calculi Essential hypertension Hyperlipidemia LDL goal <100 Surgical History Hx of cystoscopy History of esophagogastroduodenoscopy (EGD) H/O colonoscopy History of gastric polyp Hx of lithotripsy Hx of hysterectomy Hx of cholecystectomy Family History Father CVD (cardiovascular disease) Stomach cancer Mother Diabetes Social History Household Members: Family Housing: Apartment Are you a primary child care center assistant director to a significant other at home: No Do you presently have visiting nurse or other home services: No Alcohol intake: never Patient Tobacco Use Status: Never used Tobacco e-Cigarette/Vaping Use: Never Used Second Hand Smoke Exposure: No service: No Current occupational status: unemployed Current occupation: rt handed Cognitive needs: No Hearing needs: No Vision needs: Yes Questionnaire Thrive Questionnaire Date Thrive assessed: 03/25/25 I am a: Patient What is your living situation today?: I have a steady place to live Within the past 12 months, did the food you bought not last and you didn't have the money to get more?: Never true Within the past 12 months, did you worry whether your food would run out before you got money to buy more?: Never true Do you have trouble paying for medicines?: No Do you have trouble getting transportation to medical appointments?: No Do you have trouble paying your heating and electricity bill?: No Do you have trouble taking care of your child, family member or friend?: No Do you have trouble with day-to-day activities such as bathing, preparing meals, shopping, managing finances, etc.?: No Are you currently unemployed and looking for a job?: No Are you interested in more education?: No Please select the resources that you would like help with: None Currently or been in a relationship where the following occur: No concerns reported THRIVE Score: 0 ANTONIO-7 AMB Questionnaire ANTONIO-7 Date ANTONIO - 7 assessed: 03/25/25 Source: Developed by Drs. Seven Mast, Stephanie Llanos, Rubén Walker and colleagues, with an educational dave from [employer]. Review of Systems Const All systems reviewed & are unremarkable except as noted in HPI and below Card Denies chest pain at rest, Denies chest pain with activity, Denies edema, Denies irregular heart rhythm, Denies claudication, Denies dyspnea, Denies dyspnea on exertion, Denies orthopnea, Denies paroxysmal nocturnal dyspnea and Denies slow heart rate Resp Denies cough, Denies dyspnea and Denies dyspnea on exertion GI Denies abdominal pain, Denies change in bowel habits, Denies excessive flatus, Denies nausea and Denies vomiting Physical exam (Primary Care) Vital Signs: Last Vital Signs Pulse 78 07/03/25 09:02 BP 118/72 07/03/25 09:02 Pulse Ox 97 07/03/25 09:02 Oxygen Delivery Method Room Air 07/03/25 09:02 BMI result Body Mass Index 27.2 Tobacco/Smoking Status: Tobacco use Status Tobacco use date assessed 03/25/25 07/03/25 09:09 Patient Tobacco Use Status Never used Tobacco 07/03/25 09:09 e-Cigarette/Vaping Use Never Used 07/03/25 09:09 Thrive Assessment: Date of Thrive Assessment Date Thrive assessed 03/25/25 07/03/25 09:09 Currently or been in a relationship where the following occur: No concerns reported Resp Effort & Inspection: normal respiratory effort Auscultation: clear to auscultation bilaterally Cardio Jugular venous distension: no JVD Rate: regular rate Rhythm: regular rhythm Heart sounds: S1 normal heart sound present and S2 normal heart sound present Extrem General: Yes full ROM Results AMB Hemoglobin A1c AMB Hemoglobin A1c 7.4 % Last Edit by FLAQUITA Choe on 07/03/25 09:1 3 Results Reviewed Results Reviewed: Laboratory Last Values Hgb A1c (Clinic) 7.4 % (4.0-6.0) H 07/03/25 09:01 Coding Level of Care Code Est Pt Level 4 (65410) Complex EM visit Add On G2211 Diagnoses Pre-op evaluation Z01.818 Muscle cramps R25.2 Type 2 diabetes mellitus with hyperglycemia, with long-term current use of insulin E11.65; Z79.4 Hyperlipidemia LDL goal <70 E78.5 Essential hypertension I10 Time Spent (min) 25 Assessment & Plan Assessment & Plan (1) Pre-op evaluation: Code(s): Z01.818 - Encounter for other preprocedural examination Category: Medical (2) Muscle cramps: Code(s): R25.2 - Cramp and spasm Category: Medical (3) Type 2 diabetes mellitus with hyperglycemia, with long-term current use of insulin: Code(s): E11.65 - Type 2 diabetes mellitus with hyperglycemia; Z79.4 - [facility] (current) use of insulin Category: Medical (4) Hyperlipidemia LDL goal <70: Code(s): E78.5 - Hyperlipidemia, unspecified Category: Medical (5) Essential hypertension: Code(s): I10 - Essential (primary) hypertension Category: Medical Plan The patient is scheduled for cataract surgery on July 28, with the left eye being operated on first. Preoperative clearance requires an electrocardiogram and fasting laboratory tests, which the patient is advised to complete promptly. The patient's diabetes management will continue with current medications, and she is advised to maintain follow-up with endocrinology. Hypertension and hyperlipidemia management will continue with current medications, and the patient is encouraged to monitor her blood pressure regularly. The patient is reminded to attend her endocrinology appointment on August 05 for adrenal adenoma follow-up. Patient was informed and verbally consented to the use of an ambient scribe for clinic note documentation during this visit. Orders: Orders AMB Hemoglobin A1c Today E11.65 - Type 2 diabetes mellitus with hyperglycemia, Z79.4 - [facility] (current) use of insulin Uric Acid Today M10.9 - Gout, unspecified Vitamin B12 and Folate Today E53.8 - Deficiency of other specified B group frannie mins Vitamin D 25-OH Total Today E55.9 - Vitamin D deficiency, unspecified Complete Blood Count Auto Diff Today R00.2 - Palpitations ECG 12 lead EKG Today Z01.818 - Encounter for other preprocedural examination Magnesium Today R25.2 - Cramp and spasm Lipid Panel Today E78.5 - Hyperlipidemia, unspecified Microalbumin, Random (w Creat) Today R80.9 - Proteinuria, unspecified Comprehensive [place]. Panel Fast Today E11.9 - Type 2 diabetes mellitus without complications
[2025-07-03 09:02] VITALS: BP 118/72; PULSE 78; O2SAT 97; BMI 27.2
--- OUTSIDE RECORDS SUMMARY | 2025-07-03 09:21 | XMS_ITS | Clinical Summary ---
Author Organization [facility] Address [address] [address] Phone Care Team Providers Care Aerodynamics Professor Name Role Phone Iaz Rea MD Primary Care Provid er Medications allopurinol (ZYLOPRIM) 100 MG tablet Take 2 tablets by mouth every morning. 06/10/2023 Active VITAMIN D3 25 mcg (1,000 unit) capsule Take 1,000 Units by mouth 3 (three) times a week. 06/24/2023 Active hydroCHLOROthia zide (HYDRODIURIL) 25 MG tablet Take 1 tablet by mouth every morning. 06/24/2023 Active losartan (COZAAR) 25 MG tablet Take 1 tablet by mouth every morning. 05/13/2023 Active meclizine (ANTIVERT) 25 mg tablet Take 1 tablet by mouth every morning. 07/24/2023 Active omeprazole (PRILOSEC) 40 MG capsule TAKE ONE CAPSULE BY MOUTH EVERY DAY 30 MINUTES BEFORE MORNING MEAL 06/24/2023 Active potassium citrate (UROCIT-K) 10 mEq SR tablet Take 20 mEq by mouth 2 (two) times a day. 07/24/2023 Active simvastatin (ZOCOR) 40 MG tablet Take 40 mg by mouth nightly at bedtime. 06/24/2023 Active dexAMETHasone (DECADRON) 1 MG tabletIndicatio ns:Right adrenal mass,Pituitary lesion,Abnormal endocrine laboratory test finding Take 2 tablets (2 mg total) by mouth once for 1 dose. Take the tablet at 11pm on the night prior to bloodwork. 2 tablet 03/13/2025 Active Social History Tobacco Use Types Packs/Day Years Used Date Smoking Tobacco: Never Assessed Education Answer Date Recorded Are you interested in more education? Not on gilberto e 06/06/2023 Are you concerned about learning? Not on file 06/06/2023 No 06/06/2023 No 06/06/2023 Digital Access Answer Date Recorded No 06/06/2023 No 06/06/2023 Reliable internet access at home? Not on file 06/06/2023 Device with a working camera? Not on file Comments Unknown Sex and Gender Information Value Date Recorded Sex Assigned at Not on file Legal Sex Female 1:43 PM EST Gender Identity Not on file Sexual Orientation Not on file Last Filed Vital Signs Vital Sign Reading Time Taken Comments Blood Pressure 160/87 02/21/2024 10:23 AM EDT Pulse 83 02/21/2024 10:23 AM EDT Temperature - - Respiratory Rate - - Oxygen Saturation - - Inhaled Oxygen Concentration - - Weight 68 kg (150 lb) 02/21/2024 10:23 AM EDT Height 152.4 cm (5') 02/21/2024 10:23 AM EDT Body Mass Index 29.29 02/21/2024 10:23 AM EDT Plan of Treatment Health Maintenance Due Date Last Done Comments Adult Td,Tdap Booster 1966 CREATININE LEVEL 1966 LIPID PANEL 1966 POTASSIUM LEVEL 1966 DEPRESSION SCREENING 1978 SMOKING Hx and SMOKELESS TOB ACCO SCREENING 1979 HEPATITIS C SCREENING 1984 HIV ONE-TIME SCREENING (18-6 5 YEARS) 1984 PAP SMEAR 1987 SCREENING FOR DIABETES 2001 MAMMOGRAM 2006 COLOGUARD 2011 COLONOSCOPY 2011 COLORECTAL CANCER SCREENING 2011 FIT TEST 2011 FOBT 2011 SIGMOIDOSCOPY 2011 VIRTUAL COLONOSCOPY 2011 PNEUMOCOCCAL VACCINES (50+ y ears) (1 of 1 - PCV) 2016 ZOSTER VACCINES (1 of 2) 2016 COVID-19 VACCINE (1 - 2023-2 5 season) 2024 HEPATITIS A VACCINES Aged Out No long er eligible based on patient's age to complete this topic HIB VACCINES Aged Out No longer eligi ble based on patient's age to complete this topic MENINGOCOCCAL VACCINES (ACWY) Aged Out No longer eligible based on patient's age to complete this topic MENINGOCOCCAL VACCINES (B) Aged Out N o longer eligible based on patient's age to complete this topic Medical Devices Not on file Procedures Procedure Name Priority Date/Time Associated Diagnosis Comments OUTSIDE LAB 04/15/2025 OUTSIDE IMAGING 04/15/2025 from Last 3 Months Results * Outside Imaging Report Only (04/15/2025) us Scanning Interface Provider IMG XR CHEST Sarah l Result * Outside Lab (04/15/2025) us Scanning Interface Provider LAB BLOOD ORDERABLES Final Result from Last 3 Months Insurance [facility] [place] [address] [place] [address] [place] [address] [place] [address] A[employer] [facility] Care Teams Aerodynamics Professor Relationship Specialty Start Date End Date Iza Rea MD [address] [place] [address] PCP - General Internal Medicine 11/24/22 Additional Source Comments The information contained in this document represents components of the legal health record. It is not the complete legal health record.[facility]
--- OUTSIDE RECORDS SUMMARY | 2025-07-03 09:21 | XMS_ITS | Clinical Summary ---
Author Organization [facility] Address [address] [place] [address] Care Team Providers Care Gas Pumping Station Operator Name Role Phone Iza Rea MD Primary [...] (1 of 2) 2016 Influenza Vaccine (#1) 2025 RSV Ped < 20 months Aged Out No longe r eligible based on patient's age to complete this topic Care Teams Gas Pumping Station Operator Relationship Specialty Start Date End Date Iza Rea MD [address] [place] [address] , [address] [facility] D/B/A[facility] [place] [address] PCP - General Internal Medicine 05/04/17
--- OUTSIDE RECORDS SUMMARY | 2025-07-03 09:21 | XMS_ITS | Clinical Summary ---
Author Organization [facility] Address [address] [place] [address] Phone Care Team Providers Care Packaging Assembler Name Role Phone Iza Hi MD Primary Care Provider [phone] Allergies No known active allergies Medications allopurinoL [...] tumor determined b y biopsy of stomach ([facility] V28) 05/09/2017 Essential hypertension 05/09/2017 Mixed hyperlipidemia 05/09/2017 Type 2 diabetes mellitus wit hout complication ([facility] V24, [facility] V28) 05/09/2017 Surgical History Surgery Date Site/Laterality Comments ESOPHAGOGASTRODUODENOSCOPY 2015 N/A PROCEDURE: [place] ESOPHAGOGASTRODUODENOSCOPY TRANSORAL DIAGNOSTIC; COMMENT: fall, gastric polyps. 2nd scope 10/2016 polyps removed showing micro-carcinoids. CHOLECYSTECTOMY N/A PROCEDURE: HISTORICAL CHOLECYSTECTOMY TUBAL LIGATION PROCEDURE: HISTORICAL TUBAL LIGATION HYSTERECTOMY N/A PROCEDURE: HISTORICAL HYSTERECTOMY Medical History Medical History Date Comments Essential hypertension DX:Essent ial hypertension Mixed hyperlipidemia DX:Mixed hy perlipidemia Type 2 diabetes mellitus wit hout complication ([facility] V24, [facility] V28) DX:Type 2 diabetes mellitus without complication ([facility]) Benign paroxysmal positional vertigo due to bilateral vestibular disorder DX: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 ([facility] V28) DX:Carcinoid tumor determine d by [...] [facility] Hematology Oncology [address] [place] [address] Karissa Jefferson MD [address] [place] [id number] Health Maintenance Due Date Last Done Comments [...] Panel) 11/03/2022 Colorectal Cancer Screening: Colonoscopy 11/03/2022 HIV Screening 11/03/2022 Hepatitis C Screening 11/03/2022 Social Influencers of Health Screening 11/03/2022 Diabetes: Annual Urine Albumin-Creatinine Ratio (uACR) 11/12/2022 Diabetes: Blood Sugar Control Test (HGBA1C) 11/12/2022 07/08/2020 COVID-19 Vaccine ( season) 2024 09/11/2023, 10/17/2022, 06/06/2022, Additional history exists Depression Screening 11/27/2024 Influenza Vaccine (#1) 2025 Diabetes: Annual GFR (Glomerular Filtration Rate) [...] 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 ([facility] V28) from Last 3 Months or Most Recently Relevant to Health Maintenance Results * (ABNORMAL) Comprehensive metabolic panel (02/21/2025 10:49 AM EDT) Sodium 135 133 - 145 mmol/L LAB CHEMISTRY METHOD 02/21/2025 12:[address] [facility] Potassium 3.9 3.5 - 5.5 mmol/L LAB CHEMISTRY METHOD 02/21/2025 12:[address] [facility] Chloride 99 96 - 110 mmol/L LAB CHEMISTRY METHOD 02/21/2025 12:[address] [facility] CO2 31 21 - 32 mmol/L LAB CHEMISTRY METHOD 02/21/2025 12:[address] [facility] Anion Gap 5 3 - 11 LAB CHEMISTRY METHOD 02/21/2025 12:[address] [facility] Glucose 147(H) 70 - 100 mg/dL LAB CHEMISTRY METHOD 02/21/2025 12:[address] [facility] BUN 15 5 - 25 mg/dL LAB CHEMISTRY METHOD 02/21/2025 12:[address] [facility] Creatinine 0.93 0.50 - 1.10 mg/dL LAB CHEMISTRY METHOD 02/21/2025 12:[address] [facility] eGFR 71 >=60 mL/min/1. 73m2 LAB CHEMISTRY METHOD 02/21/2025 12:[address] [facility] Comment:Calculation based on the Chronic Kidney Disease Epidemiology Collaboration (CKD-EPI) equation refit without adjustment for race. BUN/Creatinine Ratio 16.1 LAB CHEMISTRY METHOD 02/21/2025 12:[address] [facility] Calcium 9.9 8.5 - 10.5 mg/dL LAB CHEMISTRY METHOD 02/21/2025 12:[address] [facility] AST (SGOT) 20 10 - 42 unit/L LAB CHEMISTRY METHOD 02/21/2025 12:[address] [facility] ALT (SGPT) 41 10 - 60 unit/L LAB CHEMISTRY METHOD 02/21/2025 12:[address] [facility] Alkaline Phosphatase 64 42 - 121 unit/L LAB CHEMISTRY METHOD 02/21/2025 12:[address] [facility] Total Protein 7.5 6.0 - 8.0 g/dL LAB CHEMISTRY METHOD 02/21/2025 12:[address] [facility] Albumin 4.0 3.2 - 5.0 g/dL LAB CHEMISTRY METHOD 02/21/2025 12:[address] [facility] Total Bilirubin 0.6 0.0 - 1.4 mg/dL LAB CHEMISTRY METHOD 02/21/2025 12:[address] [facility] Blood Venous blood specimen / Unknown Venipuncture / Unknown 02/21/2025 10:49 AM EDT 02/21/2025 11:37 AM EDT Karissa Jefferson MD LAB BLOOD ORDERABLE S Final Result [facility] [place] ([facility] [address] [place] [address], from Last 3 Months or Most Recently Relevant to Health Maintenance Insurance [facility] [employer] Care Teams Packaging Assembler Relationship Specialty Start Date End Date Iza Hi MD [address] [facility] , [facility] [address] [facility] D[facility]B/A: [facility] [place] PCP - General Internal Medicine 04/02/21
--- OUTSIDE RECORDS SUMMARY | 2025-07-03 09:21 | XMS_ITS | Patient Health Record ---
Author Organization [facility] Address [address] [place] [address] Care Team Providers Care Electrolysis Operator Name Role Phone Iza Rea Primary Care Provider Jj Terry Jr Unavailable Allergies Allergen (clinical drug ingredient) Drug/Non Drug Allergy documented on EMR Reaction Allergy Type Onset Date Status mold and dust (uncoded) Unknown Allergy Active Results Component Value Reference Range Notes Glucose, Whole Blood Reviewed date:02/11/2025 01:22:57 PM Interpretation: Performing Lab:[facility], [address] [place] [address] Notes/Report: Glucose, Whole Blood 158 60-115 mg/dL METER # : [id number] Pathology Reviewed date:02/11/2025 02:34:55 PM Interpretation: Performing Lab:[facility], [address] [place] [address] Notes/Report: Reason For Referral No Information Medications [...] as needed Orally Once a day Active Urzacsynwe-COST-Jrinlhvv 50-325-40 MG 1 tablet as needed Orally [...] Problem Status W/U Status Risk Notes Problem 980021963 Colon cancer screening (Z12.11) Active confirmed Problem 48675334 Epigastric pain (R10.13) Active confirmed Problem 406913062 Gastro-esophagea l reflux disease without esophagitis (K21.9) Active confirmed Problem [id number] 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 Problem 265111602 Abnormal CT scan, stomach (R93.3) Active confirmed Problem 89521214065813797 Abnormal computerized tomography of biliary tract (R93.2) Active confirmed Vital Signs Temperature 97.7 degrees Fahrenheit 12/25/2024 Blood pressure diastolic 001 mm Hg 12/25/2024 Height 62 in 12/25/2024 Blood pressure systolic 001 mm Hg 12/25/2024 Weight 151.8 lbs 12/25/2024 BMI 27.76 kg/m2 12/25/2024 Encounters Encounter Location Date Provider Diagnosis [facility] [address] [place] [id number] 02/07/2025 Jj Mullins Jr Colon cancer screening Z12.11 ; Colon polyps K63.5 ; Epigastric pain R10.13 and Benign carcinoid tumor of unspecified site D3A.[address] [place] [address] 12/25/2024 Jj Mullins Jr Epigastric pain R10.13 ; Benign carcinoid tumor of stomach D3A.092 ; Colon cancer screening Z12.11 and Gastroesophageal reflux disease, unspecified whether esophagitis present K21.9 [facility] [address] [place] [address] 09/11/2024 Jj Richardsonifford [facility] [address] [place] [address] 02/11/2025 Jj Mullins Jr Michelle esophagitis B37.81 [...] Provider Name:Jj borrego Jr, 02/18/2026 11:10:00 AM, [address] [place] [address], [address], [place], [address], Insurance Providers Payer Name Payer Address Payer Phone Subscriber Number Group Number Insured Name Patient Relationship to Insured Coverage Start Date Coverage End Date [facility] [address] [address] [place], [place] [id number] CARMINE DAWSON Self - patient is the [...]
--- OUTSIDE RECORDS SUMMARY | 2025-07-03 09:21 | XMS_ITS | Encounter Summary ---
Author Organization [facility] Address [address] [place] [address] Phone Care Team Providers Care Drilling And Production Superintendent Name Role Phone Iza Rea MD Primary Care Provider [phone] Reason for Referral * Genetic Testing (Routine) - Closed Specialty Diagnoses / Procedures Referred By Shannan blair Referred To Contact Diagnoses Personal history of kidney stones Medullary sponge kidney Procedures Litholink Requisition Raúl Babb MD [address] [address] Phone: tel: fax: Referral ID Status Reason Start Date Expiration Date Visits Re quested Visits Authorized [id number] Closed 04/24/2025 04/24/2026 1 1 Encounter Details Date Type Department Care Team (Latest Contact Info) Description 04/24/2025 Office Communication [facility] [address] [address] Raúl Babb MD [facility] [address] [address] Personal history of kidney stones [...] Visit [facility] of the [address] [place] [address] Raúl Babb MD [address] [facility] [address] [place] [phone] Scheduled Orders Name Type Priority Associated Diagnoses [...] kidney documented in this encounter Care Teams Drilling And Production Superintendent Relationship Specialty Start Date End Date Iza Rea MD [address] [place], [place] PCP - General 12/07/20 documented as of this encounter
== END 2025-07-03 09:22 | disposition home or self-care (01) ==
LOC: HO.HMCH 09:00
PROVIDERS: PCP Internal Medicine; Visit Provider Internal Medicine
DX: Z01.818 Encounter for other preprocedural examination (principal); R25.2 Cramp and spasm; E11.65 Type 2 diabetes mellitus with hyperglycemia; Z79.4 Long term (current) use of insulin; E78.5 Hyperlipidemia, unspecified; I10 Essential (primary) hypertension

== ENCOUNTER → 2025-07-03 09:00 | Outpatient (REF) | payer OTHER, SELFPAY ==
[2025-07-03 09:43] LABS: MANUAL DIFF FLAG NO
--- NOTE | 2025-07-03 09:46 | ECG_ITS ---
Test Reason : preop Blood Pressure : */* mmHG Vent. Rate : 75 BPM Atrial Rate : 75 BPM P-R Int : 146 ms QRS Dur : 88 ms QT Int : 374 ms P-R-T Axes : 40 -26 21 degrees QTcB Int : 417 ms Normal sinus rhythm Normal ECG When compared with ECG of 01-Feb-2018 23:47, No significant change was found Referred By: Iza Hi Electronically Signed By: PETER PEACOCK
[2025-07-03 10:35] LABS: Hematocrit 40.3 % (37.0-47.0); Hemoglobin 13.3 g/dl (12.0-16.0); Imm Gran Abs Auto 0.03 X10*3/uL (0.00-0.03); Imm Gran Pct Auto 0.3 % (0.0-0.4); Lymphocytes Absolute Auto 3.5 X10*3/uL (1.2-4.9); Mean Corpuscular HGB Conc 33.0 g/dl (31.0-35.0); Mean Corpuscular Hemoglobin 27.7 pg (27.0-33.0); Mean Corpuscular Volume 83.8 fL (80.0-98.0); NRBC Abs Auto 0.000 X10*3/uL (0.0-0.012); NRBC Pct Auto 0.0 /100WBC (0.0-0.2); Platelet Count 288 X10*3/uL (160-400); Red Blood Count 4.81 X10*6/uL (4.20-5.50); White Blood Count 10.0 X10*3/uL (4.8-10.8)
[2025-07-03 11:24] LABS: Microalbum/Creatinine Ratio Ur 145.0 ug/mg cr (<30)
[2025-07-03 11:27] LABS: Alanine Aminotransferase 30 U/L (0-31); Albumin Level 4.5 g/dL (3.5-5.0); Alkaline Phosphatase 48 U/L (39-117); Anion Gap 14 (12-20); Aspartate Amino Transferase 21 U/L (5-31); Blood Urea Nitrogen 25 mg/dL (9-16); Calcium 9.8 mg/dL (8.4-10.2); Carbon Dioxide 33 mmol/L (22-29); Chloride 100 mmol/L (96-108); Cholesterol 140 mg/dL (<200); Estimated Glomerular Filt Rate > 60; HDL Cholesterol 52 mg/dL (>40); Magnesium 1.3 mg/dL (1.6-2.6); Potassium 3.9 mmol/L (3.3-5.1); Sodium 143 mmol/L (135-145); Total Protein 7.1 g/dL (6.5-8.0); Triglycerides 141 mg/dL (<150)
[2025-07-03 11:40] LABS: Folate 7.8 ng/mL (> or = 4.0); Vitamin B12 283 pg/mL (200-900)
[2025-07-03 11:49] LABS: Uric Acid 4.9 mg/dL (2.4-5.7)
== END ==
LOC: HO.CARD 09:00
PROVIDERS: PCP Internal Medicine; Visit Provider Internal Medicine
DX: Z01.818 Encounter for other preprocedural examination (principal); R25.2 Cramp and spasm; E11.65 Type 2 diabetes mellitus with hyperglycemia; E78.5 Hyperlipidemia, unspecified; I10 Essential (primary) hypertension; M10.9 Gout, unspecified; E53.8 Deficiency of other specified B group vitamins; E55.9 Vitamin D deficiency, unspecified; R00.2 Palpitations; R80.9 Proteinuria, unspecified; Z79.4 Long term (current) use of insulin
CPT/HCPCS: 36415; 80053; 80061; 82043; 82306; 82570; 82607; 82746; 83036; 83735; 84550; 85025; 93005; 99212

== ENCOUNTER → 2025-07-03 09:46 | Outpatient (BNV) | payer OTHER, SELFPAY | PROVIDERS: PCP Internal Medicine; Visit Provider Internal Medicine | DX: Z01.810 Encounter for preprocedural cardiovascular examination (principal) | CPT/HCPCS: 93010 ==

== ENCOUNTER 2025-09-23 10:00 | Outpatient (REF) | payer OTHER, SELFPAY ==
--- OUTSIDE RECORDS SUMMARY | 2024-05-13 07:00 | XMS_ITS ---
Author Organization [facility] Address [address] [place] [address] Care Team Providers Care Attendance Officer Name Role Phone Iza Rea Primary Care Provider Unavailab Jj Bullard Jr REASON FOR VISIT Patient presents today for gerd Encounters Encounter Location Date Provider Diagnosis [facility] [address] [place] [address] 05/13/2024 Jj Mullins Jr Plan Of Treatment Next Appt Details Provider Name:Jj borrego Jr, 02/18/2026 11:10:00 AM, [address], [address], [place], [address], Progress Notes * CARMINE DAWSON IDOB: (60 yo F)Acc No.[id number]:05/13/2024 Progress Notes Patient: Kadeem BARRIOSCARMINE GORDON I Provider: Jameel Mullins MD :1965 A ge:58 Y S ex:Female Date:05/13/2024 Address:[address] [id number] Pcp:Iza Hi Subjective: * Chief Complaints: * [...] 05/13/2024 Generated for Raul escamilla/Karolina/Fiorella on: 1 11:51 AM EDT
--- OUTSIDE RECORDS SUMMARY | 2024-09-11 07:00 | XMS_ITS ---
Author Organization [facility] Address [address] [place] [address] Care Team Providers Care Cdl Truck Driver Name Role Phone Iza Rea Primary Care Provider Unavailab Jj Bullard Jr REASON FOR VISIT Patient presents today for gerd Encounters Encounter Location Date Provider Diagnosis [facility] [address] [place] [address] 09/11/2024 Jj Mullins Jr Plan Of Treatment Next Appt Details Provider Name:Jj borrego Jr, 02/18/2026 11:10:00 AM, [address], [address], [place], [address], Progress Notes * CARMINE DAWSON IDOB: (60 yo F)Acc No.[id number]:09/11/2024 Progress Notes Patient: Kadeem BARRIOSCARMINE GORDON I Provider: Jameel Mullins MD :1965 A ge:59 Y S ex:Female Date:09/11/2024 Address:[address] [id number] Pcp:Iza Hi Subjective: * Chief Complaints: * [...] Date: 1 Generated for Raul escamilla/Karolina/Fiorella on: 11:50 AM EDT
--- OUTSIDE RECORDS SUMMARY | 2025-02-07 07:30 | XMS_ITS ---
Author Organization [facility] Address [address] [place] [address] Care Team Providers Care Rugby Union Footballer Name Role Phone Iza Rea Primary Care Provider Jj Terry Jr REASON FOR VISIT epigastric pain,benign carcinoid tumor of stomach,screening Encounters Encounter Location Date Provider Diagnosis [facility] Outpatient [address] [place] [phone] 02/07/2025 Jj Mullins Jr Colon cancer screening [...] 11:10:00 AM, [address], [address], [place], [address], Progress Notes * CARMINE DAWSON IDOB: (60 yo F)Acc No.[id number]:02/07/2025 EGD and COL/MAC Patient: A CARMINE DUNCAN I Provider: Jameel Mullins MD :1965 A ge:59 Y S ex:Female Date:02/07/2025 Address:[address], [place], [place] Pcp:Iza Hi Subjective: * Chief Complaints: * [...] * Procedure Codes: 4 5388 COLONOSCOPY W/ABLATION, 59371 UPPER GI ENDOSCOPY, BIOPSY * * The named appointment provid er may or may not be the originator of this progress note, and it is not deemed complete until electronically signed by the appointment provider. Sign off status: Pending * Provider: Jameel Mullins MD Date: 0 02/07/2025 Generated for Raul escamilla/Karolina/Surjitransmitting on: 1 11:51 AM EDT
--- NOTE | ~2025-09-23 | US_ITS ---
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 COMPARISON: June 14, 2023 TECHNIQUE: Linear transducer grayscale and color Doppler examination with attention to the region of the thyroid. FINDINGS: SIZE: Measurements of the thyroid lobes and nodules are given in sagittal, anteroposterior and transverse dimensions respectively. Right Thyroid Lobe: 4.1 x 1.9 x 1.6 cm, volume 6.6 mL. Previous: 4.5 x 2.0 x 1.3 cm, volume: 6.1 Parenchyma: The gland echotexture is heterogeneous. Thyroid vascularity is normal. Left Thyroid Lobe: 4.5 x 0.9 x 1.4 cm, volume 3.0 mL. Previous: 4.3 x 1.4 x 1.4 cm, volume: 4.4 cc. Parenchyma: The gland echotexture is heterogeneous. Thyroid vascularity is normal. Isthmus: 0.5 cm in maximum AP dimension. Previous: 0.4 cm. Estimated total number of nodules greater than or equal to 1 cm: 2. Voice Engineer nodules are described as follows: 1. Location: Lower pole, left thyroid lobe. Size: 1.9 x 1.1 x 1.7 cm, volume 1.84 mL. Previous: 1.5 x 1.6 x 1.5 cm, volume: 1.9 cc. Nodule characteristics: Composition: Solid/almost completely solid (2). Echogenicity: Hypoechoic (2). Shape: Not taller than wide (0). Margins: Smooth (0). Echogenic Foci: Punctate echogenic foci (3). ACR TI-RADS total points: 7 ACR TI-RADS category: 5 2. Location: Mid segment left lobe. Size: 0.8 x 0.7 x 1.2 cm, volume 0.35 mL. No acute identified on the previous exam. Nodule characteristics: Composition: Solid (2). Echogenicity: Hypoechoic (2). Shape: Not taller than wide (0). Margins: Smooth (0). Echogenic Foci: Punctate echogenic foci (3). ACR TI-RADS total points: 7 ACR TI-RADS category: 5 3. Location: Upper and mid portion left lobe. Size: 0.7 x 0.5 x 0.8 cm, volume 0.15 mL. Previous: 0.6 x 0.6 x 0.4 cm, volume: 0.08 cc. Nodule characteristics: Composition: Solid (2). Echogenicity: Hypoechoic (2). Shape: Not taller than wide (0). Margins: Smooth (0). Echogenic Foci: None (0). ACR TI-RADS total points: 4 ACR TI-RADS category: 4 4. Location: Isthmus, left lobe.. Size: 0.7 x 0.5 x 0.8 cm, volume 0.14 mL. Previous exam is not identified. Nodule characteristics: Composition: Solid/almost completely solid (2). Echogenicity: Hypoechoic (2). Shape: Not taller than wide (0). Margins: Smooth (0). Echogenic Foci: None (0). ACR TI-RADS total points: 4 ACR TI-RADS category: 4 NODES: No lymphadenopathy is seen in the tissue surrounding the thyroid gland. US/US thyroid IMPRESSION: ACR TI-RADS category 4 and 5 ACR TI-RADS RECOMMENDATION REFERENCE: Ultrasound-guided fine-needle aspiration, followup ultrasound, no further follow up. * TR1 (0 point) and TR2 (2 points): No FNA or follow up. * TR3 (3 points): FNA if more than or equal to 2.5 cm in maximum dimension, followup ultrasound in 1, 3 and 5 years if 1.5 to 2.4 cm in maximum dimension. * TR4 (4-6 points): FNA if more than or equal to 1.5 cm in maximum dimension, followup ultrasound in 1, 2, 3 and 5 years if 1 to 1.4 cm in maximum dimension. * TR5 (more than or equal to 7 points): FNA if more than or equal to 1 cm in maximum dimension, followup ultrasound every year for 5 years if 0.5 to 0.9 cm in maximum dimension. * TR3, TR4 or TR5 nodules that are below the size threshold for followup receive no follow up. Electronically signed by: Jonathan Ramirez MD 09/23/2025 01:11 PM EDT
--- OUTSIDE RECORDS SUMMARY | 2025-09-23 11:51 | XMS_ITS | Clinical Summary ---
Author Organization [facility] Address [address] [place] [address] Care Team Providers Care Dog Pound Attendant Name Role Phone Iza Rea MD Primary Care Provider [phone] Allergies Active Allergy Reactions Criticality Noted Date [...] time each day 180 tablet 3 02/04/2025 Active potassium citrate 10 MEQ (1080 MG) CR tabletIndicatio ns:Chronic kidney disease stage 2 Take 2 tablets (20 mEq total) by mouth in the morning and 2 tablets (20 mEq total) in the evening. Take with meals. 120 tablet 5 06/09/2025 Active Active Problems Problem Noted Date Diagnosed [...] Encounters Date Type Department Care Team Description 07/31/2025 1:00 PM EDT Office Visit [facility] [address] [place] [address] Raúl Babb MD Renal stone (Primary Dx); Medullary sponge kidney with nephrocalcinosis 06/30/2025 Orders Only [facility] [address] [place] [address] Raúl Babb MD from Last 3 Months Immunizations Immunization Administration [...] Care Team (Late st Contact Info) Description 04/30/2026 1:30 PM EDT Office Visit [facility] the [address] [place] [address] Raúl Babb MD [address] [facility] [address] [place] [address] Health Maintenance Due Date Last Done Comments [...] Visual Foot Exam 12/25/2020 Influenza Vaccine (#1) 2025 Pneumococcal Vaccine: Peds ( 0 to 5 Years) and At-Risk Patients (6 to 49 Years) Discontinued 03/11/2010 Procedures Procedure Name Priority Date/Time Associated Diagnosis Comments PTH, INTACT Routine 06/30/2025 11:21 AM EDT URINE CULTURE Routine 06/30/2025 11:21 AM EDT MAGNESIUM Routine 06/30/2025 11:21 AM EDT VITAMIN D 25 HYDROXY Routine 06/30/2025 11:21 AM EDT URINE ALBUMIN / CREATININE RATIO Routine 06/30/2025 11:21 AM EDT PROTEIN / CREATININE RATIO, URINE Routine 06/30/2025 11:21 AM EDT RENAL FUNCTION PANEL Routine 06/30/2025 11:21 AM EDT URINALYSIS WITH MICROSCOPIC Routine 06/30/2025 11:21 AM EDT CBC AND DIFFERENTIAL Routine 06/30/2025 11:21 AM EDT RESULT Routine 06/30/2025 11:21 AM EDT MICROSCOPIC EXAMINATION - DO NOT USE Routine 06/30/2025 11:21 AM EDT HEMOGLOBIN A1C Routine 07/08/2020 12:05 PM EDT from Last 3 Months or Most Recently Relevant to Health Maintenance Results * Result (06/30/2025 11:21 AM EDT) Result Comment [facility] Comment: Mixed urogenital grace 10,000-25,000 colony forming units per mL 06/30/2025 11:2 1 AM EDT 06/30/2025 us Raúl Babb MD LAB MICROBIOLOGY - GENERAL OR DERABLES Final Result [facility] [address] [place] [address] * Microscopic Examination (06/30/2025 11:21 AM EDT) WBC, Urine 0-5 0 - 5 /hpf [facility] [place] RBC, Urine 0-2 0 - 2 /hpf [facility] [place] [facility] Squamous Epithelial, Urine 0-10 0 - 10 /hpf [facility] [place] [facility] Casts None seen None seen /lpf [facility] [place] [facility] Bacteria, Urine None seen None seen/Few [facility] 06/30/2025 11:2 1 AM EDT 06/30/2025 Raúl Babb MD LAB MICROBIOLOGY - GENERAL OR DERABLES Final Result Performing Organization Address City/[facility]/ZIP Co de Phone Number [email or web address] [facility] [address] [place] [address] * (ABNORMAL) Protein, Total, Random Urine w/Creatinine (Protein/Creat Ratio) (06/30/2025 11:21 AM EDT) Creatinine, Ur 71.6 Not Estab. mg/dL [facility] [place] [facility] Protein, Ur 28.2 Not Estab. mg/dL [facility] [place] [facility] Urine Protein/Creati nine Ratio 394(H) 0 - 200 mg/g creat [facility] [place] [facility] 06/30/2025 11:2 1 AM EDT 06/30/2025 Comment: Raúl Babb MD LAB URINE ORDERABLES Final Re sult Performing Organization Address [facility]/ZIP Co de Phone Number [email or web address] [place] [address] [place] [address] * (ABNORMAL) Urine Albumin / Creatinine Ratio (06/30/2025 11:21 AM EDT) Albumin, Urine 92.4 Not Estab. ug/mL [facility] Albumin/Creatin ine Ratio 129(H) 0 - 29 mg/g creat [facility] [place] [facility] Comment: Normal: 0 - 29 Moderately increased: 30 - 300 Severely increased: >300 06/30/2025 11:2 1 AM EDT 06/30/2025 Comment: Raúl Babb MD LAB URINE ORDERABLES Final Re sult Performing Organization Address City/[facility]/ZIP Co de Phone Number LABJAYS [facility] [address] [place] [address] * Vitamin D 25 Hydroxy (06/30/2025 11:21 AM EDT) Vitamin D, 25-OH, Total 46.9 30.0 - 100.0 ng/mL [facility] [place] [facility] Comment: Vitamin D deficiency has been defined by the Hardy of Medicine and an Endocrine Society practice guideline as a level of serum 25-OH vitamin D less than 20 ng/mL (1,2). The Endocrine Society went on to further define vitamin D insufficiency as a level between 21 and 29 ng/mL (2). 1. IOM (Hardy of Medicine). 2010. Dietary reference intakes for calcium and D. [place]: The National Academies Press. 2. Sourav MF, Ingrid VILLASENOR, Denis BOWEN, et al. Evaluation, treatment, and prevention of vitamin D deficiency: an Endocrine Society clinical practice guideline. JCEM. 2010; 96(7):1911-30. 06/30/2025 11:2 1 AM EDT 06/30/2025 Comment:UC us Raúl Babb MD LAB BLOOD ORDERABLES Final Re sult [facility]CO [facility] [place] [address] [place] [address] * (ABNORMAL) Urinalysis with microscopic (06/30/2025 11:21 AM EDT) Specific [place], Urine 1.017 1.005 - 1.030 [facility] [place] [facility] [phone] pH Urine 6.5 5.0 - 7.5 [facility] [phone] Color, Urine Yellow Yellow [facility] [phone] Appearance Urine Clear Clear [facility] [place] WBC Esterase Urine Negative Negative [facility] [place] [facility] [phone] Protein, Ur 1+(A) Negative/Tra ce [facility] [place] [phone] Glucose, Ur Negative Negative [facility] [place] [facility] Ketones, Urine Negative Negative [facility] [place] Blood Urine Negative Negative [facility] [place] [phone] Bilirubin Urine Negative Negative [facility] [place] Urobilinogen Urine 0.2 0.2 - 1.0 mg/dL [facility] [place] [facility] [phone] Nitrite, Urine Negative Negative [facility] [place] Microscopic Examination See below: [facility] [place] Comment:Microscopic was sonali cated and was performed. 06/30/2025 11:2 1 AM EDT 06/30/2025 Comment:UC us Raúl Babb MD LAB URINE ORDERABLES Final Re sult [facility] [place] [address] [place] [address] * (ABNORMAL) CBC and Differential (06/30/2025 11:21 AM EDT) WBC 10.1 3.4 - 10.8 x10E3/uL [facility] [place] [facility] RBC 4.87 3.77 - 5.28 x10E6/uL [facility] Hemoglobin 13.2 11.1 - 15.9 g/dL [facility] Hematocrit 43.0 34.0 - 46.6 % [facility] MCV 88 79 - 97 fL [facility] MCH 27.1 26.6 - 33.0 pg [facility] [place] [facility] MCHC 30.7(L) 31.5 - 35.7 g/dL [facility] [place] [facility] RDW 13.7 11.7 - 15.4 % [facility] Platelets 300 150 - 450 x10E3/uL [facility] Neutrophils Relative 55 Not Estab. % [facility] Lymphocytes Relative 32 Not Estab. % [facility] Monocytes 8 Not Estab. % [facility] Eosinophils Relative 4 Not Estab. % [facility] Basophils Relative 1 Not Estab. % [facility] Neutrophils Absolute 5.6 1.4 - 7.0 x10E3/uL [facility] Lymphocytes Absolute 3.2(H) 0.7 - 3.1 x10E3/uL [facility] Monocytes Absolute 0.9 0.1 - 0.9 x10E3/uL [facility] Eosinophils Absolute 0.4 0.0 - 0.4 x10E3/uL [facility] Basophils Absolute 0.1 0.0 - 0.2 x10E3/uL [facility] Immature Granulocytes 0 Not Estab. % [facility] Immature Grans (Absolute) 0.0 0.0 - 0.1 x10E3/uL [facility] 06/30/2025 11:2 1 AM EDT 06/30/2025 Raúl Babb MD LAB BLOOD ORDERABLES Final Re sult [facility] [place] [facility] [address] [place] [address] * Urine Culture (06/30/2025 11:21 AM EDT) Culture Result, Urine Final report [facility] [place] 06/30/2025 11:2 1 AM EDT 06/30/2025 Comment: Raúl Babb MD LAB URINE ORDERABLES Final Re sult [facility] [address] [place] [address] * PTH, Intact (06/30/2025 11:21 AM EDT) PTH 18 15 - 65 pg/mL [facility] 06/30/2025 11:2 1 AM EDT 06/30/2025 Comment: Raúl Babb MD LAB BLOOD ORDERABLES Final Re sult [facility] [place] [address] [place] [address] * (ABNORMAL) Magnesium (06/30/2025 11:21 AM EDT) Magnesium 1.4(L) 1.6 - 2.3 mg/dL [facility] 06/30/2025 11:2 1 AM EDT 06/30/2025 Comment: Raúl Babb MD LAB BLOOD ORDERABLES Final Re sult Performing Organization Address City/[facility]/ZIP Co de Phone Number [facility] [address] [place] [address] * (ABNORMAL) Renal Function Panel (06/30/2025 11:21 AM EDT) Glucose 179(H) 70 - 99 mg/dL [facility] BUN 23 6 - 24 mg/dL [facility] Creatinine 0.92 0.57 - 1.00 mg/dL [facility] eGFR CKD-EPI CR 2020 72 >59 mL/min/1.7 3 [facility] BUN/Creatinine Ratio 25(H) 9 - 23 [facility] Sodium 138 134 - 144 mmol/L [facility] Potassium 4.1 3.5 - 5.2 mmol/L [facility] Chloride 96 96 - 106 mmol/L [facility] Bicarbonate (CO2) 24 20 - 29 mmol/L [facility] Calcium 10.1 8.7 - 10.2 mg/dL [facility] Phosphorus 3.8 3.0 - 4.3 mg/dL [facility] Albumin 4.3 3.8 - 4.9 g/dL [facility] 06/30/2025 11:2 1 AM EDT 06/30/2025 Comment: us Raúl Babb MD LAB BLOOD ORDERABLES Final Re sult [facility] [address] [place] [address] * Hemoglobin A1c (07/08/2020 12:05 PM EDT) Hemoglobin A1C 8.5 % [facility] Comment: Hemoglobin A1C Reference Range Adults: 4.8 - 6.0 % Non diabetic: < 6.0 % Goal: < 7.0 % Additional Action Suggested: > 8.0 % Note: Hemoglobin A1c results are invalid for patients with abnormal amounts of HbF. Blood transfusions may impact the HbA1c concentration in the patient sample. Estimated Average Glucose 197 MG/DL [facility] Comment: eAG = Estimated average glucose which is %A1C expressed as average glucose, using the formula of the H1R-Fxpbpes Average Glucose study (ADAG), Diabetes Care, Vol.31,#8, Jun. 2007 07/08/2020 12:0 5 PM EDT Iza Hi MD LAB BLOOD ORDERABLES Final Re sult [facility] from Last 3 Months or Most Recently Relevant to Health Maintenance Insurance Care Teams Dog Pound Attendant Relationship Specialty Start Date End Date Iza Rea MD [address] [place], [place] PCP - General 12/07/20
--- OUTSIDE RECORDS SUMMARY | 2025-09-23 11:51 | XMS_ITS | Clinical Summary ---
Author Organization [facility] Address [address] [place] [address] Phone Care Team Providers Care Prefabricator Name Role Phone Iza Hi MD Primary Care Provider [phone] Allergies No known active allergies Medications allopurinoL [...] tumor determined b y biopsy of stomach ([facility]/HCC V28) 05/09/2017 Essential hypertension 05/09/2017 Mixed hyperlipidemia 05/09/2017 Type 2 diabetes mellitus without complication Overview (08/27/2025): 08/27/25 Regulatory IMO Update Surgical History Surgery Date Site/Laterality Comments ESOPHAGOGASTRODUODENOSCOPY 2015 N/A PROCEDURE: [place] ESOPHAGOGASTRODUODENOSCOPY TRANSORAL DIAGNOSTIC; COMMENT: fall, gastric polyps. 2nd scope 10/2016 polyps removed showing micro-carcinoids. 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 (CMS/HCC V28) DX:Carcinoid tumor determine d by biopsy [...] Description 02/23/2026 10:30 AM EDT Office Visit [facility]emat[facility] Oncology [address] [place] [address] Karissa Jefferson MD [address] [place] [address] Health Maintenance Due Date Last Done Comments Breast Cancer Screening 1966 Colorectal Cancer Screening: Colonoscopy 1966 Diabetes: Annual Foot Exam 1976 Diabetes: Annual Retina Eye Exam 1976 Hepatitis B Vaccines (1 of 3 - 19+ 3-dose series) 1985 Cervical Cancer Screening: Pap Smear 1987 Pneumococcal Vaccine: 50+ Years (2 of 2 - PCV) 03/11/2011 03/11/2010 RSV Immunization Adult Patients (1 - Risk 50-74 years 1-dose series) 2016 Zoster Vaccines (1 of 2) 2016 Cholesterol Screening (Lipid Panel) 11/03/2022 HIV Screening 11/03/2022 Hepatitis C Screening 11/03/2022 Social Influencers of Health Screening 11/03/2022 Diabetes: Annual Urine Albumin-Creatinine Ratio (uACR) 11/12/2022 Diabetes: Blood Sugar Control Test (HGBA1C) 11/12/2022 07/08/2020 Depression Screening 11/27/2024 COVID-19 Vaccine ( season) 2025 09/11/2023, 10/17/2022, 06/06/2022, Additional history exists Influenza Vaccine (#1) 2025 Diabetes: Annual GFR [...] 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 ([facility] V28) from Last 3 Months or Most Recently Relevant to Health Maintenance Results * (ABNORMAL) Comprehensive metabolic panel (02/21/2025 10:49 AM EDT) Sodium 135 133 - 145 mmol/L LAB CHEMISTRY METHOD 02/21/2025 12:19 PM [facility] Potassium 3.9 3.5 - 5.5 mmol/L LAB CHEMISTRY METHOD 02/21/2025 12:19 PM [facility] Chloride 99 96 - 110 mmol/L LAB CHEMISTRY METHOD 02/21/2025 12:19 PM [facility] CO2 31 21 - 32 mmol/L LAB CHEMISTRY METHOD 02/21/2025 12:19 PM [facility] Anion Gap 5 3 - 11 LAB CHEMISTRY METHOD 02/21/2025 12:19 PM [facility] Glucose 147(H) 70 - 100 mg/dL LAB CHEMISTRY METHOD 02/21/2025 12:19 PM [facility] BUN 15 5 - 25 mg/dL LAB CHEMISTRY METHOD 02/21/2025 12:19 PM [facility] Creatinine 0.93 0.50 - 1.10 mg/dL LAB CHEMISTRY METHOD 02/21/2025 12:19 PM [facility] eGFR 71 >=60 mL/min/1. 73m2 LAB CHEMISTRY METHOD 02/21/2025 12:19 PM [facility] Comment:Calculation based on the Chronic Kidney Disease Epidemiology Collaboration (CKD-EPI) equation refit without adjustment for race. BUN/Creatinine Ratio 16.1 LAB CHEMISTRY METHOD 02/21/2025 12:19 PM [facility] Calcium 9.9 8.5 - 10.5 mg/dL LAB CHEMISTRY METHOD 02/21/2025 12:19 PM [facility] AST (SGOT) 20 10 - 42 unit/L LAB CHEMISTRY METHOD 02/21/2025 12:19 PM [facility] ALT (SGPT) 41 10 - 60 unit/L LAB CHEMISTRY METHOD 02/21/2025 12:19 PM [facility] Alkaline Phosphatase 64 42 - 121 unit/L LAB CHEMISTRY METHOD 02/21/2025 12:19 PM [facility] Total Protein 7.5 6.0 - 8.0 g/dL LAB CHEMISTRY METHOD 02/21/2025 12:19 PM [facility] Albumin 4.0 3.2 - 5.0 g/dL LAB CHEMISTRY METHOD 02/21/2025 12:19 PM [facility] Total Bilirubin 0.6 0.0 - 1.4 mg/dL LAB CHEMISTRY METHOD 02/21/2025 12:19 PM [facility] Blood Venous blood specimen / Unknown Venipuncture / Unknown 02/21/2025 10:49 AM EDT 02/21/2025 11:37 AM EDT us Karissa Jefferson MD LAB BLOOD ORDERABLE S Final Result [facility] [address] [place] [address], [place] [phone] from Last 3 Months or Most Recently Relevant to Health Maintenance Insurance [facility] [employer] Care Teams Prefabricator Relationship Specialty Start Date End Date Iza Hi MD [address] [facility] , [address] [facility] [place], [place] PCP - General Internal Medicine 04/02/21
--- OUTSIDE RECORDS SUMMARY | 2025-09-23 11:51 | XMS_ITS | Encounter Summary ---
Author Organization [facility] Address [address] [place] [address] Phone Care Team Providers Care Used Car Make Ready Worker Name Role Phone Iza Rea MD Primary Care Provider [phone] Reason for Referral * Genetic Testing (Routine) - Closed Specialty Diagnoses / Procedures Referred By Shannan blair Referred To Contact Diagnoses Personal history of kidney stones Medullary sponge kidney Procedures [employer]olink Requisition Raúl Babb MD [address] [address] Phone: tel: fax: Referral ID Status Reason Start Date Expiration Date Visits Re quested Visits Authorized [id number] Closed 04/24/2025 04/24/2026 1 1 Encounter Details Date Type Department Care Team (Latest Contact Info) Description 04/24/2025 Office Communication [facility] [address] [address] Raúl Babb MD [facility] [address] [address] Personal history of kidney stones [...] Visit [facility] the [address] [place] [address] Raúl Babb MD [address] [facility] [address] [place] [address] Scheduled Orders Name Type Priority Associated Diagnoses [...] kidney documented in this encounter Care Teams Used Car Make Ready Worker Relationship Specialty Start Date End Date Iza Rea MD [address] [place], [place] PCP - General 12/07/20 documented as of this encounter
--- OUTSIDE RECORDS SUMMARY | 2025-09-23 11:51 | XMS_ITS | Clinical Summary ---
Author Organization [facility] Address [address] [address] Phone Care Team Providers Care Manager Environmental Affairs Name Role Phone Iza Rea MD Primary Care Provid er Medications [...] 2016 ZOSTER VACCINES (1 of 2) 2016 INFLUENZA VACCINE (#1) 2025 COVID-19 VACCINE ( - 2024-2 6 season) 2025 RSV VACCINE (1 - 1-dose 75+ series) 2041 HEPATITIS A VACCINES Aged Out No long [...] this topic Medical Devices Not on file Insurance [facility] Care Teams Manager Environmental Affairs Relationship Specialty Start Date End Date Iza Rea MD [address] [place] [address] PCP - General Internal Medicine 11/24/22 Additional Source Comments The information contained in this document represents components of the legal health record. It is not the complete legal health record.[facility]
--- OUTSIDE RECORDS SUMMARY | 2025-09-23 11:51 | XMS_ITS | Patient Health Record ---
Author Organization [facility] Address [address] [place] [address] Care Team Providers Care Right Of Way Cutter Name Role Phone Iza Rea Primary Care Provider Jj Terry Jr Unavailable [phone] Allergies Allergen (clinical drug ingredient) Drug/Non Drug Allergy documented on EMR Reaction Allergy Type Onset Date Status mold and dust (uncoded) Unknown Allergy Active Results Component Value Reference Range Notes Glucose, Whole Blood Reviewed date:02/11/2025 01:22:57 PM Interpretation: Performing Lab:[facility], [address] [place] [address] Notes/Report: Glucose, Whole Blood 158 60-115 mg/dL METER # : [id number] Pathology Reviewed date:02/11/2025 02:34:55 PM Interpretation: Performing Lab:[facility], [address] [place] [id number] Notes/Report: Reason For Referral No Information Medications Medication SIG (Take, Route, Frequency, Duration) Notes Start Date End Date Status Simvastatin 20 MG 1 tablet in the evening Orally Once a day Active glipiZIDE XL 10 MG 1 tablet Orally Once a day Active Diflucan 200 MG 1 tablet Orally DAILY; Duration: 14 days 02/11/2025 Active Losartan Potassium 25 MG 1 tablet Orally Once a day Active Potassium Citrate - Active Omeprazole 40 MG TAKE ONE CAPSULE BY MOUTH EVERY DAY 30 MINUTES BEFORE THE MORNING MEAL; Duration: 30 Active Meclizine HCl 25 MG 1 tablet as needed Orally Once a day Active Tqbhmwhjck-BQND-Pjzqsovs 50-325-40 MG 1 tablet as needed Orally [...] Problem Status W/U Status Risk Notes Problem Colon cancer screening (527045776) Colon cancer screening (Z12.11) Active confirmed Problem Epigastric pain (83412834) Epigastric pain (R10.13) Active confirmed Problem Gastro-esophage al reflux disease without esophagitis (147982923) Gastro-esophagea l reflux disease without esophagitis (K21.9) Active confirmed Problem Benign carcinoid tumor of stomach (31694079774568 9) 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 Problem Computed tomography of abdomen abnormal (49153695831959 107) Abnormal CT scan, stomach (R93.3) Active confirmed Problem Abnormal findings diagnostic imaging of liver and biliary tract (008241341) Abnormal computerized tomography of biliary tract (R93.2) Active confirmed Vital Signs Temperature 97.7 degrees Fahrenheit 12/25/2024 Blood pressure diastolic 001 mm Hg 12/25/2024 Height 62 in 12/25/2024 Blood pressure systolic 001 mm Hg 12/25/2024 Weight 151.8 lbs 12/25/2024 BMI 27.76 kg/m2 12/25/2024 Encounters Encounter Location Date Provider Diagnosis [facility] [place] [address] [place], [place] [id number] 02/07/2025 Jj Mullins Jr Colon cancer screening Z12.11 ; Colon polyps K63.5 ; Epigastric pain R10.13 and Benign carcinoid tumor of unspecified site D3A.00 [facility] [address] [place] [address] 12/25/2024 Jj Mullins Jr Epigastric pain R10.13 ; Benign carcinoid tumor of stomach D3A.092 ; Colon cancer screening Z12.11 and Gastroesophageal reflux disease, unspecified whether esophagitis present K21.9 [facility] [address] [place] [address] 02/11/2025 Jj Mullins Jr Michelle esophagitis B37.81 [...] Provider Name:Jj borrego Jr, 02/18/2026 11:10:00 AM, [address] [place] [address], [address], [place], [address], Insurance Providers Payer Name Payer Address Payer Phone Subscriber Number Group Number Insured Name Patient Relationship to Insured Coverage Start Date Coverage End Date [facility] [address] [address] [place], [place] [id number] CARMINE DAWSON Self - patient is the [...]
--- OUTSIDE RECORDS SUMMARY | 2025-09-23 11:51 | XMS_ITS ---
Author Organization [facility] Care Team Providers Care Ground Defence Officer Name Role Phone Myles Ham Unavailable Unavailable Hemanth Florentino Unavailable Unavailable Laura Biswas Unavailable Unavailable Randall Mccartney Unavailable Unavailable Allergies and adverse reactions Code CodeSystem Substance Reaction Severity StartDate Concern Status 1191 RXNORM Aspirin Unknown 07/20/2024 active 3348862 RXNORM Empagliflozin Unknown 07/20/[address] NSAIDs Unknown 07/20/2024 active Care Team Name Role Address Phone Organization Dates Randall Mccartney PCP [address] [place] [address] 1, [place], [address], [place]Office[place] : [facility] 07/20/2024 - 08/01/2024 Myles Ham [address] [place] [address], [phone], [place] (Office): [facility] 07/20/2024 - 08/01/2024 Hemanth Florentino [address] [address], [place], [address], [place]Office): : : [facility] 07/20/2024 - 08/01/2024 Laura Silvia Biswas [address] [address], [place], [address], [place] (Office): : [facility] 07/20/2024 - 08/01/2024 Goals Section Goals Description Status Target Date [place] my code status wishes through next review Active 08/08/2024 I will be able to verbalize/ communicate required assistance post-discharge and the services required to meet needs before discharge. I will demonstrate correct medication / treatment administration prior to discharge. I will verbalize discharge plans and describe desired outcome prior to discharge. Active 08/08/2024 I will be compliant with lab s & diagnostics if ordered by my doctor through the review date. Active 08/08/2024 I will be compliant with lab s & diagnostics if ordered by my doctor through the review date. Active 08/08/2024 I will be compliant with lab s & diagnostics if ordered by my doctor through the review date. Active 08/08/2024 I will be compliant with lab s & diagnostics if ordered by my doctor through the review date. Active 08/08/2024 I will be compliant with lab s & diagnostics if ordered by my doctor through the review date. Active 08/08/2024 I will be compliant with lab s & diagnostics if ordered by my doctor through the review date. Active 08/08/2024 I will be compliant with the non-pharmacological therapies, medication regimen & therapies prescribed by my doctor. I will not have an interruption in normal activities due to pain through the review date. I will be free of any discomfort or adverse side effects to therapies through the review date. Active 08/08/20 I will be free from diarrhea and will have no dehydration through next review Active 08/08/2024 I will be free of complicati ons d/t position alarms: confusion, fear, agitation, anxiety, decreased mobility, and loss of dignity through review date. Active 08/08/2024 I will be free of major decl ine in ADL status through the review date. Active 08/08/2024 I will express satisfaction with the type of activities I am involved in when asked through the review date. Active 2023 Mental Status Section Date Assessment Total Score Description 08/01/2024 CAM 0 No delirium ind icated 07/27/2024 BIMS 15 cognitively int act CAM 0 No delirium ind icated PHQ-9 [id number] Insurance Providers Plan of Treatment Section Interventions Intervention Code Code System Display Name Proposed D ate Problems Problem # Description Date of onset Resolved Date Code CodeSystem Concern Status 1 CHRONIC KIDNEY DISEASE, UNSPECIFIED 07/20/[address] active 2 AGA'S SYNDROME, UNSPECIFIED 07/20/[address] active 3 DISPLACED COMMINUTED FRACTURE OF LEFT PATELLA, SUBSEQUENT ENCOUNTER FOR CLOSED FRACTURE WITH ROUTINE HEALING 07/20/[address] active 4 DISPLACED FRACTURE OF HEAD OF RIGHT RADIUS, SUBSEQUENT ENCOUNTER FOR CLOSED FRACTURE WITH ROUTINE HEALING 07/20/[address] active 5 DIZZINESS AND GIDDINESS 07/20/[address] active 6 ESSENTIAL (PRIMARY) HYPERTENSION 07/20/[address] active 7 GASTRO-ESOPHAGEAL REFLUX DISEASE WITHOUT ESOPHAGITIS 07/20/[address] active 8 GOUT, UNSPECIFIED 07/20/[address] active 9 HYPERLIPIDEMIA, UNSPECIFIED 07/20/[address] active 10 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) USE 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 07/20/[address] active 11 OTHER ABNORMALITIES OF GAIT AND MOBILITY 07/20/[address] active 12 REPEATED FALLS 07/20/[address] ac tive 13 TYPE 2 DIABETES MELLITUS WITH DIABETIC NEPHROPATHY 07/20/[address] active 14 TYPE 2 DIABETES MELLITUS WITH UNSPECIFIED COMPLICATIONS 07/20/[address] active 15 UNSPECIFIED FALL, SUBSEQUENT ENCOUNTER 07/20/[address] active 16 UNSTEADINESS ON FEET 07/20/[address] active Reason for Referral No Reasons for Referral Entered Social History Social History Observation Description Start Date End Date Code Code System Current Smoking Status Tobacco smoking consumption unknown 379309657 SNOMED CT Sex Assigned At Female 1965 98505-3 [facility] Gender Identity Sexual Orientation Vital Signs Code Code System Vitals Name Values and Units Timing Information 40985-6 [facility] Weight Vrcwr=464.8 Units=Lbs 03/2024 8462-4 [facility] Blood Pressure-Diastolic Value=87 Un its=mmHg 08/01/2024 8480-6 [facility] Blood Pressure-Systolic Zsrxi=828 Un its=mmHg 08/01/2024 8867-4 [facility] Heart rate Nirpi=208.0 Units=/min 08/01/2024 02671-3 [facility] O2 % BldC Oximetry Value=98.0 Units= % 08/01/2024 44426-8 [facility] Pain Level Value=0.0 08/01/2024 8310-5 [facility] Body Temperature Value=98.0 Units= F 07/31/2024 8302-2 [facility] Height Value=63.0 Units=Inches 07/31/2024 9279-1 [facility] Respiratory Rate Value=20.0 Units=/m in 2024
--- OUTSIDE RECORDS SUMMARY | 2025-09-23 11:51 | XMS_ITS | Clinical Summary ---
Author Organization [facility] Address [address] [place] [address] Care Team Providers Care Legal Billing Analyst Name Role Phone Iza Rea MD Primary [...] age to complete this topic Care Teams Legal Billing Analyst Relationship Specialty Start Date End Date Iza Rea MD [address] [place] [address] , [address] [facility]: [facility] [place] [address] PCP - General Internal Medicine 05/04/17
== END 2025-09-23 10:01 | disposition home or self-care (01) ==
LOC: HO.US 10:00
PROVIDERS: PCP Internal Medicine; Visit Provider Student in an Organized Health Care Education/Training Program
DX: E04.2 Nontoxic multinodular goiter (principal)
CPT/HCPCS: 76536

== ENCOUNTER → 2025-09-23 10:02 | Outpatient (BNV) | payer OTHER, SELFPAY | PROVIDERS: PCP Internal Medicine; Visit Provider Radiology Diagnostic Radiology | DX: E04.2 Nontoxic multinodular goiter (principal) | CPT/HCPCS: 76536 ==

== ENCOUNTER 2025-10-08 14:36 | Emergency (ER) | payer OTHER, SELFPAY ==
--- OUTSIDE RECORDS SUMMARY | 2024-05-13 06:00 | XMS_ITS ---
Author Organization [facility] Address [address] [place] [address] Care Team Providers Care Environmental Services Director Name Role Phone Iza Rea Primary Care Provider Unavailab Jj Bullard Jr REASON FOR VISIT Patient presents today for gerd Encounters Encounter Location Date Provider Diagnosis [facility] [address] [place] [address] 05/13/2024 Jj Mullins Jr Plan Of Treatment Next Appt Details Provider Name:Jj borrego Jr, 02/18/2026 11:10:00 AM, [address], [address], [place], [address], Progress Notes * CARMINE DAWSON IDOB: (60 yo F)Acc No.[id number]:05/13/2024 Progress Notes Patient: Kadeem BARRIOSCARMINE GORDON I Provider: Jameel Mullins MD :1965 A ge:58 Y S ex:Female Date:05/13/2024 Address:[address] [id number] Pcp:Iza Hi Subjective: * Chief Complaints: * 1 . Patient presents today for gerd. * Medical History: Objective: * Vitals: Assessment: Plan: * Treatment: * * The named appointment provid er may or may not be the originator of this progress note, and it is not deemed complete until electronically signed by the appointment provider. Sign off status: Pending * Provider: Jameel Mullins MD Date: 0 05/13/2024 Generated for Raul escamilla/Karolina/Fiorella on: 1 12/08/2024 06:37 PM EST
--- OUTSIDE RECORDS SUMMARY | 2024-09-11 06:00 | XMS_ITS ---
Author Organization [facility] Address [address] [place] [address] Care Team Providers Care Carton Liner Name Role Phone Iza Rea Primary Care Provider Unavailab Jj Bullard Jr REASON FOR VISIT Patient presents today for gerd Encounters Encounter Location Date Provider Diagnosis [facility] [address] [place] [address] 09/11/2024 Jj Mullins Jr Plan Of Treatment Next Appt Details Provider Name:Jj borrego Jr, 02/18/2026 11:10:00 AM, [address], [address], [place], [address], Progress Notes * CARMINE DAWSON IDOB: (60 yo F)Acc No.[id number]:09/11/2024 Progress Notes Patient: Kadeem BARRIOSCARMINE GORDON I Provider: Jameel Mullins MD :1965 A ge:59 Y S ex:Female Date:09/11/2024 Address:[address] [id number] Pcp:Iza Hi Subjective: * Chief Complaints: * [...] Mullins MD Date: 1 Generated for Raul escamilla/Karolina/Fiorella on: 12/08/2024 06:37 PM EST
--- OUTSIDE RECORDS SUMMARY | 2025-02-07 06:30 | XMS_ITS ---
Author Organization [facility] Address [address] [place] [address] Care Team Providers Care Air Hammer Stripper Name Role Phone Iza Rea Primary Care Provider Jj Terry Jr REASON FOR VISIT epigastric pain,benign carcinoid tumor of stomach,screening Encounters Encounter Location Date Provider Diagnosis [facility] [address] [place] [phone] 02/07/2025 Jj Mullins Jr Colon cancer screening Z12.11 ; Colon polyps K63.5 ; Epigastric pain R10.13 and Benign carcinoid tumor of unspecified site D3A.00 Assessments Encounter Date Diagnosis (ICD Code) Assessment Notes Treatment Notes Treatment Clinical Notes Section Notes 02/07/2025 Colon cancer screening (ICD-10 - Z12.11) 02/07/2025 Colon polyps (ICD-10 - K63.5) 02/07/2025 Epigastric pain (ICD-10 - R10.13) 02/07/2025 Benign carcinoid tumor of unspecified site (ICD-10 - D3A.00) Plan Of Treatment Next Appt Details Provider Name:Jj borrego Jr, 02/18/2026 11:10:00 AM, [address], [address], [place], [address], Progress Notes * CARMINE DAWSON IDOB: (60 yo F)Acc No.[id number]:02/07/2025 EGD and COL/MAC Patient: A CARMINE DUNCAN I Provider: Jameel Mullins MD :1965 A ge:59 Y S ex:Female Date:02/07/2025 Address:[address], [place], [place] Pcp:Iza Hi Subjective: * Chief Complaints: * 1 . Epigastric pain,benign carcinoid tumor of stomach,screening. * Medical History: Objective: * Vitals: Assessment: * Assessment: 1. C olon cancer screening - Z12.11 (Primary) 2 . C olon polyps - K63.5? 3. E pigastric pain - R10.13 4 . B enign carcinoid tumor of unspecified site - D3A.00 Plan: * Treatment: * Procedure Codes: 4 5388 COLONOSCOPY W/ABLATION, 30478 UPPER GI ENDOSCOPY, BIOPSY * * The named appointment provid er may or may not be the originator of this progress note, and it is not deemed complete until electronically signed by the appointment provider. Sign off status: Pending * Provider: Jameel Mullins MD Date: 0 02/07/2025 Generated for Raul escamilla/Karolina/Scottiesmitting on: 1 12/08/2024 06:37 PM EST
--- NOTE | ~2025-10-08 | XR_ITS ---
EXAMINATION: XR CHEST CLINICAL INFORMATION: cough URI COMPARISON: July 08, 2020 TECHNIQUE: PA and lateral views FINDINGS: Poor inspiration. No consolidation, pleural effusion or pneumothorax. Cardiomediastinal silhouette size is normal. Multilevel thoracolumbar spondylosis. Kyphotic deformity at the buccal lumbar junction. Vascular clips in the right upper quadrant abdomen. Patient's large body habitus/obesity. Degenerative changes in the acromioclavicular joints. XR/XR chest 2V IMPRESSION: No acute airspace disease. Multilevel thoracolumbar spondylosis. Likely laparoscopic cholecystectomy Electronically signed by: Jonathan Ramirez MD 10/08/2025 03:57 PM EST RP
--- NOTE | 2025-10-08 14:37 | ECG_ITS ---
Test Reason : cp Blood Pressure : */* mmHG Vent. Rate : 102 BPM Atrial Rate : 102 BPM P-R Int : 146 ms QRS Dur : 86 ms QT Int : 334 ms P-R-T Axes : 48 -34 75 degrees QTcB Int : 435 ms Sinus tachycardia Left axis deviation Possible Anterior infarct , age undetermined Abnormal ECG When compared with ECG of 03-Jul-2025 09:51, Nonspecific T wave abnormality now evident in Lateral leads Referred By: Generic ED Physician Electronically Signed By: JONATHAN MASTERS MD
--- NOTE | 2025-10-08 14:42 | ED.CHESTPAIN ---
HPI - Chest Pain General Chief Complaint: Upper Respiratory Symptoms Stated Complaint: CP, fever Time Seen by Provider: 10/08/25 16:04 Source: patient, RN notes reviewed and old records reviewed Mode of arrival: ambulatory Limitations: no limitations History of Present Illness ED Provider: Grupo HPI narrative: 60-year-old female with a past medical history significant for diabetes, hypertension, palpitations presents for evaluation of a cough, fevers, she reports that she has been sick for about 5 days with sore throat, cough, fevers and body aches. She states that her granddaughter has similar symptoms pain The patient reports that she had asthma as a child but has not had any issues in many years. She is not taking inhaler has been She is a nonsmoker. Denies any abdominal pain, nausea, vomiting no other complaints or concerns at this time Related Data Home Medications ?Medication ?Instructions ?Recorded ?Confirmed allopurinol 100 mg tablet 100 mg PO DAILY 03/06/23 07/03/25 omeprazole 40 mg capsule,delayed 40 mg PO DAILY 07/19/24 07/03/25 release Previous Rx's ?Medication ?Instructions ?Recorded pen needle, diabetic 32 gauge x #50 ea 12/24/20 potassium citrate 10 mEq (1,080 20 meq (2 x 10 mEq (1,080 mg)) PO 08/01/21 mg) tablet,extended release BID #120 tabs blood-glucose meter #1 ea 03/02/23 meclizine 25 mg tablet 25 mg PO DAILY PRN Dizziness Or 08/14/24 Vertigo 30 days #30 tabs hydrochlorothiazide 25 mg tablet 25 mg PO DAILY 90 days #90 tabs 03/05/25 metformin 1,000 mg tablet 1,000 mg PO BID 90 days #180 tabs 04/03/25 losartan 25 mg tablet 25 mg PO DAILY 90 days #90 tabs 05/06/25 pyridoxine (vitamin B6) 100 mg 100 mg PO DAILY 90 days #90 tabs 05/14/25 tablet magnesium glycinate 300 mg (3 x 100 mg magnesium) PO 07/03/25 DAILY 90 days #270 caps blood sugar diagnostic #100 ea 08/26/25 simvastatin 40 mg tablet 40 mg PO BEDTIME #90 tabs 08/31/25 cholecalciferol (vitamin D3) 25 25 mcg PO .COMPLEX 90 days #36 caps 09/16/25 mcg (1,000 unit) capsule glipizide 5 mg tablet 10 mg (2 x 5 mg) PO DAILY PRN 09/23/25 Sugar Levels #90 tabs benzonatate 200 mg capsule 200 mg PO TID PRN cough #20 caps 10/08/25 prednisone 20 mg tablet 40 mg (2 x 20 mg) PO DAILY #10 tabs 10/08/25 Allergies Allergy/AdvReac Type Severity Reaction Status Date / Time aspirin (ASPIRIN) Allergy Severe HX ULCER Verified 10/08/25 14:46 NSAIDS (Non-Steroidal Allergy Severe HX ULCER Verified 10/08/25 14:46 Anti-Inflamma (NSAIDS) codeine AdvReac Stomach Verified 10/08/25 14:46 Upset empagliflozin (From AdvReac hematuria Verified 10/08/25 14:46 Jardiance) oxycodone AdvReac Stomach Verified 10/08/25 14:46 Upset Review of Systems Constitutional: Constitutional: Reports body ache(s), Reports chills, Reports fever(s), Reports headache(s), Reports malaise and Reports weakness ENT: Denies vertigo, Denies dizziness, Reports headache(s) and Reports sore throat Cardiovascular: Cardiovascular: Reports chest pain and Reports dyspnea on exertion Respiratory: Respiratory: Denies change in phlegm color, Denies chest congestion, Reports cough, Reports pain with cough and Reports dyspnea on exertion Gastrointestinal: Gastrointestinal: Denies abdominal pain, Denies nausea and Denies vomiting Musculoskeletal: Musculoskeletal: Denies back pain Integumentary/Breasts: Skin/Breast: Denies rash Neurologic: Denies vertigo, Denies dizziness, Reports headache(s) and Reports weakness PMFSH Past Medical History Medical History Polyarthralgia Left shoulder pain Adrenal mass Elevated cholesterol Migraine Pituitary microadenoma William's disease Bilateral nephrolithiasis Pancreatic mass Renal cyst Renal cysts and diabetes syndrome Liver mass Physical exam Type 2 diabetes with nephropathy Multinodular thyroid Hyperparathyroidism Vitamin D deficiency Hypercalcemia Hypercortisolism Adrenal cortical adenoma of right adrenal gland Right knee pain Type 2 diabetes mellitus with unspecified complications Tachycardia Type 2 diabetes mellitus with hyperglycemia, with long-term current use of insulin Vitamin D deficiency Adrenal nodule Carcinoid tumor of stomach Chronic kidney disease GERD (gastroesophageal reflux disease) Gout Stomach ulcer Hx of renal calculi Essential hypertension Hyperlipidemia LDL goal <100 Surgical History Hx of cystoscopy History of esophagogastroduodenoscopy (EGD) H/O colonoscopy History of gastric polyp Hx of lithotripsy Hx of hysterectomy Hx of cholecystectomy Family History Family History Father CVD (cardiovascular disease) Stomach cancer Mother Diabetes Social History Social History Household Members: Family Housing: Apartment Are you a primary child care associate teacher to a significant other at home: No Do you presently have visiting nurse or other home services: No Alcohol intake: never Patient Tobacco Use Status: Never used Tobacco e-Cigarette/Vaping Use: Never Used Second Hand Smoke Exposure: No Advance Directives: No Advance Directives Information Provided: Yes service: No Current occupational status: unemployed Current occupation: rt handed Cognitive needs: No Hearing needs: No Vision needs: Yes Physical Exam Vital Signs: Vital Signs: Last Vital Signs Temp 99.0 F 10/08/25 16:59 Pulse 90 10/08/25 16:59 Resp 14 10/08/25 16:59 BP 128/69 10/08/25 16:59 Pulse Ox 94 10/08/25 16:59 O2 Del Method Room Air 10/08/25 16:59 BMI result Body Mass Index 27.7 Const: General: healthy appearing, comfortable, no acute distress, alert and awake Nutritional Appearance: well nourished Orientation/consciousness: patient oriented x3 HEENT: Head: Yes normocephalic and Yes atraumatic Throat: Yes posterior oropharynx normal Eyes: Eyelids: Yes eyelids normal Conjunctivae: conjunctivae normal Sclerae: sclerae normal Corneas: corneas normal Pupils: Equal, round and reactive pupils present EOM: EOMs intact bilaterally Neck: Neck: Yes full ROM Resp: Effort & Inspection: normal respiratory effort, able to speak in complete sentences, no audible wheezes and not labored Auscultation: clear to auscultation bilaterally Cardio: Rate: regular rate Rhythm: regular rhythm GI: Inspection: No distended Palpation (GI): Soft to palpation, not firm, nontender, no guarding and not rigid Skin: General skin exam: elasticity normal Neuro: General: patient oriented x3 Cranial nerves: Yes Equal, round and reactive pupils present and Yes Bilaterally intact EOM present Cognition (Neuro): normal cognition Course Course Course Narrative: This is a Rapid Medical Examination (RME) performed by Mikayla Oneill PA-C in triage. Full HPI, ROS, assessment and treatment plan per primary provider in the Main ED. Hx: 60 yo F hx asthma here for eval sore throat, headache, cough, chest pain/tightness with coughing x5 days. grand daughter ill w/ URI. PE: lungs clear, bronchospastic cough Plan: viral/strep swabs, cxr. Medical Decision Making Medical Decision Making MDM Narrative: 60-year-old female presents for evaluation of viral symptoms including cough, congestion, sore throat and body aches. She reports positive sick contacts with her granddaughter. Her lungs are clear to auscultation, a chest x-ray does not show any evidence of pneumonia or pleural effusions. Viral swabs are negative for fluid, COVID, RSV. Vital signs are within normal limits. She is not hypoxic and she is afebrile. I suspect a viral bronchitis. Given her history of asthma I think it is reasonable to treat with a short course of prednisone and supportive treatment. She does not have any risk factors for PE. Differential Diagnosis Differential Diagnoses: The differential diagnosis associated with the presentation includes acute bronchitis Upper respiratory infection Pneumonia PE less likely CHF Lab Data [facility] Lab Attestation statement: I reviewed the patient's lab results. viral swabs negative, strep negative Labs: Lab Results 10/08/25 10/08/25 Range/Units 14:48 14:49 Influenza Type A (PCR) NEGATIVE (Negative) Influenza Type B (PCR) NEGATIVE (Negative) RSV RNA Qual (PCR) NEGATIVE (Negative) SARS-CoV-2 RNA (RT-PCR) NEGATIVE (Negative) S. pyogenes GrpA AVI Negative (Negative) Radiology Impression Discussion of test interpretation with radiology: I have reviewed the radiologist's reading. Radiologist Impression: FINDINGS: Poor inspiration. No consolidation, pleural effusion or pneumothorax. Cardiomediastinal silhouette size is normal. Multilevel thoracolumbar spondylosis. Kyphotic deformity at the buccal lumbar junction. Vascular clips in the right upper quadrant abdomen. Patient's large body habitus/obesity. Degenerative changes in the acromioclavicular joints. XR/XR chest 2V IMPRESSION: No acute airspace disease. Multilevel thoracolumbar spondylosis. Likely laparoscopic cholecystectomy Electronically signed by: Jonathan Ramirez MD 10/08/2025 03:57 PM EST Discharge Plan Discharge Clinical Impression: Acute bronchitis Patient Disposition: Home, Self-Care Instructions: Acute Bronchitis (ED) Additional Instructions: Your viral swabs were negative. Your chest x-ray did not show any evidence of pneumonia. You likely have a virus causing bronchitis. You may use Tessalon Perles as needed for cough you may take prednisone 40 mg daily for the next 5 days to help with inflammation which should help your cough, but this will likely increase your blood sugars so keep an eye on your sugars while taking it Prescriptions: New benzonatate 200 mg capsule 200 mg PO TID PRN (Reason: cough) Qty: 20 0RF prednisone 20 mg tablet 40 mg PO DAILY Qty: 10 0RF No Action (DME) pen needle, diabetic 32 gauge x 5/32 needle See Rx Instructions subcut DAILY Qty: 50 11RF Rx Instructions: Use pen needle once a day potassium citrate 10 mEq (1,080 mg) tablet extended release 20 meq PO BID Qty: 120 2RF (DME) blood-glucose meter Kit See Rx Instructions .ROUTE .MEDSUPPLY Qty: 1 0RF Rx Instructions: As directed meclizine 25 mg tablet 25 mg PO DAILY PRN (Reason: Dizziness Or Vertigo) 30 Days Qty: 30 3RF hydrochlorothiazide 25 mg tablet 25 mg PO DAILY 90 Days Qty: 90 1RF metformin 1,000 mg tablet 1,000 mg PO BID 90 Days Qty: 180 3RF losartan 25 mg tablet 25 mg PO DAILY 90 Days Qty: 90 1RF magnesium glycinate 100 mg magnesium capsule 300 mg PO DAILY 90 Days Qty: 270 1RF (DME) blood sugar diagnostic Strip See Rx Instructions .ROUTE .MEDSUPPLY Qty: 100 0RF Rx Instructions: Use 1 test strip once a day simvastatin 40 mg tablet 40 mg PO BEDTIME Qty: 90 1RF cholecalciferol (vitamin D3) 25 mcg (1,000 unit) capsule 25 mcg PO .COMPLEX 90 Days Qty: 36 1RF Rx Instructions: 25 mcg orally 3 times per week; glipizide 5 mg tablet 10 mg PO DAILY PRN (Reason: Sugar Levels) Qty: 90 1RF omeprazole 40 mg capsule,delayed release(DR/EC) 40 mg PO DAILY allopurinol 100 mg tablet 100 mg PO DAILY pyridoxine (vitamin B6) 100 mg tablet 100 mg PO DAILY 90 Days Qty: 90 1RF Interventions: ED Discharge Assessment Last Done: 10/08/25 16:59 Discharge Date/Time: 10/08/25 16:59 Print Language: Lithuanian
[2025-10-08 14:43] VITALS: BP 132/60; PULSE 107; RESP 18; TEMP 36.9; O2SAT 98; BMI 27.7
[2025-10-08 15:05] LABS: IDNOW Serial# 55D5AD1C
[2025-10-08 15:06] LABS: Strep A Nucleic Acid Negative (Negative)
[2025-10-08 15:33] LABS: Resp Syncy Virus RNA Qual PCR NEGATIVE (Negative); SARS COV2 PCR INHOUSE NEGATIVE (Negative)
[2025-10-08 16:12] VITALS: BP 128/69; PULSE 90; RESP 14; TEMP 37.2; O2SAT 94
[2025-10-08 16:59] VITALS: BP 128/69; PULSE 90; RESP 14; TEMP 37.2; O2SAT 94
--- OUTSIDE RECORDS SUMMARY | 2025-10-08 18:37 | XMS_ITS | Patient Health Record ---
Author Organization [facility] Address [address] [place] [address] Care Team Providers Care Granular Operator Name Role Phone Iza Rea Primary Care Provider Jj Terry Jr Unavailable [phone] Allergies Allergen (clinical drug ingredient) Drug/Non Drug Allergy documented on EMR Reaction Allergy Type Onset Date Status mold and dust (uncoded) Unknown Allergy Active Results Component Value Reference Range Notes Glucose, Whole Blood Reviewed date:02/11/2025 01:22:57 PM Interpretation: Performing Lab:[facility], [address] [place] [address] Notes/Report: Glucose, Whole Blood 158 60-115 mg/dL METER # : [id number] Pathology Reviewed date:02/11/2025 02:34:55 PM Interpretation: Performing Lab:[facility], [address] [place] [id number] Notes/Report: Reason For Referral No Information Medications [...] as needed Orally Once a day Active Gwcugobjzh-KNKS-Vuontprx 50-325-40 MG 1 tablet as needed Orally [...] Status Risk Notes Problem Colon cancer screening (915409491) Colon cancer screening (Z12.11) Active confirmed Problem Epigastric pain (69971412) Epigastric pain (R10.13) Active confirmed Problem Gastro-esophage al reflux disease without esophagitis (438118972) Gastro-esophagea l reflux disease without esophagitis (K21.9) Active confirmed Problem Benign carcinoid tumor of stomach (87795989060350 9) 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 Problem Computed tomography of abdomen abnormal (46801774255804 107) Abnormal CT scan, stomach (R93.3) Active confirmed Problem Abnormal findings diagnostic imaging of liver and biliary tract (834323464) Abnormal computerized tomography of biliary tract (R93.2) Active confirmed Vital Signs Temperature 97.7 degrees Fahrenheit 12/25/2024 Blood pressure diastolic 001 mm Hg 12/25/2024 Height 62 in 12/25/2024 Blood pressure systolic 001 mm Hg 12/25/2024 Weight 151.8 lbs 12/25/2024 BMI 27.76 kg/m2 12/25/2024 Encounters Encounter Location Date Provider Diagnosis [facility] Outpatient [address] [place], [place] [id number] 02/07/2025 Jj Mullins Jr Colon cancer screening Z12.11 ; Colon polyps K63.5 ; Epigastric pain R10.13 and Benign carcinoid tumor of unspecified site D3A.00 [facility] [address] [place] [address] 12/25/2024 Jj Mullins Jr Epigastric pain R10.13 ; Benign carcinoid tumor of stomach D3A.092 ; Colon cancer screening Z12.11 and Gastroesophageal reflux disease, unspecified whether esophagitis present K21.9 [facility] [address] [place] [address] 02/11/2025 Jj Mullins Jr Michelle esophagitis B37.81 [...] Provider Name:Jj borrego Jr, 02/18/2026 11:10:00 AM, [address] [place] [address], [address], [place], [address], Insurance Providers Payer Name Payer Address Payer Phone Subscriber Number Group Number Insured Name Patient Relationship to Insured Coverage Start Date Coverage End Date [facility] [address] [address] [place], [place] [id number] CARMINE DAWSON Self - patient is the [...]
--- OUTSIDE RECORDS SUMMARY | 2025-10-08 18:38 | XMS_ITS | Clinical Summary ---
Author Organization [facility] Address [address] [place] [address] Phone Care Team Providers Care Cleaning Porter Name Role Phone Iza Hi MD Primary Care Provider [phone] Allergies No known active allergies Medications allopurinoL [...] tumor determined b y biopsy of stomach ([facility]/HCC V28) 05/09/2017 Essential hypertension 05/09/2017 Mixed hyperlipidemia 05/09/2017 Type 2 diabetes mellitus without complication Overview (08/27/2025): 08/27/25 Regulatory IMO Update Surgical History Surgery Date Site/Laterality Comments ESOPHAGOGASTRODUODENOSCOPY 2015 N/A PROCEDURE: [place] ESOPHAGOGASTRODUODENOSCOPY TRANSORAL DIAGNOSTIC; COMMENT: fall, gastric polyps. [...] Care Team (Late st Contact Info) Description 10/31/2025 11:15 AM EST Office Visit General Surgery - [address] [phone] Sam Khan MD [address] [address] 02/23/2026 10:30 AM EDT Office Visit [facility] [address] [place] [phone] Karissa Jefferson MD [address] [place] [address] Health Maintenance Due Date Last [...] 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 ([facility] V28) from Last 3 Months or Most Recently Relevant to Health Maintenance Results * (ABNORMAL) Comprehensive metabolic panel (02/21/2025 10:49 AM EDT) Sodium 135 133 - 145 mmol/L LAB CHEMISTRY METHOD 02/21/2025 12:[address] [facility] Potassium 3.9 3.5 - 5.5 mmol/L LAB CHEMISTRY METHOD 02/21/2025 12:[address] [facility] Chloride 99 96 - 110 mmol/L LAB CHEMISTRY METHOD 02/21/2025 12:[address] [facility] CO2 31 21 - 32 mmol/L LAB CHEMISTRY METHOD 02/21/2025 12:19 PM [facility] Anion Gap 5 3 - 11 LAB CHEMISTRY METHOD 02/21/2025 12:19 PM [facility] Glucose 147(H) 70 - 100 mg/dL LAB CHEMISTRY METHOD 02/21/2025 12:19 PM [facility] BUN 15 5 - 25 mg/dL LAB CHEMISTRY METHOD 02/21/2025 12:19 PM [facility] Creatinine 0.93 0.50 - 1.10 mg/dL LAB CHEMISTRY METHOD 02/21/2025 12:19 PM [facility] eGFR 71 >=60 mL/min/1. 73m2 LAB CHEMISTRY METHOD 02/21/2025 12:19 PM [facility] Comment:Calculation based on the Chronic Kidney Disease Epidemiology Collaboration (CKD-EPI) equation refit without adjustment for race. BUN/Creatinine Ratio 16.1 LAB CHEMISTRY METHOD 02/21/2025 12:19 PM [facility] Calcium 9.9 8.5 - 10.5 mg/dL LAB CHEMISTRY METHOD 02/21/2025 12:19 PM [facility] AST (SGOT) 20 10 - 42 unit/L LAB CHEMISTRY METHOD 02/21/2025 12:19 PM [facility] ALT (SGPT) 41 10 - 60 unit/L LAB CHEMISTRY METHOD 02/21/2025 12:19 PM [facility] Alkaline Phosphatase 64 42 - 121 unit/L LAB CHEMISTRY METHOD 02/21/2025 12:19 PM [facility] Total Protein 7.5 6.0 - 8.0 g/dL LAB CHEMISTRY METHOD 02/21/2025 12:19 PM [facility] Albumin 4.0 3.2 - 5.0 g/dL LAB CHEMISTRY METHOD 02/21/2025 12:19 PM [facility] Total Bilirubin 0.6 0.0 - 1.4 mg/dL LAB CHEMISTRY METHOD 02/21/2025 12:19 PM EDT [facility] Blood Venous blood specimen / Unknown Venipuncture / Unknown 02/21/2025 10:49 AM EDT 02/21/2025 11:37 AM EDT Karissa Jefferson MD LAB BLOOD ORDERABLE S Final Result [facility] [address] [place] [address], [place] [phone] from Last 3 Months or Most Recently Relevant to Health Maintenance Insurance [facility] [employer] Care Teams Cleaning Porter Relationship Specialty Start Date End Date Iza Hi MD [address] [facility] , [address] [facility] D/B/A: [facility] [place] PCP - General Internal Medicine 04/02/21
--- OUTSIDE RECORDS SUMMARY | 2025-10-08 18:38 | XMS_ITS | Clinical Summary ---
Author Organization [facility] Address [address] [address] Phone Care Team Providers Care Lunchroom Monitor Name Role Phone Iza Rea MD Primary [...] 2016 INFLUENZA VACCINE (#1) 2025 COVID-19 VACCINE (1 - 2024-2 6 season) 2025 RSV VACCINE (1 - 1-dose 75+ series) 2041 HEPATITIS A VACCINES Aged Out No long er eligible based on patient's age to complete this topic HIB VACCINES Aged Out No longer eligi ble based on patient's age to complete this topic IPV VACCINES Aged Out No longer eligi ble based on patient's age to complete this topic MENINGOCOCCAL VACCINES (ACWY) Aged Out No longer eligible based on patient's age to complete this topic MENINGOCOCCAL VACCINES (B) Aged Out N o longer eligible based on patient's age to complete this topic Medical Devices Not on file Insurance [facility] [place] [address] [place] [address] [place] [address] [place] [address] [facility] [facility] Care Teams Lunchroom Monitor Relationship Specialty Start Date End Date Iza Rea MD [address] [place] [address] PCP - General Internal Medicine 11/24/22 Additional Source Comments The information contained in this document represents components of the legal health record. It is not the complete legal health record.[facility]
--- OUTSIDE RECORDS SUMMARY | 2025-10-08 18:38 | XMS_ITS | Clinical Summary ---
Author Organization [facility] Address [address] [place] [address] Care Team Providers Care Director Of Teaching And Learning Name Role Phone Iza Rea MD Primary Care Provider [phone] Allergies Active Allergy Reactions Criticality Noted Date [...] Visit [facility] [address] [place] [address] Raúl Babb MD Renal stone (Primary Dx); Medullary sponge kidney with nephrocalcinosis from Last 3 Months Immunizations Immunization Administration [...] Visit [facility] [address] [place] [address] Raúl Babb MD [address] [facility] [address] [place] [phone] Health Maintenance Due Date Last Done Comments [...] EDT) Hemoglobin A1C 8.5 % DIANA Comment: Hemoglobin A1C Reference Range Adults: 4.8 - 6.0 % Non diabetic: < 6.0 % Goal: < 7.0 % Additional Action Suggested: > 8.0 % Note: Hemoglobin A1c results are invalid for patients with abnormal amounts of HbF. Blood transfusions may impact the HbA1c concentration in the patient sample. Estimated Average Glucose 197 MG/DL DIANA Comment: eAG = Estimated average glucose which is %A1C expressed as average glucose, using the formula of the Y7F-Dvojfyq Average Glucose study (ADAG), Diabetes Care, Vol.31,#8, Jun. 2007 07/08/2020 12:0 5 PM EDT Iza Hi MD LAB BLOOD ORDERABLES Final Re sult [facility]IANA from Last 3 Months or Most Recently Relevant to Health Maintenance Insurance Care Teams Director Of Teaching And Learning Relationship Specialty Start Date End Date Iza Rea MD [address] [place], [place] PCP - General 12/07/20
--- OUTSIDE RECORDS SUMMARY | 2025-10-08 18:38 | XMS_ITS | Clinical Summary ---
Author Organization [facility] Address [address] [place] [address] Care Team Providers Care Curatorial Specialist Name Role Phone Iza Rea MD Primary [...] age to complete this topic Care Teams Curatorial Specialist Relationship Specialty Start Date End Date Iza Rea MD [address] [place] [address] , [address] [facility] D/B/A[facility] [place] [address] PCP - General Internal Medicine 05/04/17
== END 2025-10-08 16:59 | disposition home or self-care (01) ==
PROVIDERS: Physician Assistant Medical; Emergency Provider Emergency Medicine; PCP Internal Medicine
DX: J20.9 Acute bronchitis, unspecified (principal); I10 Essential (primary) hypertension; E11.9 Type 2 diabetes mellitus without complications; Z88.6 Allergy status to analgesic agent; Z88.8 Allergy status to other drugs, medicaments and biological substances
CPT/HCPCS: 71046; 87637; 87651; 93005; 99283; 99284

== ENCOUNTER → 2025-10-08 14:37 | Outpatient (BNV) | payer OTHER, SELFPAY | PROVIDERS: Emergency Provider Emergency Medicine; PCP Internal Medicine; Visit Provider Internal Medicine Cardiovascular Disease | DX: R00.0 Tachycardia, unspecified (principal) | CPT/HCPCS: 93010 ==

== ENCOUNTER → 2025-10-08 14:44 | Outpatient (BNV) | payer OTHER, SELFPAY | PROVIDERS: PCP Internal Medicine; Visit Provider Radiology Diagnostic Radiology | DX: J06.9 Acute upper respiratory infection, unspecified (principal); M47.815 Spondylosis without myelopathy or radiculopathy, thoracolumbar region | CPT/HCPCS: 71046 ==

== ENCOUNTER 2025-11-01 08:22 | Emergency (ER) | payer OTHER, SELFPAY ==
--- NOTE | ~2025-11-01 | CT_ITS ---
CLINICAL HISTORY: TRAUMA CT cervical spine without intravenous contrast Comparison: None Findings: Craniocervical junction: No occipital condylar fractures. No evidence of atlantooccipital dissociation. The anterior and posterior arch and lateral masses of C1 are intact. Odontoid and atlanto-dental interval intact. The pars interarticularis of C2 is intact. There is normal vertebral body heights with no evidence of compression fracture. There is normal cervical alignment. No locked or perched facets. No spinous process fractures. Lordotic curvature is straightened. The retropharyngeal soft tissues are not widened. Segmental analysis as below (MR is more accurate in the evaluation of disc herniation and central canal pathology): C2-C3: No herniation or stenosis. C3-C4: No herniation or stenosis. C4-C5: Uncovertebral body spurs C5-C6: No herniation or stenosis. C6-C7: Uncovertebral body spurs C7-T1: No herniation or stenosis. The bones are without evidence of lytic or blastic lesion. Lung apices are unremarkable. Impression: 1. Negative CT cervical spine for acute process. This document has been electronically signed by: Duane Engel MD on 11/01/2025 10:15:28
--- NOTE | ~2025-11-01 | CT_ITS ---
CLINICAL HISTORY: TRAUMA CT head without IV contrast Comparison: MR/REG/SR - MR BRAIN WITHOUT THEN WITH IV CONTRAST - 10/17/23 11:[address]/REG/NC/SR - CT HEAD WITHOUT IV CONTRAST - 12/03/22 21:51 EST Findings: The ventricles are normal in configuration. Basilar cisterns intact. No intracranial hemorrhage, mass-effect or midline shift. No extra-axial fluid collections. The parenchyma is unremarkable in attenuation. Brice-white matter junction preserved. No evidence of acute large vessel or territorial ischemia. Brainstem and cerebellum unremarkable. The calvarium is intact. The imaged portion of the paranasal sinuses demonstrate mild left maxillary sinusitis. No mastoid effusions. The orbital contents are unremarkable. Impression: 1. No CT evidence of acute intracranial pathology. This document has been electronically signed by: Duane Engel MD on 11/01/2025 10:09:58
[2025-11-01 08:30] VITALS: BP 128/65; PULSE 89; RESP 18; TEMP 36.6; O2SAT 98; BMI 28.3
--- NOTE | 2025-11-01 08:43 | ED.FALL ---
HPI - Fall General Chief Complaint: Fall Stated Complaint: fall hit head Time Seen by Provider: 11/01/25 08:35 Source: patient Mode of arrival: ambulatory Limitations: no limitations History of Present Illness HPI Narrative: 60 YEARS OLD PRESENTED TO EMERGENCY DEPARTMENT AFTER A FALL SLIPPED AND FELL THIS MORNING COMPLAINING OF HEADACHE AND DIZZINESS AFTER THE FALL DENIES ANY CHEST WALL PAIN ANY ABDOMINAL PAIN ANY EXTREMITIES PAIN. MD complaint: fall Onset (ago): hour(s) (1) Fall from: standing Place fall occurred: street Loss of consciousness: none Symptoms prior to fall: none Context: tripped/slipped Location of injury: head Severity: moderate Associated symptoms (after fall): headache and neck pain Related Data Home Medications ?Medication ?Instructions ?Recorded ?Confirmed allopurinol 100 mg tablet 100 mg PO DAILY 03/06/23 07/03/25 omeprazole 40 mg capsule,delayed 40 mg PO DAILY 07/19/24 07/03/25 release Previous Rx's ?Medication ?Instructions ?Recorded pen needle, diabetic 32 gauge x #50 ea 12/24/20 potassium citrate 10 mEq (1,080 20 meq (2 x 10 mEq (1,080 mg)) PO 08/01/21 mg) tablet,extended release BID #120 tabs blood-glucose meter #1 ea 03/02/23 meclizine 25 mg tablet 25 mg PO DAILY PRN Dizziness Or 08/14/24 Vertigo 30 days #30 tabs hydrochlorothiazide 25 mg tablet 25 mg PO DAILY 90 days #90 tabs 03/05/25 metformin 1,000 mg tablet 1,000 mg PO BID 90 days #180 tabs 04/03/25 pyridoxine (vitamin B6) 100 mg 100 mg PO DAILY 90 days #90 tabs 05/14/25 tablet magnesium glycinate 300 mg (3 x 100 mg magnesium) PO 07/03/25 DAILY 90 days #270 caps blood sugar diagnostic #100 ea 08/26/25 simvastatin 40 mg tablet 40 mg PO BEDTIME #90 tabs 08/31/25 cholecalciferol (vitamin D3) 25 25 mcg PO .COMPLEX 90 days #36 caps 09/16/25 mcg (1,000 unit) capsule glipizide 5 mg tablet 10 mg (2 x 5 mg) PO DAILY PRN 09/23/25 Sugar Levels #90 tabs benzonatate 200 mg capsule 200 mg PO TID PRN cough #20 caps 10/08/25 prednisone 20 mg tablet 40 mg (2 x 20 mg) PO DAILY #10 tabs 10/08/25 losartan 25 mg tablet 25 mg PO DAILY 90 days #90 tabs 10/26/25 Allergies Allergy/AdvReac Type Severity Reaction Status Date / Time aspirin (ASPIRIN) Allergy Severe HX ULCER Verified 11/01/25 08:32 NSAIDS (Non-Steroidal Allergy Severe HX ULCER Verified 11/01/25 08:32 Anti-Inflamma (NSAIDS) codeine AdvReac Stomach Verified 11/01/25 08:32 Upset empagliflozin (From AdvReac hematuria Verified 11/01/25 08:32 Jardiance) oxycodone AdvReac Stomach Verified 11/01/25 08:32 Upset Review of Systems Review of Systems: Yes all other systems are reviewed and are negative [facility] Past Medical History Attestation statement: The following information was validated with the patient. Medical History Polyarthralgia Left shoulder pain Adrenal mass Elevated cholesterol Migraine Pituitary microadenoma Gotham's disease Bilateral nephrolithiasis Pancreatic mass Renal cyst Renal cysts and diabetes syndrome Liver mass Physical exam Type 2 diabetes with nephropathy Multinodular thyroid Hyperparathyroidism Vitamin D deficiency Hypercalcemia Hypercortisolism Adrenal cortical adenoma of right adrenal gland Right knee pain Type 2 diabetes mellitus with unspecified complications Tachycardia Type 2 diabetes mellitus with hyperglycemia, with long-term current use of insulin Vitamin D deficiency Adrenal nodule Carcinoid tumor of stomach Chronic kidney disease GERD (gastroesophageal reflux disease) Gout Stomach ulcer Hx of renal calculi Essential hypertension Hyperlipidemia LDL goal <100 Surgical History Hx of cystoscopy History of esophagogastroduodenoscopy (EGD) H/O colonoscopy History of gastric polyp Hx of lithotripsy Hx of hysterectomy Hx of cholecystectomy Family History Family History Father CVD (cardiovascular disease) Stomach cancer Mother Diabetes Social History Social History Household Members: Family Housing: Apartment Are you a primary manager career to a significant other at home: No Do you presently have visiting nurse or other home services: No Alcohol intake: never Patient Tobacco Use Status: Never used Tobacco Smoked in Last 30 Days: No e-Cigarette/Vaping Use: Never Used Second Hand Smoke Exposure: No Use of substances other than those prescribed or required for medical reasons: No Advance Directives: No Advance Directives Information Provided: No Do you have a plan to hurt others: No Plan Patient : No service: No Current occupational status: unemployed Current occupation: rt handed Cognitive needs: No Hearing needs: No Vision needs: Yes Physical Exam Exam: Exam: LOOKS WELL NO DISTRESS Vital Signs: Vital Signs: Last Vital Signs Temp 97.8 F 11/01/25 09:14 Pulse 81 11/01/25 10:00 Resp 14 11/01/25 10:00 BP 122/67 11/01/25 10:00 Pulse Ox 97 11/01/25 10:00 O2 Del Method Room Air 11/01/25 10:00 BMI result Body Mass Index 28.3 Const: General: cooperative, comfortable and no acute distress Nutritional Appearance: well nourished Orientation/consciousness: patient oriented x3 Limitations: no limitations HEENT: Head: Yes normal to inspection General nose exam: Normal external nose present Face and sinus: Yes normal facial exam Mouth: Normal oral and palatal mucosa present Throat: Yes posterior oropharynx normal Neck: Neck: Yes normal visual inspection and Yes full ROM Chest: Chest palpation & inspection: normal inspection of the chest Resp: Effort & Inspection: normal respiratory effort Auscultation: clear to auscultation bilaterally Cardio: Jugular venous distension: no JVD Rate: regular rate Rhythm: regular rhythm GI: Inspection: Yes normal to inspection Palpation (GI): Soft to palpation, not firm and nontender Skin: General skin exam: no rashes or lesions noted and elasticity normal Lesions: no lesions Rashes: no rashes Neuro: General: patient oriented x3 Extrem: General: Yes normal to inspection and Yes full ROM Right upper extremity: normal to inspection Left upper extremity: normal to inspection Medications Administered Discontinued Medications Generic Name Dose Route Start Last Admin Trade Name Freq PRN Reason Stop Dose Admin Acetaminophen 975 mg 11/01/25 08:46 11/01/25 09:12 Acetaminophen 325 Mg Tablet PO 11/01/25 08:47 975 mg ONCE ONE Administration Medical Decision Making Medical Decision Making MDM Narrative: PATIENT PRESENTED TO THE ED AFTER A FALL COMPLAINING OF HEAD AND NECK PAIN WE WILL OBTAIN IMAGING @ 10:[address] and C-spine negative anticipate discharge Differential Diagnosis Differential Diagnoses: The differential diagnosis associated with the presentation includes SUBDURAL HEMATOMA/EPIDURAL HEMATOMA/CERVICAL SPINE Admission/Observation Consideration of admission/observation: Escalation of care including admission/observation considered Independent Interpretation I performed an independent interpretation of an: CT Scan Interpretation: Head CT a C-spine negative Radiology Impression Discussion of test interpretation with radiology: I have reviewed the radiologist's reading. Radiologist Impression: OUT THEN WITH IV CONTRAST - 10/17/23 11:[address]/REG/FL/SR - CT HEAD WITHOUT IV CONTRAST - 12/03/22 21:51 EST Findings: The ventricles are normal in configuration. Basilar cisterns intact. No intracranial hemorrhage, mass-effect or midline shift. No extra-axial fluid collections. The parenchyma is unremarkable in attenuation. Brice-white matter junction preserved. No evidence of acute large vessel or territorial ischemia. Brainstem and cerebellum unremarkable. The calvarium is intact. The imaged portion of the paranasal sinuses demonstrate mild left maxillary sinusitis. No mastoid effusions. The orbital contents are unremarkable. Impression: 1. No CT evidence of acute intracranial pathology. This document has been electronically signed by: Duane Engel MD on 11/01/2025 10:09:58 Dictated By: Duane Engel MD Signed By: <Electronically signed by Duane Engel MD in OV> 11/01/25 1011 Chronic Conditions Patient?s care impacted by: Diabetes and Hypertension Discharge Plan Discharge Clinical Impression: Head injury Qualifiers: Encounter type: initial encounter Qualified Code(s): S09.90XA - Unspecified injury of head, initial encounter Patient Disposition: Home, Self-Care Instructions: Head Injury (DC) Additional Instructions: Follow-up with your primary care physician return to the emergency room if worse any concern Prescriptions: No Action (DME) pen needle, diabetic 32 gauge x 5/32 needle See Rx Instructions subcut DAILY Qty: 50 11RF Rx Instructions: Use pen needle once a day potassium citrate 10 mEq (1,080 mg) tablet extended release 20 meq PO BID Qty: 120 2RF (DME) blood-glucose meter Kit See Rx Instructions .ROUTE .MEDSUPPLY Qty: 1 0RF Rx Instructions: As directed meclizine 25 mg tablet 25 mg PO DAILY PRN (Reason: Dizziness Or Vertigo) 30 Days Qty: 30 3RF hydrochlorothiazide 25 mg tablet 25 mg PO DAILY 90 Days Qty: 90 1RF metformin 1,000 mg tablet 1,000 mg PO BID 90 Days Qty: 180 3RF magnesium glycinate 100 mg magnesium capsule 300 mg PO DAILY 90 Days Qty: 270 1RF (DME) blood sugar diagnostic Strip See Rx Instructions .ROUTE .MEDSUPPLY Qty: 100 0RF Rx Instructions: Use 1 test strip once a day simvastatin 40 mg tablet 40 mg PO BEDTIME Qty: 90 1RF cholecalciferol (vitamin D3) 25 mcg (1,000 unit) capsule 25 mcg PO .COMPLEX 90 Days Qty: 36 1RF Rx Instructions: 25 mcg orally 3 times per week; glipizide 5 mg tablet 10 mg PO DAILY PRN (Reason: Sugar Levels) Qty: 90 1RF losartan 25 mg tablet 25 mg PO DAILY 90 Days Qty: 90 1RF omeprazole 40 mg capsule,delayed release(DR/EC) 40 mg PO DAILY benzonatate 200 mg capsule 200 mg PO TID PRN (Reason: cough) Qty: 20 0RF prednisone 20 mg tablet 40 mg PO DAILY Qty: 10 0RF allopurinol 100 mg tablet 100 mg PO DAILY pyridoxine (vitamin B6) 100 mg tablet 100 mg PO DAILY 90 Days Qty: 90 1RF Referrals: Iza Rea MD [Primary Care Provider, Internal Medicine] - 11/03/25 Print Language: [place]
--- OUTSIDE RECORDS SUMMARY | 2025-11-01 08:58 | XMS_ITS | Clinical Summary ---
Author Organization [facility] Facility Address [address] [place] [id number] Care Team Providers Care Circulating Nurse Name Role Phone Iza Rea MD Primary Care Provider [phone] Allergies Active Allergy Reactions Criticality Noted Date Comments Aspirin 10/04/2021 Acetaminophen 10/04/2021 Medications oxyCODONE-acet aminophen (PERCOCET) 10-325 MG per tablet Take 1 [...] mouth 1 (one) time each day Active hydroCHLOROthi azide 25 MG tablet Take 1 tablet by mouth 1 (one) time each day 1 Active Dulaglutide (Trulicity) 1.5 MG/0.5ML solution pen-injector Active potassium citrate 10 MEQ (1080 MG) CR tabletIndicati ons:Chronic kidney disease stage 2 Take 2 tablets (20 mEq total) by mouth in the morning and 2 tablets (20 mEq total) in the evening. Take with meals. 120 tablet 5 5 Active allopurinol (ZYLOPRIM) 100 MG tablet TAKE TWO TABLETS BY MOUTH EVERY DAY 180 tablet 3 5 Active allopurinol (ZYLOPRIM) 100 MG tablet Take 2 tablets (200 mg total) by mouth 1 (one) time each day 180 tablet 3 5 10/26/20 25 Discontinued Active Problems Problem Noted Date Diagnosed Date [...] Encounters Date Type Department Care Team Description 10/26/2025 Refill [facility] [place] [address] [place] [phone] Raúl Babb MD from Last 3 [...] Upcoming Encounters Date Type Department Care Team ([facility] st Contact Info) Description 04/30/2026 1:30 PM EDT Office Visit [facility] [address] [place] [phone] Raúl Babb MD [address] [facility] [address] [place] [phone] Health Maintenance Due Date Last Done Comments [...] average glucose, using the formula of the M8Q-Daztpth Average Glucose study (ADAG), Diabetes Care, Vol.31,#8, Jun. 2007 07/08/2020 12:0 5 PM EDT Iza Hi MD LAB BLOOD ORDERABLES Final Re sult [facility] from Last 3 Months or Most Recently Relevant to Health Maintenance Insurance Care Teams Circulating Nurse Relationship Specialty Start Date End Date Iza Rea MD [address] [place], [place] PCP - General 12/07/20
--- OUTSIDE RECORDS SUMMARY | 2025-11-01 08:58 | XMS_ITS | Clinical Summary ---
Author Organization [facility] Prior to 04/26/[address] [place] [id number] Care Team Providers Care Video Recorder Mechanic Name Role Phone Iza Rea MD Primary [...] age to complete this topic Care Teams Video Recorder Mechanic Relationship Specialty Start Date End Date Iza Rea MD [address] [place] [address] , [address] [facility]ician [facility] D/B/A: [facility] [place], [place] [id number] PCP - General Internal Medicine 05/04/17
--- OUTSIDE RECORDS SUMMARY | 2025-11-01 08:58 | XMS_ITS | Clinical Summary ---
Author Organization [facility] Address [address] [place] [address] Phone Care Team Providers Care Fish Hatchery Assistant Name Role Phone Iza Hi MD Primary Care Provider [phone] Allergies No known active allergies Medications allopurinoL [...] tumor determined b y biopsy of stomach ([facility]/HCC V28) 05/09/2017 Essential hypertension 05/09/2017 Mixed hyperlipidemia 05/09/2017 Type 2 diabetes mellitus without complication Overview (08/27/2025): 08/27/25 Regulatory IMO Update Surgical History Surgery Date Site/Laterality Comments ESOPHAGOGASTRODUODENOSCOPY 2015 N/A PROCEDURE: [place] ESOPHAGOGASTRODUODENOSCOPY TRANSORAL DIAGNOSTIC; COMMENT: fall, gastric polyps. [...] Description 02/23/2026 10:30 AM EDT Office Visit [facility] Hematology Oncology [address] [place] [address] Karissa Jefferson MD [address] [place] [address] Health Maintenance Due Date Last [...] 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 ([facility] V28) from Last 3 Months or Most Recently Relevant to Health Maintenance Results * (ABNORMAL) Comprehensive metabolic panel (02/21/2025 10:49 AM EDT) Sodium 135 133 - 145 mmol/L LAB CHEMISTRY METHOD 02/21/2025 12:19 PM [facility] Potassium 3.9 3.5 - 5.5 mmol/L LAB CHEMISTRY METHOD 02/21/2025 12:19 PM [facility] Chloride 99 96 - 110 mmol/L LAB CHEMISTRY METHOD 02/21/2025 12:19 PM [facility] CO2 31 21 - 32 mmol/L LAB CHEMISTRY METHOD 02/21/2025 12:19 PM [facility] Anion Gap 5 3 - 11 LAB CHEMISTRY METHOD 02/21/2025 12:19 PM [facility] Glucose 147(H) 70 - 100 mg/dL LAB CHEMISTRY METHOD 02/21/2025 12:19 PM [facility] BUN 15 5 - 25 mg/dL LAB CHEMISTRY METHOD 02/21/2025 12:19 PM [facility] Creatinine 0.93 0.50 - 1.10 mg/dL LAB CHEMISTRY METHOD 02/21/2025 12:19 PM [facility] eGFR 71 >=60 mL/min/1. 73m2 LAB CHEMISTRY METHOD 02/21/2025 12:19 PM [facility] Comment:Calculation based on the Chronic Kidney Disease Epidemiology Collaboration (CKD-EPI) equation refit without adjustment for race. BUN/Creatinine Ratio 16.1 LAB CHEMISTRY METHOD 02/21/2025 12:19 PM [facility] Calcium 9.9 8.5 - 10.5 mg/dL LAB CHEMISTRY METHOD 02/21/2025 12:19 PM [facility] AST (SGOT) 20 10 - 42 unit/L LAB CHEMISTRY METHOD 02/21/2025 12:19 PM [facility] ALT (SGPT) 41 10 - 60 unit/L LAB CHEMISTRY METHOD 02/21/2025 12:19 PM [facility] Alkaline Phosphatase 64 42 - 121 unit/L LAB CHEMISTRY METHOD 02/21/2025 12:19 PM [facility] Total Protein 7.5 6.0 - 8.0 g/dL LAB CHEMISTRY METHOD 02/21/2025 12:19 PM [facility] Albumin 4.0 3.2 - 5.0 g/dL LAB CHEMISTRY METHOD 02/21/2025 12:19 PM [facility] Total Bilirubin 0.6 0.0 - 1.4 mg/dL LAB CHEMISTRY METHOD 02/21/2025 12:19 PM [facility] Blood Venous blood specimen / Unknown Venipuncture / Unknown 02/21/2025 10:49 AM EDT 02/21/2025 11:37 AM EDT us Karissa Jefferson MD LAB BLOOD ORDERABLE S Final Result [facility] [address] [place] [address], [place] [phone] from Last 3 Months or Most Recently Relevant to Health Maintenance Insurance [facility] [employer] Care Teams Fish Hatchery Assistant Relationship Specialty Start Date End Date Iza Hi MD [address] [facility] , [address] [facility] D/B/A: [facility] [place] PCP - General Internal Medicine 04/02/21
--- OUTSIDE RECORDS SUMMARY | 2025-11-01 08:58 | XMS_ITS | Clinical Summary ---
Author Organization [facility] Address [address] [address] Phone Care Team Providers Care R And D Lab Technician Name Role Phone Iza Rea MD [...] topic Medical Devices Not on file Insurance [facility] Care Teams R And D Lab Technician Relationship Specialty Start Date End Date Iza Rea MD [address] [place] [address] PCP - General Internal Medicine 11/24/22 Additional Source Comments The information contained in this document represents components of the legal health record. It is not the complete legal health record.[facility]
[2025-11-01 09:14] VITALS: BP 135/78; PULSE 82; RESP 12; TEMP 36.6; O2SAT 98
[2025-11-01 10:00] VITALS: BP 122/67; PULSE 81; RESP 14; O2SAT 97
--- NOTE | 2025-11-01 10:43 | PC.NURSE ---
Montserratian speaking but knows some danish Patient trip and fell outside with + HS, unsure LOC. Patient experiencing dizziness at this time Eyes PERRLA, denies thinners Patient on awake overnight monitor NSR Head and Spine CT = negative Plan of care on going
[2025-11-01 10:46] VITALS: BP 122/67; PULSE 81; RESP 14; TEMP 36.8; O2SAT 97
== END 2025-11-01 11:14 | disposition home or self-care (01) ==
PROVIDERS: Emergency Provider Emergency Medicine; PCP Internal Medicine
DX: S09.90XA Unspecified injury of head, initial encounter (principal); W19.XXXA Unspecified fall, initial encounter; Y92.410 Unspecified street and highway as the place of occurrence of the external cause; Y93.9 Activity, unspecified; R51.9 Headache, unspecified; R42 Dizziness and giddiness; E11.9 Type 2 diabetes mellitus without complications; I10 Essential (primary) hypertension; E78.5 Hyperlipidemia, unspecified
CPT/HCPCS: 70450; 72125; 99284

== ENCOUNTER → 2025-11-01 08:43 | Outpatient (BNV) | payer OTHER, SELFPAY | PROVIDERS: Emergency Provider Emergency Medicine; PCP Internal Medicine; Visit Provider Radiology Diagnostic Radiology | DX: Z04.3 Encounter for examination and observation following other accident (principal) | CPT/HCPCS: 70450; 72125 ==

== ENCOUNTER 2025-11-05 10:29 | Outpatient (REF) | payer OTHER, SELFPAY ==
--- NOTE | ~2025-11-05 | US_ITS ---
EXAMINATION: US RETROPERITONEAL LIMITED (RENAL ONLY) CLINICAL INFORMATION: N20.0 - Calculus of kidney. COMPARISON: Renal ultrasound on May 01, 2025 TECHNIQUE: Real-time imaging of the kidneys. FINDINGS: RIGHT KIDNEY: 11.4 cm in length. Similar cortical thinning and echogenic renal pyramids. Multiple cysts, the largest in the midpole measures 2.2 x 2.0 x 1.9 cm. Multiple echogenic foci, with the largest cluster in the lower pole measuring 1.5 x 0.6 x 0 1.4 cm. LEFT KIDNEY: 10.9 cm in length. Similar cortical thinning and echogenic renal pyramids. Multiple cysts, the largest in the midpole measuring 5.8 x 5.5 x 5.6 cm. Multiple echogenic foci, the largest measuring 0.5 x 0.3 x 0.4 cm in the midpole. US/US renal BI IMPRESSION: 1. 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 2. Multiple bilateral nonobstructing renal stones, the largest cluster on the right measuring 1.5 cm in the lower pole and largest on the left measuring 0.5 cm in the midpole. Electronically signed by: Rudy Johnson MD 11/05/2025 11:54 AM [facility]
== END 2025-11-05 10:30 | disposition home or self-care (01) ==
LOC: HO.US 10:29
PROVIDERS: PCP Internal Medicine; Visit Provider Nurse Practitioner Family
DX: N20.0 Calculus of kidney (principal)
CPT/HCPCS: 76775

== ENCOUNTER → 2025-11-05 10:32 | Outpatient (BNV) | payer OTHER, SELFPAY | PROVIDERS: PCP Internal Medicine; Visit Provider Radiology Body Imaging | DX: N20.0 Calculus of kidney (principal) | CPT/HCPCS: 76775 ==

== ENCOUNTER 2025-11-13 10:21 | Outpatient (AMB) | payer OTHER, SELFPAY ==
--- OUTSIDE RECORDS SUMMARY | 2024-09-11 06:00 | XMS_ITS ---
Author Organization [facility] Address [address] [place] [address] Care Team Providers Care Physicist Solid State Name Role Phone Iza Rea Primary Care Provider Alicia Bullard Jr, Jj Unavailable REASON FOR VISIT Patient presents today for gerd Encounters Encounter Location Date Provider Diagnosis [facility] [address] [place] [address] 09/11/2024 Jj Mullins Jr Plan Of Treatment Next Appt Details Provider Name:Jj borrego Jr, 02/18/2026 11:10:00 AM, [address], [address], [place], [address], Progress Notes * CARMINE DAWSON IDOB: (60 yo F)Acc No.[id number]:09/11/2024 Progress Notes Patient: Kadeem BARRIOSCARMINE GORDON I Provider: Jameel Mullins MD :1965 A ge:59 Y S ex:Female Date:09/11/2024 Address:[address] [id number] Pcp:Iza Hi Subjective: * Chief Complaints: * P atient presents today for gerd Billing Information: * Procedure Codes: * The named appointment provid er may or may not be the originator of this progress note, and it is not deemed complete until electronically signed by the appointment provider. Sign off status: Pending * Provider: Jameel Mullins MD Date: 1 Generated for Raul escamilla/Karolina/Kanitting on: 1 01/14/2025 12:46 PM EST
--- OUTSIDE RECORDS SUMMARY | 2025-02-07 06:30 | XMS_ITS ---
Author Organization [facility] Address [address] [place] [address] Care Team Providers Care Hourly Sign Language Interpreter Name Role Phone Iza Rea Primary Care Provider Jj Terry Jr REASON FOR VISIT epigastric pain,benign carcinoid tumor of stomach,screening Encounters Encounter Location Date Provider Diagnosis [facility] Outpatient [address] [place] [phone] 02/07/2025 Jj Mullins Jr Colon cancer screening [...] 11:10:00 AM, [address], [address], [place], [address], Progress Notes * CARMINE DAWSON IDOB: (60 yo F)Acc No.[id number]:02/07/2025 EGD and COL/MAC Patient: A CARMINE DUNCAN I Provider: Jameel Mullins MD :1965 A ge:59 Y S ex:Female Date:02/07/2025 Address:[address], [id number] Pcp:Iza Hi Subjective: * Chief Complaints: * E pigastric pain,benign carcinoid tumor of stomach,screening Assessment: * Assessment: 1. C olon cancer screening - Z12.11 (Primary) 2 . C olon polyps - K63.5? 3. E pigastric pain - R10.13 4 . B enign carcinoid tumor of unspecified site - D3A.00 Plan: * Procedure Codes: 4 5388 COLONOSCOPY [id number] UPPER GI ENDOSCOPY, BIOPSY Billing Information: * Procedure Codes: 22496 COLONOSCOPY W/ABLATION. 83014 UPPER GI ENDOSCOPY, BIOPSY. * The named appointment provid er may or may not be the originator of this progress note, and it is not deemed complete until electronically signed by the appointment provider. Sign off status: Pending * Provider: Jameel Mullins MD Date: 0 02/07/2025 Generated for Raul escamilla/Karolina/Scottiesmitting on: 1 01/14/2025 12:46 PM EST
--- NOTE | 2025-11-13 10:46 | MHC.PC.OV ---
Vital Signs 11/13/25 10:47 Height 5 ft 1 in Weight 156 lb BMI 29.5 BP 122/62 Blood Pressure Location Lt brachial Position Sitting Respiration 12 Pulse 73 Pulse Source Pulse Oximeter Temp 98.1 F Temp Source Tympanic Pulse Oximetry (%) 97 Oxygen Delivery Method Room Air Intake Visit Reasons: DM Acid Changer Required: No Accompanied by: Self / Same As Patient Allergies aspirin (ASPIRIN) Allergy (Severe, Verified 11/13/25 11:18) HX ULCER NSAIDS (Non-Steroidal Anti-Inflamma (NSAIDS) Allergy (Severe, Verified 11/13/25 11:18) HX ULCER codeine Adverse Reaction (Verified 11/13/25 11:18) Stomach Upset empagliflozin (From Jardiance) Adverse Reaction (Verified 11/13/25 11:18) hematuria oxycodone Adverse Reaction (Verified 11/13/25 11:18) Stomach Upset Medication List - Last Reconciled 11/13/25 by Iza Hi MD allopurinol 100 mg PO DAILY benzonatate 200 mg PO TID PRN blood sugar diagnostic Use 1 test strip once a day blood-glucose meter As directed cholecalciferol (vitamin D3) 25 mcg orally 3 times per week; 90 days glipizide 10 mg (2 x 5 mg) PO DAILY PRN hydrochlorothiazide 25 mg PO DAILY 90 days losartan 25 mg PO DAILY 90 days magnesium glycinate 300 mg (3 x 100 mg magnesium) PO DAILY 90 days meclizine 25 mg PO DAILY PRN 30 days metformin 1,000 mg PO BID 90 days omeprazole 40 mg PO DAILY pen needle, diabetic Use pen needle once a day potassium citrate ER 20 mEq (2 x 10 mEq (1,080 mg)) PO BID pyridoxine (vitamin B6) 100 mg PO DAILY 90 days simvastatin 40 mg PO BEDTIME Tobacco use date assessed: 03/25/25 Dental Screening Dental Screen Date: 03/25/25 HPI HPI Comments History of Present Illness Details The patient is a 60 year old female presenting for a follow-up visit for management of her hypertension, diabetes, hyperlipidemia and microalbuminuria. She reports still having a slight cough. An ultrasound of the kidneys performed last week revealed a left medullary sponge kidney. The patient takes allopurinol for her kidneys, not for gout. Her last labs in June showed low magnesium. She recently experienced headache and neck pain, which prompted a head CT that was normal and a neck CT that was also unremarkable. She denies chest pain. Past medical history includes an adenomatous polyp found on a prior colonoscopy. Her current medications include vitamin D, glipizide, hydrochlorothiazide, losartan, magnesium, metformin 1000 mg twice daily, omeprazole, potassium, vitamin B6, and simvastatin. [facility] Medical History (Updated 11/13/25 @ 11:32 by Iza Hi MD) Polyarthralgia Left shoulder pain Adrenal mass Elevated cholesterol Migraine Pituitary microadenoma Lagro's disease Bilateral nephrolithiasis Pancreatic mass Renal cyst Renal cysts and diabetes syndrome Liver mass Physical exam Type 2 diabetes with nephropathy Multinodular thyroid Hyperparathyroidism Vitamin D deficiency Hypercalcemia Hypercortisolism Adrenal cortical adenoma of right adrenal gland Right knee pain Type 2 diabetes mellitus with unspecified complications Tachycardia Type 2 diabetes mellitus with hyperglycemia, with long-term current use of insulin Vitamin D deficiency Adrenal nodule Carcinoid tumor of stomach Chronic kidney disease GERD (gastroesophageal reflux disease) Gout Stomach ulcer Hx of renal calculi Essential hypertension Hyperlipidemia LDL goal <100 Surgical History Hx of cystoscopy History of esophagogastroduodenoscopy (EGD) H/O colonoscopy History of gastric polyp Hx of lithotripsy Hx of hysterectomy Hx of cholecystectomy Family History Father CVD (cardiovascular disease) Stomach cancer Mother Diabetes Social History Household Members: Family Housing: Apartment Are you a primary childbirth and infant care teacher to a significant other at home: No Do you presently have visiting nurse or other home services: No Alcohol intake: never Patient Tobacco Use Status: Never used Tobacco e-Cigarette/Vaping Use: Never Used Second Hand Smoke Exposure: No service: No Current occupational status: unemployed Current occupation: rt handed Cognitive needs: No Hearing needs: No Vision needs: Yes Questionnaire PHQ-9 Over the last 2 weeks, how often have you been bothered by any of the following problems? 1. Little interest or pleasure in doing things: not at all 2. Feeling down, depressed, or hopeless: not at all 3. Trouble falling or staying asleep, or sleeping too much: several days (About 2/3 days a week) 4. Feeling tired or having little energy: more than half the days 5. Poor appetite or overeating: not at all 6. Feeling bad about yourself - or that you are a failure or have let yourself or your family down: not at all 7. Trouble concentrating on things, such as reading the newspaper or watching television: several days (3/4 times a week) 8. Moving or speaking so slowly that other people could have noticed. Or the opposite - being so fidgety or restless that you have been moving around a lot more than usual: not at all 9. Thoughts that you would be better off or of hurting yourself in some way: not at all Total score: 4 Depression Screening Interpretation: Positive Depression Screening Follow-up: Existing condition, In treatment and Follow-up Visit Requested Depression Screening Done: Yes 06495 - PHQ-9 Billing: Yes Source: Developed by Drs. Seven Mast, Stephanie Llanos, Rubén Walker and colleagues, with an educational dave from [employer]. Thrive Questionnaire Date Thrive assessed: 11/13/25 I am a: Patient What is your living situation today?: I have a steady place to live Within the past 12 months, did the food you bought not last and you didn't have the money to get more?: Never true Within the past 12 months, did you worry whether your food would run out before you got money to buy more?: Never true Do you have trouble paying for medicines?: No Do you have trouble getting transportation to medical appointments?: No Do you have trouble paying your heating and electricity bill?: No Do you have trouble taking care of your child, family member or friend?: No Do you have trouble with day-to-day activities such as bathing, preparing meals, shopping, managing finances, etc.?: No Are you currently unemployed and looking for a job?: No Are you interested in more education?: No Please select the resources that you would like help with: None Currently or been in a relationship where the following occur: No concerns reported THRIVE Score: 0 ANTONIO-7 AMB Questionnaire ANTONIO-7 Date ANTONIO - 7 assessed: 03/25/25 Source: Developed by Drs. Seven Mast, Stephanie Llanos, Rubén Walker and colleagues, with an educational dave from [employer]. Review of Systems Const All systems reviewed & are unremarkable except as noted in HPI and below Card Denies chest pain at rest, Denies chest pain with activity, Denies edema, Denies irregular heart rhythm, Denies claudication, Denies dyspnea, Denies dyspnea on exertion, Denies orthopnea, Denies paroxysmal nocturnal dyspnea and Denies slow heart rate Resp Denies cough, Denies dyspnea and Denies dyspnea on exertion Physical exam (Primary Care) Vital Signs: Last Vital Signs Temp 98.1 F 11/13/25 10:47 Pulse 73 11/13/25 10:47 Resp 12 11/13/25 10:47 BP 122/62 11/13/25 10:47 Pulse Ox 97 11/13/25 10:47 Oxygen Delivery Method Room Air 11/13/25 10:47 BMI result Body Mass Index 2.9 Tobacco/Smoking Status: Tobacco use Status Tobacco use date assessed 03/25/25 11/13/25 10:51 Patient Tobacco Use Status Never used Tobacco 11/13/25 10:51 e-Cigarette/Vaping Use Never Used 11/13/25 10:51 PHQ-9: PHQ-9 Score PHQ-9: Total score 4 11/13/25 10:51 Depression Screening Interpretation: Positive Depression Screening Follow-up: Existing condition, In treatment and Follow-up Visit Requested Thrive Assessment: Date of Thrive Assessment Date Thrive assessed 11/13/25 11/13/25 10:51 Currently or been in a relationship where the following occur: No concerns reported Resp Effort & Inspection: normal respiratory effort Auscultation: clear to auscultation bilaterally Cardio Jugular venous distension: no JVD Rate: regular rate Rhythm: regular rhythm Heart sounds: S1 normal heart sound present and S2 normal heart sound present Extrem General: Yes full ROM Coding Level of Care Code Add On Preventative Visit Only Diagnoses Type 2 diabetes mellitus with hyperglycemia, with long-term current use of insulin E11.65; Z79.4 Essential hypertension I10 Hyperlipidemia LDL goal <70 E78.5 Nephrolithiasis N20.0 Additional Codes PHQ-9 - 16404 - PHQ-9 Billing: Yes ([id number]) Time Spent (min) 21 Assessment & Plan Assessment & Plan (1) Type 2 diabetes mellitus with hyperglycemia, with long-term current use of insulin: Code(s): E11.65 - Type 2 diabetes mellitus with hyperglycemia; Z79.4 - MCFP (current) use of insulin Category: Medical (2) Essential hypertension: Code(s): I10 - Essential (primary) hypertension Category: Medical (3) Hyperlipidemia LDL goal <70: Code(s): E78.5 - Hyperlipidemia, unspecified Category: Medical (4) Nephrolithiasis: Code(s): N20.0 - Calculus of kidney Category: Medical Plan Plan 1. Medullary Sponge Kidney, Left The patient was recently diagnosed with a left medullary sponge kidney via ultrasound. She will continue to follow up with her fish and game club manager for this condition. She will also continue her current medications, including allopurinol, which she takes for her kidneys and not for gout. Repeat labs will be ordered for her next visit in 4 months. 2. Diabetes mellitus type 2 A1c goal is equal or less than 7%. 3. Mild Persistent Cough The patient reports a lingering, mild cough which is expected to resolve over time. No new interventions are planned at this time. 4. Hyperlipidemia Continue statins. LDL goal is less than 70. Orders: Orders Microalbumin, Random (w Creat) 4 Months R80.9 - Proteinuria, unspecified Comprehensive [place]. Panel Fast 4 Months E11.65 - Type 2 diabetes mellitus with hyperglycemia, I10 - Essential (primary) hypertension, Z79.4 - terminal gauger supervisor (current) use of insulin US abdomen limited Today R10.11 - Right upper quadrant pain AMB Hemoglobin A1c Today E11.65 - Type 2 diabetes mellitus with hyperglycemia, Z79.4 - terminal gauger supervisor (current) use of insulin Lipid Panel 4 Months E78.5 - Hyperlipidemia, unspecified Vitamin D 25-OH Total 4 Months E55.9 - Vitamin D deficiency, unspecified Vitamin B12 and Folate 4 Months E53.8 - Deficiency of other specified B group vitamins
[2025-11-13 10:47] VITALS: BP 122/62; PULSE 73; RESP 12; TEMP 36.7; O2SAT 97; BMI 29.5
--- OUTSIDE RECORDS SUMMARY | 2025-11-13 12:46 | XMS_ITS | Patient Health Record ---
Author Organization [facility] Address [address] [place] [address] Care Team Providers Care House Designer Name Role Phone Iza Rea Primary Care Provider Jj Terry Jr Unavailable Allergies Allergen (clinical drug ingredient) Drug/Non Drug Allergy documented on EMR Reaction Allergy Type Onset Date Status mold and dust (uncoded) Unknown Allergy Active Results Component Value Reference Range Flag Notes Glucose, Whole Blood Reviewed date:02/11/2025 01:22:57 PM Interpretation: Performing Lab:[facility], [address] [place] [phone] Notes/Report: Glucose, Whole Blood 158 60-115 mg/dL H TX TER #: [id number] Pathology Reviewed date:02/11/2025 02:34:55 PM Interpretation: Performing Lab:[facility], [address] [place] [phone] Notes/Report: Reason For Referral No Information Medications Medication SIG (Take, Route, Frequency, Duration) Notes Start Date End Date Status Simvastatin 20 MG Tablet 1 tablet in the evening Orally Once a day Active glipiZIDE XL 10 MG Tablet Extended Release 24 Hour 1 tablet Orally Once a day Active Diflucan 200 MG Tablet 1 tablet Orally DAILY; Duration: 14 days 02/11/2025 Active Losartan Potassium 25 MG Tablet 1 tablet Orally Once a day Active Potassium Citrate - Powder Active Omeprazole 40 MG Capsule Delayed Release TAKE ONE CAPSULE BY MOUTH EVERY DAY 30 MINUTES BEFORE THE MORNING MEAL; Duration: 30 Active Meclizine HCl 25 MG Tablet Chewable 1 tablet as needed Orally Once a day Active Ygmrdhdtdb-HDHK-Csjbgdnk 50-325-40 MG Tablet 1 tablet as needed Orally prn Active metFORMIN HCl 500 MG Tablet 1 tablet wit h meals Orally Twice a day Active Allopurinol 100 MG Tablet 1 tablet Orall y Once a day Active hydroCHLOROthiazide 12.5 MG Tablet 1 tablet in the morning Orally Once a day Active Immunizations Vaccine Route Administration Date Status Comme nts Influenza Unknown 02/21/2019 Administered Influenza Unknown 11/08/2021 Refused Influenza Unknown 05/10/2023 Refused Influenza Unknown 12/25/2024 Refused Social History Tobacco Use: Social History Observation Description Date Details (start date - stop date) Never Smoker NA - NA Social History Drugs/Alcohol: Social Info Question Answer Notes Alcohol Screen Did you have a drink containing alcohol in the past year? 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 Problems Problem Type SNOMED Code ICD Code Onset Dates Problem Status W/U Status Risk Notes Problem Colon cancer screening (631062805) Colon cancer screening (Z12.11) Active confirmed Problem Epigastric pain (32672463) Epigastric pain (R10.13) Active confirmed Problem Gastro-esophage al reflux disease without esophagitis (534358420) Gastro-esophagea l reflux disease without esophagitis (K21.9) Active confirmed Problem Benign carcinoid tumor of stomach (97396769008999 9) 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 Problem Computed tomography of abdomen abnormal (32178629680935 107) Abnormal CT scan, stomach (R93.3) Active confirmed Problem Abnormal findings diagnostic imaging of liver and biliary tract (681021544) Abnormal computerized tomography of biliary tract (R93.2) Active confirmed Vital Signs Temperature 97.7 degrees Fahrenheit 12/25/2024 Blood pressure diastolic 001 mm Hg 12/25/2024 Height 62 in 12/25/2024 Blood pressure systolic 001 mm Hg 12/25/2024 Weight 151.8 lbs 12/25/2024 BMI 27.76 kg/m2 12/25/2024 Encounters Encounter Location Date Provider Diagnosis [facility] [place] [facility] [address] [place] [id number] 02/07/2025 Jj Mullins Jr Colon cancer screening Z12.11 ; Colon polyps K63.5 ; Epigastric pain R10.13 and Benign carcinoid tumor of unspecified site D3A.00 [facility] [address] [place] [address] 12/25/2024 Jj Mullins Jr Epigastric pain R10.13 ; Benign carcinoid tumor of stomach D3A.092 ; Colon cancer screening Z12.11 and Gastroesophageal reflux disease, unspecified whether esophagitis present K21.9 [facility] [address] [place] [address] 02/11/2025 Jj Mullins Jr Michelle esophagitis B37.81 [...] hydrochlorothiazide the day before the procedure. 02/07/2025 Epigastric pain (ICD-10 - R10.13) 02/07/2025 [...] Provider Name:Jj borrego Jr, 02/18/2026 11:10:00 AM, [address] [place] [address], [facility] [address], [place], [address], Insurance Providers Payer Name Payer Address Payer Phone Subscriber Number Group Number Insured Name Patient Relationship to Insured Coverage Start Date Coverage End Date [facility] [address] [address] [place], [place] [id number] CARMINE DAWSON Self - patient is the [...]
--- OUTSIDE RECORDS SUMMARY | 2025-11-13 12:47 | XMS_ITS | Clinical Summary ---
Author Organization [facility] Address [address] [address] Phone Care Team Providers Care Senior Program Planner Name Role Phone Iza Rea MD Primary [...] Medical Devices Not on file Insurance [facility] Care Teams Senior Program Planner Relationship Specialty Start Date End Date Iza Rea MD [address] [place] [address] PCP - General Internal Medicine 11/24/22 Additional Source Comments The information contained in this document represents components of the legal health record. It is not the complete legal health record.[facility]
--- OUTSIDE RECORDS SUMMARY | 2025-11-13 12:47 | XMS_ITS | Clinical Summary ---
Author Organization [facility] Address [address] [place] [address] Phone Care Team Providers Care Miller Kiln Dried Salt Name Role Phone Iza Hi MD Primary Care Provider [phone] Allergies No known active allergies Medications allopurinoL [...] Date Site/Laterality Comments ESOPHAGOGASTRODUODENOSCOPY 2015 N/A PROCEDURE: [place] ESOPHAGOGASTRODUODENOSCOPY TRANSORAL DIAGNOSTIC; COMMENT: fall, gastric polyps. [...] Description 02/23/2026 10:30 AM EDT Office Visit [facility] Hematology Oncology [address] [place] [address] Karissa Jefferson MD [address] [place] [address] Health Maintenance Due Date Last [...] 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 ([facility] V28) from Last 3 Months or Most Recently Relevant to Health Maintenance Results * (ABNORMAL) Comprehensive metabolic panel (02/21/2025 10:49 AM EDT) Sodium 135 133 - 145 mmol/L LAB CHEMISTRY METHOD 02/21/2025 12:19 PM [facility] Potassium 3.9 3.5 - 5.5 mmol/L LAB CHEMISTRY METHOD 02/21/2025 12:19 PM [facility] Chloride 99 96 - 110 mmol/L LAB CHEMISTRY METHOD 02/21/2025 12:19 PM [facility] CO2 31 21 - 32 mmol/L LAB CHEMISTRY METHOD 02/21/2025 12:19 PM [facility] Anion Gap 5 3 - 11 LAB CHEMISTRY METHOD 02/21/2025 12:19 PM [facility] Glucose 147(H) 70 - 100 mg/dL LAB CHEMISTRY METHOD 02/21/2025 12:19 PM [facility] BUN 15 5 - 25 mg/dL LAB CHEMISTRY METHOD 02/21/2025 12:19 PM [facility] Creatinine 0.93 0.50 - 1.10 mg/dL LAB CHEMISTRY METHOD 02/21/2025 12:19 PM [facility] eGFR 71 >=60 mL/min/1. 73m2 LAB CHEMISTRY METHOD 02/21/2025 12:19 PM [facility] Comment:Calculation based on the Chronic Kidney Disease Epidemiology Collaboration (CKD-EPI) equation refit without adjustment for race. BUN/Creatinine Ratio 16.1 LAB CHEMISTRY METHOD 02/21/2025 12:19 PM [facility] Calcium 9.9 8.5 - 10.5 mg/dL LAB CHEMISTRY METHOD 02/21/2025 12:19 PM [facility] AST (SGOT) 20 10 - 42 unit/L LAB CHEMISTRY METHOD 02/21/2025 12:19 PM [facility] ALT (SGPT) 41 10 - 60 unit/L LAB CHEMISTRY METHOD 02/21/2025 12:19 PM [facility] Alkaline Phosphatase 64 42 - 121 unit/L LAB CHEMISTRY METHOD 02/21/2025 12:19 PM [facility] Total Protein 7.5 6.0 - 8.0 g/dL LAB CHEMISTRY METHOD 02/21/2025 12:19 PM [facility] Albumin 4.0 3.2 - 5.0 g/dL LAB CHEMISTRY METHOD 02/21/2025 12:19 PM [facility] Total Bilirubin 0.6 0.0 - 1.4 mg/dL LAB CHEMISTRY METHOD 02/21/2025 12:19 PM [facility] Blood Venous blood specimen / Unknown Venipuncture / Unknown 02/21/2025 10:49 AM EDT 02/21/2025 11:37 AM EDT us Subramony Subramonia-Jenny MD LAB BLOOD ORDERABLE S Final Result [facility] [address] [place] [address], from Last 3 Months or Most Recently Relevant to Health Maintenance Insurance [facility] Care Teams Miller Kiln Dried Salt Relationship Specialty Start Date End Date Iza Hi MD [address] [place] [address] , [address] [facility] D/B/A: [facility] [place] PCP - General Internal Medicine 04/02/21
--- OUTSIDE RECORDS SUMMARY | 2025-11-13 12:47 | XMS_ITS | Clinical Summary ---
Author Organization [facility] Address [address] [place] [address] Care Team Providers Care Control Room Supervisor Name Role Phone Iza Rea MD Primary Care Provider [phone] Allergies Active Allergy Reactions Criticality Noted Date [...] 10/26/2025 Refill [facility] [place] [address] [place] [address] Raúl Babb MD from Last 3 [...] Upcoming Encounters Date Type Department Care Team ([facility] st Contact Info) Description 04/30/2026 1:30 PM EDT Office Visit [facility] [address] [place] [address] Raúl Babb MD [address] [facility] [address] [place] [phone] Health Maintenance Due Date Last Done Comments [...] average glucose, using the formula of the N6O-Hvljflz Average Glucose study (ADAG), Diabetes Care, Vol.31,#8, Jun. 2007 07/08/2020 12:0 5 PM EDT Iza Hi MD LAB BLOOD ORDERABLES Final [facility] from Last 3 Months or Most Recently Relevant to Health Maintenance Insurance Care Teams Control Room Supervisor Relationship Specialty Start Date End Date Iza Rea MD [address] [place], [place] PCP - General 12/07/20
--- OUTSIDE RECORDS SUMMARY | 2025-11-13 12:47 | XMS_ITS | Clinical Summary ---
Author Organization [facility] Prior to 04/26/[address] [place] [address] Care Team Providers Care Switch Technician Name Role Phone Iza Rea MD [...] age to complete this topic Care Teams Switch Technician Relationship Specialty Start Date End Date Iza Rea MD [address] [place] [address] , [address] [facility] D/B/A: [facility] [place], [place] [id number] PCP - General Internal Medicine 05/04/17
== END 2025-11-13 11:32 | disposition home or self-care (01) ==
LOC: HO.HMCH 10:22
PROVIDERS: PCP Internal Medicine; Visit Provider Internal Medicine
DX: E11.65 Type 2 diabetes mellitus with hyperglycemia (principal); Z79.4 Long term (current) use of insulin; I10 Essential (primary) hypertension; E78.5 Hyperlipidemia, unspecified; N20.0 Calculus of kidney

== ENCOUNTER → 2025-11-13 10:21 | Outpatient (BNVA) | payer OTHER, SELFPAY | PROVIDERS: PCP Internal Medicine; Visit Provider Internal Medicine | DX: I10 Essential (primary) hypertension (principal); E78.5 Hyperlipidemia, unspecified; R80.9 Proteinuria, unspecified; Q61.5 Medullary cystic kidney; E11.65 Type 2 diabetes mellitus with hyperglycemia; N20.0 Calculus of kidney; Z79.4 Long term (current) use of insulin | CPT/HCPCS: 96127; 99212 ==